=== PATIENT | male | born 1950 | race African-American/Black ===

== ENCOUNTER 2016-11-29 17:09 | Inpatient (IN) | payer OTHER, MEDICARE ==
[~2016-11-29] VITALS: Ht 157.5 cm; Wt 68.9 kg
[~2016-11-29 17:09] MED LIST: UNOBMED
[2016-11-29 19:13] VITALS: BP 81/44
[2016-11-29 19:26] LABS: BASOPHILS % (AUTO) 1.6 % (0.0-2.0); EOSINOPHILS % (AUTO) 0.9 % (0.0-3.0); LYMPHOCYTES % (AUTO) 11.9 % (20.0-45.0); MEAN CORPUSCULAR HEMOGLOBIN 27.6 PG (27.0-31.0); MEAN CORPUSCULAR HGB CONC 31.1 G/DL (32.0-36.0); MEAN CORPUSCULAR VOLUME 89 FL (80-99); MEAN PLATELET VOLUME 5.4 FL (6.5-10.1); MONOCYTES % (AUTO) 10.7 % (1.0-10.0); NEUTROPHILS % (AUTO) 74.9 % (45.0-75.0); PLATELET COUNT 282 K/UL (150-450); RED BLOOD COUNT 4.06 M/UL (4.70-6.10); RED CELL DISTRIBUTION WIDTH 14.4 % (11.6-14.8); WHITE BLOOD COUNT 11.4 K/UL (4.8-10.8)
[2016-11-29 19:39] LABS: INR 1.2 (0.9-1.1); PROTHROMBIN TIME 12.9 SEC (9.30-11.50)
[2016-11-29 19:49] LABS: REFLEX LACTIC ACID YES OR NO YES
[2016-11-29 19:53] LABS: ALANINE AMINOTRANSFERASE 14 U/L (12-78); ALBUMIN/GLOBULIN RATIO 0.6 (1.0-2.7); ANION GAP 9 mmol/L (5-15); ASPARTATE AMINO TRANSFERASE 20 U/L (15-37); CALCIUM 9.4 MG/DL (8.5-10.1); CARBON DIOXIDE 24 MMOL/L (21-32); CHLORIDE 90 MMOL/L (98-107); CREATININE 5.2 MG/DL (0.55-1.30); GLOMERULAR FILTRATION RATE 13.6 mL/min (>60); MAGNESIUM 2.3 MG/DL (1.8-2.4); POTASSIUM 5.1 MMOL/L (3.5-5.1); SODIUM 123 MMOL/L (136-145); TOTAL PROTEIN 7.9 G/DL (6.4-8.2)
[2016-11-29 22:04] LABS: APPEARANCE,URINE SLIGHTLY CLOUDY; KETONES,URINE NEGATIVE (NEGATIVE); LEUKOCYTE ESTERASE ,URINE 3+ (NEGATIVE); NITRITE,URINE NEGATIVE (NEGATIVE); PH,URINE 6 (4.5-8.0); PROTEIN,URINE 2+ (NEGATIVE); UROBILINOGEN,URINE NORMAL MG/DL (0.0-1.0)
[2016-11-29 22:11] LABS: RBC,URINE 20-30 /HPF (0 - 0)
[2016-11-29 22:12] LABS: AMORPHOUS SEDIMENT,UR FEW /LPF; BACTERIA,URINE MODERATE /HPF; WBC,URINE 60-80 /HPF (0 - 0)
[2016-11-29 22:37] VITALS: BP 103/62
--- NOTE | 2016-11-29 22:45 | Emergency Room Report ---
History of Present Illness General Chief Complaint: Generalized Weakness Source: Patient, Family Member, EMS Present Illness HPI This patient is brought in by EMS from home. History is primarily obtained from the who I spoke with on the phone. The patient has a home health nurse has been monitoring him. Apparently, for the past few days the patient has had a low blood pressure. Today the blood pressure was the lowest it has been. Apparently the systolic blood pressure was measured at 60 at home. There 's been no recent illness. There's been no fever or chills. There has had no cough or congestion. Patient denies pain. There no other complaints. Allergies: Coded Allergies: PENICILLINS (Verified Allergy, Intermediate, Hives, 03/29/13) Patient History Past Medical History: see triage record, old chart reviewed, DM, HTN, ID, CAD, asthma Social History: Denies: smoking, alcohol use, drug use Reviewed Nursing Documentation: PMH: Agreed, PSxH: Agreed Nursing Documentation-PMH Hx Cardiac Problems: Yes - ?CHF Hx Hypertension: Yes Hx Asthma: Yes Hx Diabetes: Yes - [place] Review of Systems All Other Systems: negative except mentioned in HPI Physical Exam Vital Signs Date Time Temp Pulse Resp B/P (MAP) Pulse Ox O2 Delivery O2 Flow Rate FiO2 11/29/16 17:03 98.8 60 20 81/44 98 Room Air Sp02 EP Interpretation: reviewed, normal General Appearance: no apparent distress, alert, GCS 15, non-toxic Head: normocephalic, atraumatic Eyes: bilateral eye normal inspection, bilateral eye PERRL ENT: hearing grossly normal, normal pharynx, no angioedema, normal voice Neck: full range of motion, supple/symm/no masses Respiratory: chest non-tender, lungs clear, normal breath sounds, speaking full sentences Cardiovascular #1: no edema, tachycardia Gastrointestinal: normal bowel sounds, non tender, soft, non-distended, no guarding, no rebound Rectal: deferred Musculoskeletal: back normal, non-tender Neurologic: alert, oriented x3, responsive, motor strength/tone normal, speech normal Psychiatric: judgement/insight normal, memory normal, mood/affect normal, no suicidal/homicidal ideation Skin: normal color, no rash, warm/dry, well hydrated Medical Decision Making Diagnostic Impression: Primary Impression: Hypotension Additional Impressions: Renal failure Elevated troponin ER Course This patient presents with hypotension. Possibly this is prerenal. He says also found to be in renal failure with a creatinine of 5.2 and a BUN of 84. The patient's troponin is slightly elevated. I suspect this is related to renal failure. There is no evidence of infection on history physical and laboratory workup. I am unsure of the etiology of the patient's renal failure although possibly dehydration or medication related. Regardless, the patient is admitted for further evaluation and monitoring. The patient was given aggressive IV fluids and did have improvement in his blood pressure to 103/60. The patient is slightly tachycardic in the low 100s. Given the patient's abnormal vital signs and elevated troponin I feel this patient should be admitted to the ICU step down. This patient is critically ill. This patient required complex medical decision- making, aggressive intervention, extensive laboratory workup and monitoring. Critical care time: 40 minutes. Laboratory Tests Test 11/29/16 19:10 11/29/16 21:25 White Blood Count 11.4 K/UL (4.8-10.8) H Red Blood Count 4.06 M/UL (4.70-6.10) L Hemoglobin 11.2 G/DL (14.2-18.0) L Hematocrit 36.1 % (42.0-52.0) L Mean Corpuscular Volume 89 FL (80-99) Mean Corpuscular Hemoglobin 27.6 PG (27.0-31.0) Mean Corpuscular Hemoglobin Concent 31.1 G/DL (32.0-36.0) L Red Cell Distribution Width 14.4 % (11.6-14.8) Platelet Count 282 K/UL (150-450) Mean Platelet Volume 5.4 FL (6.5-10.1) L Neutrophils (%) (Auto) 74.9 % (45.0-75.0) Lymphocytes (%) (Auto) 11.9 % (20.0-45.0) L Monocytes (%) (Auto) 10.7 % (1.0-10.0) H Eosinophils (%) (Auto) 0.9 % (0.0-3.0) Basophils (%) (Auto) 1.6 % (0.0-2.0) Prothrombin Time 12.9 SEC (9.30-11.50) H Prothrombin Time INR 1.2 (0.9-1.1) H PTT 32 SEC (23-33) Sodium Level 123 MMOL/L (136-145) L Potassium Level 5.1 MMOL/L (3.5-5.1) Chloride Level 90 MMOL/L (98-107) L Carbon Dioxide Level 24 MMOL/L (21-32) Anion Gap 9 mmol/L (5-15) Blood Urea Nitrogen 84 mg/dL (7-18) H Creatinine 5.2 MG/DL (0.55-1.30) H Estimate Glomerular Filtration Rate 13.6 mL/min (>60) Glucose Level 108 MG/DL (74-106) H Lactic Acid Level 2.10 mmol/L (0.66-2.22) Calcium Level 9.4 MG/DL (8.5-10.1) Magnesium Level 2.3 MG/DL (1.8-2.4) Total Bilirubin 0.5 MG/DL (0.2-1.0) Aspartate Amino Transferase (AST) 20 U/L (15-37) Alanine Aminotransferase (ALT) 14 U/L (12-78) Alkaline Phosphatase 59 U/L (46-116) Total Creatine Kinase 156 U/L (26-308) Creatine Kinase MB 1.0 NG/ML (0.0-3.6) Creatine Kinase MB Relative Index 0.6 Troponin I 0.075 ng/mL (0.000-0.056) Total Protein 7.9 G/DL (6.4-8.2) Albumin 3.0 G/DL (3.4-5.0) L Globulin 4.9 g/dL Albumin/Globulin Ratio 0.6 (1.0-2.7) L Urine Color Yellow Urine Appearance Slightly cloudy Urine pH 6 (4.5-8.0) Urine Specific [place] 1.010 (1.005-1.035) Urine Protein 2+ (NEGATIVE) H Urine Glucose (UA) Negative (NEGATIVE) Urine Ketones Negative (NEGATIVE) Urine Occult Blood 4+ (NEGATIVE) H Urine Nitrite Negative (NEGATIVE) Urine Bilirubin Negative (NEGATIVE) Urine Urobilinogen Normal MG/DL (0.0-1.0) Urine Leukocyte Esterase 3+ (NEGATIVE) H Urine RBC 20-30 /HPF (0 - 0) H Urine WBC 60-80 /HPF (0 - 0) H Urine Squamous Epithelial Cells None /LPF (NONE/OCC) Urine Amorphous Sediment Few /LPF (NONE) H Urine Bacteria Moderate /HPF (NONE) H EKG Diagnostic Results Rate: normal Rhythm: other ST Segments: no acute changes Other Impression SR w/ 1st degree AV block. Rhythm Strip Diag. Results EP Interpretation: yes Rate: 100's Rhythm: no PVC's, no ectopy, other Other Impression SR w 1st degree AV block Chest X-Ray Diagnostic Results Chest X-Ray Diagnostic Results : Chest X-Ray Ordered: Yes # of Views/Limited/Complete: 1 View Indication: Other EP Interpretation: Yes Interpretation: no consolidation, no effusion, no pneumothorax, no acute cardiopulmonary disease Impression: No acute disease Electronically Signed by: Anita Last Vital Signs Date Time Temp Pulse Resp B/P (MAP) Pulse Ox O2 Delivery O2 Flow Rate FiO2 11/29/16 19:13 98.8 78 20 81/44 98 Room Air Status: improved Disposition: ADMITTED INPATIENT Condition: Critical [facility] ANIKA VILLANUEVA D.O. Nov 29, 2016 22:45
[2016-11-29] MEDS ORDERED: Albuterol/Ipratropium 3ml neb HHN PRN (23:15)
[2016-11-29] MEDS ORDERED: Mylanta II UD 30ml ORAL PRN (23:15)
[2016-11-29] MEDS ORDERED: Zolpidem 5mg tab ORAL PRN (23:15)
[2016-11-29] MEDS ORDERED: Miralax 17gm pkt ORAL PRN (23:15)
[2016-11-29] MEDS ORDERED: Morphine Sulfate 2mg/ml Inj IVP PRN (23:15)
[2016-11-29] MEDS ORDERED: cefTRIAXone 1 GM in D5W 55 ML IVPB ONE (23:15)
[2016-11-29] MEDS ORDERED: ENALAPRIL MALEA10 MG ORAL (23:32)
[2016-11-29] MEDS ORDERED: METOPROLOL SUCC25 MG ORAL (23:32)
[2016-11-29] MEDS ORDERED: GABAPENTIN300 MG ORAL (23:32)
[2016-11-29] MEDS ORDERED: FUROSEMIDE40 MG ORAL (23:32)
[2016-11-29] MEDS ORDERED: insulin (23:32)
[2016-11-29] MEDS ORDERED: FLOMAX0.4 MG ORAL (23:32)
[2016-11-29] MEDS ORDERED: SOLU-MEDROL500 MG IV (23:32)
[2016-11-29] MEDS ORDERED: PROSCAR5 MG ORAL (23:32)
[2016-11-29] MEDS ORDERED: OMEPRAZOLE20 M2 ORAL (23:32)
[2016-11-29] MEDS ORDERED: eye drops (23:32)
[2016-11-29] MEDS ORDERED: POTASSIUM CHLO20 ME2 ORAL (23:32)
[2016-11-30] VITALS: BP 101/56
[2016-11-30] MEDS ORDERED: D5NS 1,000 ML IV SCH (02:15)
[2016-11-30 04:00] VITALS: BP 104/51
[2016-11-30] MEDS: NovoLOG Insulin Flexpen SUBQ SCH ×4 (05:43→21:35)
[2016-11-30 06:02] LABS: EOSINOPHILS % (AUTO) 2.2 % (0.0-3.0); LYMPHOCYTES % (AUTO) 13.4 % (20.0-45.0); MEAN CORPUSCULAR HEMOGLOBIN 29.5 PG (27.0-31.0); MEAN CORPUSCULAR HGB CONC 33.5 G/DL (32.0-36.0); MEAN CORPUSCULAR VOLUME 88 FL (80-99); MEAN PLATELET VOLUME 5.7 FL (6.5-10.1); MONOCYTES % (AUTO) 11.2 % (1.0-10.0); NEUTROPHILS % (AUTO) 72.2 % (45.0-75.0); PLATELET COUNT 275 K/UL (150-450); RED BLOOD COUNT 4.37 M/UL (4.70-6.10); RED CELL DISTRIBUTION WIDTH 14.7 % (11.6-14.8); WHITE BLOOD COUNT 8.5 K/UL (4.8-10.8)
[2016-11-30 06:42] LABS: ALANINE AMINOTRANSFERASE 11 U/L (12-78); ALBUMIN/GLOBULIN RATIO 0.6 (1.0-2.7); ANION GAP 10 mmol/L (5-15); ASPARTATE AMINO TRANSFERASE 27 U/L (15-37); CALCIUM 9.2 MG/DL (8.5-10.1); CARBON DIOXIDE 24 MMOL/L (21-32); CHLORIDE 95 MMOL/L (98-107); CHOLESTEROL 166 MG/DL (< 200); CHOLESTEROL/HDL RATIO 5.2 (3.3-4.4); CREATININE 3.8 MG/DL (0.55-1.30); GLOMERULAR FILTRATION RATE 19.4 mL/min (>60); POTASSIUM 4.4 MMOL/L (3.5-5.1); SODIUM 129 MMOL/L (136-145); THYROID STIMULATING HORMONE 0.914 uiU/mL (0.360-3.740); TOTAL PROTEIN 7.7 G/DL (6.4-8.2)
[2016-11-30 08:00] VITALS: BP 89/47
[2016-11-30] MEDS: Heparin 5000 units/ml inj SUBQ SCH ×2 (09:27→21:32)
--- NOTE | 2016-11-30 10:17 | History and Physical ---
History of Present Illness General Date patient seen: Nov 29, 2016 Reason for Hospitalization: Generalized Weakness Present Illness HPI 55 year old male with hx of DM, HTN. Left AKA, brought in by EMS from home for a low blood pressure. Today the blood pressure was the lowest it has been. Apparently the systolic blood pressure was measured at 60 at home. There's been no recent illness. There's been no fever or chills. There has had no cough or congestion. Patient denies pain. There no other complaints. Pts was found in renal failure and his troponin was high. He is admitted to [facility] for further evaluation. Pt doesn't know why he is here. Allergies: Coded Allergies: PENICILLINS (Verified Allergy, Intermediate, Hives, 03/29/13) Medication History Scheduled Enalapril Maleate* (Enalapril Maleate*), 10 MG ORAL EVERY 12 HOURS, (Reported) Finasteride* (Proscar*), 5 MG ORAL DAILY, (Reported) Furosemide* (Lasix*), 40 MG ORAL DAILY, (Reported) Gabapentin* (Gabapentin*), 300 MG ORAL THREE TIMES A DAY, (Reported) Metoprolol Succinate* (Metoprolol Succinate*), 5 MG ORAL DAILY, (Reported) Omeprazole (Omeprazole), 20 MG ORAL DAILY, (Reported) Potassium Chloride (Potassium Chloride), 20 MEQ ORAL DAILY, (Reported) Tamsulosin HCl (Flomax), 0.4 MG ORAL DAILY, (Reported) Miscellaneous Medications Methylprednisolone Sod Succ (Solu-Medrol), Unknown Dose IV, (Reported) Unable to Obtain Medications (Unable To Obtain Meds), (Reported) [eye drops], (Reported) [insulin], (Reported) Patient History Healthcare decision maker Resuscitation status Full Code Advanced Directive on File Past Medical/Surgical History Past Medical/Surgical History: (1) HTN (hypertension) (2) Diabetes mellitus (3) S/P AKA (above knee amputation) unilateral Review of Systems All Other Systems: negative except mentioned in HPI Physical Exam General Appearance: cachetic Lines, tubes and drains: peripheral HEENT: normocephalic, atraumatic Neck: non-tender, normal alignment Respiratory/Chest: chest wall non-tender, lungs clear Breasts: no masses Cardiovascular/Chest: normal rate Abdomen: normal bowel sounds, non tender Genitourinary/Rectal: normal genital exam Extremities: normal range of motion Skin Exam: normal pigmentation Neurologic: control chemist II-XII grossly normal Last 24 Hour Vital Signs Date Time Temp Pulse Resp B/P (MAP) Pulse Ox O2 Delivery O2 Flow Rate FiO2 11/30/16 08:00 96.6 98 20 89/47 97 Room Air 11/30/16 04:00 98.0 101 18 104/51 97 Room Air 11/30/16 04:00 102 11/30/16 00:00 98.0 102 18 101/56 97 Room Air 11/29/16 23:35 98.8 110 23 103/62 98 Room Air 11/29/16 22:37 98.8 110 23 103/62 98 Room Air 11/29/16 19:13 98.8 78 20 81/44 98 Room Air 11/29/16 17:03 98.8 60 20 81/44 98 Room Air Laboratory Tests Test 11/29/16 19:10 11/29/16 19:49 11/29/16 21:25 11/29/16 21:30 White Blood Count 11.4 K/UL (4.8-10.8) H Red Blood Count 4.06 M/UL (4.70-6.10) L Hemoglobin 11.2 G/DL (14.2-18.0) L Hematocrit 36.1 % (42.0-52.0) L Mean Corpuscular Volume 89 FL (80-99) Mean Corpuscular Hemoglobin 27.6 PG (27.0-31.0) Mean Corpuscular Hemoglobin Concent 31.1 G/DL (32.0-36.0) L Red Cell Distribution Width 14.4 % (11.6-14.8) Platelet Count 282 K/UL (150-450) Mean Platelet Volume 5.4 FL (6.5-10.1) L Neutrophils (%) (Auto) 74.9 % (45.0-75.0) Lymphocytes (%) (Auto) 11.9 % (20.0-45.0) L Monocytes (%) (Auto) 10.7 % (1.0-10.0) H Eosinophils (%) (Auto) 0.9 % (0.0-3.0) Basophils (%) (Auto) 1.6 % (0.0-2.0) Prothrombin Time 12.9 SEC (9.30-11.50) H Prothromb Time International Ratio 1.2 (0.9-1.1) H Activated Partial Thromboplast Time 32 SEC (23-33) Sodium Level 123 MMOL/L (136-145) L Potassium Level 5.1 MMOL/L (3.5-5.1) Chloride Level 90 MMOL/L (98-107) L Carbon Dioxide Level 24 MMOL/L (21-32) Anion Gap 9 mmol/L (5-15) Blood Urea Nitrogen 84 mg/dL (7-18) H Creatinine 5.2 MG/DL (0.55-1.30) H Estimat Glomerular Filtration Rate 13.6 mL/min (>60) Glucose Level 108 MG/DL (74-106) H Lactic Acid Level 2.10 mmol/L (0.66-2.22) Calcium Level 9.4 MG/DL (8.5-10.1) Magnesium Level 2.3 MG/DL (1.8-2.4) Total Bilirubin 0.5 MG/DL (0.2-1.0) Aspartate Amino Transf (AST/SGOT) 20 U/L (15-37) Alanine Aminotransferase (ALT/SGPT) 14 U/L (12-78) Alkaline Phosphatase 59 U/L (46-116) Total Creatine Kinase 156 U/L (26-308) Creatine Kinase MB 1.0 NG/ML (0.0-3.6) Creatine Kinase MB Relative Index 0.6 Troponin I 0.075 ng/mL (0.000-0.056) Total Protein 7.9 G/DL (6.4-8.2) Albumin 3.0 G/DL (3.4-5.0) L Globulin 4.9 g/dL Albumin/Globulin Ratio 0.6 (1.0-2.7) L Uric Acid 9.6 MG/DL (2.6-7.2) H Urine Color Yellow Urine Appearance Slightly cloudy Urine pH 6 (4.5-8.0) Urine Specific [place] 1.010 (1.005-1.035) Urine Protein 2+ (NEGATIVE) H Urine Glucose (UA) Negative (NEGATIVE) Urine Ketones Negative (NEGATIVE) Urine Occult Blood 4+ (NEGATIVE) H Urine Nitrite Negative (NEGATIVE) Urine Bilirubin Negative (NEGATIVE) Urine Urobilinogen Normal MG/DL (0.0-1.0) Urine Leukocyte Esterase 3+ (NEGATIVE) H Urine RBC 20-30 /HPF (0 - 0) H Urine WBC 60-80 /HPF (0 - 0) H Urine Squamous Epithelial Cells None /LPF (NONE/OCC) Urine Amorphous Sediment Few /LPF (NONE) H Urine Bacteria Moderate /HPF (NONE) H Urine Eosinophils Positive Urine Random Sodium 44 MEQ/L (20-110) Urine Potassium Timed 34 mmol/L (12-62) Test 11/30/16 03:45 White Blood Count 8.5 K/UL (4.8-10.8) Red Blood Count 4.37 M/UL (4.70-6.10) L Hemoglobin 12.9 G/DL (14.2-18.0) L Hematocrit 38.5 % (42.0-52.0) L Mean Corpuscular Volume 88 FL (80-99) Mean Corpuscular Hemoglobin 29.5 PG (27.0-31.0) Mean Corpuscular Hemoglobin Concent 33.5 G/DL (32.0-36.0) Red Cell Distribution Width 14.7 % (11.6-14.8) Platelet Count 275 K/UL (150-450) Mean Platelet Volume 5.7 FL (6.5-10.1) L Neutrophils (%) (Auto) 72.2 % (45.0-75.0) Lymphocytes (%) (Auto) 13.4 % (20.0-45.0) L Monocytes (%) (Auto) 11.2 % (1.0-10.0) H Eosinophils (%) (Auto) 2.2 % (0.0-3.0) Basophils (%) (Auto) 1.0 % (0.0-2.0) Sodium Level 129 MMOL/L (136-145) L Potassium Level 4.4 MMOL/L (3.5-5.1) Chloride Level 95 MMOL/L (98-107) L Carbon Dioxide Level 24 MMOL/L (21-32) Anion Gap 10 mmol/L (5-15) Blood Urea Nitrogen 69 mg/dL (7-18) H Creatinine 3.8 MG/DL (0.55-1.30) H Estimat Glomerular Filtration Rate 19.4 mL/min (>60) Glucose Level 135 MG/DL (74-106) H Hemoglobin A1c 12.0 % (4.3-6.0) H Calcium Level 9.2 MG/DL (8.5-10.1) Total Bilirubin 0.5 MG/DL (0.2-1.0) Aspartate Amino Transf (AST/SGOT) 27 U/L (15-37) Alanine Aminotransferase (ALT/SGPT) 11 U/L (12-78) L Alkaline Phosphatase 61 U/L (46-116) Troponin I 0.546 ng/mL (0.000-0.056) Total Protein 7.7 G/DL (6.4-8.2) Albumin 2.8 G/DL (3.4-5.0) L Globulin 4.9 g/dL Albumin/Globulin Ratio 0.6 (1.0-2.7) L Triglycerides Level 112 MG/DL (0-200) Cholesterol Level 166 MG/DL (< 200) LDL Cholesterol 123 mg/dL (<100) H HDL Cholesterol 32 MG/DL (40-60) L Cholesterol/HDL Ratio 5.2 (3.3-4.4) H Thyroid Stimulating Hormone (TSH) 0.914 uiU/mL (0.360-3.740) Height (Feet): 5 Height (Inches): 2.00 Weight (Pounds): 152 Medications Current Medications Medications (Trade) Dose Ordered Sig/Sudha Route PRN Reason Start Time Stop Time Status Last Admin Dose Admin Acetaminophen (Tylenol) 650 mg Q4H PRN ORAL fever 11/29/16 23:15 12/29/16 23:14 Al Hydroxide/Mg Hydroxide (Mylanta II) 30 ml Q6H PRN ORAL dyspepsia 11/29/16 23:15 12/29/16 23:14 Albuterol/ Ipratropium (DuoNeb 0.5-3(2.5)mg/3ml) 3 ml Q6HRT PRN HHN dyspnea 11/29/16 23:15 12/04/16 23:14 Clonidine HCl (Catapres) 0.1 mg Q4H PRN ORAL For High Blood Pressure 11/29/16 23:15 12/29/16 23:14 Dextrose (Dextrose 50%) STAT PRN IV Hypoglycemia 11/29/16 23:15 12/29/16 23:14 Dextrose/Sodium Chloride 1,000 ml @ 75 mls/hr [id number] IV 11/30/16 02:15 12/30/16 02:14 11/30/16 03:06 Furosemide (Lasix) 100 mg EVERY 8 HOURS PRN IV dyspnea 11/29/16 23:15 12/29/16 23:14 Heparin Sodium (Porcine) (Heparin 5000 units/ml) 5,000 units EVERY 12 HOURS SUBQ 11/30/16 09:00 12/30/16 08:59 11/30/16 09:27 Insulin Aspart (NovoLOG) BEFORE MEALS AND HS SUBQ 11/30/16 06:30 12/30/16 06:29 11/30/16 05:43 Morphine Sulfate (Morphine Sulfate) 1 mg EVERY 4 HOURS PRN IVP For Pain 11/29/16 23:15 12/06/16 23:14 Ondansetron HCl (Zofran) 4 mg Q6H PRN IVP Nausea & Vomiting 11/29/16 23:15 12/29/16 23:14 Polyethylene Glycol (Miralax) 17 gm HSPRN PRN ORAL Constipation 11/29/16 23:15 12/29/16 23:14 Zolpidem Tartrate (Ambien) 5 mg HSPRN PRN ORAL Insomnia 11/29/16 23:15 12/06/16 23:14 Assessment/Plan Problem List: (1) Hypoglycemia ICD Codes: E16.2 - Hypoglycemia SNOMED: 690648877 (2) Acute encephalopathy ICD Codes: G93.40 - Encephalopathy, unspecified SNOMED: 3559712 (3) Sepsis ICD Codes: A41.9 - Sepsis, unspecified organism SNOMED: 23257793 (4) Non-ST elevation (NSTEMI) myocardial infarction ICD Codes: I21.4 - Non-ST elevation (NSTEMI) myocardial infarction SNOMED: 909220355 (5) Altered level of consciousness (6) Diabetes mellitus ICD Codes: E11.9 - Type 2 diabetes mellitus without complications SNOMED: 16351949 (7) HTN (hypertension) ICD Codes: I10 - Essential (primary) hypertension SNOMED: 55720196 Assessment/Plan IV fluids renal evaluation cardiac evaluation 2d echo renal US check urine and serum electrolytes diabetic diet ALESHA BARRETT Nov 30, 2016 10:17
--- NOTE | 2016-11-30 10:21 | Pulmonology Progress Note ---
Assessment/Plan Problems: (1) Hypoglycemia (2) Acute encephalopathy (3) Sepsis (4) Non-ST elevation (NSTEMI) myocardial infarction (5) Diabetes mellitus (6) HTN (hypertension) Assessment/Plan increase iv fluids BP borderline check electrolytes check echo cardio, renal, ID evaluation pending Subjective ROS Limited/Unobtainable: No Constitutional: Reports: no symptoms HEENT: Repors: no symptoms Respiratory: Reports: no symptoms Allergies: Coded Allergies: PENICILLINS (Verified Allergy, Intermediate, Hives, 03/29/13) Objective Last 24 Hour Vital Signs Date Time Temp Pulse Resp B/P (MAP) Pulse Ox O2 Delivery O2 Flow Rate FiO2 11/30/16 08:00 96.6 98 20 89/47 97 Room Air 11/30/16 07:00 72 18 Room Air 21 11/30/16 04:00 98.0 101 18 104/51 97 Room Air 11/30/16 04:00 102 11/30/16 00:00 98.0 102 18 101/56 97 Room Air 11/29/16 23:35 98.8 110 23 103/62 98 Room Air 11/29/16 22:37 98.8 110 23 103/62 98 Room Air 11/29/16 19:13 98.8 78 20 81/44 98 Room Air 11/29/16 17:03 98.8 60 20 81/44 98 Room Air General Appearance: WD/WN HEENT: normocephalic, atraumatic Respiratory/Chest: chest wall non-tender, lungs clear Cardiovascular: normal peripheral pulses, normal rate Abdomen: normal bowel sounds, soft, non tender Genitourinary: normal external genitalia Extremities: no clubbing Skin: no rash, no ulcers Neurologic/Psychiatric: [place] man II-XII grossly normal, abnormal gait Lymphatic: no groin adenopathy Laboratory Tests 11/29/16 19:10: White Blood Count 11.4H, Red Blood Count 4.06L, Hemoglobin 11.2L, Hematocrit 36.1L, Mean Corpuscular Volume 89, Mean Corpuscular Hemoglobin 27.6, Mean Corpuscular Hemoglobin Concent 31.1L, Red Cell Distribution Width 14.4, Platelet Count 282, Mean Platelet Volume 5.4L, Neutrophils (%) (Auto) 74.9, Lymphocytes (%) (Auto) 11.9L, Monocytes (%) (Auto) 10.7H, Eosinophils (%) (Auto ) 0.9, Basophils (%) (Auto) 1.6, Prothrombin Time 12.9H, Prothromb Time International Ratio 1.2H, Activated Partial Thromboplast Time 32, Sodium Level 123L, Potassium Level 5.1, Chloride Level 90L, Carbon Dioxide Level 24, Anion Gap 9, Blood Urea Nitrogen 84H, Creatinine 5.2H, Estimat Glomerular Filtration Rate 13.6, Glucose Level 108H, Lactic Acid Level 2.10, Calcium Level 9.4, Magnesium Level 2.3, Total Bilirubin 0.5, Aspartate Amino Transf (AST/SGOT) 20, Alanine Aminotransferase (ALT/SGPT) 14, Alkaline Phosphatase 59, Total Creatine Kinase 156, Creatine Kinase MB 1.0, Creatine Kinase MB Relative Index 0.6, Troponin I 0.075H, Total Protein 7.9, Albumin 3.0L, Globulin 4.9, Albumin/ Globulin Ratio 0.6L 11/29/16 19:49: Uric Acid 9.6H 11/29/16 21:25: Urine Color Yellow, Urine Appearance Slightly cloudy, Urine pH 6, Urine Specific [place] 1.010, Urine Protein 2+H, Urine Glucose (UA) Negative, Urine Ketones Negative, Urine Occult Blood 4+H, Urine Nitrite Negative, Urine Bilirubin Negative, Urine Urobilinogen Normal, Urine Leukocyte Esterase 3+H, Urine RBC 20-30H, Urine WBC 60-80H, Urine Squamous Epithelial Cells None, Urine Amorphous Sediment FewH, Urine Bacteria ModerateH 11/29/16 21:30: Urine Eosinophils Positive, Urine Random Sodium 44, Urine Potassium Timed 34 11/30/16 03:45: White Blood Count 8.5, Red Blood Count 4.37L, Hemoglobin 12.9L, Hematocrit 38.5L , Mean Corpuscular Volume 88, Mean Corpuscular Hemoglobin 29.5, Mean Corpuscular Hemoglobin Concent 33.5, Red Cell Distribution Width 14.7, Platelet Count 275, Mean Platelet Volume 5.7L, Neutrophils (%) (Auto) 72.2, Lymphocytes ( %) (Auto) 13.4L, Monocytes (%) (Auto) 11.2H, Eosinophils (%) (Auto) 2.2, Basophils (%) (Auto) 1.0, Sodium Level [Pending], Potassium Level [Pending], Chloride Level [Pending], Carbon Dioxide Level [Pending], Anion Gap 10, Blood Urea Nitrogen [Pending], Creatinine [Pending], Estimat Glomerular Filtration Rate [Pending], Glucose Level [Pending], Hemoglobin A1c 12.0H, Uric Acid [ Pending], Calcium Level [Pending], Total Bilirubin [Pending], Aspartate Amino Transf (AST/SGOT) [Pending], Alanine Aminotransferase (ALT/SGPT) [Pending], Alkaline Phosphatase [Pending], Total Creatine Kinase [Pending], Troponin I 0.546H, Total Protein [Pending], Albumin [Pending], Globulin [Pending], Albumin/ Globulin Ratio 0.6L, Triglycerides Level 112, Cholesterol Level 166, LDL Cholesterol 123H, HDL Cholesterol 32L, Cholesterol/HDL Ratio 5.2H, Thyroid Stimulating Hormone (TSH) 0.914 Current Medications Medications (Trade) Dose Ordered Sig/Sudha Route PRN Reason Start Time Stop Time Status Last Admin Dose Admin Acetaminophen (Tylenol) 650 mg Q4H PRN ORAL fever 11/29/16 23:15 12/29/16 23:14 Al Hydroxide/Mg Hydroxide (Mylanta II) 30 ml Q6H PRN ORAL dyspepsia 11/29/16 23:15 12/29/16 23:14 Albuterol/ Ipratropium (DuoNeb 0.5-3(2.5)mg/3ml) 3 ml Q6HRT PRN HHN dyspnea 11/29/16 23:15 12/04/16 23:14 Aztreonam 0.5 gm/ Dextrose 55 ml @ 110 mls/hr Q8HR IVPB 11/30/16 22:00 12/07/16 21:59 Aztreonam 1 gm/ Sodium Chloride 50 ml @ 100 mls/hr ONCE ONCE IVPB 11/30/16 11:30 11/30/16 11:59 Clonidine HCl (Catapres) 0.1 mg Q4H PRN ORAL For High Blood Pressure 11/29/16 23:15 12/29/16 23:14 Dextrose (Dextrose 50%) STAT PRN IV Hypoglycemia 11/29/16 23:15 12/29/16 23:14 Dextrose/Sodium Chloride 1,000 ml @ 200 mls/hr Q5H IV 12/01/16 11:00 12/31/16 10:59 Furosemide (Lasix) 100 mg EVERY 8 HOURS PRN IV dyspnea 11/29/16 23:15 12/29/16 23:14 Heparin Sodium (Porcine) (Heparin 5000 units/ml) 5,000 units EVERY 12 HOURS SUBQ 11/30/16 09:00 12/30/16 08:59 11/30/16 09:27 Insulin Aspart (NovoLOG) BEFORE MEALS AND HS SUBQ 11/30/16 06:30 12/30/16 06:29 11/30/16 05:43 Morphine Sulfate (Morphine Sulfate) 1 mg EVERY 4 HOURS PRN IVP For Pain 11/29/16 23:15 12/06/16 23:14 Ondansetron HCl (Zofran) 4 mg Q6H PRN IVP Nausea & Vomiting 11/29/16 23:15 12/29/16 23:14 Polyethylene Glycol (Miralax) 17 gm HSPRN PRN ORAL Constipation 11/29/16 23:15 12/29/16 23:14 Zolpidem Tartrate (Ambien) 5 mg HSPRN PRN ORAL Insomnia 11/29/16 23:15 12/06/16 23:14 ALESHA BARRETT Nov 30, 2016 10:21
[2016-11-30 10:33] LABS: ALANINE AMINOTRANSFERASE 13 U/L (12-78); ALBUMIN/GLOBULIN RATIO 0.6 (1.0-2.7); ANION GAP 14 mmol/L (5-15); ASPARTATE AMINO TRANSFERASE 25 U/L (15-37); CALCIUM 9.2 MG/DL (8.5-10.1); CARBON DIOXIDE 22 MMOL/L (21-32); CHLORIDE 96 MMOL/L (98-107); CREATININE 3.8 MG/DL (0.55-1.30); GLOMERULAR FILTRATION RATE 19.4 mL/min (>60); POTASSIUM 4.5 MMOL/L (3.5-5.1); SODIUM 131 MMOL/L (136-145); TOTAL PROTEIN 7.3 G/DL (6.4-8.2)
--- NOTE | 2016-11-30 10:48 | Consultation ---
Consult Note Consult Note ID CONSULT: Dict# [id number] Assessment/Plan ASSESSMENT: 66 y/o male with: // Probable UTI - UCx pending // Leukocytosis, mild - resolved, afebrile ( NSTEMI contributing ) // NSTEMI - peak trop 0.546 - TTE: pending // Hypotension r/o septic vs cardiogenic // ARF - improved // Hyponatremia / electrolyte imbalance // DM2, uncontrolled - HbA1c 12% // PCN allergy // Full Code PLAN: - continue empiric aztreonam d# 1 pending cultures - f/u cultures - f/u TTE - f/u CXR - monitor CBC, temperatures - monitor BMP Thanks! Will follow LUCINDA CHÁVEZ Nov 30, 2016 10:48
[2016-11-30 10:51] LABS: URIC ACID 8.4 MG/DL (2.6-7.2)
[2016-11-30 10:53] LABS: APPEARANCE,URINE SLIGHTLY CLOUDY; KETONES,URINE NEGATIVE (NEGATIVE); LEUKOCYTE ESTERASE ,URINE 3+ (NEGATIVE); NITRITE,URINE NEGATIVE (NEGATIVE); PH,URINE 6.5 (4.5-8.0); PROTEIN,URINE NEGATIVE (NEGATIVE); UROBILINOGEN,URINE NORMAL MG/DL (0.0-1.0)
[2016-11-30 11:17] LABS: BACTERIA,URINE FEW /HPF; SQUAMOUS EPITHELIAL CELL,UR FEW /LPF (NONE/OCC); WBC,URINE 30-40 /HPF (0 - 0)
[2016-11-30] MEDS ORDERED: Aztreonam Inj 1 GM in NS 50 ML IVPB ONE (11:30)
[2016-11-30 12:00] VITALS: BP 98/70
--- NOTE | 2016-11-30 12:58 | Diagnostic Imaging Report ---
Indication: Dyspnea Comparison: 06/01/15 A single view chest radiograph was obtained. Findings: Cardiomediastinal appearance is within normal limits for age. Pulmonary vascularity is appropriate. The diaphragmatic contour is smooth and costophrenic angles are sharp. No pleural effusions are identified. The bones are osteopenic. Impression: No acute findings
--- NOTE | 2016-11-30 13:04 | Consultation ---
Consult Note Consult Note asked to eval for renal failure This patient is brought in by EMS from home. History is primarily obtained from the who I spoke with on the phone. The patient has a home health nurse has been monitoring him. Apparently, for the past few days the patient has had a low blood pressure. Today the blood pressure was the lowest it has been. Apparently the systolic blood pressure was measured at 60 at home. There 's been no recent illness. There's been no fever or chills. There has had no cough or congestion. Patient denies pain. There no other complaints. Allergies: PENICILLINS (Verified Allergy, Intermediate, Hives, 03/29/13) Hx Cardiac Problems: Yes - ?CHF Hx Hypertension: Yes Hx Asthma: Yes Hx Diabetes: Yes - TIMIA Interviewed, examined- data reviewed Assessment/Plan Renal failure, likely chronic due to DM and HTN. May have superimposed acute component. Presented with Low BP- Cardiogenic vs Sepsis. 1) Hypoglycemia (2) Acute encephalopathy (3) Sepsis (4) Non-ST elevation (NSTEMI) myocardial infarction (5) Diabetes mellitus (6) HTN (hypertension) Plan; [facility] kidney- 2D echo Urine studies- Keep BP and BS in check Avoid nephrotoxics Per orders JAYDEN ELAM Nov 30, 2016 13:04
--- NOTE | 2016-11-30 14:26 | Cardiology Progress Note ---
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 [id number] Objective Last 24 Hour Vital Signs Date Time Temp Pulse Resp B/P (MAP) Pulse Ox O2 Delivery O2 Flow Rate FiO2 11/30/16 12:00 97.9 103 21 98/70 98 Room Air 11/30/16 08:00 98 11/30/16 08:00 96.6 98 20 89/47 97 Room Air 11/30/16 07:00 72 18 Room Air 21 11/30/16 04:00 98.0 101 18 104/51 97 Room Air 11/30/16 04:00 102 11/30/16 00:00 98.0 102 18 101/56 97 Room Air 11/29/16 23:35 98.8 110 23 103/62 98 Room Air 11/29/16 22:37 98.8 110 23 103/62 98 Room Air 11/29/16 19:13 98.8 78 20 81/44 98 Room Air 11/29/16 17:03 98.8 60 20 81/44 98 Room Air Intake and Output 11/30/16 12/01/16 19:00 07:00 Intake Total 120 ml Balance 120 ml Intake Oral 120 ml # Voids 2 Laboratory Tests Test 11/29/16 19:10 11/29/16 19:49 11/29/16 21:25 11/29/16 21:30 White Blood Count 11.4 K/UL (4.8-10.8) H Red Blood Count 4.06 M/UL (4.70-6.10) L Hemoglobin 11.2 G/DL (14.2-18.0) L Hematocrit 36.1 % (42.0-52.0) L Mean Corpuscular Volume 89 FL (80-99) Mean Corpuscular Hemoglobin 27.6 PG (27.0-31.0) Mean Corpuscular Hemoglobin Concent 31.1 G/DL (32.0-36.0) L Red Cell Distribution Width 14.4 % (11.6-14.8) Platelet Count 282 K/UL (150-450) Mean Platelet Volume 5.4 FL (6.5-10.1) L Neutrophils (%) (Auto) 74.9 % (45.0-75.0) Lymphocytes (%) (Auto) 11.9 % (20.0-45.0) L Monocytes (%) (Auto) 10.7 % (1.0-10.0) H Eosinophils (%) (Auto) 0.9 % (0.0-3.0) Basophils (%) (Auto) 1.6 % (0.0-2.0) Prothrombin Time 12.9 SEC (9.30-11.50) H Prothromb Time International Ratio 1.2 (0.9-1.1) H Activated Partial Thromboplast Time 32 SEC (23-33) Sodium Level 123 MMOL/L (136-145) L Potassium Level 5.1 MMOL/L (3.5-5.1) Chloride Level 90 MMOL/L (98-107) L Carbon Dioxide Level 24 MMOL/L (21-32) Anion Gap 9 mmol/L (5-15) Blood Urea Nitrogen 84 mg/dL (7-18) H Creatinine 5.2 MG/DL (0.55-1.30) H Estimat Glomerular Filtration Rate 13.6 mL/min (>60) Glucose Level 108 MG/DL (74-106) H Lactic Acid Level 2.10 mmol/L (0.66-2.22) Calcium Level 9.4 MG/DL (8.5-10.1) Magnesium Level 2.3 MG/DL (1.8-2.4) Total Bilirubin 0.5 MG/DL (0.2-1.0) Aspartate Amino Transf (AST/SGOT) 20 U/L (15-37) Alanine Aminotransferase (ALT/SGPT) 14 U/L (12-78) Alkaline Phosphatase 59 U/L (46-116) Total Creatine Kinase 156 U/L (26-308) Creatine Kinase MB 1.0 NG/ML (0.0-3.6) Creatine Kinase MB Relative Index 0.6 Troponin I 0.075 ng/mL (0.000-0.056) Total Protein 7.9 G/DL (6.4-8.2) Albumin 3.0 G/DL (3.4-5.0) L Globulin 4.9 g/dL Albumin/Globulin Ratio 0.6 (1.0-2.7) L Uric Acid 9.6 MG/DL (2.6-7.2) H Urine Color Yellow Urine Appearance Slightly cloudy Urine pH 6 (4.5-8.0) Urine Specific Victor 1.010 (1.005-1.035) Urine Protein 2+ (NEGATIVE) H Urine Glucose (UA) Negative (NEGATIVE) Urine Ketones Negative (NEGATIVE) Urine Occult Blood 4+ (NEGATIVE) H Urine Nitrite Negative (NEGATIVE) Urine Bilirubin Negative (NEGATIVE) Urine Urobilinogen Normal MG/DL (0.0-1.0) Urine Leukocyte Esterase 3+ (NEGATIVE) H Urine RBC 20-30 /HPF (0 - 0) H Urine WBC 60-80 /HPF (0 - 0) H Urine Squamous Epithelial Cells None /LPF (NONE/OCC) Urine Amorphous Sediment Few /LPF (NONE) H Urine Bacteria Moderate /HPF (NONE) H Urine Eosinophils Positive Urine Random Sodium 44 MEQ/L (20-110) Urine Potassium Timed 34 mmol/L (12-62) Test 11/30/16 03:45 11/30/16 10:30 White Blood Count 8.5 K/UL (4.8-10.8) Red Blood Count 4.37 M/UL (4.70-6.10) L Hemoglobin 12.9 G/DL (14.2-18.0) L Hematocrit 38.5 % (42.0-52.0) L Mean Corpuscular Volume 88 FL (80-99) Mean Corpuscular Hemoglobin 29.5 PG (27.0-31.0) Mean Corpuscular Hemoglobin Concent 33.5 G/DL (32.0-36.0) Red Cell Distribution Width 14.7 % (11.6-14.8) Platelet Count 275 K/UL (150-450) Mean Platelet Volume 5.7 FL (6.5-10.1) L Neutrophils (%) (Auto) 72.2 % (45.0-75.0) Lymphocytes (%) (Auto) 13.4 % (20.0-45.0) L Monocytes (%) (Auto) 11.2 % (1.0-10.0) H Eosinophils (%) (Auto) 2.2 % (0.0-3.0) Basophils (%) (Auto) 1.0 % (0.0-2.0) Sodium Level 131 MMOL/L (136-145) L Potassium Level 4.5 MMOL/L (3.5-5.1) Chloride Level 96 MMOL/L (98-107) L Carbon Dioxide Level 22 MMOL/L (21-32) Anion Gap 14 mmol/L (5-15) Blood Urea Nitrogen 69 mg/dL (7-18) H Creatinine 3.8 MG/DL (0.55-1.30) H Estimat Glomerular Filtration Rate 19.4 mL/min (>60) Glucose Level 130 MG/DL (74-106) H Hemoglobin A1c 12.0 % (4.3-6.0) H Uric Acid 8.4 MG/DL (2.6-7.2) H Calcium Level 9.2 MG/DL (8.5-10.1) Total Bilirubin 0.5 MG/DL (0.2-1.0) Aspartate Amino Transf (AST/SGOT) 25 U/L (15-37) Alanine Aminotransferase (ALT/SGPT) 13 U/L (12-78) Alkaline Phosphatase 59 U/L (46-116) Total Creatine Kinase 185 U/L (26-308) Troponin I 0.546 ng/mL (0.000-0.056) Total Protein 7.3 G/DL (6.4-8.2) Albumin 2.8 G/DL (3.4-5.0) L Globulin 4.5 g/dL Albumin/Globulin Ratio 0.6 (1.0-2.7) L Triglycerides Level 112 MG/DL (0-200) Cholesterol Level 166 MG/DL (< 200) LDL Cholesterol 123 mg/dL (<100) H HDL Cholesterol 32 MG/DL (40-60) L Cholesterol/HDL Ratio 5.2 (3.3-4.4) H Thyroid Stimulating Hormone (TSH) 0.914 uiU/mL (0.360-3.740) Urine Color Pale yellow Urine Appearance Slightly cloudy Urine pH 6.5 (4.5-8.0) Urine Specific Victor 1.005 (1.005-1.035) Urine Protein Negative (NEGATIVE) Urine Glucose (UA) 1+ (NEGATIVE) H Urine Ketones Negative (NEGATIVE) Urine Occult Blood 2+ (NEGATIVE) H Urine Nitrite Negative (NEGATIVE) Urine Bilirubin Negative (NEGATIVE) Urine Urobilinogen Normal MG/DL (0.0-1.0) Urine Leukocyte Esterase 3+ (NEGATIVE) H Urine RBC 2-4 /HPF (0 - 0) H Urine WBC 30-40 /HPF (0 - 0) H Urine Squamous Epithelial Cells Few /LPF (NONE/OCC) Urine Bacteria Few /HPF (NONE) Urine Eosinophils Occasional Urine Random Sodium 72 MEQ/L (20-110) Urine Potassium Timed 13 mmol/L (12-62) ORTEGA OLIVERA Nov 30, 2016 14:26
[2016-11-30] MEDS: D5NS 1,000 ML IV SCH (15:01)
[2016-11-30 16:00] VITALS: BP 107/62
--- NOTE | 2016-11-30 17:00 | Consultation ---
DATE OF CONSULTATION: 11/30/2016 INFECTIOUS DISEASE CONSULTATION CONSULTING PHYSICIAN: Aditya Cheema M.D. REQUESTING PHYSICIAN: Leilani Quintana M.D. REASON FOR CONSULTATION: Urinary tract infection. HISTORY OF PRESENT ILLNESS: This is a 66-year-old male with history of uncontrolled diabetes and hypertension, admitted on 11/29/2016 with hypotension. No recent fevers or chills. The patient is asymptomatic. He has evidence of mild leukocytosis, acute renal failure, elevated troponin, electrolyte imbalance, and urinalysis suggests probable urinary tract infection. Cultures and imaging are pending and the patient has been started on empiric aztreonam and ID now consulted to assist in management. PAST MEDICAL HISTORY: 1. Uncontrolled diabetes with hemoglobin A1c of 12%. 2. Hypertension. PAST SURGICAL HISTORY: Left [id number] amputation. MEDICATIONS: 1. Aztreonam day #1. 2. Subcutaneous heparin. 3. Lasix. ALLERGIES: Penicillin. SOCIAL HISTORY: The patient lives locally with and he was getting home health prior to admission. No active tobacco, alcohol, or illicit drug abuse. FAMILY HISTORY: Unknown. REVIEW OF SYSTEMS: As per history of present illness. Ten systems reviewed. All pertinent positives and negatives noted. PHYSICAL EXAMINATION: VITAL SIGNS: Maximum temperature 98.8 degrees, blood pressure 89/47, heart rate 98, respiratory rate 20, and saturating 97% on room air. GENERAL: No apparent distress. Nontoxic appearing. CARDIAC: Regular rate and rhythm. No murmurs. PULMONARY: Clear to auscultation bilaterally. ABDOMEN: Bowel sounds present. Soft, nondistended, and nontender. EXTREMITY: Edema. LABORATORY DATA: White blood cell count 8.5, decreased from 11.4, hemoglobin 12.9, and platelets 275,000. Sodium 129, potassium 4.4, chloride 95, bicarbonate 24, BUN 69, and creatinine 3.8. Hemoglobin A1c 12%. Lactic acid 2.1. Troponin 0.546. MICROBIOLOGY: 1. On 11/29/2016, blood culture pending. 2. On 11/29/2016, urine culture pending with positive urinalysis. IMAGIN. On 11/29/2016, chest x-ray pending. 2. On 11/29/2016, renal ultrasound pending. 3. On 11/29/2016, echocardiogram pending. ASSESSMENT: 1. Probable urinary tract infection. Urine culture is pending. 2. Leukocytosis, mild and now resolved and afebrile. Sob-AB-ftyyocl elevation myocardial infarction is contributing. 3. Fct-YF-uhrqcdv elevation myocardial infarction with a peak troponin of 0.546. Echocardiogram and cardiac evaluation is pending. 4. Hypotension, rule out septic versus cardiogenic. Currently, not requiring pressor support. 5. Acute renal failure, improved. 6. Hyponatremia/electrolyte imbalance. 7. Diabetes type 2, uncontrolled with a hemoglobin A1c of 12%. 8. Penicillin allergy. 9. Full Code. PLAN: 1. Continue empiric aztreonam day #1 pending cultures. 2. Follow up cultures. 3. Follow up echocardiogram. 4. Follow up chest x-ray. 5. Monitor CBC and temperatures. 6. Monitor BMP. 7. Follow up cardiac evaluation. Thank you. We will follow. Aditya Cheema M.D. DR: SHON JOB#: [id number] CC: Leilani Quintana M.D.; Fax#: [phone] Anurag Kelley M.D; FAX#: [phone]
[2016-11-30 20:00] VITALS: BP 101/57
--- NOTE | 2016-11-30 20:44 | Cardiology Report ---
APPROVED REPORT EXAM: Two-dimensional and M-mode echocardiogram with Doppler and color Doppler. INDICATION Left ventricular function M-Mode DIMENSIONS IVSd0.7 (0.7-1.1cm)Left Atrium (MM)3.6 (1.6-4.0cm) LVDd5.2 (3.5-5.6cm)Aortic Root2.9 (2.0-3.7cm) PWd0.8 (0.7-1.1cm)Aortic Cusp Exc.1.5 (1.5-2.0cm) LVDs4.7 (2.5-4.0cm) PWs0.7 cm Technically study due to poor acoustical windows. Mild left ventricular enlargement. Global left ventricular hypokinesis. Worse in mid to distal anterior and apical septum akinessi , bet motion in proximal lateral wall . Left ventricular ejection fraction estimated to be 20-25%. No evidence of left ventricular hypertrophy. No evidence of pericardial or pleural effusion. All other cardiac chamber sizes are within normal limits. Focal aortic valve sclerosis with adequate cusp excursion. Thickened mitral valve leaflets with normal excursion. Normal mitral annulus and aortic root. Pulmonic valve not well visualized. Normal tricuspid valve structure. IVC is not obtainable. A color flow and spectral Doppler study was performed and revealed: No aortic regurgitation. Trace mitral regurgitation. Mitral diastolic dysfunction not obtainable due to A-FIB. No tricuspid regurgitation. Pulmonic regurgitation present.
[2016-11-30] MEDS ORDERED: Morphine Sulfate 4mg/ml Inj IVP PRN (20:45)
[2016-11-30] MEDS: Aztreonam 0.5gm/D5W 55ml IVPB SCH ×2 (21:31)
[2016-11-30] MEDS ORDERED: Flu Vaccine Quadrivalent 0.5ml IM ONE (22:30)
[2016-12-01] VITALS: BP 102/57
--- NOTE | 2016-12-01 00:15 | Consultation ---
DATE OF CONSULTATION: 11/30/2016 CARDIOLOGY CONSULTATION CONSULTING PHYSICIAN: Darío Patel M.D. REFERRING PHYSICIAN: Leilani Quintana M.D. REASON FOR REFERRAL: Abnormal cardiac enzymes. HISTORY OF PRESENT ILLNESS: This is an elderly male who has been admitted to the hospital through the emergency room. The patient himself thinks he was transferred to the hospital because his blood pressure was up and down and his was having hard time taking care of him. He really does not have any pain, pressure, tightness, heaviness in his chest. There is no PND. There is no orthopnea. No palpitation. No dizziness or lightheadedness. He had amputation of the left knee secondary to peripheral vascular disease, but he feels comfortable at the present time. Apparently blood pressure yesterday was as low as in 60s according to the emergency room physician's notation which I reviewed. PAST MEDICAL HISTORY: Positive for diabetes and high blood pressure. He has been told he has had a heart attack although he is not sure about. No history of cancer. No history of stroke. No hepatitis or tuberculosis. He does have a history of asthma. No ulcers. No kidney problems, liver problems, thyroid problems. He has arthritis. No problems with his prostate. ALLERGIES: He is not allergic to any medications. SOCIAL HISTORY: He denies any smoking, tobacco, or drug use. REVIEW OF SYSTEMS: GASTROINTESTINAL: Negative. GENITOURINARY: negative. PULMONARY: Negative. CONSTITUTIONAL: Negative. NEUROLOGICAL: Negative. PHYSICAL EXAMINATION: GENERAL: Shows to be elderly gentleman, in no respiratory distress, awake and alert, responsive. NECK: Supple. No jugular venous distention. LUNGS: Clear to auscultation and percussion. CARDIAC: S1 is normal. S2 is normal. Regular rate and rhythm. No heaves, thrills, or gallops noted ABDOMEN: Soft and nontender. Positive bowel sounds. EXTREMITIES: There is no edema on the right. There is AKA on the left side. NEUROLOGIC: He is awake, alert, and responsive. LABORATORY VALUES: White count is 8.5, hemoglobin 12.9, and platelet count of 275. His sodium is 131 up from 129, potassium 4.5, chloride 96, bicarbonate 22, BUN of 69, creatinine 3.8, glucose 130 with A1c of 12. Uric acid is 8.4. Two set of cardiac enzymes, first one was 0.075 and second troponin was 0.546. No others available. Total cholesterol 166 with a LDL of 123 and HDL of 32. TSH is 0.94. Total CK of 185. INR is 1.2 and PTT of 32. Urinalysis shows 30 to 40 WBCs, 2 to 4 RBCs, 3+ leukocyte esterase. Chest x-ray was performed in the emergency room showed no acute findings. Vital signs, blood pressure is anywhere between 89/47 to 104/51. His EKG shows sinus rhythm with first-degree AV block, what appears to be profound right axis deviation, evidence for right bundle-branch with possible right ventricular hypertrophy, delay in R-wave progression. EKG apparently compared with prior does not really appear to be changed from an EKG performed but that was noted in the records by paramedics were performed in 2013. ASSESSMENT AND PLAN: 1. Hypotension. 2. Diabetes mellitus. 3. History of hypertension. 4. Renal failure. 5. Abnormal cardiac enzyme, apparently questionable significance in light of renal insufficiency. 6. Possible cardiomyopathy. 7. Possible urinary tract infection. PLAN: Dr. Quintana, this patient was seen in cardiac consultation. The patient is receiving intravenous fluids at 200 mL. As I walk in the room the patient was having an echocardiogram just started the initial images shows evidence of global hypokinesis therefore I think until the echocardiogram is completed the intravenous fluid rate should be decreased. The EKG is abnormal but not appear to be significantly changed since 2012, evidence of urinary tract infection and empirically treat for possibility of urinary tract infection and urosepsis at this time. It is of note, the patient has been on diuretics as well as beta-blockers and KAMILA inhibitors prior to admission and hopefully those could be resumed once the patient's blood pressure is improved as the patient requires especially if diagnosis of cardiomyopathy is confirmed. Repeat cardiac enzymes as well as EKGs will be ordered and further recommendations depending on the results of the above. I would decrease intravenous fluid rate in light of the fact that the LV systolic dysfunction was evident on the preliminary echo reports. Darío Patel M.D. DR: Sterling JOB#: [id number] CC:
[2016-12-01 04:00] VITALS: BP 133/64
[2016-12-01 05:22] LABS: BASOPHILS % (AUTO) 2.1 % (0.0-2.0); EOSINOPHILS % (AUTO) 1.7 % (0.0-3.0); LYMPHOCYTES % (AUTO) 12.6 % (20.0-45.0); MEAN CORPUSCULAR HEMOGLOBIN 29.8 PG (27.0-31.0); MEAN CORPUSCULAR HGB CONC 33.6 G/DL (32.0-36.0); MEAN CORPUSCULAR VOLUME 89 FL (80-99); MEAN PLATELET VOLUME 5.9 FL (6.5-10.1); MONOCYTES % (AUTO) 13.4 % (1.0-10.0); NEUTROPHILS % (AUTO) 70.1 % (45.0-75.0); PLATELET COUNT 289 K/UL (150-450); RED BLOOD COUNT 4.22 M/UL (4.70-6.10); RED CELL DISTRIBUTION WIDTH 14.7 % (11.6-14.8); WHITE BLOOD COUNT 8.9 K/UL (4.8-10.8)
[2016-12-01 05:33] LABS: HEMOGLOBIN A1C 12.2 % (4.3-6.0)
[2016-12-01] MEDS: Aztreonam 0.5gm/D5W 55ml IVPB SCH ×6 (05:57→22:25)
[2016-12-01 06:35] LABS: ALANINE AMINOTRANSFERASE 15 U/L (12-78); ALBUMIN/GLOBULIN RATIO 0.5 (1.0-2.7); ANION GAP 10 mmol/L (5-15); ASPARTATE AMINO TRANSFERASE 23 U/L (15-37); CALCIUM 9.3 MG/DL (8.5-10.1); CARBON DIOXIDE 24 MMOL/L (21-32); CHLORIDE 100 MMOL/L (98-107); CHOLESTEROL 175 MG/DL (< 200); CREATININE 2.2 MG/DL (0.55-1.30); CRP QUANT 4.6 mg/dL (0.00-0.90); FERRITIN 781 NG/ML (8-388); GLOMERULAR FILTRATION RATE 36.5 mL/min (>60); LIPASE 59 U/L (73-393); MAGNESIUM 2.1 MG/DL (1.8-2.4); PHOSPHORUS 2.3 MG/DL (2.5-4.9); POTASSIUM 4.1 MMOL/L (3.5-5.1); SODIUM 134 MMOL/L (136-145); THYROID STIMULATING HORMONE 1.434 uiU/mL (0.360-3.740); TOTAL PROTEIN 7.7 G/DL (6.4-8.2); URIC ACID 6.5 MG/DL (2.6-7.2)
[2016-12-01 06:37] LABS: FOLIC ACID 5.4 NG/ML (3.1-17.5); IRON 94 ug/dL (50-175); TOTAL IRON BINDING CAPACITY 179 ug/dL (250-450)
[2016-12-01] MEDS: NovoLOG Insulin Flexpen SUBQ SCH ×4 (06:48→20:32)
[2016-12-01 08:00] VITALS: BP 114/68
[2016-12-01] MEDS: Heparin 5000 units/ml inj SUBQ SCH ×2 (09:03→20:33)
[2016-12-01] MEDS ORDERED: Flu Vaccine Quadrivalent 0.5ml IM ONE (10:00)
--- NOTE | 2016-12-01 10:07 | Diagnostic Imaging Report ---
Indication: Abnormal renal function test, hypertension Technique: Grayscale and duplex images of the kidneys, retroperitoneum, and bladder were obtained. Comparison:None Findings: Right kidney measures 8.8 cm in length. Left kidney measures 9.6 cm in length. Both kidneys demonstrate normal echogenicity. No hydronephrosis. There is a possible isoechoic mass, versus prominent lobulation, in the right renal interpolar region, if real measuring 2.3 cm long axis dimension. No focal abnormalities seen on the left. The bladder is distended.. Normal inferior vena cava. Impression: 2.3 cm right renal interpolar lesion possible mass, versus prominent lobulation. Recommend further evaluation with contrast CT, or MRI if patient unable to tolerate CT contrast Negative for hydronephrosis Distended urinary bladder .
[2016-12-01] MEDS ORDERED: D5NS 1,000 ML IV SCH (11:00)
--- NOTE | 2016-12-01 11:16 | Pulmonology Progress Note ---
Assessment/Plan Problems: (1) Hypoglycemia (2) Acute encephalopathy (3) Sepsis (4) Non-ST elevation (NSTEMI) myocardial infarction (5) Diabetes mellitus (6) HTN (hypertension) Assessment/Plan v fluids renal function better check electrolytes echo reviewed all consults reviewed rene bell clonidine Subjective Constitutional: Reports: no symptoms HEENT: Repors: no symptoms Respiratory: Reports: no symptoms Allergies: Coded Allergies: PENICILLINS (Verified Allergy, Intermediate, Hives, 03/29/13) Objective Last 24 Hour Vital Signs Date Time Temp Pulse Resp B/P (MAP) Pulse Ox O2 Delivery O2 Flow Rate FiO2 12/01/16 08:00 97.9 104 21 114/68 97 Room Air 12/01/16 07:25 105 12/01/16 04:00 98.2 100 18 133/64 100 Room Air 12/01/16 03:00 106 12/01/16 00:00 97.9 100 16 102/57 100 Room Air 12/01/16 00:00 102 11/30/16 20:24 102 20 Room Air 21 11/30/16 20:00 97.7 100 20 101/57 Room Air 11/30/16 20:00 100 11/30/16 16:00 99 11/30/16 16:00 98.6 101 20 107/62 97 Room Air 11/30/16 12:00 106 11/30/16 12:00 97.9 103 21 98/70 98 Room Air Intake and Output 12/01/16 12/02/16 19:00 07:00 Intake Total 270 ml Balance 270 ml Intake Oral 120 ml IV Total 150 ml # Bowel Movements 3 General Appearance: WD/WN HEENT: normocephalic, atraumatic Respiratory/Chest: chest wall non-tender, lungs clear Cardiovascular: normal peripheral pulses, normal rate Abdomen: normal bowel sounds, soft, non tender Genitourinary: normal external genitalia Extremities: no clubbing Skin: no lesions Neurologic/Psychiatric: no motor/sensory deficits, abnormal gait Microbiology Date/Time Source Procedure Growth Status 11/29/16 19:10 Blood Blood Culture - Preliminary NO GROWTH AFTER 24 HOURS Resulted 11/29/16 19:00 Blood Blood Culture - Preliminary NO GROWTH AFTER 24 HOURS Resulted 11/30/16 10:30 Urine,Clean Catch Urine Culture - Preliminary Gram Negative Bacillus 1 Resulted Laboratory Tests 12/01/16 04:00: Urine Eosinophils Occasional 12/01/16 04:15: White Blood Count 8.9, Red Blood Count 4.22L, Hemoglobin 12.6L, Hematocrit 37.4L , Mean Corpuscular Volume 89, Mean Corpuscular Hemoglobin 29.8, Mean Corpuscular Hemoglobin Concent 33.6, Red Cell Distribution Width 14.7, Platelet Count 289, Mean Platelet Volume 5.9L, Neutrophils (%) (Auto) 70.1, Lymphocytes ( %) (Auto) 12.6L, Monocytes (%) (Auto) 13.4H, Eosinophils (%) (Auto) 1.7, Basophils (%) (Auto) 2.1H, Sodium Level 134L, Potassium Level 4.1, Chloride Level 100, Carbon Dioxide Level 24, Anion Gap 10, Blood Urea Nitrogen 46H, Creatinine 2.2H, Estimat Glomerular Filtration Rate 36.5, Glucose Level 247#H, Hemoglobin A1c 12.2H, Uric Acid 6.5, Calcium Level 9.3, Phosphorus Level 2.3L, Magnesium Level 2.1, Iron Level 94, Total Iron Binding Capacity 179L, Percent Iron Saturation 53H, Unsaturated Iron Binding 85L, Ferritin 781H, Total Bilirubin 0.5, Gamma Glutamyl Transpeptidase 63, Aspartate Amino Transf (AST/ SGOT) 23, Alanine Aminotransferase (ALT/SGPT) 15, Alkaline Phosphatase 63, Total Creatine Kinase 75, Troponin I 0.618H, C-Reactive Protein, Quantitative 4.6H, Pro-B-Type Natriuretic Peptide 79152U, Total Protein 7.7, Albumin 2.7L, Globulin 5.0, Albumin/Globulin Ratio 0.5L, Triglycerides Level 110, Cholesterol Level 175, LDL Cholesterol 128H, HDL Cholesterol 35L, Cholesterol/HDL Ratio 5.0H , Lipase 59L, Vitamin B12 Level 435, Folate 5.4, Thyroid Stimulating Hormone ( TSH) 1.434 Current Medications Medications (Trade) Dose Ordered Sig/Sudha Route PRN Reason Start Time Stop Time Status Last Admin Dose Admin Acetaminophen (Tylenol) 650 mg Q4H PRN ORAL fever 11/29/16 23:15 12/29/16 23:14 Albuterol/ Ipratropium (DuoNeb 0.5-3(2.5)mg/3ml) 3 ml Q6HRT PRN HHN dyspnea 11/29/16 23:15 12/04/16 23:14 Aztreonam 0.5 gm/ Dextrose 55 ml @ 110 mls/hr Q8HR IVPB 11/30/16 22:00 12/07/16 21:59 12/01/16 05:57 Clonidine HCl (Catapres) 0.1 mg Q4H PRN ORAL For High Blood Pressure 11/29/16 23:15 12/29/16 23:14 Dextrose (Dextrose 50%) STAT PRN IV Hypoglycemia 11/29/16 23:15 12/29/16 23:14 Dextrose/Sodium Chloride 1,000 ml @ 50 mls/hr Q20H IV 11/30/16 14:30 12/30/16 14:29 11/30/16 15:01 Heparin Sodium (Porcine) (Heparin 5000 units/ml) 5,000 units EVERY 12 HOURS SUBQ 11/30/16 09:00 12/30/16 08:59 12/01/16 09:03 Insulin Aspart (NovoLOG) BEFORE MEALS AND HS SUBQ 11/30/16 06:30 12/30/16 06:29 12/01/16 06:48 Morphine Sulfate (Morphine Sulfate) 1 mg Q4H PRN IVP For Pain 11/30/16 20:45 12/07/16 20:44 Ondansetron HCl (Zofran) 4 mg Q6H PRN IVP Nausea & Vomiting 11/29/16 23:15 12/29/16 23:14 Pantoprazole (Protonix) 40 mg DAILY ORAL 11/30/16 13:30 12/30/16 13:29 12/01/16 09:02 Polyethylene Glycol (Miralax) 17 gm HSPRN PRN ORAL Constipation 11/29/16 23:15 12/29/16 23:14 Zolpidem Tartrate (Ambien) 5 mg HSPRN PRN ORAL Insomnia 11/29/16 23:15 12/06/16 23:14 ALESHA BARRETT Dec 01, 2016 11:16
[2016-12-01] MEDS: D5NS 1,000 ML IV SCH (11:40)
[2016-12-01 12:05] VITALS: BP 103/45
--- NOTE | 2016-12-01 12:45 | General Progress Note ---
Assessment/Plan Status: stable Assessment/Plan Renal failure, likely chronic due to DM and HTN. May have superimposed acute component. Presented with Low BP- Cardiogenic vs Sepsis. Cr lowering daily 1) Hypoglycemia (2) Acute encephalopathy (3) Sepsis (4) Non-ST elevation (NSTEMI) myocardial infarction (5) Diabetes mellitus (6) HTN (hypertension) (7) Cardiomyopathy: Left ventricular ejection fraction estimated to be 20-25%. Plan; optimize cardiac status one dose dig- hold IV fluids- start Fito Inhibs NICOLAS kidney- 2.3 cm right renal interpolar lesion possible mass, versus prominent lobulation. 2D echo Left ventricular ejection fraction estimated to be 20-25%. Urine studies- Keep BP and BS in check Avoid nephrotoxics Per orders Subjective ROS Limited/Unobtainable: No Constitutional: Reports: malaise, weakness Allergies: Coded Allergies: PENICILLINS (Verified Allergy, Intermediate, Hives, 03/29/13) Objective Last 24 Hour Vital Signs Date Time Temp Pulse Resp B/P (MAP) Pulse Ox O2 Delivery O2 Flow Rate FiO2 12/01/16 12:05 98.0 111 20 103/45 98 12/01/16 08:00 97.9 104 21 114/68 97 Room Air 12/01/16 07:25 105 12/01/16 04:00 98.2 100 18 133/64 100 Room Air 12/01/16 03:00 106 12/01/16 00:00 97.9 100 16 102/57 100 Room Air 12/01/16 00:00 102 11/30/16 20:24 102 20 Room Air 21 11/30/16 20:00 97.7 100 20 101/57 Room Air 11/30/16 20:00 100 11/30/16 16:00 99 11/30/16 16:00 98.6 101 20 107/62 97 Room Air Intake and Output 12/01/16 12/02/16 19:00 07:00 Intake Total 270 ml Balance 270 ml Intake Oral 120 ml IV Total 150 ml # Bowel Movements 3 Laboratory Tests 12/01/16 04:00: Urine Eosinophils Occasional 12/01/16 04:15: White Blood Count 8.9, Red Blood Count 4.22L, Hemoglobin 12.6L, Hematocrit 37.4L , Mean Corpuscular Volume 89, Mean Corpuscular Hemoglobin 29.8, Mean Corpuscular Hemoglobin Concent 33.6, Red Cell Distribution Width 14.7, Platelet Count 289, Mean Platelet Volume 5.9L, Neutrophils (%) (Auto) 70.1, Lymphocytes ( %) (Auto) 12.6L, Monocytes (%) (Auto) 13.4H, Eosinophils (%) (Auto) 1.7, Basophils (%) (Auto) 2.1H, Sodium Level 134L, Potassium Level 4.1, Chloride Level 100, Carbon Dioxide Level 24, Anion Gap 10, Blood Urea Nitrogen 46H, Creatinine 2.2H, Estimat Glomerular Filtration Rate 36.5, Glucose Level 247#H, Hemoglobin A1c 12.2H, Uric Acid 6.5, Calcium Level 9.3, Phosphorus Level 2.3L, Magnesium Level 2.1, Iron Level 94, Total Iron Binding Capacity 179L, Percent Iron Saturation 53H, Unsaturated Iron Binding 85L, Ferritin 781H, Total Bilirubin 0.5, Gamma Glutamyl Transpeptidase 63, Aspartate Amino Transf (AST/ SGOT) 23, Alanine Aminotransferase (ALT/SGPT) 15, Alkaline Phosphatase 63, Total Creatine Kinase 75, Troponin I 0.618H, C-Reactive Protein, Quantitative 4.6H, Pro-B-Type Natriuretic Peptide 71540C, Total Protein 7.7, Albumin 2.7L, Globulin 5.0, Albumin/Globulin Ratio 0.5L, Triglycerides Level 110, Cholesterol Level 175, LDL Cholesterol 128H, HDL Cholesterol 35L, Cholesterol/HDL Ratio 5.0H , Lipase 59L, Vitamin B12 Level 435, Folate 5.4, Thyroid Stimulating Hormone ( TSH) 1.434 Height (Feet): 5 Height (Inches): 2.00 Weight (Pounds): 152 General Appearance: no apparent distress Cardiovascular: tachycardia Respiratory/Chest: decreased breath sounds Abdomen: soft JAYDEN ELAM Dec 01, 2016 12:45
[2016-12-01] MEDS ORDERED: Artificial Tears 1.4% Op Soln BOTH EYES PRN (14:00)
--- NOTE | 2016-12-01 15:50 | Cardiology Report ---
APPROVED REPORT EKG Measurement Heart [id number] Sinus rhythm with 1st degree AV block Right bundle branch block, plus right ventricular hypertrophy Septal infarct, age undetermined Abnormal ECG
--- NOTE | 2016-12-01 15:59 | Wound Care Consultation ---
Wound Assessment Wound Assessment : Wound Present on Admission: Yes New Wound: No Status Change of Wound: No Wound Location Body Site Modif: mid Wound Location Body Site: sacral Wound Type: pressure ulcer Luh Test: Does not Luh Pressure Ulcer Stage: III Wound Thickness: Full Thickness Wound Length: 2.0 Wound Width: 1.5 Wound Depth: 0.2 Percent of Wound [place]/Red: 80 Percent of Wound Bed Yellow/Wh: 20 Wound Drainage Description: Serosanguineous Wound Drainage Amount: Scant Wound Drainage Odor: None/Absent Tissue Surrounding Wound: Erythemic Wound General Appearance: Reddened, Draining Wound Comment #1 Sacral stage III pressure ulcer Recommendation -Sacral stage III pressure ulcer Cleanse with saline pat dry apply Triad cream cover with [place] silicone drg daily and PRN soiled/dislodged -Keep clean and dry -Optimize nutrition -Turn and reposition -Low air loss mattress -Offload right heel -Heel protector on right heel -Assess and f/u accordingly for any changes WILVER RODRIGUEZ RN Dec 01, 2016 15:59
[2016-12-01 16:00] VITALS: BP 104/56
[2016-12-01] MEDS ORDERED: Tamsulosin 0.4mg cap ORAL SCH ×2 (18:00→21:00)
--- NOTE | 2016-12-01 18:49 | Cardiology Progress Note ---
Assessment/Plan Assessment/Plan 1. Hypotension. 2. Diabetes mellitus. 3. History of hypertension. 4. Renal failure. 5. Abnormal cardiac enzyme, apparently questionable significance in light of renal insufficiency. 6. cardiomyopathy. 7. Possible urinary tract infection. nickolas fxn somewhat better off ivf now on acei needs stress test to see if any sig ischemic burden tele reviewed echo reveiwed bp seem bordeline watch reanl fxn , k and cr on acei Subjective Cardiovascular: Denies: chest pain, lightheadedness, palpitations Respiratory: Denies: shortness of breath Gastrointestinal/Abdominal: Denies: abdominal pain Genitourinary: Denies: burning Objective Last 24 Hour Vital Signs Date Time Temp Pulse Resp B/P (MAP) Pulse Ox O2 Delivery O2 Flow Rate FiO2 12/01/16 16:30 95 12/01/16 16:00 97.6 98 21 104/56 98 Room Air 12/01/16 12:59 105 12/01/16 12:41 105 12/01/16 12:05 98.0 111 20 103/45 98 12/01/16 08:00 97.9 104 21 114/68 97 Room Air 12/01/16 07:25 105 12/01/16 04:00 98.2 100 18 133/64 100 Room Air 12/01/16 03:00 106 12/01/16 00:00 97.9 100 16 102/57 100 Room Air 12/01/16 00:00 102 11/30/16 20:24 102 20 Room Air 21 11/30/16 20:00 97.7 100 20 101/57 Room Air 11/30/16 20:00 100 General Appearance: alert Neck: no JVD Cardiovascular: normal rate, regular rhythm Respiratory/Chest: lungs clear, normal breath sounds Abdomen: normal bowel sounds, non tender, soft Extremities: no swelling Intake and Output 12/01/16 12/02/16 19:00 07:00 Intake Total 570 ml Balance 570 ml Intake Oral 240 ml IV Total 330 ml # Bowel Movements 5 Laboratory Tests Test 12/01/16 04:00 12/01/16 04:15 Urine Eosinophils Occasional White Blood Count 8.9 K/UL (4.8-10.8) Red Blood Count 4.22 M/UL (4.70-6.10) L Hemoglobin 12.6 G/DL (14.2-18.0) L Hematocrit 37.4 % (42.0-52.0) L Mean Corpuscular Volume 89 FL (80-99) Mean Corpuscular Hemoglobin 29.8 PG (27.0-31.0) Mean Corpuscular Hemoglobin Concent 33.6 G/DL (32.0-36.0) Red Cell Distribution Width 14.7 % (11.6-14.8) Platelet Count 289 K/UL (150-450) Mean Platelet Volume 5.9 FL (6.5-10.1) L Neutrophils (%) (Auto) 70.1 % (45.0-75.0) Lymphocytes (%) (Auto) 12.6 % (20.0-45.0) L Monocytes (%) (Auto) 13.4 % (1.0-10.0) H Eosinophils (%) (Auto) 1.7 % (0.0-3.0) Basophils (%) (Auto) 2.1 % (0.0-2.0) H Sodium Level 134 MMOL/L (136-145) L Potassium Level 4.1 MMOL/L (3.5-5.1) Chloride Level 100 MMOL/L (98-107) Carbon Dioxide Level 24 MMOL/L (21-32) Anion Gap 10 mmol/L (5-15) Blood Urea Nitrogen 46 mg/dL (7-18) H Creatinine 2.2 MG/DL (0.55-1.30) H Estimat Glomerular Filtration Rate 36.5 mL/min (>60) Glucose Level 247 MG/DL (74-106) #H Hemoglobin A1c 12.2 % (4.3-6.0) H Uric Acid 6.5 MG/DL (2.6-7.2) Calcium Level 9.3 MG/DL (8.5-10.1) Phosphorus Level 2.3 MG/DL (2.5-4.9) L Magnesium Level 2.1 MG/DL (1.8-2.4) Iron Level 94 ug/dL (50-175) Total Iron Binding Capacity 179 ug/dL (250-450) L Percent Iron Saturation 53 % (15-50) H Unsaturated Iron Binding 85 ug/dL (112-346) L Ferritin 781 NG/ML (8-388) H Total Bilirubin 0.5 MG/DL (0.2-1.0) Gamma Glutamyl Transpeptidase 63 U/L (5-85) Aspartate Amino Transf (AST/SGOT) 23 U/L (15-37) Alanine Aminotransferase (ALT/SGPT) 15 U/L (12-78) Alkaline Phosphatase 63 U/L (46-116) Total Creatine Kinase 75 U/L (26-308) Troponin I 0.618 ng/mL (0.000-0.056) C-Reactive Protein, Quantitative 4.6 mg/dL (0.00-0.90) H Pro-B-Type Natriuretic Peptide 65709 pg/mL (0-125) H Total Protein 7.7 G/DL (6.4-8.2) Albumin 2.7 G/DL (3.4-5.0) L Globulin 5.0 g/dL Albumin/Globulin Ratio 0.5 (1.0-2.7) L Triglycerides Level 110 MG/DL (0-200) Cholesterol Level 175 MG/DL (< 200) LDL Cholesterol 128 mg/dL (<100) H HDL Cholesterol 35 MG/DL (40-60) L Cholesterol/HDL Ratio 5.0 (3.3-4.4) H Lipase 59 U/L (73-393) L Vitamin B12 Level 435 PG/ML (193-986) Folate 5.4 NG/ML (3.1-17.5) Thyroid Stimulating Hormone (TSH) 1.434 uiU/mL (0.360-3.740) Microbiology Date/Time Source Procedure Growth Status 11/29/16 19:10 Blood Blood Culture - Preliminary NO GROWTH AFTER 24 HOURS Resulted 11/29/16 19:00 Blood Blood Culture - Preliminary NO GROWTH AFTER 24 HOURS Resulted 11/30/16 10:30 Urine,Clean Catch Urine Culture - Preliminary Gram Negative Bacillus 1 Resulted ORTEGA OLIVERA Dec 01, 2016 18:49
[2016-12-01] MEDS ORDERED: D5NS 1000ml IV ONE (18:50)
[2016-12-01] MEDS ORDERED: Tubing IV Secondary IV ONE (18:50)
[2016-12-01 20:00] VITALS: BP 96/59
--- NOTE | 2016-12-01 20:06 | Infectious Diseases Prog Note ---
Assessment/Plan Assessment/Plan ASSESSMENT: 66 y/o male with: // Probable UTI - UCx GNR. C&S pending // Leukocytosis, mild - resolved, afebrile ( NSTEMI contributing ) // NSTEMI - peak trop 0.618 - TTE: EF 20-25% // Hypotension r/o septic vs cardiogenic // ARF - improved // Hyponatremia / electrolyte imbalance // DM2, uncontrolled - HbA1c 12% // PCN allergy // Full Code PLAN: - continue empiric aztreonam d# 2 pending cultures - f/u cultures - monitor CBC, temperatures - monitor BMP Subjective Allergies: Coded Allergies: PENICILLINS (Verified Allergy, Intermediate, Hives, 03/29/13) Subjective remains afebrile cultures noted Objective Vital Signs Last 24 Hour Vital Signs Date Time Temp Pulse Resp B/P (MAP) Pulse Ox O2 Delivery O2 Flow Rate FiO2 12/01/16 19:06 94 20 Room Air 12/01/16 16:30 95 12/01/16 16:00 97.6 98 21 104/56 98 Room Air 12/01/16 12:59 105 12/01/16 12:41 105 12/01/16 12:05 98.0 111 20 103/45 98 12/01/16 08:00 97.9 104 21 114/68 97 Room Air 12/01/16 07:25 105 12/01/16 04:00 98.2 100 18 133/64 100 Room Air 12/01/16 03:00 106 12/01/16 00:00 97.9 100 16 102/57 100 Room Air 12/01/16 00:00 102 11/30/16 20:24 102 20 Room Air 21 Height (Feet): 5 Height (Inches): 2.00 Weight (Pounds): 152 General Appearance: no acute distress Respiratory/Chest: no respiratory distress Cardiovascular: normal rate, regular rhythm Abdomen: normal bowel sounds, soft, non tender, non distended Microbiology Date/Time Source Procedure Growth Status 11/29/16 19:10 Blood Blood Culture - Preliminary NO GROWTH AFTER 24 HOURS Resulted 11/29/16 19:00 Blood Blood Culture - Preliminary NO GROWTH AFTER 24 HOURS Resulted 11/30/16 10:30 Urine,Clean Catch Urine Culture - Preliminary Gram Negative Bacillus 1 Resulted Laboratory Tests Test 12/01/16 04:00 12/01/16 04:15 Urine Eosinophils Occasional White Blood Count 8.9 K/UL (4.8-10.8) Red Blood Count 4.22 M/UL (4.70-6.10) L Hemoglobin 12.6 G/DL (14.2-18.0) L Hematocrit 37.4 % (42.0-52.0) L Mean Corpuscular Volume 89 FL (80-99) Mean Corpuscular Hemoglobin 29.8 PG (27.0-31.0) Mean Corpuscular Hemoglobin Concent 33.6 G/DL (32.0-36.0) Red Cell Distribution Width 14.7 % (11.6-14.8) Platelet Count 289 K/UL (150-450) Mean Platelet Volume 5.9 FL (6.5-10.1) L Neutrophils (%) (Auto) 70.1 % (45.0-75.0) Lymphocytes (%) (Auto) 12.6 % (20.0-45.0) L Monocytes (%) (Auto) 13.4 % (1.0-10.0) H Eosinophils (%) (Auto) 1.7 % (0.0-3.0) Basophils (%) (Auto) 2.1 % (0.0-2.0) H Sodium Level 134 MMOL/L (136-145) L Potassium Level 4.1 MMOL/L (3.5-5.1) Chloride Level 100 MMOL/L (98-107) Carbon Dioxide Level 24 MMOL/L (21-32) Anion Gap 10 mmol/L (5-15) Blood Urea Nitrogen 46 mg/dL (7-18) H Creatinine 2.2 MG/DL (0.55-1.30) H Estimat Glomerular Filtration Rate 36.5 mL/min (>60) Glucose Level 247 MG/DL (74-106) #H Hemoglobin A1c 12.2 % (4.3-6.0) H Uric Acid 6.5 MG/DL (2.6-7.2) Calcium Level 9.3 MG/DL (8.5-10.1) Phosphorus Level 2.3 MG/DL (2.5-4.9) L Magnesium Level 2.1 MG/DL (1.8-2.4) Iron Level 94 ug/dL (50-175) Total Iron Binding Capacity 179 ug/dL (250-450) L Percent Iron Saturation 53 % (15-50) H Unsaturated Iron Binding 85 ug/dL (112-346) L Ferritin 781 NG/ML (8-388) H Total Bilirubin 0.5 MG/DL (0.2-1.0) Gamma Glutamyl Transpeptidase 63 U/L (5-85) Aspartate Amino Transf (AST/SGOT) 23 U/L (15-37) Alanine Aminotransferase (ALT/SGPT) 15 U/L (12-78) Alkaline Phosphatase 63 U/L (46-116) Total Creatine Kinase 75 U/L (26-308) Troponin I 0.618 ng/mL (0.000-0.056) C-Reactive Protein, Quantitative 4.6 mg/dL (0.00-0.90) H Pro-B-Type Natriuretic Peptide 33195 pg/mL (0-125) H Total Protein 7.7 G/DL (6.4-8.2) Albumin 2.7 G/DL (3.4-5.0) L Globulin 5.0 g/dL Albumin/Globulin Ratio 0.5 (1.0-2.7) L Triglycerides Level 110 MG/DL (0-200) Cholesterol Level 175 MG/DL (< 200) LDL Cholesterol 128 mg/dL (<100) H HDL Cholesterol 35 MG/DL (40-60) L Cholesterol/HDL Ratio 5.0 (3.3-4.4) H Lipase 59 U/L (73-393) L Vitamin B12 Level 435 PG/ML (193-986) Folate 5.4 NG/ML (3.1-17.5) Thyroid Stimulating Hormone (TSH) 1.434 uiU/mL (0.360-3.740) Current Medications Medications (Trade) Dose Ordered Sig/Sudha Route PRN Reason Start Time Stop Time Status Last Admin Dose Admin Acetaminophen (Tylenol) 650 mg Q4H PRN ORAL fever 11/29/16 23:15 12/29/16 23:14 12/01/16 11:47 Albuterol/ Ipratropium (DuoNeb 0.5-3(2.5)mg/3ml) 3 ml Q6HRT PRN HHN dyspnea 11/29/16 23:15 12/04/16 23:14 Artificial Tears (Akwa-Tears) 1 drop BIDPRN PRN BOTH EYES DRY EYES 12/01/16 14:00 12/31/16 13:59 Aztreonam 0.5 gm/ Dextrose 55 ml @ 110 mls/hr Q8HR IVPB 11/30/16 22:00 12/07/16 21:59 12/01/16 14:17 Dextrose (Dextrose 50%) STAT PRN IV Hypoglycemia 11/29/16 23:15 12/29/16 23:14 Gabapentin (Neurontin) 300 mg THREE TIMES A DAY ORAL 12/01/16 13:00 12/31/16 12:59 12/01/16 17:47 Heparin Sodium (Porcine) (Heparin 5000 units/ml) 5,000 units EVERY 12 HOURS SUBQ 11/30/16 09:00 12/30/16 08:59 12/01/16 09:03 Insulin Aspart (NovoLOG) BEFORE MEALS AND HS SUBQ 11/30/16 06:30 12/30/16 06:29 12/01/16 16:56 Lisinopril (Zestril) 2.5 mg DAILY ORAL 12/02/16 09:00 01/01/17 08:59 Morphine Sulfate (Morphine Sulfate) 1 mg Q4H PRN IVP For Pain 11/30/16 20:45 12/07/16 20:44 Ondansetron HCl (Zofran) 4 mg Q6H PRN IVP Nausea & Vomiting 11/29/16 23:15 12/29/16 23:14 Pantoprazole (Protonix) 40 mg DAILY ORAL 11/30/16 13:30 12/30/16 13:29 12/01/16 09:02 Polyethylene Glycol (Miralax) 17 gm HSPRN PRN ORAL Constipation 11/29/16 23:15 12/29/16 23:14 Tamsulosin HCl (Flomax) 0.4 mg BID ORAL 12/01/16 18:00 12/31/16 20:59 12/01/16 17:47 Zolpidem Tartrate (Ambien) 5 mg HSPRN PRN ORAL Insomnia 11/29/16 23:15 12/06/16 23:14 LUCINDA CHÁVEZ Dec 01, 2016 20:06
[2016-12-02] VITALS: BP 102/59
[2016-12-02 04:00] VITALS: BP 90/40
[2016-12-02] MEDS: Aztreonam 0.5gm/D5W 55ml IVPB SCH ×2 (05:06)
[2016-12-02 06:13] LABS: BASOPHILS % (AUTO) 1.7 % (0.0-2.0); EOSINOPHILS % (AUTO) 2.4 % (0.0-3.0); LYMPHOCYTES % (AUTO) 12.8 % (20.0-45.0); MEAN CORPUSCULAR HEMOGLOBIN 29.4 PG (27.0-31.0); MEAN CORPUSCULAR VOLUME 89 FL (80-99); MEAN PLATELET VOLUME 5.7 FL (6.5-10.1); MONOCYTES % (AUTO) 10.8 % (1.0-10.0); NEUTROPHILS % (AUTO) 72.3 % (45.0-75.0); PLATELET COUNT 310 K/UL (150-450); RED BLOOD COUNT 4.44 M/UL (4.70-6.10); RED CELL DISTRIBUTION WIDTH 14.9 % (11.6-14.8); WHITE BLOOD COUNT 10.1 K/UL (4.8-10.8)
[2016-12-02] MEDS: NovoLOG Insulin Flexpen SUBQ SCH ×4 (06:30→21:30)
[2016-12-02] MEDS ORDERED: Albuterol/Ipratropium 3ml neb HHN PRN (07:00)
[2016-12-02 08:10] VITALS: BP 98/59
[2016-12-02 08:16] LABS: ALANINE AMINOTRANSFERASE 14 U/L (12-78); ALBUMIN/GLOBULIN RATIO 0.6 (1.0-2.7); ANION GAP 13 mmol/L (5-15); ASPARTATE AMINO TRANSFERASE 21 U/L (15-37); CALCIUM 9.8 MG/DL (8.5-10.1); CARBON DIOXIDE 25 MMOL/L (21-32); CHLORIDE 99 MMOL/L (98-107); CREATININE 1.6 MG/DL (0.55-1.30); CRP QUANT 4.8 mg/dL (0.00-0.90); DIGOXIN 0.9 NG/ML (0.5-2.0); GLOMERULAR FILTRATION RATE 52.7 mL/min (>60); MAGNESIUM 1.9 MG/DL (1.8-2.4); POTASSIUM 4.2 MMOL/L (3.5-5.1); SODIUM 137 MMOL/L (136-145); TOTAL PROTEIN 7.7 G/DL (6.4-8.2); URIC ACID 5.7 MG/DL (2.6-7.2)
[2016-12-02] MEDS ORDERED: Morphine Sulfate 4mg/ml Inj IVP PRN (08:45)
[2016-12-02] MEDS: Lisinopril 2.5mg tab ORAL SCH (09:00)
[2016-12-02] MEDS ORDERED: Lisinopril 2.5mg tab ORAL SCH (09:00)
[2016-12-02] MEDS ORDERED: Metoprolol Succinate XL 25mg tab ORAL SCH (09:00)
[2016-12-02] MEDS: Tamsulosin 0.4mg cap ORAL SCH ×3 (09:28→21:26)
[2016-12-02] MEDS: Heparin 5000 units/ml inj SUBQ SCH ×2 (09:33→21:28)
[2016-12-02 11:19] VITALS: BP 128/79
[2016-12-02] MEDS ORDERED: Aztreonam Inj 0.5 GM in D5W 55 ML IVPB SCH (14:00)
[2016-12-02] MEDS: Aztreonam 1gm/D5W 55ml IVPB SCH ×4 (14:34→21:34)
--- NOTE | 2016-12-02 15:25 | Pulmonology Progress Note ---
Assessment/Plan Problems: (1) Hypoglycemia (2) Acute encephalopathy (3) Sepsis (4) Non-ST elevation (NSTEMI) myocardial infarction (5) Diabetes mellitus (6) HTN (hypertension) Assessment/Plan stress study scheduled for am renal function better check electrolytes echo reviewed all consults reviewed bp better Subjective ROS Limited/Unobtainable: No Constitutional: Reports: no symptoms HEENT: Repors: no symptoms Allergies: Coded Allergies: PENICILLINS (Verified Allergy, Intermediate, Hives, 03/29/13) Objective Last 24 Hour Vital Signs Date Time Temp Pulse Resp B/P (MAP) Pulse Ox O2 Delivery O2 Flow Rate FiO2 12/02/16 11:28 96 12/02/16 11:19 98.0 99 19 128/79 100 Room Air 12/02/16 09:56 96 18 Room Air 21 12/02/16 09:00 98/59 12/02/16 08:10 97.6 90 20 98/59 100 Room Air 12/02/16 07:22 88 12/02/16 04:00 97.0 95 20 90/40 100 Room Air 12/02/16 04:00 86 12/02/16 00:00 84 12/02/16 00:00 97.4 92 20 102/59 100 Room Air 12/01/16 20:00 97.2 95 18 96/59 99 Room Air 12/01/16 20:00 95 12/01/16 19:06 94 20 Room Air 12/01/16 16:30 95 12/01/16 16:00 97.6 98 21 104/56 98 Room Air Intake and Output 12/02/16 12/03/16 19:00 07:00 Intake Total 220 ml Output Total 300 ml Balance -80 ml Intake Oral 220 ml Output Urine Total 300 ml # Voids 1 # Bowel Movements 1 General Appearance: WD/WN HEENT: atraumatic Respiratory/Chest: chest wall non-tender, lungs clear Abdomen: soft, non tender Extremities: no cyanosis, other - left above knee amputation Microbiology Date/Time Source Procedure Growth Status 11/29/16 19:10 Blood Blood Culture - Preliminary NO GROWTH AFTER 48 HOURS Resulted 11/29/16 19:00 Blood Blood Culture - Preliminary NO GROWTH AFTER 48 HOURS Resulted 11/30/16 10:30 Urine,Clean Catch Urine Culture - Preliminary Escherichia Coli Resulted 12/01/16 04:00 Sacral Wound Gram Stain - Final Resulted 12/01/16 04:00 Sacral Wound Wound Culture Pending Resulted Laboratory Tests 12/02/16 05:05: White Blood Count 10.1, Red Blood Count 4.44L, Hemoglobin 13.0L, Hematocrit 39.6L, Mean Corpuscular Volume 89, Mean Corpuscular Hemoglobin 29.4, Mean Corpuscular Hemoglobin Concent 33.0, Red Cell Distribution Width 14.9H, Platelet Count 310, Mean Platelet Volume 5.7L, Neutrophils (%) (Auto) 72.3, Lymphocytes (%) (Auto) 12.8L, Monocytes (%) (Auto) 10.8H, Eosinophils (%) (Auto ) 2.4, Basophils (%) (Auto) 1.7, Sodium Level 137, Potassium Level 4.2, Chloride Level 99, Carbon Dioxide Level 25, Anion Gap 13, Blood Urea Nitrogen 30H, Creatinine 1.6H, Estimat Glomerular Filtration Rate 52.7, Glucose Level 183H, Uric Acid 5.7, Calcium Level 9.8, Phosphorus Level 2.0L, Magnesium Level 1.9, Total Bilirubin 0.8, Gamma Glutamyl Transpeptidase 63, Aspartate Amino Transf (AST/SGOT) 21, Alanine Aminotransferase (ALT/SGPT) 14, Alkaline Phosphatase 57, Troponin I 0.485H, C-Reactive Protein, Quantitative 4.8H, Pro-B- Type Natriuretic Peptide 15195E, Total Protein 7.7, Albumin 2.8L, Globulin 4.9, Albumin/Globulin Ratio 0.6L, Digoxin Level 0.9 12/02/16 06:00: Urine Eosinophils Rare Current Medications Medications (Trade) Dose Ordered Sig/Sudha Route PRN Reason Start Time Stop Time Status Last Admin Dose Admin Acetaminophen (Tylenol) 650 mg Q4H PRN ORAL fever 12/02/16 07:15 12/29/16 23:14 Albuterol/ Ipratropium (DuoNeb 0.5-3(2.5)mg/3ml) 3 ml Q6HRT PRN HHN dyspnea 12/02/16 07:00 12/04/16 23:14 Artificial Tears (Akwa-Tears) 1 drop BIDPRN PRN BOTH EYES DRY EYES 12/02/16 14:00 12/31/16 13:59 Aztreonam 1 gm/ Dextrose 55 ml @ 110 mls/hr EVERY 8 HOURS IVPB 12/02/16 14:00 12/09/16 13:59 12/02/16 14:34 Dextrose (Dextrose 50%) STAT PRN IV Hypoglycemia 12/02/16 23:15 12/29/16 23:14 Gabapentin (Neurontin) 300 mg THREE TIMES A DAY ORAL 12/02/16 09:00 12/31/16 12:59 12/02/16 12:30 Heparin Sodium (Porcine) (Heparin 5000 units/ml) 5,000 units EVERY 12 HOURS SUBQ 12/02/16 09:00 12/30/16 08:59 12/02/16 09:33 Insulin Aspart (NovoLOG) BEFORE MEALS AND HS SUBQ 12/02/16 06:30 12/30/16 06:29 12/02/16 12:30 Lisinopril (Zestril) 2.5 mg DAILY ORAL 12/02/16 09:00 01/01/17 08:59 Morphine Sulfate (Morphine Sulfate) 1 mg Q4H PRN IVP For Pain 12/02/16 08:45 12/07/16 20:44 Ondansetron HCl (Zofran) 4 mg Q6H PRN IVP Nausea & Vomiting 12/02/16 11:15 12/29/16 23:14 Pantoprazole (Protonix) 40 mg DAILY ORAL 12/02/16 09:00 12/30/16 13:29 12/02/16 09:29 Polyethylene Glycol (Miralax) 17 gm HSPRN PRN ORAL Constipation 12/02/16 23:15 12/29/16 23:14 Tamsulosin HCl (Flomax) 0.4 mg BID ORAL 12/02/16 09:00 12/31/16 20:59 12/02/16 09:28 Zolpidem Tartrate (Ambien) 5 mg HSPRN PRN ORAL Insomnia 12/02/16 23:15 12/06/16 23:14 ALESHA BARRETT Dec 02, 2016 15:25
[2016-12-02] MEDS: Artificial Tears 1.4% Op Soln BOTH EYES PRN (15:45)
[2016-12-02 15:56] VITALS: BP 104/63
--- NOTE | 2016-12-02 17:22 | General Progress Note ---
Assessment/Plan Status: stable Status Narrative Cr down Assessment/Plan Renal failure, likely chronic due to DM and HTN. May have superimposed acute component. Presented with Low BP- Cardiogenic vs Sepsis. Cr lowering daily 1) Hypoglycemia (2) Acute encephalopathy (3) Sepsis (4) Non-ST elevation (NSTEMI) myocardial infarction (5) Diabetes mellitus (6) HTN (hypertension) (7) Cardiomyopathy: Left ventricular ejection fraction estimated to be 20-25%. Plan; optimize cardiac status po Digoxin hold IV fluids- start Fito Inhibs NICOLAS kidney- 2.3 cm right renal interpolar lesion possible mass, versus prominent lobulation. 2D echo Left ventricular ejection fraction estimated to be 20-25%. Urine studies- Keep BP and BS in check Avoid nephrotoxics Per orders Subjective ROS Limited/Unobtainable: No Constitutional: Reports: malaise Allergies: Coded Allergies: PENICILLINS (Verified Allergy, Intermediate, Hives, 03/29/13) Objective Last 24 Hour Vital Signs Date Time Temp Pulse Resp B/P (MAP) Pulse Ox O2 Delivery O2 Flow Rate FiO2 12/02/16 15:56 98.4 112 21 104/63 98 Room Air 12/02/16 11:28 96 12/02/16 11:19 98.0 99 19 128/79 100 Room Air 12/02/16 09:56 96 18 Room Air 21 12/02/16 09:00 98/59 12/02/16 08:10 97.6 90 20 98/59 100 Room Air 12/02/16 07:22 88 12/02/16 04:00 97.0 95 20 90/40 100 Room Air 12/02/16 04:00 86 12/02/16 00:00 84 12/02/16 00:00 97.4 92 20 102/59 100 Room Air 12/01/16 20:00 97.2 95 18 96/59 99 Room Air 12/01/16 20:00 95 12/01/16 19:06 94 20 Room Air Intake and Output 12/02/16 12/03/16 19:00 07:00 Intake Total 515 ml Output Total 600 ml Balance -85 ml Intake Oral 460 ml IV Total 55 ml Output Urine Total 600 ml # Voids 2 # Bowel Movements 1 Laboratory Tests 12/02/16 05:05: White Blood Count 10.1, Red Blood Count 4.44L, Hemoglobin 13.0L, Hematocrit 39.6L, Mean Corpuscular Volume 89, Mean Corpuscular Hemoglobin 29.4, Mean Corpuscular Hemoglobin Concent 33.0, Red Cell Distribution Width 14.9H, Platelet Count 310, Mean Platelet Volume 5.7L, Neutrophils (%) (Auto) 72.3, Lymphocytes (%) (Auto) 12.8L, Monocytes (%) (Auto) 10.8H, Eosinophils (%) (Auto ) 2.4, Basophils (%) (Auto) 1.7, Sodium Level 137, Potassium Level 4.2, Chloride Level 99, Carbon Dioxide Level 25, Anion Gap 13, Blood Urea Nitrogen 30H, Creatinine 1.6H, Estimat Glomerular Filtration Rate 52.7, Glucose Level 183H, Uric Acid 5.7, Calcium Level 9.8, Phosphorus Level 2.0L, Magnesium Level 1.9, Total Bilirubin 0.8, Gamma Glutamyl Transpeptidase 63, Aspartate Amino Transf (AST/SGOT) 21, Alanine Aminotransferase (ALT/SGPT) 14, Alkaline Phosphatase 57, Troponin I 0.485H, C-Reactive Protein, Quantitative 4.8H, Pro-B- Type Natriuretic Peptide 83709D, Total Protein 7.7, Albumin 2.8L, Globulin 4.9, Albumin/Globulin Ratio 0.6L, Digoxin Level 0.9 12/02/16 06:00: Urine Eosinophils Rare Height (Feet): 5 Height (Inches): 2.00 Weight (Pounds): 152 General Appearance: no apparent distress Cardiovascular: tachycardia Respiratory/Chest: decreased breath sounds Abdomen: soft Objective no change JAYDEN ELAM Dec 02, 2016 17:22
[2016-12-02] MEDS: Phospha 250 Neutral tab ORAL SCH (17:41)
--- NOTE | 2016-12-02 19:13 | Cardiology Progress Note ---
Assessment/Plan Assessment/Plan 1. Hypotension. 2. Diabetes mellitus. 3. History of hypertension. 4. Renal failure. 5. Abnormal cardiac enzyme, apparently questionable significance in light of renal insufficiency. 6. cardiomyopathy. 7. Possible urinary tract infection. renal fxn improved off ivf now on acei lwo dose needs stress test to see if any sig ischemic burden tele reviewed echo reveiwed bp seem bordeline watch reanl fxn , k and cr on acei abn trop no peak no souleymane to suggest infarction no sx to suggest coroanry syndrome Subjective Cardiovascular: Denies: chest pain, lightheadedness, palpitations Respiratory: Denies: shortness of breath Gastrointestinal/Abdominal: Denies: abdominal pain Genitourinary: Denies: burning Objective Last 24 Hour Vital Signs Date Time Temp Pulse Resp B/P (MAP) Pulse Ox O2 Delivery O2 Flow Rate FiO2 12/02/16 15:56 98.4 112 21 104/63 98 Room Air 12/02/16 15:29 107 12/02/16 11:28 96 12/02/16 11:19 98.0 99 19 128/79 100 Room Air 12/02/16 09:56 96 18 Room Air 21 12/02/16 09:00 98/59 12/02/16 08:10 97.6 90 20 98/59 100 Room Air 12/02/16 07:22 88 12/02/16 04:00 97.0 95 20 90/40 100 Room Air 12/02/16 04:00 86 12/02/16 00:00 84 12/02/16 00:00 97.4 92 20 102/59 100 Room Air 12/01/16 20:00 97.2 95 18 96/59 99 Room Air 12/01/16 20:00 95 General Appearance: alert Neck: supple Cardiovascular: normal rate, regular rhythm Respiratory/Chest: lungs clear, normal breath sounds Abdomen: normal bowel sounds, non tender, soft Extremities: no swelling Intake and Output 12/02/16 12/03/16 19:00 07:00 Intake Total 1195 ml Output Total 1000 ml Balance 195 ml Intake Oral 1140 ml IV Total 55 ml Output Urine Total 1000 ml # Voids 3 # Bowel Movements 1 Laboratory Tests Test 12/02/16 05:05 12/02/16 06:00 White Blood Count 10.1 K/UL (4.8-10.8) Red Blood Count 4.44 M/UL (4.70-6.10) L Hemoglobin 13.0 G/DL (14.2-18.0) L Hematocrit 39.6 % (42.0-52.0) L Mean Corpuscular Volume 89 FL (80-99) Mean Corpuscular Hemoglobin 29.4 PG (27.0-31.0) Mean Corpuscular Hemoglobin Concent 33.0 G/DL (32.0-36.0) Red Cell Distribution Width 14.9 % (11.6-14.8) H Platelet Count 310 K/UL (150-450) Mean Platelet Volume 5.7 FL (6.5-10.1) L Neutrophils (%) (Auto) 72.3 % (45.0-75.0) Lymphocytes (%) (Auto) 12.8 % (20.0-45.0) L Monocytes (%) (Auto) 10.8 % (1.0-10.0) H Eosinophils (%) (Auto) 2.4 % (0.0-3.0) Basophils (%) (Auto) 1.7 % (0.0-2.0) Sodium Level 137 MMOL/L (136-145) Potassium Level 4.2 MMOL/L (3.5-5.1) Chloride Level 99 MMOL/L (98-107) Carbon Dioxide Level 25 MMOL/L (21-32) Anion Gap 13 mmol/L (5-15) Blood Urea Nitrogen 30 mg/dL (7-18) H Creatinine 1.6 MG/DL (0.55-1.30) H Estimat Glomerular Filtration Rate 52.7 mL/min (>60) Glucose Level 183 MG/DL (74-106) H Uric Acid 5.7 MG/DL (2.6-7.2) Calcium Level 9.8 MG/DL (8.5-10.1) Phosphorus Level 2.0 MG/DL (2.5-4.9) L Magnesium Level 1.9 MG/DL (1.8-2.4) Total Bilirubin 0.8 MG/DL (0.2-1.0) Gamma Glutamyl Transpeptidase 63 U/L (5-85) Aspartate Amino Transf (AST/SGOT) 21 U/L (15-37) Alanine Aminotransferase (ALT/SGPT) 14 U/L (12-78) Alkaline Phosphatase 57 U/L (46-116) Troponin I 0.485 ng/mL (0.000-0.056) C-Reactive Protein, Quantitative 4.8 mg/dL (0.00-0.90) H Pro-B-Type Natriuretic Peptide 87781 pg/mL (0-125) H Total Protein 7.7 G/DL (6.4-8.2) Albumin 2.8 G/DL (3.4-5.0) L Globulin 4.9 g/dL Albumin/Globulin Ratio 0.6 (1.0-2.7) L Digoxin Level 0.9 NG/ML (0.5-2.0) Urine Eosinophils Rare Microbiology Date/Time Source Procedure Growth Status 11/30/16 10:30 Urine,Clean Catch Urine Culture - Preliminary Escherichia Coli Resulted 12/01/16 04:00 Sacral Wound Gram Stain - Final Resulted 12/01/16 04:00 Sacral Wound Wound Culture Pending Resulted ORTEGA OLIVERA Dec 02, 2016 19:13
[2016-12-02 20:00] VITALS: BP 116/68
--- NOTE | 2016-12-02 20:15 | Infectious Diseases Prog Note ---
Assessment/Plan Assessment/Plan ASSESSMENT: 66 y/o male with: // Probable E.coli UTI // Leukocytosis, mild - resolved, afebrile // Elevated troponin - peak 0.618. Cards following, does not think NSTEMI - TTE: EF 20-25% // Hypotension r/o septic vs cardiogenic // ARF - improved // Hyponatremia / electrolyte imbalance // DM2, uncontrolled - HbA1c 12% // PCN allergy // Full Code PLAN: - continue aztreonam d# . Ok to complete course with PO levaquin at discharge - f/u cultures - monitor CBC, temperatures - monitor BMP Subjective Allergies: Coded Allergies: PENICILLINS (Verified Allergy, Intermediate, Hives, 03/29/13) Subjective remains afebrile cultures noted Objective Vital Signs Last 24 Hour Vital Signs Date Time Temp Pulse Resp B/P (MAP) Pulse Ox O2 Delivery O2 Flow Rate FiO2 12/02/16 19:59 108 18 Room Air 21 12/02/16 15:56 98.4 112 21 104/63 98 Room Air 12/02/16 15:29 107 12/02/16 11:28 96 12/02/16 11:19 98.0 99 19 128/79 100 Room Air 12/02/16 09:56 96 18 Room Air 21 12/02/16 09:00 98/59 12/02/16 08:10 97.6 90 20 98/59 100 Room Air 12/02/16 07:22 88 12/02/16 04:00 97.0 95 20 90/40 100 Room Air 12/02/16 04:00 86 12/02/16 00:00 84 12/02/16 00:00 97.4 92 20 102/59 100 Room Air Height (Feet): 5 Height (Inches): 2.00 Weight (Pounds): 152 General Appearance: no acute distress Respiratory/Chest: no respiratory distress Cardiovascular: normal rate, regular rhythm Abdomen: normal bowel sounds, soft, non tender, non distended Microbiology Date/Time Source Procedure Growth Status 11/30/16 10:30 Urine,Clean Catch Urine Culture - Preliminary Escherichia Coli Resulted 12/01/16 04:00 Sacral Wound Gram Stain - Final Resulted 12/01/16 04:00 Sacral Wound Wound Culture Pending Resulted Laboratory Tests Test 12/02/16 05:05 12/02/16 06:00 White Blood Count 10.1 K/UL (4.8-10.8) Red Blood Count 4.44 M/UL (4.70-6.10) L Hemoglobin 13.0 G/DL (14.2-18.0) L Hematocrit 39.6 % (42.0-52.0) L Mean Corpuscular Volume 89 FL (80-99) Mean Corpuscular Hemoglobin 29.4 PG (27.0-31.0) Mean Corpuscular Hemoglobin Concent 33.0 G/DL (32.0-36.0) Red Cell Distribution Width 14.9 % (11.6-14.8) H Platelet Count 310 K/UL (150-450) Mean Platelet Volume 5.7 FL (6.5-10.1) L Neutrophils (%) (Auto) 72.3 % (45.0-75.0) Lymphocytes (%) (Auto) 12.8 % (20.0-45.0) L Monocytes (%) (Auto) 10.8 % (1.0-10.0) H Eosinophils (%) (Auto) 2.4 % (0.0-3.0) Basophils (%) (Auto) 1.7 % (0.0-2.0) Sodium Level 137 MMOL/L (136-145) Potassium Level 4.2 MMOL/L (3.5-5.1) Chloride Level 99 MMOL/L (98-107) Carbon Dioxide Level 25 MMOL/L (21-32) Anion Gap 13 mmol/L (5-15) Blood Urea Nitrogen 30 mg/dL (7-18) H Creatinine 1.6 MG/DL (0.55-1.30) H Estimat Glomerular Filtration Rate 52.7 mL/min (>60) Glucose Level 183 MG/DL (74-106) H Uric Acid 5.7 MG/DL (2.6-7.2) Calcium Level 9.8 MG/DL (8.5-10.1) Phosphorus Level 2.0 MG/DL (2.5-4.9) L Magnesium Level 1.9 MG/DL (1.8-2.4) Total Bilirubin 0.8 MG/DL (0.2-1.0) Gamma Glutamyl Transpeptidase 63 U/L (5-85) Aspartate Amino Transf (AST/SGOT) 21 U/L (15-37) Alanine Aminotransferase (ALT/SGPT) 14 U/L (12-78) Alkaline Phosphatase 57 U/L (46-116) Troponin I 0.485 ng/mL (0.000-0.056) C-Reactive Protein, Quantitative 4.8 mg/dL (0.00-0.90) H Pro-B-Type Natriuretic Peptide 71791 pg/mL (0-125) H Total Protein 7.7 G/DL (6.4-8.2) Albumin 2.8 G/DL (3.4-5.0) L Globulin 4.9 g/dL Albumin/Globulin Ratio 0.6 (1.0-2.7) L Digoxin Level 0.9 NG/ML (0.5-2.0) Urine Eosinophils Rare Current Medications Medications (Trade) Dose Ordered Sig/Sudha Route PRN Reason Start Time Stop Time Status Last Admin Dose Admin Acetaminophen (Tylenol) 650 mg Q4H PRN ORAL fever 12/02/16 07:15 12/29/16 23:14 Albuterol/ Ipratropium (DuoNeb 0.5-3(2.5)mg/3ml) 3 ml Q6HRT PRN HHN dyspnea 12/02/16 07:00 12/04/16 23:14 Artificial Tears (Akwa-Tears) 1 drop BIDPRN PRN BOTH EYES DRY EYES 12/02/16 14:00 12/31/16 13:59 12/02/16 15:45 Aztreonam 1 gm/ Dextrose 55 ml @ 110 mls/hr EVERY 8 HOURS IVPB 12/02/16 14:00 12/09/16 13:59 12/02/16 14:34 Dextrose (Dextrose 50%) STAT PRN IV Hypoglycemia 12/02/16 23:15 12/29/16 23:14 Digoxin (Lanoxin) 0.125 mg DAILY ORAL 12/03/16 09:00 01/02/17 08:59 Gabapentin (Neurontin) 300 mg THREE TIMES A DAY ORAL 12/02/16 09:00 12/31/16 12:59 12/02/16 17:10 Heparin Sodium (Porcine) (Heparin 5000 units/ml) 5,000 units EVERY 12 HOURS SUBQ 12/02/16 09:00 12/30/16 08:59 12/02/16 09:33 Insulin Aspart (NovoLOG) BEFORE MEALS AND HS SUBQ 12/02/16 06:30 12/30/16 06:29 12/02/16 17:09 Lisinopril (Zestril) 2.5 mg DAILY ORAL 12/02/16 09:00 01/01/17 08:59 Morphine Sulfate (Morphine Sulfate) 1 mg Q4H PRN IVP For Pain 12/02/16 08:45 12/07/16 20:44 Ondansetron HCl (Zofran) 4 mg Q6H PRN IVP Nausea & Vomiting 12/02/16 11:15 12/29/16 23:14 Pantoprazole (Protonix) 40 mg DAILY ORAL 12/02/16 09:00 12/30/16 13:29 12/02/16 09:29 Phosphorus (Phospha 250 Neutral) 250 mg THREE TIMES A DAY ORAL 12/02/16 18:00 01/01/17 17:59 12/02/16 17:41 Polyethylene Glycol (Miralax) 17 gm HSPRN PRN ORAL Constipation 12/02/16 23:15 12/29/16 23:14 Tamsulosin HCl (Flomax) 0.4 mg QHS ORAL 12/02/16 21:00 12/31/16 20:59 Zolpidem Tartrate (Ambien) 5 mg HSPRN PRN ORAL Insomnia 12/02/16 23:15 12/06/16 23:14 LUCINDA CHÁVEZ Dec 02, 2016 20:15
[2016-12-02] MEDS ORDERED: Zolpidem 5mg tab ORAL PRN (23:15)
[2016-12-02] MEDS ORDERED: Miralax 17gm pkt ORAL PRN (23:15)
[2016-12-03 00:23] VITALS: BP 104/79
[2016-12-03 04:30] VITALS: BP 115/65
[2016-12-03] MEDS: Aztreonam 1gm/D5W 55ml IVPB SCH ×6 (05:48→21:26)
[2016-12-03] MEDS: NovoLOG Insulin Flexpen SUBQ SCH ×4 (05:48→21:23)
[2016-12-03 08:00] VITALS: BP 98/50
[2016-12-03] MEDS: Lisinopril 2.5mg tab ORAL SCH (09:47)
[2016-12-03] MEDS: Digoxin 0.125mg tab ORAL SCH (09:47)
[2016-12-03] MEDS: Phospha 250 Neutral tab ORAL SCH ×3 (09:48→18:27)
[2016-12-03] MEDS: Heparin 5000 units/ml inj SUBQ SCH ×2 (09:50→21:22)
[2016-12-03 12:46] VITALS: BP 91/50
--- NOTE | 2016-12-03 13:37 | Infectious Diseases Prog Note ---
Assessment/Plan Assessment/Plan ASSESSMENT: 66 y/o male with: // Probable E.coli UTI // Leukocytosis, mild - resolved, afebrile // Elevated troponin - peak 0.618. Cards following, does not think NSTEMI - TTE: EF 20-25% // Hypotension r/o septic vs cardiogenic // ARF - improved // Hyponatremia / electrolyte imbalance // DM2, uncontrolled - HbA1c 12% // PCN allergy // Full Code PLAN: - continue aztreonam d# . Ok to complete course with PO levaquin at discharge - f/u cultures - monitor CBC, temperatures - monitor BMP Subjective Constitutional: Denies: no symptoms, fever, chills, fatigue, anorexia, drenching sweats, other Allergies: Coded Allergies: PENICILLINS (Verified Allergy, Intermediate, Hives, 03/29/13) Objective Vital Signs Last 24 Hour Vital Signs Date Time Temp Pulse Resp B/P (MAP) Pulse Ox O2 Delivery O2 Flow Rate FiO2 12/03/16 12:46 97.2 103 20 91/50 95 Room Air 12/03/16 09:47 102 12/03/16 09:47 98/50 12/03/16 08:16 78 16 Room Air 21 12/03/16 08:00 111 12/03/16 08:00 97.5 102 20 98/50 97 Room Air 12/03/16 04:30 97.0 102 20 115/65 96 Room Air 12/03/16 04:00 94 12/03/16 00:23 98.0 104 20 104/79 96 12/03/16 00:00 92 12/02/16 20:00 117 12/02/16 20:00 98.0 109 20 116/68 96 12/02/16 19:59 108 18 Room Air 21 12/02/16 15:56 98.4 112 21 104/63 98 Room Air 12/02/16 15:29 107 Height (Feet): 5 Height (Inches): 2.00 Weight (Pounds): 152 Respiratory/Chest: lungs clear Cardiovascular: regularly irregular Abdomen: no organomegaly Microbiology Date/Time Source Procedure Growth Status 12/01/16 04:00 Sacral Wound Gram Stain - Final Resulted 12/01/16 04:00 Wound Culture - Preliminary Gram Positive Cocci Usual Skin Tiera Resulted Current Medications Medications (Trade) Dose Ordered Sig/Sudha Route PRN Reason Start Time Stop Time Status Last Admin Dose Admin Acetaminophen (Tylenol) 650 mg Q4H PRN ORAL fever 12/02/16 07:15 12/29/16 23:14 Albuterol/ Ipratropium (DuoNeb 0.5-3(2.5)mg/3ml) 3 ml Q6HRT PRN HHN dyspnea 12/02/16 07:00 12/04/16 23:14 Artificial Tears (Akwa-Tears) 1 drop BIDPRN PRN BOTH EYES DRY EYES 12/02/16 14:00 12/31/16 13:59 12/02/16 15:45 Aztreonam 1 gm/ Dextrose 55 ml @ 110 mls/hr EVERY 8 HOURS IVPB 12/02/16 14:00 12/09/16 13:59 12/03/16 05:48 Dextrose (Dextrose 50%) STAT PRN IV Hypoglycemia 12/02/16 23:15 12/29/16 23:14 Digoxin (Lanoxin) 0.125 mg DAILY ORAL 12/03/16 09:00 01/02/17 08:59 12/03/16 09:47 Gabapentin (Neurontin) 300 mg THREE TIMES A DAY ORAL 12/02/16 09:00 12/31/16 12:59 12/03/16 12:59 Heparin Sodium (Porcine) (Heparin 5000 units/ml) 5,000 units EVERY 12 HOURS SUBQ 12/02/16 09:00 12/30/16 08:59 12/03/16 09:50 Insulin Aspart (NovoLOG) BEFORE MEALS AND HS SUBQ 12/02/16 06:30 12/30/16 06:29 12/03/16 12:57 Lisinopril (Zestril) 2.5 mg DAILY ORAL 12/02/16 09:00 01/01/17 08:59 12/03/16 09:47 Morphine Sulfate (Morphine Sulfate) 1 mg Q4H PRN IVP For Pain 12/02/16 08:45 12/07/16 20:44 Ondansetron HCl (Zofran) 4 mg Q6H PRN IVP Nausea & Vomiting 12/02/16 11:15 12/29/16 23:14 Pantoprazole (Protonix) 40 mg DAILY ORAL 12/02/16 09:00 12/30/16 13:29 12/03/16 09:48 Phosphorus (Phospha 250 Neutral) 250 mg THREE TIMES A DAY ORAL 12/02/16 18:00 01/01/17 17:59 12/03/16 12:59 Polyethylene Glycol (Miralax) 17 gm HSPRN PRN ORAL Constipation 12/02/16 23:15 12/29/16 23:14 Tamsulosin HCl (Flomax) 0.4 mg QHS ORAL 12/02/16 21:00 12/31/16 20:59 12/02/16 21:26 Zolpidem Tartrate (Ambien) 5 mg HSPRN PRN ORAL Insomnia 12/02/16 23:15 12/06/16 23:14 MORE ALBA M.D. Dec 03, 2016 13:37
--- NOTE | 2016-12-03 14:38 | Pulmonology Progress Note ---
Assessment/Plan Problems: (1) end stage heart disease with EF of 20% (2) Hypoglycemia (3) Acute encephalopathy (4) Sepsis (5) Non-ST elevation (NSTEMI) myocardial infarction (6) Diabetes mellitus (7) HTN (hypertension) Assessment/Plan stress study canceled renal function better check electrolytes echo reviewed all consults reviewed bp better check electrolytes Subjective ROS Limited/Unobtainable: No Interval Events: stress test was canceled Allergies: Coded Allergies: PENICILLINS (Verified Allergy, Intermediate, Hives, 03/29/13) Objective Last 24 Hour Vital Signs Date Time Temp Pulse Resp B/P (MAP) Pulse Ox O2 Delivery O2 Flow Rate FiO2 12/03/16 12:46 97.2 103 20 91/50 95 Room Air 12/03/16 09:47 102 12/03/16 09:47 98/50 12/03/16 08:16 78 16 Room Air 21 12/03/16 08:00 111 12/03/16 08:00 97.5 102 20 98/50 97 Room Air 12/03/16 04:30 97.0 102 20 115/65 96 Room Air 12/03/16 04:00 94 12/03/16 00:23 98.0 104 20 104/79 96 12/03/16 00:00 92 12/02/16 20:00 117 12/02/16 20:00 98.0 109 20 116/68 96 12/02/16 19:59 108 18 Room Air 21 12/02/16 15:56 98.4 112 21 104/63 98 Room Air 12/02/16 15:29 107 General Appearance: WD/WN HEENT: normocephalic, atraumatic Respiratory/Chest: chest wall non-tender, normal breath sounds Cardiovascular: normal peripheral pulses, normal rate Abdomen: normal bowel sounds, soft, non tender Extremities: no cyanosis Skin: no lesions Microbiology Date/Time Source Procedure Growth Status 12/01/16 04:00 Sacral Wound Gram Stain - Final Resulted 12/01/16 04:00 Wound Culture - Preliminary Gram Positive Cocci Usual Skin Tiera Resulted Current Medications Medications (Trade) Dose Ordered Sig/Sudha Route PRN Reason Start Time Stop Time Status Last Admin Dose Admin Acetaminophen (Tylenol) 650 mg Q4H PRN ORAL fever 12/02/16 07:15 12/29/16 23:14 Albuterol/ Ipratropium (DuoNeb 0.5-3(2.5)mg/3ml) 3 ml Q6HRT PRN HHN dyspnea 12/02/16 07:00 12/04/16 23:14 Artificial Tears (Akwa-Tears) 1 drop BIDPRN PRN BOTH EYES DRY EYES 12/02/16 14:00 12/31/16 13:59 12/02/16 15:45 Aztreonam 1 gm/ Dextrose 55 ml @ 110 mls/hr EVERY 8 HOURS IVPB 12/02/16 14:00 12/09/16 13:59 12/03/16 14:04 Dextrose (Dextrose 50%) STAT PRN IV Hypoglycemia 12/02/16 23:15 12/29/16 23:14 Digoxin (Lanoxin) 0.125 mg DAILY ORAL 12/03/16 09:00 01/02/17 08:59 12/03/16 09:47 Gabapentin (Neurontin) 300 mg THREE TIMES A DAY ORAL 12/02/16 09:00 12/31/16 12:59 12/03/16 12:59 Heparin Sodium (Porcine) (Heparin 5000 units/ml) 5,000 units EVERY 12 HOURS SUBQ 12/02/16 09:00 12/30/16 08:59 12/03/16 09:50 Insulin Aspart (NovoLOG) BEFORE MEALS AND HS SUBQ 12/02/16 06:30 12/30/16 06:29 12/03/16 12:57 Lisinopril (Zestril) 2.5 mg DAILY ORAL 12/02/16 09:00 01/01/17 08:59 12/03/16 09:47 Morphine Sulfate (Morphine Sulfate) 1 mg Q4H PRN IVP For Pain 12/02/16 08:45 12/07/16 20:44 Ondansetron HCl (Zofran) 4 mg Q6H PRN IVP Nausea & Vomiting 12/02/16 11:15 12/29/16 23:14 Pantoprazole (Protonix) 40 mg DAILY ORAL 12/02/16 09:00 12/30/16 13:29 12/03/16 09:48 Phosphorus (Phospha 250 Neutral) 250 mg THREE TIMES A DAY ORAL 12/02/16 18:00 01/01/17 17:59 12/03/16 12:59 Polyethylene Glycol (Miralax) 17 gm HSPRN PRN ORAL Constipation 12/02/16 23:15 12/29/16 23:14 Tamsulosin HCl (Flomax) 0.4 mg QHS ORAL 12/02/16 21:00 12/31/16 20:59 12/02/16 21:26 Zolpidem Tartrate (Ambien) 5 mg HSPRN PRN ORAL Insomnia 12/02/16 23:15 12/06/16 23:14 ALESHA BARRETT Dec 03, 2016 14:38
--- NOTE | 2016-12-03 15:44 | General Progress Note ---
Assessment/Plan Status: stable Assessment/Plan Renal failure, likely chronic due to DM and HTN. May have superimposed acute component. Presented with Low BP- Cardiogenic vs Sepsis. Cr lowering daily 1) Hypoglycemia (2) Acute encephalopathy (3) Sepsis (4) Non-ST elevation (NSTEMI) myocardial infarction (5) Diabetes mellitus (6) HTN (hypertension) (7) Cardiomyopathy: Left ventricular ejection fraction estimated to be 20-25%. Plan; no labs today optimize cardiac status po Digoxin hold IV fluids- start Fito Inhibs NICOALS kidney- 2.3 cm right renal interpolar lesion possible mass, versus prominent lobulation. 2D echo Left ventricular ejection fraction estimated to be 20-25%. Urine studies- Keep BP and BS in check Avoid nephrotoxics Per orders Subjective ROS Limited/Unobtainable: No Allergies: Coded Allergies: PENICILLINS (Verified Allergy, Intermediate, Hives, 03/29/13) Objective Last 24 Hour Vital Signs Date Time Temp Pulse Resp B/P (MAP) Pulse Ox O2 Delivery O2 Flow Rate FiO2 12/03/16 12:46 97.2 103 20 91/50 95 Room Air 12/03/16 12:00 102 12/03/16 09:47 102 12/03/16 09:47 98/50 12/03/16 08:16 78 16 Room Air 21 12/03/16 08:00 111 12/03/16 08:00 97.5 102 20 98/50 97 Room Air 12/03/16 04:30 97.0 102 20 115/65 96 Room Air 12/03/16 04:00 94 12/03/16 00:23 98.0 104 20 104/79 96 12/03/16 00:00 92 12/02/16 20:00 117 12/02/16 20:00 98.0 109 20 116/68 96 12/02/16 19:59 108 18 Room Air 21 12/02/16 15:56 98.4 112 21 104/63 98 Room Air Height (Feet): 5 Height (Inches): 2.00 Weight (Pounds): 152 General Appearance: no apparent distress Objective no change JAYDEN ELAM Dec 03, 2016 15:44
[2016-12-03 16:03] VITALS: BP 111/62
--- NOTE | 2016-12-03 18:04 | Diagnostic Imaging Report ---
Indication: DYSPNEA Technique: One view of the chest Comparison: 11/29/2016 Findings: Lungs and pleural spaces are clear. Heart size is normal. There is no significant interim change Impression: No acute process
--- NOTE | 2016-12-03 19:47 | Cardiology Progress Note ---
Assessment/Plan Assessment/Plan 1. Hypotension. 2. Diabetes mellitus. 3. History of hypertension. 4. Renal failure. 5. Abnormal cardiac enzyme, apparently questionable significance in light of renal insufficiency. 6. cardiomyopathy. 7. Possible urinary tract infection. renal fxn improved off ivf now on acei lwo dose needs stress test to see if any sig ischemic burden tele reviewed echo reveiwed bp seem bordeline watch reanl fxn , k and cr on acei abn trop no peak no souleymane to suggest infarction no sx to suggest coroanry syndrome stress test not done on tuesday due to reported wheezing retry tuesday Subjective Cardiovascular: Denies: chest pain, lightheadedness Respiratory: Denies: orthopnea, shortness of breath Gastrointestinal/Abdominal: Denies: abdominal pain Genitourinary: Denies: burning Objective Last 24 Hour Vital Signs Date Time Temp Pulse Resp B/P (MAP) Pulse Ox O2 Delivery O2 Flow Rate FiO2 12/03/16 16:03 97.5 94 20 111/62 96 Room Air 12/03/16 16:00 98 12/03/16 12:46 97.2 103 20 91/50 95 Room Air 12/03/16 12:00 102 12/03/16 09:47 102 12/03/16 09:47 98/50 12/03/16 08:16 78 16 Room Air 21 12/03/16 08:00 111 12/03/16 08:00 97.5 102 20 98/50 97 Room Air 12/03/16 04:30 97.0 102 20 115/65 96 Room Air 12/03/16 04:00 94 12/03/16 00:23 98.0 104 20 104/79 96 12/03/16 00:00 92 12/02/16 20:00 117 12/02/16 20:00 98.0 109 20 116/68 96 12/02/16 19:59 108 18 Room Air 21 General Appearance: alert Neck: no JVD Cardiovascular: normal rate, regular rhythm Respiratory/Chest: lungs clear, normal breath sounds Abdomen: normal bowel sounds, non tender, soft Extremities: no swelling Intake and Output 12/03/16 12/04/16 19:00 07:00 Intake Total 1140 ml Output Total 1300 ml Balance -160 ml Intake Oral 940 ml Other 200 ml Output Urine Total 1300 ml Microbiology Date/Time Source Procedure Growth Status 12/01/16 04:00 Sacral Wound Gram Stain - Final Resulted 12/01/16 04:00 Wound Culture - Preliminary Gram Positive Cocci Usual Skin Tiera Resulted ORTEGA OLIVERA Dec 03, 2016 19:47
[2016-12-03 20:00] VITALS: BP 103/59
[2016-12-03] MEDS: Tamsulosin 0.4mg cap ORAL SCH (21:20)
[2016-12-04] VITALS: BP 116/60
[2016-12-04 04:00] VITALS: BP 109/63
[2016-12-04] MEDS: Aztreonam 1gm/D5W 55ml IVPB SCH ×6 (06:04→21:18)
[2016-12-04] MEDS: NovoLOG Insulin Flexpen SUBQ SCH ×4 (06:07→21:27)
[2016-12-04 07:23] LABS: ALANINE AMINOTRANSFERASE 24 U/L (12-78); ALBUMIN/GLOBULIN RATIO 0.6 (1.0-2.7); ANION GAP 9 mmol/L (5-15); CALCIUM 9.4 MG/DL (8.5-10.1); CARBON DIOXIDE 27 MMOL/L (21-32); CHLORIDE 103 MMOL/L (98-107); CREATININE 1.5 MG/DL (0.55-1.30); GLOMERULAR FILTRATION RATE 56.7 mL/min (>60); SODIUM 139 MMOL/L (136-145); TOTAL PROTEIN 7.5 G/DL (6.4-8.2)
[2016-12-04 07:24] LABS: BASOPHILS % (AUTO) 1.4 % (0.0-2.0); EOSINOPHILS % (AUTO) 3.7 % (0.0-3.0); LYMPHOCYTES % (AUTO) 15.3 % (20.0-45.0); MEAN CORPUSCULAR HEMOGLOBIN 28.7 PG (27.0-31.0); MEAN CORPUSCULAR VOLUME 90 FL (80-99); MEAN PLATELET VOLUME 5.7 FL (6.5-10.1); MONOCYTES % (AUTO) 9.7 % (1.0-10.0); NEUTROPHILS % (AUTO) 69.8 % (45.0-75.0); PLATELET COUNT 339 K/UL (150-450); RED BLOOD COUNT 4.44 M/UL (4.70-6.10); RED CELL DISTRIBUTION WIDTH 15.1 % (11.6-14.8); WHITE BLOOD COUNT 10.3 K/UL (4.8-10.8)
[2016-12-04 08:00] VITALS: BP 104/60
[2016-12-04 08:37] LABS: URIC ACID 4.8 MG/DL (2.6-7.2)
[2016-12-04] MEDS: Lisinopril 2.5mg tab ORAL SCH (09:00)
[2016-12-04 09:17] LABS: ASPARTATE AMINO TRANSFERASE 25 U/L (15-37)
[2016-12-04] MEDS: Phospha 250 Neutral tab ORAL SCH ×3 (10:23→17:54)
[2016-12-04] MEDS: Digoxin 0.125mg tab ORAL SCH (10:24)
[2016-12-04] MEDS: Heparin 5000 units/ml inj SUBQ SCH ×2 (10:32→21:18)
--- NOTE | 2016-12-04 11:41 | Infectious Diseases Prog Note ---
Assessment/Plan Assessment/Plan A: UTI Acute renal failure Uncontrolled DM Hyponatremia corrected CHF, EF=20-25% P: Continue Azactam in hospital @ time of discharge PO Levaquin Subjective ROS Limited/Unobtainable: No Constitutional: Reports: no symptoms Respiratory: Reports: no symptoms Cardiovascular: Reports: no symptoms Gastrointestinal/Abdominal: Reports: no symptoms Musculoskeletal: Reports: pain, other - in amputated leg Allergies: Coded Allergies: PENICILLINS (Verified Allergy, Intermediate, Hives, 03/29/13) Objective Vital Signs Last 24 Hour Vital Signs Date Time Temp Pulse Resp B/P (MAP) Pulse Ox O2 Delivery O2 Flow Rate FiO2 12/04/16 10:24 89 12/04/16 09:00 89 104/60 12/04/16 09:00 104/60 12/04/16 08:38 88 16 Room Air 21 12/04/16 08:00 97.7 89 2 104/60 100 Room Air 12/04/16 04:00 90 12/04/16 04:00 97.7 88 20 109/63 96 Room Air 21 12/04/16 00:00 97.0 98 20 116/60 96 Room Air 21 12/04/16 00:00 100 12/03/16 21:19 80 119/62 12/03/16 21:17 85 16 Room Air 21 12/03/16 20:00 95 12/03/16 20:00 97.9 79 16 103/59 96 Room Air 21 12/03/16 16:03 97.5 94 20 111/62 96 Room Air 12/03/16 16:00 98 12/03/16 12:46 97.2 103 20 91/50 95 Room Air 12/03/16 12:00 102 Height (Feet): 5 Height (Inches): 2.00 Weight (Pounds): 152 General Appearance: no acute distress HEENT: mucous membranes moist Respiratory/Chest: lungs clear Cardiovascular: normal rate Abdomen: soft, non tender Genitourinary: other - condom catheter Extremities: no edema, other - left AKA Neurologic/Psychiatric: alert, oriented x 3, responsive Laboratory Tests Test 12/04/16 05:45 White Blood Count 10.3 K/UL (4.8-10.8) Red Blood Count 4.44 M/UL (4.70-6.10) L Hemoglobin 12.8 G/DL (14.2-18.0) L Hematocrit 39.9 % (42.0-52.0) L Mean Corpuscular Volume 90 FL (80-99) Mean Corpuscular Hemoglobin 28.7 PG (27.0-31.0) Mean Corpuscular Hemoglobin Concent 32.0 G/DL (32.0-36.0) Red Cell Distribution Width 15.1 % (11.6-14.8) H Platelet Count 339 K/UL (150-450) Mean Platelet Volume 5.7 FL (6.5-10.1) L Neutrophils (%) (Auto) 69.8 % (45.0-75.0) Lymphocytes (%) (Auto) 15.3 % (20.0-45.0) L Monocytes (%) (Auto) 9.7 % (1.0-10.0) Eosinophils (%) (Auto) 3.7 % (0.0-3.0) H Basophils (%) (Auto) 1.4 % (0.0-2.0) Sodium Level 139 MMOL/L (136-145) Potassium Level 4.0 MMOL/L (3.5-5.1) Chloride Level 103 MMOL/L (98-107) Carbon Dioxide Level 27 MMOL/L (21-32) Anion Gap 9 mmol/L (5-15) Blood Urea Nitrogen 26 mg/dL (7-18) H Creatinine 1.5 MG/DL (0.55-1.30) H Estimat Glomerular Filtration Rate 56.7 mL/min (>60) Glucose Level 219 MG/DL (74-106) H Uric Acid 4.8 MG/DL (2.6-7.2) Calcium Level 9.4 MG/DL (8.5-10.1) Phosphorus Level 3.0 MG/DL (2.5-4.9) Magnesium Level 2.0 MG/DL (1.8-2.4) Total Bilirubin 0.4 MG/DL (0.2-1.0) Aspartate Amino Transf (AST/SGOT) 25 U/L (15-37) Alanine Aminotransferase (ALT/SGPT) 24 U/L (12-78) Alkaline Phosphatase 61 U/L (46-116) Troponin I 0.085 ng/mL (0.000-0.056) C-Reactive Protein, Quantitative 3.0 mg/dL (0.00-0.90) H Pro-B-Type Natriuretic Peptide 35148 pg/mL (0-125) H Total Protein 7.5 G/DL (6.4-8.2) Albumin 2.7 G/DL (3.4-5.0) L Globulin 4.8 g/dL Albumin/Globulin Ratio 0.6 (1.0-2.7) L Current Medications Medications (Trade) Dose Ordered Sig/Sudha Route PRN Reason Start Time Stop Time Status Last Admin Dose Admin Acetaminophen (Tylenol) 650 mg Q4H PRN ORAL fever 12/02/16 07:15 12/29/16 23:14 Albuterol/ Ipratropium (DuoNeb 0.5-3(2.5)mg/3ml) 3 ml Q6HRT PRN HHN dyspnea 12/02/16 07:00 12/04/16 23:14 Artificial Tears (Akwa-Tears) 1 drop BIDPRN PRN BOTH EYES DRY EYES 12/02/16 14:00 12/31/16 13:59 12/02/16 15:45 Aztreonam 1 gm/ Dextrose 55 ml @ 110 mls/hr EVERY 8 HOURS IVPB 12/02/16 14:00 12/09/16 13:59 12/04/16 06:04 Carvedilol (Coreg) 3.125 mg EVERY 12 HOURS ORAL 12/03/16 21:00 01/02/17 20:59 12/03/16 21:19 Dextrose (Dextrose 50%) STAT PRN IV Hypoglycemia 12/02/16 23:15 12/29/16 23:14 Digoxin (Lanoxin) 0.125 mg DAILY ORAL 12/03/16 09:00 01/02/17 08:59 12/04/16 10:24 Gabapentin (Neurontin) 300 mg THREE TIMES A DAY ORAL 12/02/16 09:00 12/31/16 12:59 12/04/16 10:24 Heparin Sodium (Porcine) (Heparin 5000 units/ml) 5,000 units EVERY 12 HOURS SUBQ 12/02/16 09:00 12/30/16 08:59 12/04/16 10:32 Insulin Aspart (NovoLOG) BEFORE MEALS AND HS SUBQ 12/02/16 06:30 12/30/16 06:29 12/04/16 06:07 Lisinopril (Zestril) 2.5 mg DAILY ORAL 12/02/16 09:00 01/01/17 08:59 12/03/16 09:47 Morphine Sulfate (Morphine Sulfate) 1 mg Q4H PRN IVP For Pain 12/02/16 08:45 12/07/16 20:44 Ondansetron HCl (Zofran) 4 mg Q6H PRN IVP Nausea & Vomiting 12/02/16 11:15 12/29/16 23:14 Pantoprazole (Protonix) 40 mg DAILY ORAL 12/02/16 09:00 12/30/16 13:29 12/04/16 10:23 Phosphorus (Phospha 250 Neutral) 250 mg THREE TIMES A DAY ORAL 12/02/16 18:00 01/01/17 17:59 12/04/16 10:23 Polyethylene Glycol (Miralax) 17 gm HSPRN PRN ORAL Constipation 12/02/16 23:15 12/29/16 23:14 Tamsulosin HCl (Flomax) 0.4 mg QHS ORAL 12/02/16 21:00 12/31/16 20:59 12/03/16 21:20 Zolpidem Tartrate (Ambien) 5 mg HSPRN PRN ORAL Insomnia 12/02/16 23:15 12/06/16 23:14 FERNANDEZ SANTIAGO Dec 04, 2016 11:41
[2016-12-04 12:00] VITALS: BP 102/9
--- NOTE | 2016-12-04 12:26 | General Progress Note ---
Assessment/Plan Status: stable Assessment/Plan Renal failure, likely chronic due to DM and HTN. May have superimposed acute component. Presented with Low BP- Cardiogenic vs Sepsis. Cr lowering daily 1) Hypoglycemia (2) Acute encephalopathy (3) Sepsis (4) Non-ST elevation (NSTEMI) myocardial infarction (5) Diabetes mellitus (6) HTN (hypertension) (7) Cardiomyopathy: Left ventricular ejection fraction estimated to be 20-25%. Plan; optimize cardiac status po Digoxin hold IV fluids- start Fito Inhibs NICOLAS kidney- 2.3 cm right renal interpolar lesion possible mass, versus prominent lobulation. 2D echo Left ventricular ejection fraction estimated to be 20-25%. Urine studies- Keep BP and BS in check Avoid nephrotoxics Per orders DC planning? Subjective ROS Limited/Unobtainable: No Constitutional: Reports: malaise Allergies: Coded Allergies: PENICILLINS (Verified Allergy, Intermediate, Hives, 03/29/13) Objective Last 24 Hour Vital Signs Date Time Temp Pulse Resp B/P (MAP) Pulse Ox O2 Delivery O2 Flow Rate FiO2 12/04/16 10:24 89 12/04/16 09:00 89 104/60 12/04/16 09:00 104/60 12/04/16 08:38 88 16 Room Air 21 12/04/16 08:00 97.7 89 2 104/60 100 Room Air 12/04/16 04:00 90 12/04/16 04:00 97.7 88 20 109/63 96 Room Air 21 12/04/16 00:00 97.0 98 20 116/60 96 Room Air 21 12/04/16 00:00 100 12/03/16 21:19 80 119/62 12/03/16 21:17 85 16 Room Air 21 12/03/16 20:00 95 12/03/16 20:00 97.9 79 16 103/59 96 Room Air 21 12/03/16 16:03 97.5 94 20 111/62 96 Room Air 12/03/16 16:00 98 12/03/16 12:46 97.2 103 20 91/50 95 Room Air Laboratory Tests 12/04/16 05:45: White Blood Count 10.3, Red Blood Count 4.44L, Hemoglobin 12.8L, Hematocrit 39.9L, Mean Corpuscular Volume 90, Mean Corpuscular Hemoglobin 28.7, Mean Corpuscular Hemoglobin Concent 32.0, Red Cell Distribution Width 15.1H, Platelet Count 339, Mean Platelet Volume 5.7L, Neutrophils (%) (Auto) 69.8, Lymphocytes (%) (Auto) 15.3L, Monocytes (%) (Auto) 9.7, Eosinophils (%) (Auto) 3.7H, Basophils (%) (Auto) 1.4, Sodium Level 139, Potassium Level 4.0, Chloride Level 103, Carbon Dioxide Level 27, Anion Gap 9, Blood Urea Nitrogen 26H, Creatinine 1.5H, Estimat Glomerular Filtration Rate 56.7, Glucose Level 219H, Uric Acid 4.8, Calcium Level 9.4, Phosphorus Level 3.0, Magnesium Level 2.0, Total Bilirubin 0.4, Aspartate Amino Transf (AST/SGOT) 25, Alanine Aminotransferase (ALT/SGPT) 24, Alkaline Phosphatase 61, Troponin I 0.085H, C- Reactive Protein, Quantitative 3.0H, Pro-B-Type Natriuretic Peptide 57808L, Total Protein 7.5, Albumin 2.7L, Globulin 4.8, Albumin/Globulin Ratio 0.6L Height (Feet): 5 Height (Inches): 2.00 Weight (Pounds): 152 General Appearance: no apparent distress Objective no change JAYDEN ELAM Dec 04, 2016 12:26
--- NOTE | 2016-12-04 15:59 | Cardiology Progress Note ---
Assessment/Plan Problem List: (1) CHF (congestive heart failure) (2) Hypotension (3) Elevated troponin (4) Diabetes mellitus (5) HTN (hypertension) (6) S/P AKA (above knee amputation) unilateral Status: stable, progressing Status Narrative Mr. Callahan appears stable, without angina or chf symptoms currently. He has cardiomyopathy, w/ EF 20-25%, ?ischemic vs nonischemic cm His troponin levels were elevated to 0.6, but have now decreased to 0.08. EKG does not show ischemic changes ( RBBB and first deg av block) and he did not have CP on adm. Assessment/Plan Will continue coreg, lisinopril. Titrate upward if BP allows. Plan for stress nuclear study on Tuesday to r/o ischemia, given troponin elevation and degree of LV dysfunction. Subjective ROS Limited/Unobtainable: No Subjective Cardiology for Dr. Patel Pt reports no chest pain or dyspnea. Objective Last 24 Hour Vital Signs Date Time Temp Pulse Resp B/P (MAP) Pulse Ox O2 Delivery O2 Flow Rate FiO2 12/04/16 12:00 97.6 95 18 102/9 100 Room Air 12/04/16 10:24 89 12/04/16 09:00 89 104/60 12/04/16 09:00 104/60 12/04/16 08:38 88 16 Room Air 12/04/16 08:00 97.7 89 20 104/60 100 Room Air 12/04/16 04:00 90 12/04/16 04:00 97.7 88 20 109/63 96 Room Air 12/04/16 00:00 97.0 98 20 116/60 96 Room Air 12/04/16 00:00 100 12/03/16 21:19 80 119/62 12/03/16 21:17 85 16 Room Air 21 12/03/16 20:00 95 12/03/16 20:00 97.9 79 16 103/59 96 Room Air 21 12/03/16 16:03 97.5 94 20 111/62 96 Room Air 12/03/16 16:00 98 General Appearance: WD/WN, no apparent distress, alert, thin EENT: PERRL/EOMI, other - bilat arcus Neck: no JVD Rhythm: NSR Cardiovascular: normal rate, regular rhythm, no gallop/murmur Respiratory/Chest: lungs clear - clear anteriorly Abdomen: normal bowel sounds, non tender, soft Extremities: no swelling, other - L AKA Laboratory Tests Test 12/04/16 05:45 White Blood Count 10.3 K/UL (4.8-10.8) Red Blood Count 4.44 M/UL (4.70-6.10) L Hemoglobin 12.8 G/DL (14.2-18.0) L Hematocrit 39.9 % (42.0-52.0) L Mean Corpuscular Volume 90 FL (80-99) Mean Corpuscular Hemoglobin 28.7 PG (27.0-31.0) Mean Corpuscular Hemoglobin Concent 32.0 G/DL (32.0-36.0) Red Cell Distribution Width 15.1 % (11.6-14.8) H Platelet Count 339 K/UL (150-450) Mean Platelet Volume 5.7 FL (6.5-10.1) L Neutrophils (%) (Auto) 69.8 % (45.0-75.0) Lymphocytes (%) (Auto) 15.3 % (20.0-45.0) L Monocytes (%) (Auto) 9.7 % (1.0-10.0) Eosinophils (%) (Auto) 3.7 % (0.0-3.0) H Basophils (%) (Auto) 1.4 % (0.0-2.0) Sodium Level 139 MMOL/L (136-145) Potassium Level 4.0 MMOL/L (3.5-5.1) Chloride Level 103 MMOL/L (98-107) Carbon Dioxide Level 27 MMOL/L (21-32) Anion Gap 9 mmol/L (5-15) Blood Urea Nitrogen 26 mg/dL (7-18) H Creatinine 1.5 MG/DL (0.55-1.30) H Estimat Glomerular Filtration Rate 56.7 mL/min (>60) Glucose Level 219 MG/DL (74-106) H Uric Acid 4.8 MG/DL (2.6-7.2) Calcium Level 9.4 MG/DL (8.5-10.1) Phosphorus Level 3.0 MG/DL (2.5-4.9) Magnesium Level 2.0 MG/DL (1.8-2.4) Total Bilirubin 0.4 MG/DL (0.2-1.0) Aspartate Amino Transf (AST/SGOT) 25 U/L (15-37) Alanine Aminotransferase (ALT/SGPT) 24 U/L (12-78) Alkaline Phosphatase 61 U/L (46-116) Troponin I 0.085 ng/mL (0.000-0.056) C-Reactive Protein, Quantitative 3.0 mg/dL (0.00-0.90) H Pro-B-Type Natriuretic Peptide 06329 pg/mL (0-125) H Total Protein 7.5 G/DL (6.4-8.2) Albumin 2.7 G/DL (3.4-5.0) L Globulin 4.8 g/dL Albumin/Globulin Ratio 0.6 (1.0-2.7) L ISRAEL TELLEZ Dec 04, 2016 15:59
[2016-12-04 16:00] VITALS: BP 108/68
--- NOTE | 2016-12-04 16:33 | Pulmonology Progress Note ---
Assessment/Plan Problems: (1) end stage heart disease with EF of 20% (2) Hypoglycemia (3) Acute encephalopathy (4) Sepsis (5) Non-ST elevation (NSTEMI) myocardial infarction (6) Diabetes mellitus (7) HTN (hypertension) Assessment/Plan renal function better check electrolytes echo reviewed all consults reviewed bp better check electrolytes Subjective ROS Limited/Unobtainable: No Constitutional: Reports: no symptoms HEENT: Repors: no symptoms Respiratory: Reports: no symptoms Allergies: Coded Allergies: PENICILLINS (Verified Allergy, Intermediate, Hives, 03/29/13) Objective Last 24 Hour Vital Signs Date Time Temp Pulse Resp B/P (MAP) Pulse Ox O2 Delivery O2 Flow Rate FiO2 12/04/16 12:00 97.6 95 18 102/9 100 Room Air 12/04/16 10:24 89 12/04/16 09:00 89 104/60 12/04/16 09:00 104/60 12/04/16 08:38 88 16 Room Air 21 12/04/16 08:00 97.7 89 20 104/60 100 Room Air 12/04/16 04:00 90 12/04/16 04:00 97.7 88 20 109/63 96 Room Air 21 12/04/16 00:00 97.0 98 20 116/60 96 Room Air 21 12/04/16 00:00 100 12/03/16 21:19 80 119/62 12/03/16 21:17 85 16 Room Air 21 12/03/16 20:00 95 12/03/16 20:00 97.9 79 16 103/59 96 Room Air 21 General Appearance: WD/WN Respiratory/Chest: chest wall non-tender, lungs clear Cardiovascular: normal peripheral pulses, regular rhythm Abdomen: normal bowel sounds, no organomegaly Extremities: no clubbing Skin: no lesions 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 Laboratory Tests 12/04/16 05:45: White Blood Count 10.3, Red Blood Count 4.44L, Hemoglobin 12.8L, Hematocrit 39.9L, Mean Corpuscular Volume 90, Mean Corpuscular Hemoglobin 28.7, Mean Corpuscular Hemoglobin Concent 32.0, Red Cell Distribution Width 15.1H, Platelet Count 339, Mean Platelet Volume 5.7L, Neutrophils (%) (Auto) 69.8, Lymphocytes (%) (Auto) 15.3L, Monocytes (%) (Auto) 9.7, Eosinophils (%) (Auto) 3.7H, Basophils (%) (Auto) 1.4, Sodium Level 139, Potassium Level 4.0, Chloride Level 103, Carbon Dioxide Level 27, Anion Gap 9, Blood Urea Nitrogen 26H, Creatinine 1.5H, Estimat Glomerular Filtration Rate 56.7, Glucose Level 219H, Uric Acid 4.8, Calcium Level 9.4, Phosphorus Level 3.0, Magnesium Level 2.0, Total Bilirubin 0.4, Aspartate Amino Transf (AST/SGOT) 25, Alanine Aminotransferase (ALT/SGPT) 24, Alkaline Phosphatase 61, Troponin I 0.085H, C- Reactive Protein, Quantitative 3.0H, Pro-B-Type Natriuretic Peptide 33033F, Total Protein 7.5, Albumin 2.7L, Globulin 4.8, Albumin/Globulin Ratio 0.6L Current Medications Medications (Trade) Dose Ordered Sig/Sudha Route PRN Reason Start Time Stop Time Status Last Admin Dose Admin Acetaminophen (Tylenol) 650 mg Q4H PRN ORAL fever 12/02/16 07:15 12/29/16 23:14 Albuterol/ Ipratropium (DuoNeb 0.5-3(2.5)mg/3ml) 3 ml Q6HRT PRN HHN dyspnea 12/02/16 07:00 12/04/16 23:14 Artificial Tears (Akwa-Tears) 1 drop BIDPRN PRN BOTH EYES DRY EYES 12/02/16 14:00 12/31/16 13:59 12/02/16 15:45 Aztreonam 1 gm/ Dextrose 55 ml @ 110 mls/hr EVERY 8 HOURS IVPB 12/02/16 14:00 12/09/16 13:59 12/04/16 14:41 Carvedilol (Coreg) 3.125 mg EVERY 12 HOURS ORAL 12/03/16 21:00 01/02/17 20:59 12/03/16 21:19 Dextrose (Dextrose 50%) STAT PRN IV Hypoglycemia 12/02/16 23:15 12/29/16 23:14 Digoxin (Lanoxin) 0.125 mg DAILY ORAL 12/03/16 09:00 01/02/17 08:59 12/04/16 10:24 Gabapentin (Neurontin) 300 mg THREE TIMES A DAY ORAL 12/02/16 09:00 12/31/16 12:59 12/04/16 13:04 Heparin Sodium (Porcine) (Heparin 5000 units/ml) 5,000 units EVERY 12 HOURS SUBQ 12/02/16 09:00 12/30/16 08:59 12/04/16 10:32 Insulin Aspart (NovoLOG) BEFORE MEALS AND HS SUBQ 12/02/16 06:30 12/30/16 06:29 12/04/16 12:54 Lisinopril (Zestril) 2.5 mg DAILY ORAL 12/02/16 09:00 01/01/17 08:59 12/03/16 09:47 Morphine Sulfate (Morphine Sulfate) 1 mg Q4H PRN IVP For Pain 12/02/16 08:45 12/07/16 20:44 Ondansetron HCl (Zofran) 4 mg Q6H PRN IVP Nausea & Vomiting 12/02/16 11:15 12/29/16 23:14 Pantoprazole (Protonix) 40 mg DAILY ORAL 12/02/16 09:00 12/30/16 13:29 12/04/16 10:23 Phosphorus (Phospha 250 Neutral) 250 mg THREE TIMES A DAY ORAL 12/02/16 18:00 01/01/17 17:59 12/04/16 13:04 Polyethylene Glycol (Miralax) 17 gm HSPRN PRN ORAL Constipation 12/02/16 23:15 12/29/16 23:14 Tamsulosin HCl (Flomax) 0.4 mg QHS ORAL 12/02/16 21:00 12/31/16 20:59 12/03/16 21:20 Zolpidem Tartrate (Ambien) 5 mg HSPRN PRN ORAL Insomnia 12/02/16 23:15 12/06/16 23:14 ALESHA BARRETT Dec 04, 2016 16:33
[2016-12-04 20:00] VITALS: BP 136/78
[2016-12-04] MEDS: Tamsulosin 0.4mg cap ORAL SCH (21:16)
[2016-12-05] VITALS: BP 106/55
[2016-12-05 04:00] VITALS: BP 103/57
[2016-12-05] MEDS: Aztreonam 1gm/D5W 55ml IVPB SCH ×4 (06:47→16:19)
[2016-12-05] MEDS: NovoLOG Insulin Flexpen SUBQ SCH ×4 (06:56→21:00)
[2016-12-05 08:24] VITALS: BP 106/61
[2016-12-05] MEDS: Lisinopril 2.5mg tab ORAL SCH (09:00)
[2016-12-05] MEDS: Phospha 250 Neutral tab ORAL SCH ×3 (09:29→17:46)
[2016-12-05] MEDS: Digoxin 0.125mg tab ORAL SCH (09:32)
[2016-12-05] MEDS: Heparin 5000 units/ml inj SUBQ SCH (09:38)
--- NOTE | 2016-12-05 10:01 | Infectious Diseases Prog Note ---
Assessment/Plan Assessment/Plan A: UTI Acute renal failure Uncontrolled DM Hyponatremia corrected CHF, EF=20-25% P: Continue Azactam in hospital @ time of discharge PO Levaquin Subjective ROS Limited/Unobtainable: No Constitutional: Reports: no symptoms Respiratory: Reports: no symptoms Cardiovascular: Reports: no symptoms Gastrointestinal/Abdominal: Reports: no symptoms Genitourinary: Reports: no symptoms Allergies: Coded Allergies: PENICILLINS (Verified Allergy, Intermediate, Hives, 03/29/13) Objective Vital Signs Last 24 Hour Vital Signs Date Time Temp Pulse Resp B/P (MAP) Pulse Ox O2 Delivery O2 Flow Rate FiO2 12/05/16 09:32 98 12/05/16 09:30 98 106/98 12/05/16 09:00 106/61 12/05/16 08:24 97.2 98 18 106/61 100 Room Air 12/05/16 07:53 101 16 Room Air 21 12/05/16 04:00 97.9 99 20 103/57 95 Room Air 21 12/05/16 04:00 90 12/05/16 00:00 90 12/05/16 00:00 97.9 99 20 106/55 95 Room Air 21 12/04/16 21:15 101 136/78 12/04/16 20:37 101 16 Room Air 21 12/04/16 20:00 99 12/04/16 20:00 97.9 103 20 136/78 96 Room Air 21 12/04/16 16:00 98 12/04/16 16:00 98.2 98 20 108/68 96 12/04/16 12:00 97.6 95 18 102/9 100 Room Air 12/04/16 12:00 90 12/04/16 10:24 89 Height (Feet): 5 Height (Inches): 2.00 Weight (Pounds): 152 General Appearance: no acute distress HEENT: mucous membranes moist Respiratory/Chest: lungs clear Cardiovascular: tachycardia Abdomen: soft, non tender Extremities: no edema Neurologic/Psychiatric: alert, oriented x 3, responsive Current Medications Medications (Trade) Dose Ordered Sig/Sudha Route PRN Reason Start Time Stop Time Status Last Admin Dose Admin Acetaminophen (Tylenol) 650 mg Q4H PRN ORAL fever 12/02/16 07:15 12/29/16 23:14 Artificial Tears (Akwa-Tears) 1 drop BIDPRN PRN BOTH EYES DRY EYES 12/02/16 14:00 12/31/16 13:59 12/02/16 15:45 Aztreonam 1 gm/ Dextrose 55 ml @ 110 mls/hr EVERY 8 HOURS IVPB 12/02/16 14:00 12/09/16 13:59 12/05/16 06:47 Carvedilol (Coreg) 3.125 mg EVERY 12 HOURS ORAL 12/03/16 21:00 01/02/17 20:59 12/05/16 09:30 Dextrose (Dextrose 50%) STAT PRN IV Hypoglycemia 12/02/16 23:15 12/29/16 23:14 Digoxin (Lanoxin) 0.125 mg DAILY ORAL 12/03/16 09:00 01/02/17 08:59 12/05/16 09:32 Gabapentin (Neurontin) 300 mg THREE TIMES A DAY ORAL 12/02/16 09:00 12/31/16 12:59 12/05/16 09:29 Heparin Sodium (Porcine) (Heparin 5000 units/ml) 5,000 units EVERY 12 HOURS SUBQ 12/02/16 09:00 12/30/16 08:59 12/05/16 09:38 Insulin Aspart (NovoLOG) BEFORE MEALS AND HS SUBQ 12/02/16 06:30 12/30/16 06:29 12/05/16 06:56 Lisinopril (Zestril) 2.5 mg DAILY ORAL 12/02/16 09:00 01/01/17 08:59 12/03/16 09:47 Morphine Sulfate (Morphine Sulfate) 1 mg Q4H PRN IVP For Pain 12/02/16 08:45 12/07/16 20:44 Ondansetron HCl (Zofran) 4 mg Q6H PRN IVP Nausea & Vomiting 12/02/16 11:15 12/29/16 23:14 Pantoprazole (Protonix) 40 mg DAILY ORAL 12/02/16 09:00 12/30/16 13:29 12/05/16 09:29 Phosphorus (Phospha 250 Neutral) 250 mg THREE TIMES A DAY ORAL 12/02/16 18:00 01/01/17 17:59 12/05/16 09:29 Polyethylene Glycol (Miralax) 17 gm HSPRN PRN ORAL Constipation 12/02/16 23:15 11/15/17 23:14 Tamsulosin HCl (Flomax) 0.4 mg QHS ORAL 12/02/16 21:00 12/31/16 20:59 12/04/16 21:16 Zolpidem Tartrate (Ambien) 5 mg HSPRN PRN ORAL Insomnia 12/02/16 23:15 12/06/16 23:14 FERNANDEZ SANTIAGO Dec 05, 2016 10:01
--- NOTE | 2016-12-05 11:34 | General Progress Note ---
Assessment/Plan Status: stable - from renal stand Assessment/Plan Renal failure, likely chronic due to DM and HTN. May have superimposed acute component. Presented with Low BP- Cardiogenic vs Sepsis. Cr lowering daily 1) Hypoglycemia (2) Acute encephalopathy (3) Sepsis (4) Non-ST elevation (NSTEMI) myocardial infarction (5) Diabetes mellitus (6) HTN (hypertension) (7) Cardiomyopathy: Left ventricular ejection fraction estimated to be 20-25%. Plan; no labs today- optimize cardiac status po Digoxin hold IV fluids- start Fito Inhibs NICOLAS kidney- 2.3 cm right renal interpolar lesion possible mass, versus prominent lobulation. 2D echo Left ventricular ejection fraction estimated to be 20-25%. Urine studies- Keep BP and BS in check Avoid nephrotoxics Per orders DC planning? Subjective ROS Limited/Unobtainable: No Allergies: Coded Allergies: PENICILLINS (Verified Allergy, Intermediate, Hives, 03/29/13) Objective Last 24 Hour Vital Signs Date Time Temp Pulse Resp B/P (MAP) Pulse Ox O2 Delivery O2 Flow Rate FiO2 12/05/16 09:32 98 12/05/16 09:30 98 106/98 12/05/16 09:00 106/61 12/05/16 08:24 97.2 98 18 106/61 100 Room Air 12/05/16 07:53 101 16 Room Air 12/05/16 04:00 97.9 99 20 103/57 95 Room Air 21 12/05/16 04:00 90 12/05/16 00:00 90 12/05/16 00:00 97.9 99 20 106/55 95 Room Air 21 12/04/16 21:15 101 136/78 12/04/16 20:37 101 16 Room Air 21 12/04/16 20:00 99 12/04/16 20:00 97.9 103 20 136/78 96 Room Air 21 12/04/16 16:00 98 12/04/16 16:00 98.2 98 20 108/68 96 12/04/16 12:00 97.6 95 18 102/9 100 Room Air 12/04/16 12:00 90 Height (Feet): 5 Height (Inches): 2.00 Weight (Pounds): 152 General Appearance: no apparent distress Objective no change JAYDEN ELAM Dec 05, 2016 11:34
[2016-12-05 11:49] VITALS: BP 112/70
--- NOTE | 2016-12-05 15:32 | Cardiology Progress Note ---
Assessment/Plan Problem List: (1) CHF (congestive heart failure) (2) Hypotension (3) Elevated troponin (4) Diabetes mellitus (5) HTN (hypertension) (6) S/P AKA (above knee amputation) unilateral Status: stable, progressing Status Narrative Mr. Callahan appears from a cardiac standpoint. ECHO shows low EF 20s, but no pulm congestion by exam or XR Continue coreg, KAMILA inhibitors. Mild troponin elevation noted - levels trending downward Assessment/Plan Continue current meds. stress nuclear study planned for tomorrow to r/o ischemia. Subjective ROS Limited/Unobtainable: No Subjective Cardiology for Dr. Patel Pt has no c/o CP, dyspnea. Not ambulating Objective Last 24 Hour Vital Signs Date Time Temp Pulse Resp B/P (MAP) Pulse Ox O2 Delivery O2 Flow Rate FiO2 12/05/16 11:49 97.5 96 18 112/70 100 Room Air 12/05/16 09:32 98 12/05/16 09:30 98 106/98 12/05/16 09:00 106/61 12/05/16 08:24 97.2 98 18 106/61 100 Room Air 12/05/16 07:53 101 16 Room Air 21 12/05/16 04:00 97.9 99 20 103/57 95 Room Air 21 12/05/16 04:00 90 12/05/16 00:00 90 12/05/16 00:00 97.9 99 20 106/55 95 Room Air 21 12/04/16 21:15 101 136/78 12/04/16 20:37 101 16 Room Air 21 12/04/16 20:00 99 12/04/16 20:00 97.9 103 20 136/78 96 Room Air 21 12/04/16 16:00 98 12/04/16 16:00 98.2 98 20 108/68 96 General Appearance: WD/WN, no apparent distress, alert EENT: PERRL/EOMI Neck: supple, no JVD Rhythm: NSR Cardiovascular: normal peripheral pulses, regular rhythm, no gallop/murmur Respiratory/Chest: lungs clear - clear anteriorly Abdomen: normal bowel sounds, non tender, soft Extremities: no swelling Microbiology Date/Time Source Procedure Growth Status 12/04/16 16:20 Sacral Wound Gram Stain - Final Resulted 12/04/16 16:20 Sacral Wound Wound Culture - Preliminary Resulted ISRAEL TELLEZ Dec 05, 2016 15:32
[2016-12-05 16:02] VITALS: BP 114/67
--- NOTE | 2016-12-05 18:29 | Pulmonology Progress Note ---
Assessment/Plan Problems: (1) end stage heart disease with EF of 20% (2) Hypoglycemia (3) Acute encephalopathy (4) Sepsis (5) Non-ST elevation (NSTEMI) myocardial infarction (6) Diabetes mellitus (7) HTN (hypertension) Assessment/Plan stress test in am renal function better check electrolytes echo reviewed all consults reviewed bp better check electrolytes Subjective ROS Limited/Unobtainable: No Constitutional: Reports: no symptoms HEENT: Repors: no symptoms Respiratory: Reports: no symptoms Allergies: Coded Allergies: PENICILLINS (Verified Allergy, Intermediate, Hives, 03/29/13) Objective Last 24 Hour Vital Signs Date Time Temp Pulse Resp B/P (MAP) Pulse Ox O2 Delivery O2 Flow Rate FiO2 12/05/16 16:02 97.9 97 20 114/67 97 Room Air 12/05/16 16:00 95 12/05/16 12:00 96 12/05/16 11:49 97.5 96 18 112/70 100 Room Air 12/05/16 09:32 98 12/05/16 09:30 98 106/98 12/05/16 09:00 106/61 12/05/16 08:24 97.2 98 18 106/61 100 Room Air 12/05/16 08:00 95 12/05/16 07:53 101 16 Room Air 21 12/05/16 04:00 97.9 99 20 103/57 95 Room Air 21 12/05/16 04:00 90 12/05/16 00:00 90 12/05/16 00:00 97.9 99 20 106/55 95 Room Air 21 12/04/16 21:15 101 136/78 12/04/16 20:37 101 16 Room Air 21 12/04/16 20:00 99 12/04/16 20:00 97.9 103 20 136/78 96 Room Air 21 Intake and Output 12/05/16 12/06/16 19:00 07:00 Intake Total 240 ml Output Total 600 ml Balance -360 ml Intake Oral 240 ml Output Urine Total 600 ml General Appearance: WD/WN HEENT: normocephalic, atraumatic Respiratory/Chest: chest wall non-tender, lungs clear Cardiovascular: normal peripheral pulses, normal rate Abdomen: normal bowel sounds, soft, non tender Extremities: no cyanosis Skin: no lesions 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 Microbiology Date/Time Source Procedure Growth Status 12/04/16 16:20 Sacral Wound Gram Stain - Final Resulted 12/04/16 16:20 Sacral Wound Wound Culture - Preliminary Resulted Current Medications Medications (Trade) Dose Ordered Sig/Sudha Route PRN Reason Start Time Stop Time Status Last Admin Dose Admin Acetaminophen (Tylenol) 650 mg Q4H PRN ORAL fever 12/02/16 07:15 12/29/16 23:14 Artificial Tears (Akwa-Tears) 1 drop BIDPRN PRN BOTH EYES DRY EYES 12/02/16 14:00 12/31/16 13:59 12/02/16 15:45 Aztreonam 1 gm/ Dextrose 55 ml @ 110 mls/hr EVERY 8 HOURS IVPB 12/02/16 14:00 12/09/16 13:59 12/05/16 16:19 Carvedilol (Coreg) 3.125 mg EVERY 12 HOURS ORAL 12/03/16 21:00 01/02/17 20:59 12/05/16 09:30 Dextrose (Dextrose 50%) STAT PRN IV Hypoglycemia 12/02/16 23:15 12/29/16 23:14 Digoxin (Lanoxin) 0.125 mg DAILY ORAL 12/03/16 09:00 01/02/17 08:59 12/05/16 09:32 Gabapentin (Neurontin) 300 mg THREE TIMES A DAY ORAL 12/02/16 09:00 12/31/16 12:59 12/05/16 17:46 Heparin Sodium (Porcine) (Heparin 5000 units/ml) 5,000 units EVERY 12 HOURS SUBQ 12/02/16 09:00 12/30/16 08:59 12/05/16 09:38 Insulin Aspart (NovoLOG) BEFORE MEALS AND HS SUBQ 12/02/16 06:30 12/30/16 06:29 12/05/16 17:50 Lisinopril (Zestril) 2.5 mg DAILY ORAL 12/02/16 09:00 01/01/17 08:59 12/03/16 09:47 Morphine Sulfate (Morphine Sulfate) 1 mg Q4H PRN IVP For Pain 12/02/16 08:45 12/07/16 20:44 Ondansetron HCl (Zofran) 4 mg Q6H PRN IVP Nausea & Vomiting 12/02/16 11:15 12/29/16 23:14 Pantoprazole (Protonix) 40 mg DAILY ORAL 12/02/16 09:00 12/30/16 13:29 12/05/16 09:29 Phosphorus (Phospha 250 Neutral) 250 mg THREE TIMES A DAY ORAL 12/02/16 18:00 01/01/17 17:59 12/05/16 17:46 Polyethylene Glycol (Miralax) 17 gm HSPRN PRN ORAL Constipation 12/02/16 23:15 12/29/16 23:14 Tamsulosin HCl (Flomax) 0.4 mg QHS ORAL 12/02/16 21:00 12/31/16 20:59 12/04/16 21:16 Zolpidem Tartrate (Ambien) 5 mg HSPRN PRN ORAL Insomnia 12/02/16 23:15 12/06/16 23:14 ALESHA BARRETT Dec 05, 2016 18:29
[2016-12-05 20:00] VITALS: BP 104/57
[2016-12-06] VITALS: BP 99/52
[2016-12-06] MEDS: Tamsulosin 0.4mg cap ORAL SCH ×2 (00:06→21:06)
[2016-12-06] MEDS: Heparin 5000 units/ml inj SUBQ SCH ×3 (00:08→21:07)
[2016-12-06] MEDS: Aztreonam 1gm/D5W 55ml IVPB SCH ×8 (00:17→22:43)
[2016-12-06 04:00] VITALS: BP 102/49
[2016-12-06] MEDS: NovoLOG Insulin Flexpen SUBQ SCH ×4 (06:30→21:08)
[2016-12-06 08:00] VITALS: BP 104/63
[2016-12-06] MEDS: Phospha 250 Neutral tab ORAL SCH ×3 (09:26→17:50)
[2016-12-06] MEDS: Digoxin 0.125mg tab ORAL SCH (09:26)
[2016-12-06] MEDS: Lisinopril 2.5mg tab ORAL SCH (09:26)
--- NOTE | 2016-12-06 10:00 | Infectious Diseases Prog Note ---
Assessment/Plan Assessment/Plan // Probable E.coli UTI // Leukocytosis, mild - resolved, afebrile -Bcx NTD -CXR no acute disease // Elevated troponin - peak 0.618. Cards following, does not think NSTEMI - TTE: EF 20-25% // Hypotension r/o septic vs cardiogenic // ARF - improved // Hyponatremia / electrolyte imbalance // DM2, uncontrolled - HbA1c 12% // PCN allergy // Full Code PLAN: - continue aztreonam d# . Ok to complete course with PO levaquin at discharge - f/u cultures - monitor CBC, temperatures - monitor BMP Subjective Allergies: Coded Allergies: PENICILLINS (Verified Allergy, Intermediate, Hives, 03/29/13) Subjective afebrile in 24hrs Objective Vital Signs Last 24 Hour Vital Signs Date Time Temp Pulse Resp B/P (MAP) Pulse Ox O2 Delivery O2 Flow Rate FiO2 12/06/16 09:26 89 104/63 12/06/16 09:26 89 12/06/16 09:26 104/63 12/06/16 08:30 89 16 Room Air 21 12/06/16 08:00 97.9 85 20 104/63 99 Room Air 12/06/16 04:00 98.2 18 102/49 99 Room Air 12/06/16 00:06 91 110/57 12/06/16 00:00 99 12/06/16 00:00 97.7 89 18 99/52 95 Room Air 12/05/16 23:28 81 16 Room Air 21 12/05/16 20:00 97.9 94 19 104/57 98 Room Air 12/05/16 20:00 92 12/05/16 16:02 97.9 97 20 114/67 97 Room Air 12/05/16 16:00 95 12/05/16 12:00 96 12/05/16 11:49 97.5 96 18 112/70 100 Room Air Height (Feet): 5 Height (Inches): 2.00 Weight (Pounds): 152 Objective General Appearance: no acute distress HEENT: mucous membranes moist Respiratory/Chest: lungs clear Cardiovascular: tachycardia Abdomen: soft, non tender Extremities: no edema Neurologic/Psychiatric: alert, oriented x 3, responsive Microbiology Date/Time Source Procedure Growth Status 10/21/17 20:19 Blood Blood Culture - Preliminary NO GROWTH AFTER 24 HOURS Resulted 12/04/16 20:00 Blood Blood Culture - Preliminary NO GROWTH AFTER 24 HOURS Resulted 12/04/16 16:20 Sacral Wound Gram Stain - Final Resulted 12/04/16 16:20 Sacral Wound Wound Culture - Preliminary Resulted Laboratory Tests Test 12/05/16 20:50 Troponin I 0.043 ng/mL (0.000-0.056) Current Medications Medications (Trade) Dose Ordered Sig/Sudha Route PRN Reason Start Time Stop Time Status Last Admin Dose Admin Acetaminophen (Tylenol) 650 mg Q4H PRN ORAL fever 12/02/16 07:15 12/29/16 23:14 Artificial Tears (Akwa-Tears) 1 drop BIDPRN PRN BOTH EYES DRY EYES 12/02/16 14:00 12/31/16 13:59 12/02/16 15:45 Aztreonam 1 gm/ Dextrose 55 ml @ 110 mls/hr EVERY 8 HOURS IVPB 12/02/16 14:00 12/09/16 13:59 12/06/16 00:17 Carvedilol (Coreg) 3.125 mg EVERY 12 HOURS ORAL 12/03/16 21:00 01/02/17 20:59 12/06/16 09:26 Dextrose (Dextrose 50%) STAT PRN IV Hypoglycemia 12/02/16 23:15 12/29/16 23:14 Digoxin (Lanoxin) 0.125 mg DAILY ORAL 12/03/16 09:00 01/02/17 08:59 12/06/16 09:26 Gabapentin (Neurontin) 300 mg THREE TIMES A DAY ORAL 12/02/16 09:00 12/31/16 12:59 12/06/16 09:26 Heparin Sodium (Porcine) (Heparin 5000 units/ml) 5,000 units EVERY 12 HOURS SUBQ 12/02/16 09:00 12/30/16 08:59 12/06/16 00:08 Insulin Aspart (NovoLOG) BEFORE MEALS AND HS SUBQ 12/02/16 06:30 12/30/16 06:29 12/05/16 17:50 Lisinopril (Zestril) 2.5 mg DAILY ORAL 12/02/16 09:00 01/01/17 08:59 12/06/16 09:26 Morphine Sulfate (Morphine Sulfate) 1 mg Q4H PRN IVP For Pain 12/02/16 08:45 12/07/16 20:44 Ondansetron HCl (Zofran) 4 mg Q6H PRN IVP Nausea & Vomiting 12/02/16 11:15 12/29/16 23:14 Pantoprazole (Protonix) 40 mg DAILY ORAL 12/02/16 09:00 12/30/16 13:29 12/06/16 09:26 Phosphorus (Phospha 250 Neutral) 250 mg THREE TIMES A DAY ORAL 12/02/16 18:00 01/01/17 17:59 12/06/16 09:26 Polyethylene Glycol (Miralax) 17 gm HSPRN PRN ORAL Constipation 12/02/16 23:15 12/29/16 23:14 Tamsulosin HCl (Flomax) 0.4 mg QHS ORAL 12/02/16 21:00 12/31/16 20:59 12/06/16 00:06 Zolpidem Tartrate (Ambien) 5 mg HSPRN PRN ORAL Insomnia 12/02/16 23:15 12/06/16 23:14 Vivi Mensah M.D. Dec 06, 2016 10:00
--- NOTE | 2016-12-06 10:47 | General Progress Note ---
Assessment/Plan Status: stable Assessment/Plan Renal failure, likely chronic due to DM and HTN. May have superimposed acute component. Presented with Low BP- Cardiogenic vs Sepsis. Cr lowering daily 1) Hypoglycemia (2) Acute encephalopathy (3) Sepsis (4) Non-ST elevation (NSTEMI) myocardial infarction (5) Diabetes mellitus (6) HTN (hypertension) (7) Cardiomyopathy: Left ventricular ejection fraction estimated to be 20-25%. Plan; no labs today- optimize cardiac status po Digoxin hold IV fluids- start Fito Inhibs NICOLAS kidney- 2.3 cm right renal interpolar lesion possible mass, versus prominent lobulation. 2D echo Left ventricular ejection fraction estimated to be 20-25%. Urine studies- Keep BP and BS in check Avoid nephrotoxics Per orders DC planning? Subjective Constitutional: Reports: malaise Allergies: Coded Allergies: PENICILLINS (Verified Allergy, Intermediate, Hives, 03/29/13) Objective Last 24 Hour Vital Signs Date Time Temp Pulse Resp B/P (MAP) Pulse Ox O2 Delivery O2 Flow Rate FiO2 12/06/16 09:26 89 104/63 12/06/16 09:26 89 12/06/16 09:26 104/63 12/06/16 08:30 89 16 Room Air 21 12/06/16 08:00 97.9 85 20 104/63 99 Room Air 12/06/16 08:00 92 12/06/16 04:00 98.2 18 102/49 99 Room Air 12/06/16 04:00 91 12/06/16 00:06 91 110/57 12/06/16 00:00 99 12/06/16 00:00 97.7 89 18 99/52 95 Room Air 12/05/16 23:28 81 16 Room Air 21 12/05/16 20:00 97.9 94 19 104/57 98 Room Air 12/05/16 20:00 92 12/05/16 16:02 97.9 97 20 114/67 97 Room Air 12/05/16 16:00 95 12/05/16 12:00 96 12/05/16 11:49 97.5 96 18 112/70 100 Room Air Laboratory Tests 12/05/16 20:50: Troponin I 0.043 Height (Feet): 5 Height (Inches): 2.00 Weight (Pounds): 152 General Appearance: no apparent distress Objective no change FOULADIAN,JAYDEN Dec 06, 2016 10:47
[2016-12-06 11:39] VITALS: BP 112/53
[2016-12-06] MEDS ORDERED: Adenosine Inj IVP ONE (14:00)
[2016-12-06 16:30] VITALS: BP 115/65
--- NOTE | 2016-12-06 16:33 | Diagnostic Imaging Report ---
Indications: Chest pain, hypertension, congestive heart failure Technique: Single day single isotope protocol utilized. Initially, resting images obtained using IV administration 10.5 millicuries 99M technetium Myoview. Subsequently, patient underwent adenosine stress testing. See cardiology report for details. During adenosine infusion, IV administration 31.1 mCi 99 M technetium Myoview. SPECT and planar images obtained. SPECT images gated to 8 phases of the cardiac cycle were also obtained, and reformatted into cine images for evaluation of ejection fraction. Comparison: None Findings: Cardiology report does not described presence or absence of symptoms during infusion. Per cardiology report, resting EKG demonstrates normal sinus rhythm. The report does not describe the presence or absence of ST-T wave changes during infusion. Imaging is somewhat difficult to interpret, as registration is not optimal. Imaging demonstrates a large area of decreased perfusion involving the anteroseptal wall extending into the apex. This appears to be mostly fixed, but assembly with some septal reperfusion There are is more questionable decreased perfusion in the posterior wall which appears to be fixed. Calculated post stress ejection fraction 37%. There is global but predominantly septal and inferior hypokinesis. The left ventricle is mildly dilated Impression: Nonischemic clinical response to pharmacologic stress, per cardiology report Nonischemic electrocardiographic response to pharmacologic stress, per cardiology report Imaging demonstrates large anteroseptal infarct, possibly with some septal reperfusion indicating pradeep-infarct ischemia. There is also probably an inferior wall infarct Calculated post stress ejection fraction 37%
--- NOTE | 2016-12-06 18:00 | Pulmonology Progress Note ---
Assessment/Plan Problems: (1) end stage heart disease with EF of 20% (2) Hypoglycemia (3) Acute encephalopathy (4) Sepsis (5) Non-ST elevation (NSTEMI) myocardial infarction (6) Diabetes mellitus (7) HTN (hypertension) Assessment/Plan stress test in process renal function better check electrolytes echo reviewed all consults reviewed bp better dc planning is stress test negative Subjective ROS Limited/Unobtainable: No Constitutional: Reports: no symptoms HEENT: Repors: no symptoms Respiratory: Reports: no symptoms Allergies: Coded Allergies: PENICILLINS (Verified Allergy, Intermediate, Hives, 03/29/13) Objective Last 24 Hour Vital Signs Date Time Temp Pulse Resp B/P (MAP) Pulse Ox O2 Delivery O2 Flow Rate FiO2 12/06/16 16:30 97.0 100 20 115/65 100 Room Air 12/06/16 11:39 98.6 95 20 112/53 98 Room Air 12/06/16 09:26 89 104/63 12/06/16 09:26 89 12/06/16 09:26 104/63 12/06/16 08:30 89 16 Room Air 21 12/06/16 08:00 97.9 85 20 104/63 99 Room Air 12/06/16 08:00 92 12/06/16 04:00 98.2 18 102/49 99 Room Air 12/06/16 04:00 91 12/06/16 00:06 91 110/57 12/06/16 00:00 99 12/06/16 00:00 97.7 89 18 99/52 95 Room Air 12/05/16 23:28 81 16 Room Air 21 12/05/16 20:00 97.9 94 19 104/57 98 Room Air 12/05/16 20:00 92 Intake and Output 12/06/16 12/07/16 19:00 07:00 Intake Total 120 ml Output Total 350 ml Balance -230 ml Intake Oral 120 ml Output Urine Total 350 ml General Appearance: WD/WN HEENT: normocephalic Respiratory/Chest: chest wall non-tender, lungs clear Abdomen: normal bowel sounds, soft, non tender Genitourinary: normal external genitalia Skin: no rash Neurologic/Psychiatric: slurry blender II-XII grossly normal Microbiology Date/Time Source Procedure Growth Status 12/04/16 20:19 Blood Blood Culture - Preliminary NO GROWTH AFTER 24 HOURS Resulted 12/04/16 20:00 Blood Blood Culture - Preliminary NO GROWTH AFTER 24 HOURS Resulted 12/04/16 16:20 Sacral Wound Gram Stain - Final Resulted 12/04/16 16:20 Wound Culture - Preliminary Gram Positive Cocci Resulted Laboratory Tests 12/05/16 20:50: Troponin I 0.043 Current Medications Medications (Trade) Dose Ordered Sig/Sudha Route PRN Reason Start Time Stop Time Status Last Admin Dose Admin Acetaminophen (Tylenol) 650 mg Q4H PRN ORAL fever 12/02/16 07:15 12/29/16 23:14 Artificial Tears (Akwa-Tears) 1 drop BIDPRN PRN BOTH EYES DRY EYES 12/02/16 14:00 12/31/16 13:59 12/02/16 15:45 Aztreonam 1 gm/ Dextrose 55 ml @ 110 mls/hr EVERY 8 HOURS IVPB 12/02/16 14:00 12/09/16 13:59 12/06/16 14:31 Carvedilol (Coreg) 3.125 mg EVERY 12 HOURS ORAL 12/03/16 21:00 01/02/17 20:59 12/06/16 09:26 Dextrose (Dextrose 50%) STAT PRN IV Hypoglycemia 12/02/16 23:15 12/29/16 23:14 Digoxin (Lanoxin) 0.125 mg DAILY ORAL 12/03/16 09:00 01/02/17 08:59 12/06/16 09:26 Gabapentin (Neurontin) 300 mg THREE TIMES A DAY ORAL 12/02/16 09:00 12/31/16 12:59 12/06/16 17:50 Heparin Sodium (Porcine) (Heparin 5000 units/ml) 5,000 units EVERY 12 HOURS SUBQ 12/02/16 09:00 12/30/16 08:59 12/06/16 00:08 Insulin Aspart (NovoLOG) BEFORE MEALS AND HS SUBQ 12/02/16 06:30 12/30/16 06:29 12/06/16 17:45 Lisinopril (Zestril) 2.5 mg DAILY ORAL 12/02/16 09:00 01/01/17 08:59 12/06/16 09:26 Morphine Sulfate (Morphine Sulfate) 1 mg Q4H PRN IVP For Pain 12/02/16 08:45 12/07/16 20:44 Ondansetron HCl (Zofran) 4 mg Q6H PRN IVP Nausea & Vomiting 12/02/16 11:15 12/29/16 23:14 Pantoprazole (Protonix) 40 mg DAILY ORAL 12/02/16 09:00 12/30/16 13:29 12/06/16 09:26 Phosphorus (Phospha 250 Neutral) 250 mg THREE TIMES A DAY ORAL 12/02/16 18:00 01/01/17 17:59 12/06/16 17:50 Polyethylene Glycol (Miralax) 17 gm HSPRN PRN ORAL Constipation 12/02/16 23:15 12/29/16 23:14 12/06/16 14:32 Tamsulosin HCl (Flomax) 0.4 mg QHS ORAL 12/02/16 21:00 12/31/16 20:59 12/06/16 00:06 Zolpidem Tartrate (Ambien) 5 mg HSPRN PRN ORAL Insomnia 12/02/16 23:15 12/06/16 23:14 ALESHA BARRETT Dec 06, 2016 18:00
[2016-12-06 20:00] VITALS: BP 103/57
--- NOTE | 2016-12-06 20:27 | Cardiology Progress Note ---
Assessment/Plan Assessment/Plan 1. Hypotension. 2. Diabetes mellitus. 3. History of hypertension. 4. Renal failure. 5. Abnormal cardiac enzyme, apparently questionable significance in light of renal insufficiency. 6. cardiomyopathy ischemic with no sig reversible defect onperfusion test 12/06 only large fixed defect 7. Possible urinary tract infection. renal fxn improved off ivf now on acei lwo dose no sig ischemic burden tele reviewed echo reveiwed bp seem bordeline watch reanl fxn , k and cr on acei abn trop no peak no souleymane to suggest infarction no sx to suggest coroanry syndrome on low dose acei adn bb will strt on ecotrin adn statin home in am out pt cardiology fu Subjective Cardiovascular: Denies: chest pain, lightheadedness, palpitations Respiratory: Denies: SOB with excertion Gastrointestinal/Abdominal: Denies: abdominal pain Genitourinary: Denies: burning Objective Last 24 Hour Vital Signs Date Time Temp Pulse Resp B/P (MAP) Pulse Ox O2 Delivery O2 Flow Rate FiO2 12/06/16 20:01 98 18 Room Air 21 12/06/16 16:30 97.0 100 20 115/65 100 Room Air 12/06/16 16:00 103 12/06/16 12:00 89 12/06/16 11:39 98.6 95 20 112/53 98 Room Air 12/06/16 09:26 89 104/63 12/06/16 09:26 89 12/06/16 09:26 104/63 12/06/16 08:30 89 16 Room Air 21 12/06/16 08:00 97.9 85 20 104/63 99 Room Air 12/06/16 08:00 92 12/06/16 04:00 98.2 18 102/49 99 Room Air 12/06/16 04:00 91 12/06/16 00:06 91 110/57 12/06/16 00:00 99 12/06/16 00:00 97.7 89 18 99/52 95 Room Air 12/05/16 23:28 81 16 Room Air 21 General Appearance: alert Neck: supple Cardiovascular: normal rate, regular rhythm Respiratory/Chest: lungs clear, normal breath sounds Abdomen: normal bowel sounds, non tender, soft Extremities: no swelling Intake and Output 12/06/16 12/07/16 19:00 07:00 Intake Total 640 ml Output Total 400 ml Balance 240 ml Intake Oral 590 ml Other 50 ml Output Urine Total 400 ml # Bowel Movements 3 Laboratory Tests Test 12/05/16 20:50 Troponin I 0.043 ng/mL (0.000-0.056) Microbiology Date/Time Source Procedure Growth Status 12/04/16 20:19 Blood Blood Culture - Preliminary NO GROWTH AFTER 24 HOURS Resulted 12/04/16 20:00 Blood Blood Culture - Preliminary NO GROWTH AFTER 24 HOURS Resulted 12/04/16 16:20 Sacral Wound Gram Stain - Final Resulted 12/04/16 16:20 Wound Culture - Preliminary Gram Positive Cocci Resulted ORTEGA OLIVERA Dec 06, 2016 20:27
[2016-12-07] VITALS: BP 93/58
[2016-12-07 01:00] VITALS: BP 114/57
[2016-12-07 04:00] VITALS: BP 101/56
[2016-12-07] MEDS: Aztreonam 1gm/D5W 55ml IVPB SCH ×2 (06:16)
[2016-12-07] MEDS: Artificial Tears 1.4% Op Soln BOTH EYES PRN (06:19)
[2016-12-07] MEDS: NovoLOG Insulin Flexpen SUBQ SCH ×2 (06:21→11:50)
[2016-12-07 08:00] VITALS: BP 111/57
[2016-12-07 08:30] LABS: BASOPHILS % (AUTO) 1.4 % (0.0-2.0); EOSINOPHILS % (AUTO) 5.2 % (0.0-3.0); LYMPHOCYTES % (AUTO) 13.2 % (20.0-45.0); MEAN CORPUSCULAR HEMOGLOBIN 29.7 PG (27.0-31.0); MEAN CORPUSCULAR HGB CONC 32.9 G/DL (32.0-36.0); MEAN CORPUSCULAR VOLUME 90 FL (80-99); MEAN PLATELET VOLUME 5.6 FL (6.5-10.1); MONOCYTES % (AUTO) 9.6 % (1.0-10.0); NEUTROPHILS % (AUTO) 70.6 % (45.0-75.0); PLATELET COUNT 322 K/UL (150-450); RED BLOOD COUNT 4.22 M/UL (4.70-6.10); RED CELL DISTRIBUTION WIDTH 15.1 % (11.6-14.8); WHITE BLOOD COUNT 11.8 K/UL (4.8-10.8)
[2016-12-07 08:58] LABS: ALANINE AMINOTRANSFERASE 31 U/L (12-78); ALBUMIN/GLOBULIN RATIO 0.5 (1.0-2.7); ANION GAP 10 mmol/L (5-15); ASPARTATE AMINO TRANSFERASE 21 U/L (15-37); CALCIUM 9.4 MG/DL (8.5-10.1); CARBON DIOXIDE 27 MMOL/L (21-32); CHLORIDE 104 MMOL/L (98-107); CREATININE 1.3 MG/DL (0.55-1.30); CRP QUANT 2.3 mg/dL (0.00-0.90); GLOMERULAR FILTRATION RATE > 60 mL/min (>60); MAGNESIUM 2.1 MG/DL (1.8-2.4); PHOSPHORUS 2.8 MG/DL (2.5-4.9); POTASSIUM 4.2 MMOL/L (3.5-5.1); SODIUM 140 MMOL/L (136-145); TOTAL PROTEIN 7.7 G/DL (6.4-8.2); URIC ACID 4.2 MG/DL (2.6-7.2)
[2016-12-07] MEDS ORDERED: Aspirin EC 81mg tab ORAL SCH (09:00)
[2016-12-07] MEDS: Phospha 250 Neutral tab ORAL SCH ×2 (09:25→13:00)
[2016-12-07] MEDS: Digoxin 0.125mg tab ORAL SCH (09:26)
[2016-12-07] MEDS: Lisinopril 2.5mg tab ORAL SCH (09:26)
[2016-12-07] MEDS: Heparin 5000 units/ml inj SUBQ SCH (09:27)
--- NOTE | 2016-12-07 11:13 | Infectious Diseases Prog Note ---
Assessment/Plan Assessment/Plan // Probable E.coli UTI // Leukocytosis, mild - previously resolved, mild recurrent -Bcx NTD -CXR no acute disease //Sacral decub ulcer, no sings of infection wound cx: VRE (colonizer) // Elevated troponin - peak 0.618. Cards following, does not think NSTEMI - TTE: EF 20-25% // Hypotension r/o septic vs cardiogenic // ARF - improved // Hyponatremia / electrolyte imbalance // DM2, uncontrolled - HbA1c 12% // PCN allergy // Full Code //VRE Colonized PLAN: - continue aztreonam d# . Ok to complete course with PO levaquin at discharge - f/u cultures - monitor CBC, temperatures - monitor BMP Subjective Allergies: Coded Allergies: PENICILLINS (Verified Allergy, Intermediate, Hives, 03/29/13) Subjective afebrile VSS mild leukocytosis Bcx NTD Objective Vital Signs Last 24 Hour Vital Signs Date Time Temp Pulse Resp B/P (MAP) Pulse Ox O2 Delivery O2 Flow Rate FiO2 12/07/16 09:27 91 111/57 12/07/16 09:26 91 12/07/16 09:26 111/57 12/07/16 08:00 94 12/07/16 08:00 97.5 91 20 111/57 99 Room Air 12/07/16 04:00 97.9 92 18 101/56 99 Room Air 12/07/16 04:00 98 12/07/16 01:00 114/57 12/07/16 00:00 97 12/07/16 00:00 99.0 97 20 93/58 96 Room Air 12/06/16 21:00 91 85/48 12/06/16 20:01 98 18 Room Air 21 12/06/16 20:00 99 12/06/16 20:00 98.9 100 18 103/57 98 Room Air 12/06/16 16:30 97.0 100 20 115/65 100 Room Air 12/06/16 16:00 103 12/06/16 12:00 89 12/06/16 11:39 98.6 95 20 112/53 98 Room Air Height (Feet): 5 Height (Inches): 2.00 Weight (Pounds): 152 Objective General Appearance: no acute distress HEENT: mucous membranes moist Respiratory/Chest: lungs clear Cardiovascular: tachycardia Abdomen: soft, non tender Extremities: no edema Neurologic/Psychiatric: alert, oriented x 3, responsive Microbiology Date/Time Source Procedure Growth Status 12/04/16 20:19 Blood Blood Culture - Preliminary NO GROWTH AFTER 48 HOURS Resulted 12/04/16 20:00 Blood Blood Culture - Preliminary NO GROWTH AFTER 48 HOURS Resulted 12/04/16 16:20 Sacral Wound Gram Stain - Final Resulted 12/04/16 16:20 Wound Culture - Preliminary Enterococcus Faecalis Resulted Laboratory Tests Test 12/07/16 07:50 White Blood Count 11.8 K/UL (4.8-10.8) H Red Blood Count 4.22 M/UL (4.70-6.10) L Hemoglobin 12.5 G/DL (14.2-18.0) L Hematocrit 38.1 % (42.0-52.0) L Mean Corpuscular Volume 90 FL (80-99) Mean Corpuscular Hemoglobin 29.7 PG (27.0-31.0) Mean Corpuscular Hemoglobin Concent 32.9 G/DL (32.0-36.0) Red Cell Distribution Width 15.1 % (11.6-14.8) H Platelet Count 322 K/UL (150-450) Mean Platelet Volume 5.6 FL (6.5-10.1) L Neutrophils (%) (Auto) 70.6 % (45.0-75.0) Lymphocytes (%) (Auto) 13.2 % (20.0-45.0) L Monocytes (%) (Auto) 9.6 % (1.0-10.0) Eosinophils (%) (Auto) 5.2 % (0.0-3.0) H Basophils (%) (Auto) 1.4 % (0.0-2.0) Sodium Level 140 MMOL/L (136-145) Potassium Level 4.2 MMOL/L (3.5-5.1) Chloride Level 104 MMOL/L (98-107) Carbon Dioxide Level 27 MMOL/L (21-32) Anion Gap 10 mmol/L (5-15) Blood Urea Nitrogen 23 mg/dL (7-18) H Creatinine 1.3 MG/DL (0.55-1.30) Estimat Glomerular Filtration Rate > 60 mL/min (>60) Glucose Level 214 MG/DL (74-106) H Uric Acid 4.2 MG/DL (2.6-7.2) Calcium Level 9.4 MG/DL (8.5-10.1) Phosphorus Level 2.8 MG/DL (2.5-4.9) Magnesium Level 2.1 MG/DL (1.8-2.4) Total Bilirubin 0.5 MG/DL (0.2-1.0) Aspartate Amino Transf (AST/SGOT) 21 U/L (15-37) Alanine Aminotransferase (ALT/SGPT) 31 U/L (12-78) Alkaline Phosphatase 58 U/L (46-116) C-Reactive Protein, Quantitative 2.3 mg/dL (0.00-0.90) H Pro-B-Type Natriuretic Peptide 01626 pg/mL (0-125) H Total Protein 7.7 G/DL (6.4-8.2) Albumin 2.6 G/DL (3.4-5.0) L Globulin 5.1 g/dL Albumin/Globulin Ratio 0.5 (1.0-2.7) L Current Medications Medications (Trade) Dose Ordered Sig/Sudha Route PRN Reason Start Time Stop Time Status Last Admin Dose Admin Acetaminophen (Tylenol) 650 mg Q4H PRN ORAL fever 12/02/16 07:15 12/29/16 23:14 Artificial Tears (Akwa-Tears) 1 drop BIDPRN PRN BOTH EYES DRY EYES 12/02/16 14:00 12/31/16 13:59 12/07/16 06:19 Aspirin (Ecotrin) 81 mg DAILY ORAL 12/07/16 09:00 01/06/17 08:59 12/07/16 09:24 Atorvastatin Calcium (Lipitor) 40 mg BEDTIME ORAL 12/06/16 21:00 01/05/17 20:59 12/06/16 21:06 Aztreonam 1 gm/ Dextrose 55 ml @ 110 mls/hr EVERY 8 HOURS IVPB 12/02/16 14:00 12/09/16 13:59 12/07/16 06:16 Carvedilol (Coreg) 3.125 mg EVERY 12 HOURS ORAL 12/03/16 21:00 01/02/17 20:59 12/07/16 09:27 Dextrose (Dextrose 50%) STAT PRN IV Hypoglycemia 12/02/16 23:15 11/15/17 23:14 Digoxin (Lanoxin) 0.125 mg DAILY ORAL 12/03/16 09:00 01/02/17 08:59 12/07/16 09:26 Gabapentin (Neurontin) 300 mg THREE TIMES A DAY ORAL 12/02/16 09:00 12/31/16 12:59 12/07/16 09:24 Heparin Sodium (Porcine) (Heparin 5000 units/ml) 5,000 units EVERY 12 HOURS SUBQ 12/02/16 09:00 12/30/16 08:59 12/07/16 09:27 Insulin Aspart (NovoLOG) BEFORE MEALS AND HS SUBQ 12/02/16 06:30 12/30/16 06:29 12/07/16 06:21 Lisinopril (Zestril) 2.5 mg DAILY ORAL 12/02/16 09:00 01/01/17 08:59 12/07/16 09:26 Morphine Sulfate (Morphine Sulfate) 1 mg Q4H PRN IVP For Pain 12/02/16 08:45 12/07/16 20:44 Ondansetron HCl (Zofran) 4 mg Q6H PRN IVP Nausea & Vomiting 12/02/16 11:15 12/29/16 23:14 Pantoprazole (Protonix) 40 mg DAILY ORAL 12/02/16 09:00 12/30/16 13:29 12/07/16 09:26 Phosphorus (Phospha 250 Neutral) 250 mg THREE TIMES A DAY ORAL 12/02/16 18:00 01/01/17 17:59 12/07/16 09:25 Polyethylene Glycol (Miralax) 17 gm HSPRN PRN ORAL Constipation 12/02/16 23:15 12/29/16 23:14 12/06/16 14:32 Tamsulosin HCl (Flomax) 0.4 mg QHS ORAL 12/02/16 21:00 12/31/16 20:59 12/06/16 21:06 Vivi Mensah M.D. Dec 07, 2016 11:13
[2016-12-07] MEDS ORDERED: COREG3.125 MG ORAL (11:51)
[2016-12-07] MEDS ORDERED: LANOXIN125 MCG ORAL (11:51)
[2016-12-07] MEDS ORDERED: ASPIRIN EC81 MG ORAL (11:51)
[2016-12-07] MEDS ORDERED: LISINOPRIL5 MG ORAL (11:51)
[2016-12-07] MEDS ORDERED: LEVAQUIN500 MG ORAL (11:52)
[2016-12-07] MEDS ORDERED: ATORVASTATIN CA40 MG ORAL (11:53)
[2016-12-07 12:00] VITALS: BP 111/65
--- NOTE | 2016-12-07 12:21 | Cardiology Progress Note ---
Assessment/Plan Assessment/Plan 1. Hypotension. 2. Diabetes mellitus. 3. History of hypertension. 4. Renal failure. 5. Abnormal cardiac enzyme, apparently questionable significance in light of renal insufficiency. 6. cardiomyopathy ischemic with no sig reversible defect onperfusion test 12/06 only large fixed defect 7. Possible urinary tract infection. renal fxn improved off ivf now on acei lwo dose no sig ischemic burden tele reviewed echo reveiwed bp seem bordeline watch reanl fxn , k and cr on acei abn trop no peak no souleymane to suggest infarction no sx to suggest coroanry syndrome on low dose acei adn bb will strt on ecotrin adn statin home in am out pt cardiology fu in 1 week na fludi restriction d/w pt d/w dr guevara Subjective Cardiovascular: Denies: chest pain, lightheadedness Respiratory: Denies: shortness of breath Gastrointestinal/Abdominal: Denies: abdominal pain Genitourinary: Denies: burning Objective Last 24 Hour Vital Signs Date Time Temp Pulse Resp B/P (MAP) Pulse Ox O2 Delivery O2 Flow Rate FiO2 12/07/16 12:00 97.3 85 20 111/65 100 Room Air 12/07/16 09:27 91 111/57 12/07/16 09:26 91 12/07/16 09:26 111/57 12/07/16 08:00 94 12/07/16 08:00 97.5 91 20 111/57 99 Room Air 12/07/16 04:00 97.9 92 18 101/56 99 Room Air 12/07/16 04:00 98 12/07/16 01:00 114/57 12/07/16 00:00 97 12/07/16 00:00 99.0 97 20 93/58 96 Room Air 12/06/16 21:00 91 85/48 12/06/16 20:01 98 18 Room Air 21 12/06/16 20:00 99 12/06/16 20:00 98.9 100 18 103/57 98 Room Air 12/06/16 16:30 97.0 100 20 115/65 100 Room Air 12/06/16 16:00 103 General Appearance: alert Neck: supple Cardiovascular: normal rate, regular rhythm Abdomen: normal bowel sounds, non tender, soft Extremities: no swelling Intake and Output 12/07/16 12/08/16 19:00 07:00 # Bowel Movements 1 Laboratory Tests Test 12/07/16 07:50 White Blood Count 11.8 K/UL (4.8-10.8) H Red Blood Count 4.22 M/UL (4.70-6.10) L Hemoglobin 12.5 G/DL (14.2-18.0) L Hematocrit 38.1 % (42.0-52.0) L Mean Corpuscular Volume 90 FL (80-99) Mean Corpuscular Hemoglobin 29.7 PG (27.0-31.0) Mean Corpuscular Hemoglobin Concent 32.9 G/DL (32.0-36.0) Red Cell Distribution Width 15.1 % (11.6-14.8) H Platelet Count 322 K/UL (150-450) Mean Platelet Volume 5.6 FL (6.5-10.1) L Neutrophils (%) (Auto) 70.6 % (45.0-75.0) Lymphocytes (%) (Auto) 13.2 % (20.0-45.0) L Monocytes (%) (Auto) 9.6 % (1.0-10.0) Eosinophils (%) (Auto) 5.2 % (0.0-3.0) H Basophils (%) (Auto) 1.4 % (0.0-2.0) Sodium Level 140 MMOL/L (136-145) Potassium Level 4.2 MMOL/L (3.5-5.1) Chloride Level 104 MMOL/L (98-107) Carbon Dioxide Level 27 MMOL/L (21-32) Anion Gap 10 mmol/L (5-15) Blood Urea Nitrogen 23 mg/dL (7-18) H Creatinine 1.3 MG/DL (0.55-1.30) Estimat Glomerular Filtration Rate > 60 mL/min (>60) Glucose Level 214 MG/DL (74-106) H Uric Acid 4.2 MG/DL (2.6-7.2) Calcium Level 9.4 MG/DL (8.5-10.1) Phosphorus Level 2.8 MG/DL (2.5-4.9) Magnesium Level 2.1 MG/DL (1.8-2.4) Total Bilirubin 0.5 MG/DL (0.2-1.0) Aspartate Amino Transf (AST/SGOT) 21 U/L (15-37) Alanine Aminotransferase (ALT/SGPT) 31 U/L (12-78) Alkaline Phosphatase 58 U/L (46-116) C-Reactive Protein, Quantitative 2.3 mg/dL (0.00-0.90) H Pro-B-Type Natriuretic Peptide 72698 pg/mL (0-125) H Total Protein 7.7 G/DL (6.4-8.2) Albumin 2.6 G/DL (3.4-5.0) L Globulin 5.1 g/dL Albumin/Globulin Ratio 0.5 (1.0-2.7) L Microbiology Date/Time Source Procedure Growth Status 12/04/16 20:19 Blood Blood Culture - Preliminary NO GROWTH AFTER 48 HOURS Resulted 12/04/16 20:00 Blood Blood Culture - Preliminary NO GROWTH AFTER 48 HOURS Resulted 12/04/16 16:20 Sacral Wound Gram Stain - Final Resulted 12/04/16 16:20 Wound Culture - Preliminary Enterococcus Faecalis Resulted ORTEGA OLIVERA Dec 07, 2016 12:21
--- NOTE | 2016-12-07 13:02 | Pulmonology Progress Note ---
Assessment/Plan Problems: (1) end stage heart disease with EF of 20% (2) Hypoglycemia (3) Acute encephalopathy (4) Sepsis (5) Non-ST elevation (NSTEMI) myocardial infarction (6) Diabetes mellitus (7) HTN (hypertension) Assessment/Plan stress test was negative renal function better check electrolytes echo reviewed all consults reviewed bp better dc home with HH for wound care Subjective ROS Limited/Unobtainable: No Constitutional: Reports: no symptoms HEENT: Repors: no symptoms Respiratory: Reports: no symptoms Gastrointestinal/Abdominal: Reports: no symptoms Allergies: Coded Allergies: PENICILLINS (Verified Allergy, Intermediate, Hives, 03/29/13) Objective Last 24 Hour Vital Signs Date Time Temp Pulse Resp B/P (MAP) Pulse Ox O2 Delivery O2 Flow Rate FiO2 12/07/16 12:00 97.3 85 20 111/65 100 Room Air 12/07/16 12:00 84 12/07/16 09:27 91 111/57 12/07/16 09:26 91 12/07/16 09:26 111/57 12/07/16 08:00 94 12/07/16 08:00 97.5 91 20 111/57 99 Room Air 12/07/16 04:00 97.9 92 18 101/56 99 Room Air 12/07/16 04:00 98 12/07/16 01:00 114/57 12/07/16 00:00 97 12/07/16 00:00 99.0 97 20 93/58 96 Room Air 12/06/16 21:00 91 85/48 12/06/16 20:01 98 18 Room Air 21 12/06/16 20:00 99 12/06/16 20:00 98.9 100 18 103/57 98 Room Air 12/06/16 16:30 97.0 100 20 115/65 100 Room Air 12/06/16 16:00 103 Intake and Output 12/07/16 12/08/16 19:00 07:00 # Bowel Movements 1 General Appearance: WD/WN HEENT: normocephalic, atraumatic Respiratory/Chest: chest wall non-tender, lungs clear Cardiovascular: normal peripheral pulses Abdomen: normal bowel sounds, soft, non tender Genitourinary: normal external genitalia Skin: no rash 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 Microbiology Date/Time Source Procedure Growth Status 12/04/16 20:19 Blood Blood Culture - Preliminary NO GROWTH AFTER 48 HOURS Resulted 12/04/16 20:00 Blood Blood Culture - Preliminary NO GROWTH AFTER 48 HOURS Resulted 12/04/16 16:20 Sacral Wound Gram Stain - Final Resulted 12/04/16 16:20 Wound Culture - Preliminary Enterococcus Faecalis Resulted Laboratory Tests 12/07/16 07:50: White Blood Count 11.8H, Red Blood Count 4.22L, Hemoglobin 12.5L, Hematocrit 38.1L, Mean Corpuscular Volume 90, Mean Corpuscular Hemoglobin 29.7, Mean Corpuscular Hemoglobin Concent 32.9, Red Cell Distribution Width 15.1H, Platelet Count 322, Mean Platelet Volume 5.6L, Neutrophils (%) (Auto) 70.6, Lymphocytes (%) (Auto) 13.2L, Monocytes (%) (Auto) 9.6, Eosinophils (%) (Auto) 5.2H, Basophils (%) (Auto) 1.4, Sodium Level 140, Potassium Level 4.2, Chloride Level 104, Carbon Dioxide Level 27, Anion Gap 10, Blood Urea Nitrogen 23H, Creatinine 1.3, Estimat Glomerular Filtration Rate > 60, Glucose Level 214H, Uric Acid 4.2, Calcium Level 9.4, Phosphorus Level 2.8, Magnesium Level 2.1, Total Bilirubin 0.5, Aspartate Amino Transf (AST/SGOT) 21, Alanine Aminotransferase (ALT/SGPT) 31, Alkaline Phosphatase 58, C-Reactive Protein, Quantitative 2.3H, Pro-B-Type Natriuretic Peptide 59856G, Total Protein 7.7, Albumin 2.6L, Globulin 5.1, Albumin/Globulin Ratio 0.5L Current Medications Medications (Trade) Dose Ordered Sig/Suhda Route PRN Reason Start Time Stop Time Status Last Admin Dose Admin Acetaminophen (Tylenol) 650 mg Q4H PRN ORAL fever 12/02/16 07:15 12/29/16 23:14 Artificial Tears (Akwa-Tears) 1 drop BIDPRN PRN BOTH EYES DRY EYES 12/02/16 14:00 12/31/16 13:59 12/07/16 06:19 Aspirin (Ecotrin) 81 mg DAILY ORAL 12/07/16 09:00 01/06/17 08:59 12/07/16 09:24 Atorvastatin Calcium (Lipitor) 40 mg BEDTIME ORAL 12/06/16 21:00 01/05/17 20:59 12/06/16 21:06 Aztreonam 1 gm/ Dextrose 55 ml @ 110 mls/hr EVERY 8 HOURS IVPB 12/02/16 14:00 12/09/16 13:59 12/07/16 06:16 Carvedilol (Coreg) 3.125 mg EVERY 12 HOURS ORAL 12/03/16 21:00 01/02/17 20:59 12/07/16 09:27 Dextrose (Dextrose 50%) STAT PRN IV Hypoglycemia 12/02/16 23:15 12/29/16 23:14 Digoxin (Lanoxin) 0.125 mg DAILY ORAL 12/03/16 09:00 01/02/17 08:59 12/07/16 09:26 Gabapentin (Neurontin) 300 mg THREE TIMES A DAY ORAL 12/02/16 09:00 12/31/16 12:59 12/07/16 09:24 Heparin Sodium (Porcine) (Heparin 5000 units/ml) 5,000 units EVERY 12 HOURS SUBQ 12/02/16 09:00 12/30/16 08:59 12/07/16 09:27 Insulin Aspart (NovoLOG) BEFORE MEALS AND HS SUBQ 12/02/16 06:30 12/30/16 06:29 12/07/16 11:50 Lisinopril (Zestril) 2.5 mg DAILY ORAL 12/02/16 09:00 01/01/17 08:59 12/07/16 09:26 Morphine Sulfate (Morphine Sulfate) 1 mg Q4H PRN IVP For Pain 12/02/16 08:45 12/07/16 20:44 Ondansetron HCl (Zofran) 4 mg Q6H PRN IVP Nausea & Vomiting 12/02/16 11:15 12/29/16 23:14 Pantoprazole (Protonix) 40 mg DAILY ORAL 12/02/16 09:00 12/30/16 13:29 12/07/16 09:26 Phosphorus (Phospha 250 Neutral) 250 mg THREE TIMES A DAY ORAL 12/02/16 18:00 01/01/17 17:59 12/07/16 09:25 Polyethylene Glycol (Miralax) 17 gm HSPRN PRN ORAL Constipation 12/02/16 23:15 12/29/16 23:14 12/06/16 14:32 Tamsulosin HCl (Flomax) 0.4 mg QHS ORAL 12/02/16 21:00 12/31/16 20:59 12/06/16 21:06 ALESHA BARRETT Dec 07, 2016 13:02
--- NOTE | 2016-12-07 13:41 | General Progress Note ---
Assessment/Plan Status: stable Assessment/Plan Renal failure, likely chronic due to DM and HTN. May have superimposed acute component. Presented with Low BP- Cardiogenic vs Sepsis. Cr lowering daily 1) Hypoglycemia (2) Acute encephalopathy (3) Sepsis (4) Non-ST elevation (NSTEMI) myocardial infarction (5) Diabetes mellitus (6) HTN (hypertension) (7) Cardiomyopathy: Left ventricular ejection fraction estimated to be 20-25%. Plan; no labs today- optimize cardiac status po Digoxin hold IV fluids- start Fito Inhibs NICOLAS kidney- 2.3 cm right renal interpolar lesion possible mass, versus prominent lobulation. 2D echo Left ventricular ejection fraction estimated to be 20-25%. Urine studies- Keep BP and BS in check Avoid nephrotoxics Per orders DC planning? Subjective ROS Limited/Unobtainable: No Allergies: Coded Allergies: PENICILLINS (Verified Allergy, Intermediate, Hives, 03/29/13) Objective Last 24 Hour Vital Signs Date Time Temp Pulse Resp B/P (MAP) Pulse Ox O2 Delivery O2 Flow Rate FiO2 12/07/16 12:00 97.3 85 20 111/65 100 Room Air 12/07/16 12:00 84 12/07/16 09:27 91 111/57 12/07/16 09:26 91 12/07/16 09:26 111/57 12/07/16 08:00 94 12/07/16 08:00 97.5 91 20 111/57 99 Room Air 12/07/16 04:00 97.9 92 18 101/56 99 Room Air 12/07/16 04:00 98 12/07/16 01:00 114/57 12/07/16 00:00 97 12/07/16 00:00 99.0 97 20 93/58 96 Room Air 12/06/16 21:00 91 85/48 12/06/16 20:01 98 18 Room Air 21 12/06/16 20:00 99 12/06/16 20:00 98.9 100 18 103/57 98 Room Air 12/06/16 16:30 97.0 100 20 115/65 100 Room Air 12/06/16 16:00 103 Intake and Output 12/07/16 12/08/16 19:00 07:00 # Bowel Movements 1 Laboratory Tests 12/07/16 07:50: White Blood Count 11.8H, Red Blood Count 4.22L, Hemoglobin 12.5L, Hematocrit 38.1L, Mean Corpuscular Volume 90, Mean Corpuscular Hemoglobin 29.7, Mean Corpuscular Hemoglobin Concent 32.9, Red Cell Distribution Width 15.1H, Platelet Count 322, Mean Platelet Volume 5.6L, Neutrophils (%) (Auto) 70.6, Lymphocytes (%) (Auto) 13.2L, Monocytes (%) (Auto) 9.6, Eosinophils (%) (Auto) 5.2H, Basophils (%) (Auto) 1.4, Sodium Level 140, Potassium Level 4.2, Chloride Level 104, Carbon Dioxide Level 27, Anion Gap 10, Blood Urea Nitrogen 23H, Creatinine 1.3, Estimat Glomerular Filtration Rate > 60, Glucose Level 214H, Uric Acid 4.2, Calcium Level 9.4, Phosphorus Level 2.8, Magnesium Level 2.1, Total Bilirubin 0.5, Aspartate Amino Transf (AST/SGOT) 21, Alanine Aminotransferase (ALT/SGPT) 31, Alkaline Phosphatase 58, C-Reactive Protein, Quantitative 2.3H, Pro-B-Type Natriuretic Peptide 03865A, Total Protein 7.7, Albumin 2.6L, Globulin 5.1, Albumin/Globulin Ratio 0.5L Height (Feet): 5 Height (Inches): 2.00 Weight (Pounds): 152 General Appearance: no apparent distress Objective no change JAYDEN ELAM Dec 07, 2016 13:41
--- NOTE | 2016-12-09 16:13 | Discharge Summary ---
Discharge Summary Hospital Course Date of Admission Nov 29, 2016 at 22:00 Date of Discharge Dec 07, 2016 at 14:30 Admitting Diagnosis elevated troponin, hyponatremia HPI Rupert Callahan is a 66 year old male who was admitted on Nov 29, 2016 at 22:00 for Elevated Troponin,Hyponatremia Hospital Course [id number] Discharge Discharge Disposition Patient was discharged to Home with Home Health(06) Discharge Diagnoses: Chritsy Horn NP Dec 09, 2016 16:13
--- NOTE | 2016-12-10 00:31 | Discharge Summary 2 SIG ---
DATE OF ADMISSION: 11/29/2016 DATE OF DISCHARGE: 12/07/2016 CONSULTANTS: 1. Darío Patel M.D. 2. Vivi Mensah M.D. 3. Eze Patton M.D. BRIEF HOSPITAL COURSE: The patient is a 66-year-old male with history of diabetes mellitus, hypertension, and left AKA, was brought in by EMS from home due to low blood pressure. Apparently, blood pressure was measured to be at 60s systolic at home. On evaluation at ED, he was found to have renal failure. Creatinine was elevated to 5.2 and BUN was 84. Troponin was elevated to 0.075. He was admitted to [facility] for evaluation of renal failure and elevated troponin. Urinalysis suggest a probable urinary tract infection. He was started empirically on aztreonam. Cardiac enzymes were monitored. EKG showed sinus rhythm with first-degree AV block and evidence of right bundle-branch block with possible right ventricular hypertrophy and delay in R-wave progression. Current EKG compared with prior EKG in 2013 did not appear to be changed. Echocardiogram done showed ejection fraction of 20% to 25% with global left ventricular hypokinesis. He underwent a myocardial perfusion scan on 12/06/2016 showing a large anteroseptal infarct. There was no significant reversible defect on perfusion test. Abnormal cardiac enzymes apparently with questionable significance due to renal insufficiency. Renal failure was likely chronic due to diabetes mellitus and hypertension, may have had superimposed acute component due to low blood pressure. Ultrasound of the kidney done showed 2 to 3 cm right renal interpolar lesion, possible mass versus a prominent lobulation. Intravenous fluids was discontinued. He was eventually started on low-dose KAMILA inhibitors and p.o. digoxin. Urine culture showed growth of E. coli with mixed gram-positive organisms. Blood culture did not isolate any growth. He came in with a sacral stage III pressure ulcer and was given wound care. Wound culture showed growth of Enterococcus, probably colonizer. He was given aztreonam and was cleared for discharge to complete course of p.o. Levaquin upon discharge. FINAL DIAGNOSES: 1. Sepsis. 2. Non-ST elevated myocardial infarction. 3. Acute encephalopathy. 4. Hypoglycemia. 5. Cardiomyopathy. 6. Diabetes mellitus, out of control. 7. End-stage heart disease. 8. Acute on chronic renal failure. 9. Probable Escherichia coli urinary tract infection. 10. Sacral decubitus ulcer, present on admission. 11. Hyponatremia. DISPOSITION: The patient was discharged home with Home Health. DISCHARGE MEDICATIONS: Refer to medication list. Leilani Quintana M.D. I have been assigned to dictate discharge summary on this account and I was not involved in the patient's management. Christy Horn N.P. DR: ZEFERINO JOB#: [id number] CC: SANTI
== END 2016-12-07 14:30 | disposition home health service (06) | DRG 720 ==
LOC: EDBD 17:09 → EMR 18:33 → EDBEDREQSVC 21:44 → EDBEDREQ 21:44 → 2W 22:00 → EDBEDREQ 22:09 → 2E 12-02 06:10
DX: A41.9 Sepsis, unspecified organism (principal); I21.4 Non-ST elevation (NSTEMI) myocardial infarction; G93.40 Encephalopathy, unspecified; N17.9 Acute kidney failure, unspecified; L89.153 Pressure ulcer of sacral region, stage 3; E11.649 Type 2 diabetes mellitus with hypoglycemia without coma; E11.22 Type 2 diabetes mellitus with diabetic chronic kidney disease; Z89.612 Acquired absence of left leg above knee; N18.9 Chronic kidney disease, unspecified; N39.0 Urinary tract infection, site not specified; B96.20 Unspecified Escherichia coli [E. coli] as the cause of diseases classified elsewhere; E87.1 Hypo-osmolality and hyponatremia; Z88.0 Allergy status to penicillin; I45.10 Unspecified right bundle-branch block; I44.0 Atrioventricular block, first degree; I25.5 Ischemic cardiomyopathy
CPT/HCPCS: 36415; 71010; 76775; 78452; 80053; 80061; 80162; 81001; 81003; 82550; 82553; 82607; 82728; 82746; 82962; 82977; 83036; 83540; 83550; 83605; 83690; 83735; 83880; 84100; 84133; 84300; 84443; 84484; 84550; 85025; 85610; 85730; 86140; 87040; 87070; 87086; 87181; 87205; 89050; 90630; 93005; 93017; 93306; 94664; C9399; J1815

== ENCOUNTER 2017-01-20 20:32 | Inpatient (IN) | payer MEDICARE, MEDICAID ==
[~2017-01-20] VITALS: Ht 170.2 cm; Wt 81.6 kg
[~2017-01-20 20:32] MED LIST changes: +ASPIRIN EC81 MG ORAL; +ATORVASTATIN CA40 MG ORAL; +COREG3.125 MG ORAL; +ENALAPRIL MALEA10 MG ORAL; +FLOMAX0.4 MG ORAL; +FUROSEMIDE40 MG ORAL; +GABAPENTIN300 MG ORAL; +LANOXIN125 MCG ORAL; +LEVAQUIN500 MG ORAL; +LISINOPRIL5 MG ORAL; +METOPROLOL SUCC25 MG ORAL; +OMEPRAZOLE20 M2 ORAL; +POTASSIUM CHLO20 ME2 ORAL; +PROSCAR5 MG ORAL; +SOLU-MEDROL500 MG IV; +eye drops; +insulin
[2017-01-20 21:37] LABS: O2 CONTENT VENOUS 46.2
[2017-01-20 21:50] LABS: BASOPHILS % (AUTO) 0.7 % (0.0-2.0); EOSINOPHILS % (AUTO) 2.5 % (0.0-3.0); LYMPHOCYTES % (AUTO) 25.2 % (20.0-45.0); MEAN CORPUSCULAR HEMOGLOBIN 28.9 PG (27.0-31.0); MEAN CORPUSCULAR HGB CONC 29.3 G/DL (32.0-36.0); MEAN CORPUSCULAR VOLUME 99 FL (80-99); NEUTROPHILS % (AUTO) 63.6 % (45.0-75.0); PLATELET COUNT 258 K/UL (150-450); RED BLOOD COUNT 4.47 M/UL (4.70-6.10); WHITE BLOOD COUNT 4.6 K/UL (4.8-10.8)
[2017-01-20] MEDS ORDERED: POTASSIUM CHLO20 ME2 ORAL (21:57)
[2017-01-20] MEDS ORDERED: ENALAPRIL MALEA10 MG ORAL (21:57)
[2017-01-20] MEDS ORDERED: SOLU-MEDROL500 MG IV (21:57)
[2017-01-20] MEDS ORDERED: FUROSEMIDE40 MG ORAL (21:57)
[2017-01-20 22:03] LABS: INR 1.7 (0.9-1.1); PROTHROMBIN TIME 17.4 SEC (9.30-11.50)
[2017-01-20 22:38] LABS: ANION GAP 9 mmol/L (5-15); CALCIUM 8.8 MG/DL (8.5-10.1); CARBON DIOXIDE 24 MMOL/L (21-32); CHLORIDE 105 MMOL/L (98-107); CREATININE 1.4 MG/DL (0.55-1.30); GLOMERULAR FILTRATION RATE > 60 mL/min (>60); POTASSIUM 4.5 MMOL/L (3.5-5.1); SODIUM 138 MMOL/L (136-145)
[2017-01-20 22:52] LABS: ALANINE AMINOTRANSFERASE 10 U/L (12-78); ALBUMIN/GLOBULIN RATIO 0.7 (1.0-2.7); ASPARTATE AMINO TRANSFERASE 22 U/L (15-37); PHOSPHORUS 3.2 MG/DL (2.5-4.9); TOTAL PROTEIN 7.6 G/DL (6.4-8.2)
[2017-01-20 22:55] LABS: BILIRUBIN,DIRECT 0.7 MG/DL (0.0-0.3)
--- NOTE | 2017-01-21 00:13 | Emergency Room Report ---
History of Present Illness General Chief Complaint: Abdominal Pain Source: Patient, EMS Present Illness HPI Patient's a 67-year-old male who presented after increased abdominal pain and distention. The patient had the increased shortness of breath. Patient prior history of renal disease as well as diabetes. He had prior history of recent renal insufficiency. He reports making urine. The patient prior hospital is a which he was noted to have acute renal failure. Allergies: Coded Allergies: PENICILLINS (Verified Allergy, Intermediate, Hives, 03/29/13) Patient History Past Medical History: see triage record, DM, HTN, renal disease Reviewed Nursing Documentation: PMH: Agreed, PSxH: Agreed Nursing Documentation-PMH Hx Hypertension: Yes Hx Asthma: Yes Hx COPD: Yes Hx Diabetes: Yes Hx Cancer: No Hx Gastrointestinal Problems: Yes Hx Neurological Problems: No Hx Cerebrovascular Accident: Yes Review of Systems All Other Systems: limited - by poor historian Physical Exam Vital Signs Date Time Temp Pulse Resp B/P (MAP) Pulse Ox O2 Delivery O2 Flow Rate FiO2 01/20/17 20:20 96.6 106 18 155/104 96 Nasal Cannula [id number] EP Interpretation: reviewed, normal General Appearance: normal inspection, alert, GCS 15, moderate distress, Chronically Ill Head: atraumatic ENT: normal ENT inspection, hearing grossly normal, normal voice Neck: normal inspection, supple, no bony tend Respiratory: normal inspection, no respiratory distress, no retraction, no wheezing, decreased breath sounds Cardiovascular #1: regular rate, rhythm, edema Gastrointestinal: normal inspection, normal bowel sounds, non tender, soft, no guarding, no hernia Genitourinary: no CVA tenderness Musculoskeletal: normal inspection, back normal, normal range of motion, other - amputation to right leg Neurologic: normal inspection, alert, responsive, speech normal, motor weakness Psychiatric: judgement/insight normal, mood/affect normal, anxious Skin: normal color, no rash, other - edema, no erythema noted Medical Decision Making Diagnostic Impression: Primary Impression: CHF (congestive heart failure) Additional Impressions: Anasarca Bilateral pleural effusion Diabetes ER Course The patient presented for shortness of breath and generalized weakness. Differential included but was not limited to anemia, pneumonia, pneumothorax, myocardial infarction, pericardial effusion, congestive heart failure, acidosis. Because of complexity of patient's case laboratory testing and imaging studies were ordered. The patient was noted to have prior history of cardiac disease as well as renal disease. He was noted to have evidence of abdominal wall edema. CT abdomen pelvis or without contrast due to patient's renal disease. A CT or other etiology showed large amount of anasarca as well as bilateral pleural effusions. The patient started on IV Lasix. Admitting department attempted to contact the patients insurance company however they were unavailable. Dr. González Friedman was contacted for inpatient management due to capitated hospitalist. Labs Test 01/20/17 21:13 01/20/17 21:29 01/20/17 22:11 Venous Bld O2 Saturation (Measured) 46.2 Methemoglobin 0.5 White Blood Count 4.6 K/UL (4.8-10.8) Red Blood Count 4.47 M/UL (4.70-6.10) Hemoglobin 12.9 G/DL (14.2-18.0) Hematocrit 44.1 % (42.0-52.0) Mean Corpuscular Volume 99 FL (80-99) Mean Corpuscular Hemoglobin 28.9 PG (27.0-31.0) Mean Corpuscular Hemoglobin Concent 29.3 G/DL (32.0-36.0) Red Cell Distribution Width 16.0 % (11.6-14.8) Platelet Count 258 K/UL (150-450) Mean Platelet Volume 6.0 FL (6.5-10.1) Neutrophils (%) (Auto) 63.6 % (45.0-75.0) Lymphocytes (%) (Auto) 25.2 % (20.0-45.0) Monocytes (%) (Auto) 8.0 % (1.0-10.0) Eosinophils (%) (Auto) 2.5 % (0.0-3.0) Basophils (%) (Auto) 0.7 % (0.0-2.0) Prothrombin Time 17.4 SEC (9.30-11.50) Prothromb Time International Ratio 1.7 (0.9-1.1) Activated Partial Thromboplast Time 24 SEC (23-33) Lactic Acid Level 1.90 mmol/L (0.66-2.22) Sodium Level 138 MMOL/L (136-145) Potassium Level 4.5 MMOL/L (3.5-5.1) Chloride Level 105 MMOL/L (98-107) Carbon Dioxide Level 24 MMOL/L (21-32) Anion Gap 9 mmol/L (5-15) Blood Urea Nitrogen 13 mg/dL (7-18) Creatinine 1.4 MG/DL (0.55-1.30) Estimat Glomerular Filtration Rate > 60 mL/min (>60) Glucose Level 134 MG/DL (74-106) Calcium Level 8.8 MG/DL (8.5-10.1) Phosphorus Level 3.2 MG/DL (2.5-4.9) Magnesium Level 2.0 MG/DL (1.8-2.4) Total Bilirubin 1.3 MG/DL (0.2-1.0) Direct Bilirubin 0.7 MG/DL (0.0-0.3) Aspartate Amino Transf (AST/SGOT) 22 U/L (15-37) Alanine Aminotransferase (ALT/SGPT) 10 U/L (12-78) Alkaline Phosphatase 73 U/L (46-116) Total Creatine Kinase 94 U/L (26-308) Creatine Kinase MB 2.0 NG/ML (0.0-3.6) Creatine Kinase MB Relative Index 2.1 Troponin I 0.015 ng/mL (0.000-0.056) Total Protein 7.6 G/DL (6.4-8.2) Albumin 3.0 G/DL (3.4-5.0) Globulin 4.6 g/dL Albumin/Globulin Ratio 0.7 (1.0-2.7) Acetone Level Negative (NEGATIVE) EKG Diagnostic Results Rate: normal Rhythm: NSR - 88 ST Segments: other - Right bundle branch block Rhythm Strip Diag. Results EP Interpretation: yes Rhythm: NSR, other - multiple pvcs Last Vital Signs Date Time Temp Pulse Resp B/P (MAP) Pulse Ox O2 Delivery O2 Flow Rate FiO2 01/20/17 20:20 96.6 106 18 155/104 96 Nasal Cannula Status: unchanged Disposition: ADMITTED INPATIENT Condition: Serious Referrals: [facility],REFERRING (PCP) Justo Epps Jan 21, 2017 00:13
[2017-01-21 02:22] VITALS: BP 155/104
[2017-01-21 08:15] VITALS: BP 131/83
[2017-01-21] MEDS ORDERED: Aspirin Baby 81mg ORAL SCH (09:00)
[2017-01-21] MEDS ORDERED: Heparin 5000 units/ml inj SUBQ SCH (09:00)
[2017-01-21] MEDS ORDERED: Lisinopril 20mg tab ORAL SCH (09:00)
[2017-01-21] MEDS ORDERED: Digoxin 0.125mg tab ORAL SCH (09:30)
--- NOTE | 2017-01-21 10:03 | Diagnostic Imaging Report ---
Indication: Abdominal pain Technique: CT of the abdomen and pelvis utilizing automated exposure control without intravenous or oral contrast. CT dose: Total DLP 974 mGycm; CTDI vol 19.5 mGy Comparison: None Findings: Please note that evaluation of the abdominal pelvis is limited without the use of intravenous and oral contrast. Within these limitations, the following observations are made: Large right and [id number] left pleural effusions with adjacent compressive atelectasis in the lower lobes. A punctate calcification is noted within the left lobe of the liver. Otherwise, noncontrast evaluation of the liver, gallbladder, spleen, adrenal glands is grossly unremarkable. There is fatty atrophy of the pancreas. Questionable calcifications in the region of the pancreatic body may be vascular in origin. There is nonspecific bilateral perinephric stranding. No hydronephrosis is seen bilaterally. There is thickening of the bladder wall. Prostate contains coarse central calcifications. There is no bowel obstruction. No free intraperitoneal air. Mild free fluid is noted in the pelvis. The appendix is not abnormally dilated. There is no focal inflammatory stranding in the right lower quadrant. No appreciable bowel wall thickening or evaluation is limited without use of oral contrast. Moderate to severe atherosclerotic disease. Thick artery stents noted. A left femoral artery bypass graft is partially visualized. The dominant aorta is normal in caliber. Multilevel degenerative changes are noted in the thoracolumbar spine. There is anasarca with marked edema along the lateral abdominal wall musculature, right the left. No well-defined/drainable fluid collections. Impression: Large right and moderate left pleural effusions with associated compressive atelectasis the bilateral lower lobes. Anasarca. No ill-defined questionable fluid collection. Mild ascites. No evidence of bowel obstruction. No focal bowel wall thickening appreciated however evaluation is limited without intravenous and oral contrast. No evidence of urinary tract obstruction. Moderate to severe atherosclerotic disease. Aorta is normal in caliber. Left femoral artery bypass graft partially visualized. This corresponds with the preliminary report. More sensitive evaluation with intravenous and oral contrast can be obtained as clinically indicated for better assessment. The CT scanner at [facility] is accredited by the [employer] and the scans are performed using protocols designed to limit radiation exposure to as low as reasonably achievable to attain images of sufficient resolution adequate for diagnostic evaluation.
--- NOTE | 2017-01-21 11:24 | Cardiology Report ---
APPROVED REPORT EKG Measurement Heart [id number] Normal sinus rhythm Possible Left atrial enlargement Pulmonary disease pattern Right bundle branch block Left anterior fascicular block Bifascicular block T wave abnormality, consider lateral ischemia Abnormal ECG
[2017-01-21] MEDS: NovoLOG Insulin Flexpen SUBQ SCH ×2 (11:30→17:10)
[2017-01-21 12:00] VITALS: BP 141/87
--- NOTE | 2017-01-21 14:57 | Consultation ---
History of Present Illness General Date patient seen: Jan 21, 2017 Chief Complaint: Abdominal Pain Referring physician: Idalia Reason for Consultation: ARF Present Illness HPI This is a 67-year-old AA male with a PMHx significant for diabetes, CHF, renal disease and HTN, S/P left AKA, who presented the ED with complaints of scrotal edema, generalized body swelling and increased abdominal gait and worsening shortness of breath. May I mention that the patient is a poor historian, he is constantly saying that his will give info. He had prior history of recent renal insufficiency. He reports making urine. He is laying in bed at this time in no apparent distress, denies fever or chills, no N/V, denies pain. Allergies: Coded Allergies: PENICILLINS (Verified Allergy, Intermediate, Hives, 03/29/13) Medication History Scheduled Aspirin Ec* (Aspirin Ec*), 81 MG ORAL DAILY Atorvastatin Calcium* (Atorvastatin Calcium*), 40 MG ORAL BEDTIME Carvedilol (Coreg), 3.125 MG ORAL EVERY 12 HOURS Digoxin* (Lanoxin*), 0.125 MG ORAL DAILY Enalapril Maleate* (Enalapril Maleate*), 10 MG ORAL EVERY 12 HOURS, (Reported) Finasteride* (Proscar*), 5 MG ORAL DAILY, (Reported) Furosemide* (Lasix*), 40 MG ORAL DAILY, (Reported) Gabapentin* (Gabapentin*), 300 MG ORAL THREE TIMES A DAY, (Reported) Levofloxacin* (Levaquin*), 500 MG ORAL DAILY Lisinopril (Lisinopril*), 2.5 MG ORAL DAILY Omeprazole (Omeprazole), 20 MG ORAL DAILY, (Reported) Potassium Chloride (Potassium Chloride), 20 MEQ ORAL DAILY, (Reported) Tamsulosin HCl (Flomax), 0.4 MG ORAL DAILY, (Reported) Miscellaneous Medications Methylprednisolone Sod Succ (Solu-Medrol), 500 MG IV, (Reported) Unable to Obtain Medications (Unable To Obtain Meds), (Reported) [eye drops], (Reported) [insulin], (Reported) Patient History History Provided By: Patient, Medical Record Healthcare decision maker Resuscitation status Advanced Directive on File Past Medical/Surgical History Past Medical/Surgical History: (1) Diabetes mellitus (2) HTN (hypertension) (3) end stage heart disease with EF of 20% (4) CHF (congestive heart failure) Social History Social History: (1) Non-smoker (2) No history of alcohol use (3) No illicit drug use Review of Systems All Other Systems: negative except mentioned in HPI Physical Exam General Appearance: no apparent distress, alert Lines, tubes and drains: peripheral HEENT: normocephalic, atraumatic Neck: non-tender, normal alignment Respiratory/Chest: decreased breath sounds Cardiovascular/Chest: normal rate Abdomen: non tender, distended Genitourinary/Rectal: other - SCROTAL EDEMA Extremities: moderate edema, pitting Neurologic: alert, responsive Last 24 Hour Vital Signs Date Time Temp Pulse Resp B/P (MAP) Pulse Ox O2 Delivery O2 Flow Rate FiO2 01/21/17 12:00 96.6 89 20 141/87 100 01/21/17 12:00 76 01/21/17 09:51 82 01/21/17 09:51 82 131/83 01/21/17 09:38 131/83 01/21/17 08:15 96.3 82 20 131/83 100 01/21/17 08:00 83 01/21/17 04:00 85 01/21/17 02:22 96.6 18 155/104 96 Nasal Cannula 01/21/17 02:20 89 18 144/94 100 Nasal Cannula 2.0 01/20/17 20:20 96.6 106 18 155/104 96 Nasal Cannula Intake and Output 01/21/17 01/22/17 19:00 07:00 Intake Total 200 ml Output Total 540 ml Balance -340 ml Intake Oral 200 ml Post Void Residual 540 ml Bladder Scan Volume Amount > 300 ml Laboratory Tests Test 01/20/17 21:13 01/20/17 21:29 01/20/17 22:11 01/21/17 09:15 Venous Blood pH Pending Venous Blood Partial Pressure CO2 Pending Venous Blood Partial Pressure O2 Pending Venous Blood HCO3 Pending Venous Blood Total Carbon Dioxide Pending Venous Bld O2 Saturation (Measured) 46.2 Venous Blood Oxygen Saturation Pending Venous Blood Base Excess Pending Methemoglobin 0.5 Sodium (Blood Gas) Pending White Blood Count 4.6 K/UL (4.8-10.8) L Red Blood Count 4.47 M/UL (4.70-6.10) L Hemoglobin 12.9 G/DL (14.2-18.0) L Hematocrit 44.1 % (42.0-52.0) Mean Corpuscular Volume 99 FL (80-99) Mean Corpuscular Hemoglobin 28.9 PG (27.0-31.0) Mean Corpuscular Hemoglobin Concent 29.3 G/DL (32.0-36.0) L Red Cell Distribution Width 16.0 % (11.6-14.8) H Platelet Count 258 K/UL (150-450) Mean Platelet Volume 6.0 FL (6.5-10.1) L Neutrophils (%) (Auto) 63.6 % (45.0-75.0) Lymphocytes (%) (Auto) 25.2 % (20.0-45.0) Monocytes (%) (Auto) 8.0 % (1.0-10.0) Eosinophils (%) (Auto) 2.5 % (0.0-3.0) Basophils (%) (Auto) 0.7 % (0.0-2.0) Prothrombin Time 17.4 SEC (9.30-11.50) H Prothromb Time International Ratio 1.7 (0.9-1.1) H Activated Partial Thromboplast Time 24 SEC (23-33) Lactic Acid Level 1.90 mmol/L (0.66-2.22) Sodium Level 138 MMOL/L (136-145) Potassium Level 4.5 MMOL/L (3.5-5.1) Chloride Level 105 MMOL/L (98-107) Carbon Dioxide Level 24 MMOL/L (21-32) Anion Gap 9 mmol/L (5-15) Blood Urea Nitrogen 13 mg/dL (7-18) Creatinine 1.4 MG/DL (0.55-1.30) H Estimat Glomerular Filtration Rate > 60 mL/min (>60) Glucose Level 134 MG/DL (74-106) H Calcium Level 8.8 MG/DL (8.5-10.1) Phosphorus Level 3.2 MG/DL (2.5-4.9) Magnesium Level 2.0 MG/DL (1.8-2.4) Total Bilirubin 1.3 MG/DL (0.2-1.0) H Direct Bilirubin 0.7 MG/DL (0.0-0.3) H Aspartate Amino Transf (AST/SGOT) 22 U/L (15-37) Alanine Aminotransferase (ALT/SGPT) 10 U/L (12-78) L Alkaline Phosphatase 73 U/L (46-116) Total Creatine Kinase 94 U/L (26-308) Creatine Kinase MB 2.0 NG/ML (0.0-3.6) Creatine Kinase MB Relative Index 2.1 Troponin I 0.015 ng/mL (0.000-0.056) 0.041 ng/mL (0.000-0.056) Total Protein 7.6 G/DL (6.4-8.2) Albumin 3.0 G/DL (3.4-5.0) L Globulin 4.6 g/dL Albumin/Globulin Ratio 0.7 (1.0-2.7) L Acetone Level Negative (NEGATIVE) Hemoglobin A1c 7.0 % (4.3-6.0) H Height (Feet): 5 Height (Inches): 7.00 Weight (Pounds): 180 Medications Current Medications Medications (Trade) Dose Ordered Sig/Sudha Route PRN Reason Start Time Stop Time Status Last Admin Dose Admin Aspirin (ASA) 81 mg DAILY ORAL 01/21/17 09:00 02/20/17 08:59 01/21/17 09:41 Atorvastatin Calcium (Lipitor) 40 mg BEDTIME ORAL 01/21/17 21:00 02/20/17 20:59 Carvedilol (Coreg) 3.125 mg EVERY 12 HOURS ORAL 01/21/17 09:30 02/20/17 09:29 01/21/17 09:51 Dextrose (Dextrose 50%) STAT PRN IV Hypoglycemia 01/21/17 08:45 02/20/17 08:44 Digoxin (Lanoxin) 0.125 mg DAILY ORAL 01/21/17 09:30 02/20/17 09:29 01/21/17 09:51 Finasteride (Proscar) 5 mg DAILY ORAL 01/21/17 09:30 02/20/17 09:29 01/21/17 09:50 Furosemide (Lasix) 40 mg EVERY 12 HOURS IV 01/21/17 09:00 02/20/17 08:59 01/21/17 09:40 Gabapentin (Neurontin) 300 mg THREE TIMES A DAY ORAL 01/21/17 09:30 02/20/17 09:29 01/21/17 13:50 Heparin Sodium (Porcine) (Heparin 5000 units/ml) 5,000 units EVERY 12 HOURS SUBQ 01/21/17 09:00 02/20/17 08:59 01/21/17 09:38 Insulin Aspart (NovoLOG) BEFORE MEALS AND HS SUBQ 01/21/17 11:30 02/20/17 11:29 Lisinopril (Prinivil) 10 mg DAILY ORAL 01/21/17 09:00 02/20/17 08:59 01/21/17 09:38 Pantoprazole (Protonix) 40 mg DAILY ORAL 01/22/17 09:00 02/21/17 08:59 Tamsulosin HCl (Flomax) 0.4 mg BEDTIME ORAL 01/21/17 21:00 02/20/17 20:59 Assessment/Plan Problem List: (1) Diabetes ICD Codes: E11.9 - Type 2 diabetes mellitus without complications SNOMED: 18585417, 229196995 (2) Anasarca ICD Codes: R60.1 - Generalized edema SNOMED: 993223931, 366093232 (3) CHF (congestive heart failure) ICD Codes: I50.9 - Heart failure, unspecified SNOMED: 19524510 (4) HTN (hypertension) ICD Codes: I10 - Essential (primary) hypertension SNOMED: 63523833 (5) end stage heart disease with EF of 20% (6) S/P AKA (above knee amputation) unilateral ICD Codes: Z89.619 - Acquired absence of unspecified leg above knee SNOMED: 95912937, 08599022, 312570093 Status: stable Assessment/Plan Continue o2 therapy Monitor renal function Renally dose meds, avoid nephrotoxins Cardiology consult recommended DVT prophylaxis, PPI Tita Owens N.P. Jan 21, 2017 14:57
--- NOTE | 2017-01-21 15:07 | Diagnostic Imaging Report ---
Indication: Shortness of breath Technique: XRAY CHEST 1 V Comparison: 12/03/69 Findings: Bladder interstitial opacification/edema. There is hazy opacity of the right mid and lower lung with opacity along the fissure on the right. There is no definite pneumothorax. Osseous structures are stable. Impression: Interval and others show opacification/edema and likely layering right pleural effusion with fluid tracking along the fissures. These findings are likely related to CHF/fluid overload. Infectious etiologies not excluded. Clinical correlation and followup exam recommended.
[2017-01-21 15:47] VITALS: BP 125/84
--- NOTE | 2017-01-21 16:01 | History and Physical Report ---
DATE OF ADMISSION: 01/20/2017 HISTORY OF PRESENT ILLNESS: This is a 67-year-old male, who was brought in yesterday to the emergency room with complaints of having shortness of breath. The patient is a very poor historian, but states that he takes medications for neuropathy. He has a history of renal failure in the past as well as diabetes mellitus. He states he is making urine, but less so than previous. Apart from that, the patient is unable to provide any further history. PAST MEDICAL HISTORY: Hypertension, chronic obstructive pulmonary disease, diabetes mellitus, and previous CVA. HOME MEDICATIONS: List of medications, which include aspirin, Lipitor, Coreg, digoxin, Vasotec, Proscar, Lasix, Neurontin, lisinopril, omeprazole, and Flomax ALLERGIES: None reported. REVIEW OF SYSTEMS: Denies any headaches, hematemesis, melena, or hematochezia. PHYSICAL EXAMINATION: GENERAL: Reveals an elderly male. HEENT: Unremarkable. LUNGS: Shows decreased breath sounds bilaterally with some basilar crackles. HEART: Heart sounds are normal. ABDOMEN: Soft. EXTREMITIES: The patient has left AKA. He has penile edema and bilateral thigh edema. LABORATORY DATA: Lab testing shows creatinine 1.4, glucose 134, and bilirubin 1.3. Otherwise chemistries are normal. Albumin is 3. ABG not obtained. White count 4.6 and hemoglobin 12.9. Coags are negative. INR is 1.7. IMAGING STUDIES: None obtained recently. Per review the patient had a recent myocardial perfusion scan in November of this year, which showed ejection fraction 37% and large anteroseptal infarct. I reviewed recent discharge summary. Note, that the patient was recently admitted with a dnt-TD-zxbaxyv elevation myocardial infarction and sepsis due to E. coli. He also history of decubitus ulcer. IMPRESSION: 1. Dyspnea secondary to pulmonary edema. 2. . 3. Diabetes mellitus. 4. Previous cerebrovascular accident. 5. Cardiomyopathy. DISCUSSION: 1. We will admit to the hospital. 2. Consult Cardiology. 3. Continue home medications. González Firedman M.D. DR: JAEL JOB#: [id number] CC:
[2017-01-21 20:00] VITALS: BP 133/61
[2017-01-21] MEDS ORDERED: Tamsulosin 0.4mg cap ORAL SCH (21:00)
[2017-01-21] MEDS ORDERED: Atorvastatin 20mg tab ORAL SCH (21:00)
--- NOTE | 2017-01-22 00:30 | Consultation ---
DATE OF CONSULTATION: 01/21/2017 UROLOGY CONSULTATION CONSULTING PHYSICIAN: Panda Hudson M.D. ATTENDING/REFERRING PHYSICIAN: González Friedman M.D. CHIEF COMPLAINT/HISTORY OF PRESENT ILLNESS: I was asked by Dr. Friedman to evaluate this very pleasant 67-year-old gentleman regarding history of difficulty with Dean catheter placement and inability of staff to do so secondary to penile edema. Briefly, the patient has history of shortness of breath. He presented to the hospital with the same and evidence of fluid retention/edema. Staff was unable to pass the Dean catheter due to his penoscrotal swelling. As such, I was asked to evaluate the patient. PAST MEDICAL HISTORY: 1. CVA. 2. Diabetes. 3. Hypertension. 4. COPD. PAST SURGICAL HISTORY: Left AKA amputation. MEDICATIONS: Please see the chart for current medications and administration details. Briefly, the patient does take Flomax in general at home. ALLERGIES: No known drug allergies. SOCIAL HISTORY: Unremarkable for tobacco, alcohol, or drug use. FAMILY HISTORY: Noncontributory. REVIEW OF SYSTEMS: A 12-system review of systems was essentially unremarkable outside of what is described above. PHYSICAL EXAMINATION: GENERAL: The patient is an older gentleman, awake, alert, oriented x4, pleasant, in no obvious distress. HEENT: NC/AT. EOMI. NECK: Supple. Full range of motion. Oropharynx clear. CHEST: Within normal limits. ABDOMEN: Soft, obese, nontender, and nondistended. BACK: No CVA tenderness to percussion. GENITOURINARY: Reveals an uncircumcised male phallus with severe penile edema. There are bilateral descended testes and cord structures with no masses or tenderness to palpation. EXTREMITIES: Warm and well perfused. No cyanosis. No clubbing. There is lower extremity edema noted and a left AKA. NEUROLOGIC: Grossly nonfocal. LABORATORY DATA: White blood cell count 4.6, hematocrit 44.1, and platelets 258,000. PT 17.4, INR 1.7, and PTT 24. Sodium 138, potassium 4.5, chloride 105, bicarbonate 24, BUN 13, creatinine 1.4, glucose 134, and calcium 8.8. LFTs essentially within normal limits. Alkaline phosphatase 73. Troponin 0.015 and 0.04. DIAGNOSTIC IMAGING: CT scan of the abdomen and pelvis revealed large bilateral pleural effusions with compressive atelectasis within bilateral lower lobe. There was anasarca. There was mild ascites. There was no evidence of urinary tract obstruction. ASSESSMENT AND PLAN: In summary, the patient is a 67-year-old diabetic gentleman with history of shortness of breath and anasarca/edema. He presents to the hospital with the same. Staff noted penile edema and was unable to pass the Dean catheter into the patient. As such, I was asked to evaluate the patient. Physical exam revealed severe penile edema. Laboratory data are essentially unremarkable. Diagnostic imaging with CT scan revealed evidence of anasarca and pleural effusions. Today at the bedside, with some difficulty, I was able to reduce the patient's foreskin and passed a 16-[place] Dean catheter through the meatus. I was able to negotiate the catheter into the bladder and it returned clear yellow urine output. It was inflated and left to gravity drainage. It can be kept in place as needed. Thank you for allowing me to participate in the care of this nice gentleman. Please do not hesitate to contact me with any questions that you may further have regarding his care. I will be happy to see him with you as needed. Panda Hudson M.D. DR: Som JOB#: [id number] CC:
--- NOTE | 2017-01-24 12:49 | Discharge Summary ---
Discharge Summary Hospital Course Date of Admission Jan 20, 2017 at 23:33 Date of Discharge Jan 21, 2017 at 21:20 Admitting Diagnosis ABDOMINAL PAIN, DIABETES HPI Rupert Callahan is a 67 year old male who was admitted on Jan 20, 2017 at 23:33 for Abdominal Pain,Diabetes Hospital Course dc summary #[id number] Discharge Condition Upon Discharge: stable Discharge Disposition Patient was discharged to [facility] ( per insurance capitated hospital) Discharge Diagnoses: Discharge Instructions Discharge Instructions Special Instructions I have been assigned to complete a D/C Summary on this account. I was not involved in the patient management Mary Castillo NP (Vanchtein) Jan 24, 2017 12:49
--- NOTE | 2017-01-25 09:15 | Discharge Summary 2 SIG ---
DATE OF ADMISSION: 01/20/2017 DATE OF DISCHARGE: 01/21/2017 REASON FOR ADMISSION: 67-year-old male with a history of end-stage heart disease, diabetes, COPD, hypertension, asthma, and renal insufficiency, presented to emergency department with complaint of shortness of breath along with abdominal pain and abdominal distention. Workup in the emergency department included abdominal pelvis CT, which revealed large right and moderate left pleural effusions with associated compressive atelectasis of the bilateral lower lobes. Anasarca. Mild ascites. No evidence of bowel obstruction. No focal bowel wall thickening. No evidence of urinary tract obstruction. Moderate to severe atherosclerotic disease. Chest x-ray revealed opacification/edema and likely right pleural effusion with fluid tracking along the fissure, likely related to CHF/ fluid overload. The patient was afebrile, no leukocytosis. Hemoglobin and hematocrit were stable. Creatinine- 1.4. Total bilirubin -1.3. Direct bilirubin-0.7. Troponin negative. The patient admitted for anasarca, CHF, bilateral pleural effusion, and diabetes. HOSPITAL COURSE: The patient was admitted. Nephrology and Cardiology consults were requested. Produce Field Merchandiser already seen the patient and recommended monitor renal parameters closely, replace electrolytes as needed, avoid nephrotoxic, and renal dose all the medications. The patient was on supplemental oxygen, titrated to keep pulse oximetry above 92%. Handheld nebulizing was on standby as needed. Troponin x2 were negative. DVT and GI prophylaxes provided. Blood sugar was managed with sliding scale of insulin. Hemoglobin A1c -7, at goal. Dyspnea was likely secondary to pulmonary edema. The patient was on diuretic. Lipitor continued. The patient was on medical management of congestive heart failure with beta-rubia, digoxin, KAMILA inhibitor, and diuretic. Dose of diuretic was increased and it was given intravenously. Intake and output along with renal parameters and electrolytes were closely monitored. Of note, echocardiogram was done on the previous admission in November 2016 and revealed ejection fraction of 20% to 25% and evidence of atrial fibrillation. At that time, stress test was done, which revealed large fixed defect consistent with old myocardial infarction, but no other findings. Field Kiln Burner at that time cleared the patient for discharge on medical management for congestive heart failure. Blood culture were negative. The patient was afebrile, no leukocytosis. DVT and GI prophylaxis provided. Urologist seen the patient because the patient presented with generalized anasarca, and nursing staff was unable to place a catheter. Urologist subsequently was able to place a 16-Yoruba gauge Dean catheter without difficulty. The patient required transfer to another facility due to the insurance reasons. On 01/21/2017, the patient was transferred to [facility]. FINAL DIAGNOSES: 1. Dyspnea, likely secondary to pulmonary edema. 2. Pulmonary edema. 3. Diabetes mellitus. 4. Hypertension. 5. Anasarca. 6. Cardiomyopathy with end-stage heart disease, ejection fraction of 20%. 7. Status post above-knee amputation, right lower extremity. DISCHARGE MEDICATIONS: See medication reconciliation list. List of medication was sent to admitting facility. DISCHARGE INSTRUCTIONS: The patient was transferred to [facility] per insurance for further management. FOLLOWUP: Follow up with medical doctor at the facility. González Friedman M.D. I have been assigned to dictate discharge summary on this account and I was not involved in the patient's management. Mary Gauthierverónica NDrakePDrake DR: SUNIL JOB#: [id number] CC: SANTI
== END 2017-01-21 21:20 | disposition short-term general hospital (02) | DRG 194 ==
LOC: EDBD 20:32 → EMR 22:50 → EDBEDREQ 23:25 → 2E 23:33 → EDBEDREQ 01-21 00:01
DX: I50.9 Heart failure, unspecified (principal); J44.9 Chronic obstructive pulmonary disease, unspecified; I42.9 Cardiomyopathy, unspecified; I10 Essential (primary) hypertension; Z89.619 Acquired absence of unspecified leg above knee; E11.9 Type 2 diabetes mellitus without complications; Z86.73 Personal history of transient ischemic attack (TIA), and cerebral infarction without residual deficits; I70.90 Unspecified atherosclerosis
CPT/HCPCS: 36415; 71010; 74176; 80053; 82009; 82248; 82550; 82553; 82962; 83036; 83605; 83735; 84100; 84484; 85025; 85610; 85730; 87040; 93005; 99285; J1815

== ENCOUNTER 2017-03-05 04:16 | Inpatient (IN) | payer OTHER, MEDICARE ==
[~2017-03-05] VITALS: Ht 157.5 cm; Wt 68.0 kg
[2017-03-05] VITALS (9 sets, daily range): BP systolic 108–145; BP diastolic 61–89
[2017-03-05] MEDS ORDERED: Ipratropium 0.02% Inh Soln 2.5ml UD HHN ONE (04:30)
[2017-03-05] MEDS ORDERED: Albuterol ud Inhalation HHN ONE (04:30)
[2017-03-05] MEDS ORDERED: Sodium Chloride 500ML 550 ML IV SCH (04:30)
--- NOTE | 2017-03-05 04:43 | Emergency Room Report ---
History of Present Illness General Chief Complaint: Upper Respiratory Illness Source: Patient, EMS Present Illness HPI Patient was brought in by EMS for dyspnea and according to his has a cough. Patient states the cough is chronic. He does complain of throat pain. He's had pain with swallowing. He is on home oxygen. He states his been eating well. He denies any chest pain. He denies pain to RN. No fevers, NVD, dysuria, abdominal pain, rashes, headache, dizziness. Post AKA L. H/O diabetes. States sugars controlled. Paramedics allege CVA but patient denies this. No unilateral weakness. Denies depression. Allergies: Coded Allergies: PENICILLINS (Verified Allergy, Intermediate, Hives, 03/29/13) Patient History Past Medical History: see triage record Social History Narrative at home Reviewed Nursing Documentation: PMH: Agreed, PSxH: Agreed Nursing Documentation-PMH Past Medical History: No History, Except For Hx Cardiac Problems: Yes Hx Hypertension: Yes Hx Asthma: Yes Hx COPD: Yes Hx Diabetes: Yes Hx Cancer: No Hx Gastrointestinal Problems: Yes Hx Neurological Problems: No Hx Cerebrovascular Accident: Yes Review of Systems All Other Systems: negative except mentioned in HPI Physical Exam Vital Signs Date Time Temp Pulse Resp B/P (MAP) Pulse Ox O2 Delivery O2 Flow Rate FiO2 03/05/17 04:17 97.0 88 18 110/64 98 Nasal Cannula 2.0 03/05/17 04:39 28 Sp02 EP Interpretation: reviewed, normal General Appearance: no apparent distress, Chronically Ill Head: normocephalic Eyes: bilateral eye conjunctivae pale ENT: normal pharynx, moist mucus membranes Neck: supple Respiratory: decreased breath sounds, wheezing, expiration Cardiovascular #1: regular rate, rhythm, edema - trace Cardiovascular #2: 2+ radial (R) Gastrointestinal: normal bowel sounds, non tender, soft Musculoskeletal: other - AKA L, clubbing Neurologic: alert, motor strength/tone normal, sensory intact, cerebellar normal, speech normal, oriented - X2 Psychiatric: mood/affect normal Skin: normal inspection Medical Decision Making Diagnostic Impression: Primary Impression: CHF (congestive heart failure) Qualified Codes: I50.41 - Acute combined systolic (congestive) and diastolic ( congestive) heart failure Additional Impressions: UTI (urinary tract infection) Qualified Codes: N39.0 - Urinary tract infection, site not specified Hyper anticoagulation ER Course Patient who is on home oxygen presents with cough and dyspnea. He also has some throat pain. Differential includes acute myocardial infarction, congestive heart failure, COPD exacerbation, pneumonia, bronchitis, pharyngitis amongst others. Evaluation will be with EKG, chest x-ray and labs. The patient be treated with albuterol as there's some wheezing at this time. With concern for CHF, fluids will be monitored. EKG shows a right bundle branch block with left axis deviation no acute injury. Chest x-ray shows significant congestive heart failure which is new from prior films. Labs are significant for elevated INR, negative troponin and normal white count. He has pyuria. Based on chest x-ray Lasix is given. Patient was given Rocephin for the pyuria. The patient is minimally improved. He is admitted to telemetry under the care of Dr. Friedman. Laboratory Tests Test 03/05/17 04:40 03/05/17 05:45 White Blood Count 7.1 K/UL (4.8-10.8) Red Blood Count 4.47 M/UL (4.70-6.10) L Hemoglobin 12.6 G/DL (14.2-18.0) L Hematocrit 39.8 % (42.0-52.0) L Mean Corpuscular Volume 89 FL (80-99) Mean Corpuscular Hemoglobin 28.2 PG (27.0-31.0) Mean Corpuscular Hemoglobin Concent 31.7 G/DL (32.0-36.0) L Red Cell Distribution Width 14.2 % (11.6-14.8) Platelet Count 355 K/UL (150-450) Mean Platelet Volume 5.7 FL (6.5-10.1) L Neutrophils (%) (Auto) 72.7 % (45.0-75.0) Lymphocytes (%) (Auto) 19.2 % (20.0-45.0) L Monocytes (%) (Auto) 5.8 % (1.0-10.0) Eosinophils (%) (Auto) 1.9 % (0.0-3.0) Basophils (%) (Auto) 0.4 % (0.0-2.0) Prothrombin Time 67.7 SEC (9.30-11.50) H Prothrombin Time INR 6.3 (0.9-1.1) *H PTT 32 SEC (23-33) Sodium Level 135 MMOL/L (136-145) L Potassium Level 4.2 MMOL/L (3.5-5.1) Chloride Level 101 MMOL/L (98-107) Carbon Dioxide Level 22 MMOL/L (21-32) Anion Gap 12 mmol/L (5-15) Blood Urea Nitrogen 17 mg/dL (7-18) Creatinine 1.7 MG/DL (0.55-1.30) H Estimate Glomerular Filtration Rate 49.0 mL/min (>60) Glucose Level 186 MG/DL (74-106) H Lactic Acid Level 2.20 mmol/L (0.66-2.22) Calcium Level 8.9 MG/DL (8.5-10.1) Total Bilirubin 1.0 MG/DL (0.2-1.0) Aspartate Amino Transferase (AST) 31 U/L (15-37) Alanine Aminotransferase (ALT) 25 U/L (12-78) Alkaline Phosphatase 74 U/L (46-116) Total Creatine Kinase 78 U/L (26-308) Troponin I 0.026 ng/mL (0.000-0.056) Pro-B-Type Natriuretic Peptide 03711 pg/mL (0-125) H Total Protein 7.6 G/DL (6.4-8.2) Albumin 3.0 G/DL (3.4-5.0) L Globulin 4.6 g/dL Albumin/Globulin Ratio 0.7 (1.0-2.7) L Urine Color Yellow Urine Appearance Slightly cloudy Urine pH 5 (4.5-8.0) Urine Specific [place] 1.015 (1.005-1.035) Urine Protein 2+ (NEGATIVE) H Urine Glucose (UA) Negative (NEGATIVE) Urine Ketones Negative (NEGATIVE) Urine Occult Blood 2+ (NEGATIVE) H Urine Nitrite Negative (NEGATIVE) Urine Bilirubin Negative (NEGATIVE) Urine Urobilinogen 1 MG/DL (0.0-1.0) H Urine Leukocyte Esterase 3+ (NEGATIVE) H Urine RBC 2-4 /HPF (0 - 0) H Urine WBC 60-80 /HPF (0 - 0) H Urine Squamous Epithelial Cells Occasional /LPF Urine Bacteria Occasional /HPF (NONE) Digoxin Level < 0.2 NG/ML (0.5-2.0) L Microbiology Date/Time Source Procedure Growth Status 03/05/17 04:40 Nasal Nares Influenza Types A,B Antigen (ABDULAZIZ) - Final Complete EKG Diagnostic Results Rate: normal Rhythm: NSR ST Segments: no acute changes - RBBB and LAD Rhythm Strip Diag. Results EP Interpretation: yes Rhythm: NSR, no PVC's, no ectopy Chest X-Ray Diagnostic Results Chest X-Ray Diagnostic Results : Chest X-Ray Ordered: Yes # of Views/Limited/Complete: 1 View Indication: Other EP Interpretation: Yes Interpretation: no pneumothorax, other - effusions and chf Impression: Other Electronically Signed by: Electronically signed by Rajinder Stoddard MD Status: improved Disposition: ADMITTED INPATIENT Condition: Serious Referrals: [facility],REFERRING (PCP) Rajinder Stoddard M.D. Mar 05, 2017 04:43
[2017-03-05 05:06] LABS: BASOPHILS % (AUTO) 0.4 % (0.0-2.0); EOSINOPHILS % (AUTO) 1.9 % (0.0-3.0); HEMATOCRIT 39.8 % (42.0-52.0); HEMOGLOBIN 12.6 G/DL (14.2-18.0); LYMPHOCYTES % (AUTO) 19.2 % (20.0-45.0); MEAN CORPUSCULAR VOLUME 89 FL (80-99); MONOCYTES % (AUTO) 5.8 % (1.0-10.0); NEUTROPHILS % (AUTO) 72.7 % (45.0-75.0); PLATELET COUNT 355 K/UL (150-450); RED BLOOD COUNT 4.47 M/UL (4.70-6.10); RED CELL DISTRIBUTION WIDTH 14.2 % (11.6-14.8); WHITE BLOOD COUNT 7.1 K/UL (4.8-10.8)
[2017-03-05 05:43] LABS: ANION GAP 12 mmol/L (5-15); BLOOD UREA NITROGEN 17 mg/dL (7-18); CALCIUM 8.9 MG/DL (8.5-10.1); CARBON DIOXIDE 22 MMOL/L (21-32); CHLORIDE 101 MMOL/L (98-107); CREATININE 1.7 MG/DL (0.55-1.30); POTASSIUM 4.2 MMOL/L (3.5-5.1); SODIUM 135 MMOL/L (136-145)
[2017-03-05 05:52] LABS: INR 6.3 (0.9-1.1)
[2017-03-05 06:01] LABS: ALANINE AMINOTRANSFERASE 25 U/L (12-78); ALBUMIN/GLOBULIN RATIO 0.7 (1.0-2.7); ALKALINE PHOSPHATASE 74 U/L (46-116); ASPARTATE AMINO TRANSFERASE 31 U/L (15-37); CREATINE KINASE 78 U/L (26-308)
[2017-03-05 06:23] LABS: APPEARANCE,URINE SLIGHTLY CLOUDY; BILIRUBIN, URINE NEGATIVE (NEGATIVE); GLUCOSE, URINE (UA) NEGATIVE (NEGATIVE); KETONES,URINE NEGATIVE (NEGATIVE); LEUKOCYTE ESTERASE ,URINE 3+ (NEGATIVE); NITRITE,URINE NEGATIVE (NEGATIVE); PH,URINE 5 (4.5-8.0); PROTEIN,URINE 2+ (NEGATIVE); UROBILINOGEN,URINE 1 MG/DL (0.0-1.0)
[2017-03-05 06:31] LABS: COLOR,URINE YELLOW
[2017-03-05] MEDS ORDERED: cefTRIAXone 1 GM in NS 55 ML IVPB ONE (06:45)
--- NOTE | 2017-03-05 09:09 | Diagnostic Imaging Report ---
Indication: Reason For Exam: COUGH Technique: XRAY Chest 1v Comparison:01/20/2017 Findings: The heart is at the upper limits of normal size. Patient has taken a poor aspiration. Pulmonary vascularity remains prominent. There is interstitial disease. No pleural effusion. The bones are unremarkable. Impression: Borderline cardiomegaly. Increased pulmonary vascularity and interstitial disease. This is consistent with pulmonary vascular congestion and congestive heart failure.
--- NOTE | 2017-03-05 11:45 | History and Physical Report ---
DATE OF ADMISSION: 03/05/2017 HISTORY OF PRESENT ILLNESS: This is a 67-year-old male, who came to the hospital with cough and shortness of breath. The patient states this has been chronic cough. He denied any fever. He reported mild dysphagia. He is on home oxygen. He also reported history of heart failure. The patient reports past history of COPD, CHF, and diabetes mellitus. Denies cancer or tuberculosis. REVIEW OF SYSTEMS: Denies any headaches, hematemesis, melena, hematochezia, night sweats, or weight loss. PAST SURGICAL HISTORY: None reported. ALLERGIES: None reported. HOME MEDICATIONS: Reviewed and reconciled. PHYSICAL EXAMINATION: GENERAL: Reveals an elderly male. VITAL SIGNS: Blood pressure 110/60, heart rate 84, respirations 18, O2 saturation 98% on room air, he is afebrile. HEENT: Unremarkable. CHEST: Lungs with breath sounds bilaterally. CARDIAC: Heart tones are normal. There is a soft systolic murmur and a S4 audible. ABDOMEN: Soft. EXTREMITIES: There is no edema. He has AKA of left lower extremity. LABORATORY AND DIAGNOSTIC DATA: Laboratory testing shows elevated INR of 6. Urinalysis shows multiple WBC. Chemistries are unremarkable. Glucose 186. CBC is normal. X-ray of chest per ER physician's report shows evidence of pulmonary edema. IMPRESSION: 1. Chronic obstructive pulmonary disease, on home oxygen. 2. Congestive heart failure. 3. Possible pneumonia. 4. Pulmonary edema. 5. Coagulopathy. DISCUSSION: Agree with antibiotics for pyuria. He needs diuresis. We will hold Coumadin. Consult Cardiology and ID. 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 Admitted to the hospital on telemetry bed. González Friedman M.D. DR: SHANDRA JOB#: [id number] CC:
[2017-03-05] MEDS: Atorvastatin 20mg tab ORAL SCH (22:14)
[2017-03-05] MEDS: NovoLOG Insulin Flexpen SUBQ SCH (22:19)
[2017-03-06 00:34] VITALS: BP 121/68
[2017-03-06 04:25] VITALS: BP 132/82
[2017-03-06] MEDS ORDERED: FOLIC ACID1 M1 PO (05:37)
[2017-03-06] MEDS: NovoLOG Insulin Flexpen SUBQ SCH ×4 (07:14→22:07)
[2017-03-06 07:49] LABS: BASOPHILS % (AUTO) 0.6 % (0.0-2.0); EOSINOPHILS % (AUTO) 2.6 % (0.0-3.0); HEMATOCRIT 37.5 % (42.0-52.0); HEMOGLOBIN 11.8 G/DL (14.2-18.0); LYMPHOCYTES % (AUTO) 14.4 % (20.0-45.0); MEAN CORPUSCULAR VOLUME 89 FL (80-99); MONOCYTES % (AUTO) 5.5 % (1.0-10.0); PLATELET COUNT 333 K/UL (150-450); RED CELL DISTRIBUTION WIDTH 14.5 % (11.6-14.8); WHITE BLOOD COUNT 7.4 K/UL (4.8-10.8)
[2017-03-06 08:00] VITALS: BP 109/63
[2017-03-06 08:05] LABS: INR 7.7 (0.9-1.1)
[2017-03-06 08:33] LABS: ANION GAP 11 mmol/L (5-15); BLOOD UREA NITROGEN 18 mg/dL (7-18); CALCIUM 8.8 MG/DL (8.5-10.1); CARBON DIOXIDE 25 MMOL/L (21-32); CHLORIDE 100 MMOL/L (98-107); CREATININE 1.6 MG/DL (0.55-1.30); POTASSIUM 3.6 MMOL/L (3.5-5.1); SODIUM 136 MMOL/L (136-145)
[2017-03-06] MEDS ORDERED: Furosemide 40mg tab ORAL SCH (09:00)
--- NOTE | 2017-03-06 09:48 | Diagnostic Imaging Report ---
Indication: Pain Technique: XRAY Chest 1v Comparison:03/05/2017 Findings: Compared to previous study there is now perihilar airspace disease on the right. Airspace disease on the left has decreased. No other change. Impression: Decreased congestive changes in the left lung with increased congestion and perihilar airspace disease on the right. This likely represents congestive heart failure with a changing pattern of early pulmonary edema.
--- NOTE | 2017-03-06 10:05 | Pulmonology Progress Note ---
Assessment/Plan Assessment/Plan IMPRESSION: 1. Chronic obstructive pulmonary disease, on home oxygen. 2. Congestive heart failure. 3. Possible pneumonia. 4. Pulmonary edema. 5. Coagulopathy. DISCUSSION: Continue antibiotics for pyuria. Continue diuresis. Continue to hold Coumadin. Await cardiology input Has LV thrombus on ECHO Subjective Interval Events: ECHO results noted; pt feeling better Constitutional: Reports: no symptoms HEENT: Repors: no symptoms Respiratory: Reports: no symptoms Cardiovascular: Reports: no symptoms Gastrointestinal/Abdominal: Reports: no symptoms Allergies: Coded Allergies: PENICILLINS (Verified Allergy, Intermediate, Hives, 03/29/13) Objective Last 24 Hour Vital Signs Date Time Temp Pulse Resp B/P (MAP) Pulse Ox O2 Delivery O2 Flow Rate FiO2 03/06/17 08:00 97.1 80 19 109/63 100 Room Air 03/06/17 04:25 97.8 74 22 132/82 97 Room Air 03/06/17 04:00 78 03/06/17 03:59 78 03/06/17 00:34 96.6 84 20 121/68 96 Room Air 03/05/17 22:14 119/74 03/05/17 22:13 96 119/74 03/05/17 20:37 97.6 96 18 119/74 97 Room Air 03/05/17 20:00 63 03/05/17 16:07 86 24 108/61 99 Room Air 03/05/17 15:10 87 03/05/17 15:00 98.4 97 20 145/89 97 Nasal Cannula 1.0 28 03/05/17 14:55 86 24 108/61 99 Nasal Cannula 1.0 03/05/17 13:50 98.3 87 22 108/74 100 Nasal Cannula 1.0 28 03/05/17 11:04 98.0 82 24 112/69 99 Nasal Cannula 1.0 28 Intake and Output 03/05/17 03/06/17 19:00 07:00 Intake Total 475 ml Output Total 900 ml 400 ml Balance -425 ml -400 ml Intake Oral 120 ml IV Total 355 ml Output Urine Total 900 ml 400 ml General Appearance: no acute distress HEENT: normocephalic Respiratory/Chest: chest wall non-tender, lungs clear Cardiovascular: normal peripheral pulses, normal rate Microbiology Date/Time Source Procedure Growth Status 03/05/17 04:40 Nasal Nares Influenza Types A,B Antigen (ABDULAZIZ) - Final Complete Laboratory Tests 03/06/17 06:11: White Blood Count 7.4, Red Blood Count 4.20L, Hemoglobin 11.8L, Hematocrit 37.5L , Mean Corpuscular Volume 89, Mean Corpuscular Hemoglobin 28.0, Mean Corpuscular Hemoglobin Concent 31.4L, Red Cell Distribution Width 14.5, Platelet Count 333, Mean Platelet Volume 5.7L, Neutrophils (%) (Auto) 77.0H, Lymphocytes (%) (Auto) 14.4L, Monocytes (%) (Auto) 5.5, Eosinophils (%) (Auto) 2.6, Basophils (%) (Auto) 0.6, Prothrombin Time 82.0H, Prothromb Time International Ratio 7.7*H, Sodium Level 136, Potassium Level 3.6, Chloride Level 100, Carbon Dioxide Level 25, Anion Gap 11, Blood Urea Nitrogen 18, Creatinine 1.6H, Estimat Glomerular Filtration Rate 52.5, Glucose Level 210H, Calcium Level 8.8, Pro-B-Type Natriuretic Peptide 15825T Current Medications Medications (Trade) Dose Ordered Sig/Sudha Route PRN Reason Start Time Stop Time Status Last Admin Dose Admin Atorvastatin Calcium (Lipitor) 40 mg BEDTIME ORAL 03/05/17 21:00 04/04/17 20:59 03/05/17 22:14 Carvedilol (Coreg) 3.125 mg EVERY 12 HOURS ORAL 03/05/17 21:00 04/04/17 20:59 03/05/17 22:13 Ceftriaxone Sodium 1 gm/ Sodium Chloride 55 ml @ 110 mls/hr DAILY IVPB 03/06/17 09:00 03/13/17 08:59 Dextrose (Dextrose 50%) STAT PRN IV Hypoglycemia 03/05/17 18:00 04/04/17 17:59 Digoxin (Lanoxin) 0.125 mg DAILY ORAL 03/06/17 09:00 04/05/17 08:59 Enalapril Maleate (Vasotec) 10 mg EVERY 12 HOURS ORAL 03/05/17 21:00 04/04/17 20:59 03/05/17 22:14 Finasteride (Proscar) 5 mg DAILY ORAL 03/06/17 09:00 04/05/17 08:59 Furosemide (Lasix) 40 mg DAILY ORAL 03/06/17 09:00 04/05/17 08:59 Gabapentin (Neurontin) 300 mg THREE TIMES A DAY ORAL 03/05/17 20:00 04/04/17 19:59 03/05/17 20:13 Guaifenesin/ Dextromethorphan (Robitussin DM) 5 ml Q8H PRN ORAL For Cough 03/05/17 23:00 04/04/17 22:59 Insulin Aspart (NovoLOG) BEFORE MEALS AND HS SUBQ 03/05/17 21:00 04/04/17 20:59 03/06/17 07:14 Pantoprazole (Protonix) 40 mg DAILY ORAL 03/06/17 09:00 04/05/17 08:59 Potassium Chloride (K-Dur) 20 meq DAILY ORAL 03/06/17 09:00 04/05/17 08:59 Tamsulosin HCl (Flomax) 0.4 mg DAILY ORAL 03/06/17 09:00 04/05/17 08:59 González Friedman MD Mar 06, 2017 10:05
[2017-03-06] MEDS: cefTRIAXone 1 GM in NS 55 ML IVPB SCH (10:16)
[2017-03-06] MEDS: Digoxin 0.125mg tab ORAL SCH (10:16)
[2017-03-06] MEDS: Tamsulosin 0.4mg cap ORAL SCH (10:20)
[2017-03-06 12:00] VITALS: BP 116/63
[2017-03-06 16:00] VITALS: BP 132/93
[2017-03-06] MEDS: guaiFENesin DM 100mg/5ml ORAL PRN (16:55)
--- NOTE | 2017-03-06 16:57 | Cardiology Progress Note ---
Assessment/Plan Assessment/Plan The patient is seen and examined, full consult note is dictated. Objective Last 24 Hour Vital Signs Date Time Temp Pulse Resp B/P (MAP) Pulse Ox O2 Delivery O2 Flow Rate FiO2 03/06/17 12:00 82 03/06/17 12:00 96.1 88 19 116/63 98 Room Air 03/06/17 10:16 80 03/06/17 09:00 99/62 03/06/17 09:00 74 99/62 03/06/17 08:00 75 03/06/17 08:00 97.1 80 19 109/63 100 Room Air 03/06/17 04:25 97.8 74 22 132/82 97 Room Air 03/06/17 04:00 78 03/06/17 03:59 78 03/06/17 00:34 96.6 84 20 121/68 96 Room Air 03/05/17 22:14 119/74 03/05/17 22:13 96 119/74 03/05/17 20:37 97.6 96 18 119/74 97 Room Air 03/05/17 20:00 63 Intake and Output 03/05/17 03/06/17 19:00 07:00 Intake Total 475 ml Output Total 900 ml 400 ml Balance -425 ml -400 ml Intake Oral 120 ml IV Total 355 ml Output Urine Total 900 ml 400 ml Laboratory Tests Test 03/06/17 06:11 White Blood Count 7.4 K/UL (4.8-10.8) Red Blood Count 4.20 M/UL (4.70-6.10) L Hemoglobin 11.8 G/DL (14.2-18.0) L Hematocrit 37.5 % (42.0-52.0) L Mean Corpuscular Volume 89 FL (80-99) Mean Corpuscular Hemoglobin 28.0 PG (27.0-31.0) Mean Corpuscular Hemoglobin Concent 31.4 G/DL (32.0-36.0) L Red Cell Distribution Width 14.5 % (11.6-14.8) Platelet Count 333 K/UL (150-450) Mean Platelet Volume 5.7 FL (6.5-10.1) L Neutrophils (%) (Auto) 77.0 % (45.0-75.0) H Lymphocytes (%) (Auto) 14.4 % (20.0-45.0) L Monocytes (%) (Auto) 5.5 % (1.0-10.0) Eosinophils (%) (Auto) 2.6 % (0.0-3.0) Basophils (%) (Auto) 0.6 % (0.0-2.0) Prothrombin Time 82.0 SEC (9.30-11.50) H Prothromb Time International Ratio 7.7 (0.9-1.1) *H Sodium Level 136 MMOL/L (136-145) Potassium Level 3.6 MMOL/L (3.5-5.1) Chloride Level 100 MMOL/L (98-107) Carbon Dioxide Level 25 MMOL/L (21-32) Anion Gap 11 mmol/L (5-15) Blood Urea Nitrogen 18 mg/dL (7-18) Creatinine 1.6 MG/DL (0.55-1.30) H Estimat Glomerular Filtration Rate 52.5 mL/min (>60) Glucose Level 210 MG/DL (74-106) H Calcium Level 8.8 MG/DL (8.5-10.1) Pro-B-Type Natriuretic Peptide 10564 pg/mL (0-125) H Microbiology Date/Time Source Procedure Growth Status 03/05/17 04:40 Nasal Nares Influenza Types A,B Antigen (ABDULAZIZ) - Final Complete 03/05/17 05:45 Urine,Clean Catch Urine Culture - Preliminary Resulted DARIEN MONTES Mar 06, 2017 16:57
[2017-03-06] MEDS: Atorvastatin 20mg tab ORAL SCH (21:59)
[2017-03-07] VITALS (7 sets, daily range): BP systolic 106–133; BP diastolic 61–74
--- NOTE | 2017-03-07 03:30 | Consultation ---
DATE OF CONSULTATION: 03/06/2017 CARDIOLOGY CONSULTATION CONSULTING PHYSICIAN: Donavan Romero M.D. REFERRING PHYSICIAN: González Friedman M.D. REASON FOR CONSULTATION: Management of acute heart failure. HISTORY OF PRESENT ILLNESS: The patient is a very unfortunate 67-year-old gentleman, who was brought in by EMS for dyspnea and cough. Apparently, the patient has history of chronic systolic and diastolic heart failure and non-optimized heart failure regimen and noncompliant with doctor's office. He claims that his does not take him to any outpatient office appointments. At the time of arrival to the hospital, initial evaluation in the ED showed blood pressure 110/64 mmHg. A 12-lead electrocardiogram was significant for sinus rhythm with bifascicular block including right bundle-branch and left anterior fascicular block. Chest x-ray was significant for pulmonary edema and congestive heart failure. The patient was admitted to telemetry for further evaluation and management. Cardiology consultation was made at the request of Dr. Friedman for addressing and managing the above. From what I understood, the patient is NYHA class 3, short of breath with some minimal, less than ordinary activities. He has also been retaining fluids. He has had a few hospitalizations to this center in the past few months. A 2D echocardiography in November 2016 was significant for dilated cardiomyopathy with combined systolic and diastolic heart failure, left ventricular ejection fraction approximately 15% to 20%. It is not clear whether the patient has had any prior workup of ischemia. Apparently, the patient has had myocardial perfusion imaging back on 12/06/2016, which had shown mixed perfusion abnormalities with some evidence of ischemia on the anterior wall, areas of possible infarct in the inferior, inferoseptal, and septal wall. Overall left ventricular ejection fraction with Doppler study was 37%. PAST MEDICAL HISTORY: 1. History of chronic systolic and diastolic heart failure. 2. History of asthma/COPD. 3. History of hypertension. 4. History of diabetes mellitus. 5. History of gastroesophageal reflux disease. 6. History of CVA. HOME MEDICATIONS: List of medications at home including aspirin 81 mg p.o. daily, atorvastatin 4 mg p.o. nightly, carvedilol 3.125 mg q.12 h., digoxin 0.125 mg p.o. daily, enalapril 10 mg p.o. q.12 h., Proscar 5 mg p.o. daily, folic acid 1 mg p.o. daily, Lasix 40 mg p.o. daily, gabapentin 300 mg three times a day, Levaquin 500 mg p.o. daily, lisinopril 2.5 mg daily, Solu-Medrol 500 mg IV piggyback, this dosage is somewhat questionable, omeprazole 20 mg p.o. daily, potassium chloride 20 mEq p.o. daily, and Flomax 0.4 mg p.o. daily. ALLERGIES: To penicillin. SOCIAL HISTORY: Smokes cigarettes. Denies any prior history of illicit drug use or alcohol. He is and lives with his at home. REVIEW OF SYSTEMS: HEENT: Denies any headache, diplopia, or blurred vision. CONSTITUTIONAL: Complains of generalized weakness, but no fever, chills, or night sweats. CARDIOVASCULAR: Complains of dyspnea on exertion with less than ordinary activities. Denies any chest pain. Denies any PND. Complains of fluid in his lung, fluid around the abdomen and lower extremities. There is also complaints of 3-pillow orthopnea and PND. PULMONARY: Complains of cough and shortness of breath, but no hemoptysis. GASTROINTESTINAL: Denies any nausea, vomiting, diarrhea, constipation, abdominal pain, or gastrointestinal bleed. GENITOURINARY: Denies any hematuria, dysuria, or incontinence. NEUROLOGY: Denies any motor dysfunction, sensory deficit, or altered speech. PHYSICAL EXAMINATION: VITAL SIGNS: Blood pressure at the time of arrival to the hospital was 110/64, respirations of 18, pulse of 88, and temperature 97.0 degrees Fahrenheit, and pulse oximetry of 98%. GENERAL: The patient is a very unfortunate 67-year-old gentleman, in no apparent respiratory distress. Alert and oriented x2. HEENT: Atraumatic, normocephalic. Anicteric. Pupils are equal, round, and reactive to light and accommodation. Extraocular muscles are intact. NECK: JVP less than 10 cm. No carotid bruit. Carotid upstrokes 2+ bilaterally. CARDIOVASCULAR: Normal S1, S2. Regular rate and rhythm. No murmurs, gallops, or rubs. PMI is laterally displaced and downwards. LUNGS: Diminished breath sounds in both lungs with associated rhonchi bilaterally. Diminished breath sounds in both bases. Increased dullness in both bases. ABDOMEN: Distended. Possible ascites. Soft. No hepatosplenomegaly. EXTREMITIES: There is 1+ ankle edema bilaterally. LABORATORY FINDINGS: WBC 7.1, hemoglobin 12.6, hematocrit 39.9, and platelet count 355. Sodium 135, potassium is 4.2, chloride 101, bicarbonate 22, BUN of 17, creatinine 1.7, glucose is 186, calcium is 8.9. ProBNP was 24,177. Troponin I was 0.026. INR is 6.3. Toxicology showed digoxin level less than 0.2. ASSESSMENT AND PLAN: The patient is a very unfortunate 67-year-old gentleman seen in cardiology consultation at the request of Dr. Friedman. 1. Acute on chronic systolic and diastolic heart failure. The patient requires to be on optimized heart failure regimen. I would consider doubling up the dose of furosemide as he is very hypervolemic. I agree with continuation of digoxin. His enalapril needs to be also optimized. He would probably benefit from Entresto as an outpatient. Carvedilol will be also optimized slowly as his blood pressure allows. He would ultimately benefit from Aldactone as well. Will require to check daily creatinine. 2. History of diabetes mellitus. 3. History of hypertension. 4. History of neuropathy. The question is whether the patient would benefit from heart catheterization to rule out ischemia. revealed the myocardial perfusion imaging done in November 2016 showed fixed reversible and nonreversible perfusion abnormalities. There was some reversibility in the left anterior descending territory. Troponin I level in this facility is normal. The patient may benefit from an ischemic workup, most likely cardiac catheterization in the outpatient setting. I would like to thank Dr. Friedman for the courtesy of this consultation. Donavan Romero M.D. DR: Binta JOB#: [id number] CC:
[2017-03-07] MEDS: NovoLOG Insulin Flexpen SUBQ SCH ×4 (06:43→21:05)
[2017-03-07 07:48] LABS: BASOPHILS % (AUTO) 0.7 % (0.0-2.0); EOSINOPHILS % (AUTO) 2.3 % (0.0-3.0); HEMATOCRIT 38.8 % (42.0-52.0); HEMOGLOBIN 11.9 G/DL (14.2-18.0); LYMPHOCYTES % (AUTO) 10.3 % (20.0-45.0); MEAN CORPUSCULAR VOLUME 89 FL (80-99); MONOCYTES % (AUTO) 7.5 % (1.0-10.0); NEUTROPHILS % (AUTO) 79.3 % (45.0-75.0); PLATELET COUNT 359 K/UL (150-450); RED BLOOD COUNT 4.37 M/UL (4.70-6.10); RED CELL DISTRIBUTION WIDTH 14.6 % (11.6-14.8); WHITE BLOOD COUNT 6.8 K/UL (4.8-10.8)
[2017-03-07 08:10] LABS: ANION GAP 11 mmol/L (5-15); BLOOD UREA NITROGEN 13 mg/dL (7-18); CALCIUM 8.6 MG/DL (8.5-10.1); CARBON DIOXIDE 24 MMOL/L (21-32); CHLORIDE 102 MMOL/L (98-107); CREATININE 1.4 MG/DL (0.55-1.30); POTASSIUM 3.6 MMOL/L (3.5-5.1); SODIUM 137 MMOL/L (136-145)
[2017-03-07] MEDS: cefTRIAXone 1 GM in NS 55 ML IVPB SCH (08:14)
[2017-03-07] MEDS: Digoxin 0.125mg tab ORAL SCH (08:17)
[2017-03-07] MEDS: Tamsulosin 0.4mg cap ORAL SCH (08:17)
[2017-03-07] MEDS: guaiFENesin DM 100mg/5ml ORAL PRN (10:26)
--- NOTE | 2017-03-07 11:43 | Pulmonology Progress Note ---
Assessment/Plan Assessment/Plan IMPRESSION: 1. Chronic obstructive pulmonary disease, on home oxygen. 2. Congestive heart failure. 3. Possible pneumonia. 4. Pulmonary edema. 5. Coagulopathy. DISCUSSION: Continue antibiotics for pyuria. Continue diuresis. Continue to hold Coumadin. Await cardiology input Has LV thrombus on ECHO has possible DVT on duplex of lower extremties. insurance requesting transfer to contracted Hospital Subjective Interval Events: feeling better. Seen by cardiology. Constitutional: Reports: no symptoms HEENT: Repors: no symptoms Respiratory: Reports: no symptoms Cardiovascular: Reports: no symptoms Gastrointestinal/Abdominal: Reports: no symptoms Allergies: Coded Allergies: PENICILLINS (Verified Allergy, Intermediate, Hives, 03/29/13) Objective Last 24 Hour Vital Signs Date Time Temp Pulse Resp B/P (MAP) Pulse Ox O2 Delivery O2 Flow Rate FiO2 03/07/17 08:18 103/60 03/07/17 08:17 75 03/07/17 08:17 75 103/60 03/07/17 08:00 96.4 74 18 107/74 97 Nasal Cannula 2.0 03/07/17 04:00 72 03/07/17 04:00 98.6 80 20 106/64 99 Nasal Cannula 2.0 03/07/17 00:00 98.2 80 16 110/61 100 Room Air 03/07/17 00:00 92 03/06/17 22:00 132/93 03/06/17 21:59 82 132/93 03/06/17 20:00 89 03/06/17 19:07 82 22 Room Air 03/06/17 16:00 97.8 84 20 132/93 98 Room Air 03/06/17 16:00 82 03/06/17 12:00 82 03/06/17 12:00 96.1 88 19 116/63 98 Room Air Intake and Output 03/06/17 03/07/17 19:00 07:00 Intake Total 232 ml 236 ml Output Total 1050 ml 800 ml Balance -818 ml -564 ml Intake Oral 232 ml 236 ml Output Urine Total 1050 ml 800 ml General Appearance: no acute distress HEENT: normocephalic Respiratory/Chest: chest wall non-tender, lungs clear Cardiovascular: normal peripheral pulses, normal rate Abdomen: normal bowel sounds, soft, non tender Microbiology Date/Time Source Procedure Growth Status 03/05/17 04:40 Nasal Nares Influenza Types A,B Antigen (ABDULAZIZ) - Final Complete 03/05/17 05:45 Urine,Clean Catch Urine Culture - Preliminary Gram Negative Bacillus 1 Resulted Laboratory Tests 03/07/17 05:35: White Blood Count 6.8, Red Blood Count 4.37L, Hemoglobin 11.9L, Hematocrit 38.8L , Mean Corpuscular Volume 89, Mean Corpuscular Hemoglobin 27.3, Mean Corpuscular Hemoglobin Concent 30.7L, Red Cell Distribution Width 14.6, Platelet Count 359, Mean Platelet Volume 5.5L, Neutrophils (%) (Auto) 79.3H, Lymphocytes (%) (Auto) 10.3L, Monocytes (%) (Auto) 7.5, Eosinophils (%) (Auto) 2.3, Basophils (%) (Auto) 0.7, Sodium Level 137, Potassium Level 3.6, Chloride Level 102, Carbon Dioxide Level 24, Anion Gap 11, Blood Urea Nitrogen 13, Creatinine 1.4H, Estimat Glomerular Filtration Rate > 60, Glucose Level 151H, Calcium Level 8.6, Troponin I 0.031, Pro-B-Type Natriuretic Peptide [id number] Current Medications Medications (Trade) Dose Ordered Sig/Sudha Route PRN Reason Start Time Stop Time Status Last Admin Dose Admin Atorvastatin Calcium (Lipitor) 40 mg BEDTIME ORAL 03/05/17 21:00 04/04/17 20:59 03/06/17 21:59 Carvedilol (Coreg) 3.125 mg EVERY 12 HOURS ORAL 03/05/17 21:00 04/04/17 20:59 03/06/17 21:59 Ceftriaxone Sodium 1 gm/ Sodium Chloride 55 ml @ 110 mls/hr DAILY IVPB 03/06/17 09:00 03/13/17 08:59 03/07/17 08:14 Dextrose (Dextrose 50%) STAT PRN IV Hypoglycemia 03/05/17 18:00 04/04/17 17:59 Digoxin (Lanoxin) 0.125 mg DAILY ORAL 03/06/17 09:00 04/05/17 08:59 03/07/17 08:17 Enalapril Maleate (Vasotec) 10 mg EVERY 12 HOURS ORAL 03/05/17 21:00 04/04/17 20:59 03/06/17 22:00 Finasteride (Proscar) 5 mg DAILY ORAL 03/06/17 09:00 04/05/17 08:59 03/07/17 08:16 Furosemide (Lasix) 40 mg DAILY IV 03/06/17 10:30 04/05/17 10:29 03/07/17 08:16 Gabapentin (Neurontin) 300 mg THREE TIMES A DAY ORAL 03/05/17 20:00 04/04/17 19:59 03/07/17 08:17 Guaifenesin/ Dextromethorphan (Robitussin DM) 5 ml Q8H PRN ORAL For Cough 03/05/17 23:00 04/04/17 22:59 03/07/17 10:26 Insulin Aspart (NovoLOG) BEFORE MEALS AND HS SUBQ 03/05/17 21:00 04/04/17 20:59 03/07/17 06:43 Pantoprazole (Protonix) 40 mg DAILY ORAL 03/06/17 09:00 04/05/17 08:59 03/07/17 08:16 Potassium Chloride (K-Dur) 20 meq DAILY ORAL 03/06/17 09:00 04/05/17 08:59 03/07/17 08:16 Tamsulosin HCl (Flomax) 0.4 mg DAILY ORAL 03/06/17 09:00 04/05/17 08:59 03/07/17 08:17 González Friedman MD Mar 07, 2017 11:43
[2017-03-07] MEDS ORDERED: Spironolactone 25mg tab ORAL SCH (18:15)
--- NOTE | 2017-03-07 18:16 | Cardiology Progress Note ---
Assessment/Plan Assessment/Plan 1. Acute on chronic systolic and diastolic heart failure. Will optimize coreg slowly, add aldactone, check daily K and creat. Creat down to 1.4. Continue lasix, BNP in am. 2. History of diabetes mellitus. 3. History of hypertension. 4. History of neuropathy. Subjective Subjective Sinus rhythm at 90. Objective Last 24 Hour Vital Signs Date Time Temp Pulse Resp B/P (MAP) Pulse Ox O2 Delivery O2 Flow Rate FiO2 03/07/17 16:00 85 03/07/17 12:00 80 03/07/17 12:00 97.9 82 20 124/61 97 Nasal Cannula 2.0 03/07/17 08:18 103/60 03/07/17 08:17 75 03/07/17 08:17 75 103/60 03/07/17 08:00 96.4 74 18 107/74 97 Nasal Cannula 2.0 03/07/17 08:00 76 03/07/17 04:00 72 03/07/17 04:00 98.6 80 20 106/64 99 Nasal Cannula 2.0 03/07/17 00:00 98.2 80 16 110/61 100 Room Air 03/07/17 00:00 92 03/06/17 22:00 132/93 03/06/17 21:59 82 132/93 03/06/17 20:00 89 03/06/17 19:07 82 22 Room Air Intake and Output 03/06/17 03/07/17 19:00 07:00 Intake Total 232 ml 236 ml Output Total 1050 ml 800 ml Balance -818 ml -564 ml Intake Oral 232 ml 236 ml Output Urine Total 1050 ml 800 ml 2D Echo: EF 15%, Global HK except Inferolat wall, Mod MR, Small pradeep eff, RVSP 71 Laboratory Tests Test 03/07/17 05:35 White Blood Count 6.8 K/UL (4.8-10.8) Red Blood Count 4.37 M/UL (4.70-6.10) L Hemoglobin 11.9 G/DL (14.2-18.0) L Hematocrit 38.8 % (42.0-52.0) L Mean Corpuscular Volume 89 FL (80-99) Mean Corpuscular Hemoglobin 27.3 PG (27.0-31.0) Mean Corpuscular Hemoglobin Concent 30.7 G/DL (32.0-36.0) L Red Cell Distribution Width 14.6 % (11.6-14.8) Platelet Count 359 K/UL (150-450) Mean Platelet Volume 5.5 FL (6.5-10.1) L Neutrophils (%) (Auto) 79.3 % (45.0-75.0) H Lymphocytes (%) (Auto) 10.3 % (20.0-45.0) L Monocytes (%) (Auto) 7.5 % (1.0-10.0) Eosinophils (%) (Auto) 2.3 % (0.0-3.0) Basophils (%) (Auto) 0.7 % (0.0-2.0) Sodium Level 137 MMOL/L (136-145) Potassium Level 3.6 MMOL/L (3.5-5.1) Chloride Level 102 MMOL/L (98-107) Carbon Dioxide Level 24 MMOL/L (21-32) Anion Gap 11 mmol/L (5-15) Blood Urea Nitrogen 13 mg/dL (7-18) Creatinine 1.4 MG/DL (0.55-1.30) H Estimat Glomerular Filtration Rate > 60 mL/min (>60) Glucose Level 151 MG/DL (74-106) H Calcium Level 8.6 MG/DL (8.5-10.1) Troponin I 0.031 ng/mL (0.000-0.056) Pro-B-Type Natriuretic Peptide 46596 pg/mL (0-125) H Microbiology Date/Time Source Procedure Growth Status 03/05/17 04:40 Nasal Nares Influenza Types A,B Antigen (ABDULAZIZ) - Final Complete 03/05/17 05:45 Urine,Clean Catch Urine Culture - Preliminary Gram Negative Bacillus 1 Resulted Objective HEENT: Atraumatic, normocephalic. Anicteric. Pupils are equal, round, and reactive to light and accommodation. Extraocular muscles are intact. NECK: JVP >15 cm. No carotid bruit. Carotid upstrokes 2+ bilaterally. CARDIOVASCULAR: Normal S1, S2. Regular rate and rhythm. No murmurs, gallops, or rubs. PMI is laterally displaced and downwards. LUNGS: Diminished breath sounds in both lungs with associated rhonchi bilaterally. Diminished breath sounds in both bases. Increased dullness in both bases. ABDOMEN: Distended. Possible ascites. Soft. No hepatosplenomegaly. EXTREMITIES: There is 1+ ankle edema bilaterally. DARIEN MONTES Mar 07, 2017 18:16
[2017-03-07] MEDS ORDERED: Carvedilol 6.25mg Tab ORAL SCH (21:00)
[2017-03-07] MEDS: Atorvastatin 20mg tab ORAL SCH (21:04)
--- NOTE | 2017-03-10 11:28 | Discharge Summary ---
Discharge Summary Hospital Course Date of Admission Mar 05, 2017 at 05:40 Date of Discharge Mar 08, 2017 at 00:08 Admitting Diagnosis Congestive heart failure EBONY Callahan is a 67 year old male who was admitted on Mar 05, 2017 at 05:40 for Congestive Heart Failure Hospital Course [id number] Discharge Discharge Disposition Patient was discharged to [facility] Discharge Diagnoses: Christy Horn NP Mar 10, 2017 11:28
--- NOTE | 2017-03-10 20:30 | Discharge Summary 2 SIG ---
DATE OF ADMISSION: 03/05/2017 DATE OF DISCHARGE: 03/08/2017 VEGETABLE GRADER: Donavan Romero M.D. BRIEF HOSPITAL COURSE: The patient is a 67-year-old male, who came to the hospital with cough and shortness of breath. Denies fever. The patient is on home O2. 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 On evaluation at ED, EKG showed right bundle-branch block with left axis deviation, no acute injury. Chest x-ray showed significant congestive heart failure, which is new compared to prior films. Blood work showed no leukocytosis, WBC was 7.1. INR was elevated to 6.3. BUN 17, creatinine 1.7. Troponin was negative. BNP was 24,177 and urinalysis with pyuria, urine WBC was 60 to 80, and urine RBC 2 to 4. Influenza screen was negative. Coumadin was placed on hold. He was started on ceftriaxone pending urine culture results. He was seen by Dr. Romero. He was given IV diuresis and was placed on Lasix 40 mg. He was started on spironolactone 25 mg daily and was given Coreg and digoxin. The patient has systolic and diastolic heart failure. Echocardiogram done in November 2016 was significant for dilated cardiomyopathy with combined systolic and diastolic heart failure and left ventricular ejection fraction of 15% to 20%. He has a clot on the right leg based on duplex of lower extremity. He was eventually transferred to a contracted facility at [facility]. FINAL DIAGNOSES: 1. Acute on chronic systolic diastolic congestive heart failure. 2. Chronic obstructive pulmonary disease, on home O2. 3. Possible pneumonia. 4. Pulmonary edema. 5. Hypercoagulable state, secondary to Coumadin use. 6. Hypertension. 7. Diabetes mellitus. 8. Neuropathy. 9. Acute deep vein thrombosis, right leg. 10. Urinary tract infection with Pseudomonas aeruginosa. DISPOSITION: The patient was discharged to [facility]. DISCHARGE MEDICATIONS: Refer to medication list. González Friedman M.D. I have been assigned to dictate discharge summary on this account and I was not involved in the patient's management. Christy Horn N.P. DR: SONNY JOB#: [id number] CC: SANTI
--- NOTE | 2017-03-15 18:07 | Cardiology Report ---
APPROVED REPORT EXAM: Two-dimensional and M-mode echocardiogram with Doppler and color Doppler. INDICATION Congestive Heart Failure M-Mode DIMENSIONS IVSd0.9 (0.7-1.1cm)Left Atrium (MM)3.8 (1.6-4.0cm) LVDd3.5 (3.5-5.6cm)Aortic Root2.9 (2.0-3.7cm) PWd0.7 (0.7-1.1cm)Aortic Cusp Exc.1.6 (1.5-2.0cm) LVDs2.8 (2.5-4.0cm) PWs0.9 cm Normal left ventricular chamber size. Global left ventricular hypokinesis. Dyskintic apex Left ventricular ejection fraction estimated to be 15-20 %. No evidence of left ventricular hypertrophy. Small pericardial effusion. All other cardiac chamber sizes are within normal limits. Aortic valve calcification with decreased cusp excursion c/w mild aortic stenosis. Mildly thickened mitral valve leaflets with minimal excursion. Heavy mitral annulus and aortic root calcification. Normal pulmonic valve structure. Normal tricuspid valve structure. IVC dilated at 1.9 cm without physiological collapse, estimated RAP is 15 mmHg. Echogenic material noted in left ventricular apex. Possible thrombus. Doctor and nurse notified on 03/05/2017. A color flow and spectral Doppler study was performed and revealed: No aortic insufficiency. Peak aortic valve gradient of 6 mmHg and a mean of 3 mmHg. Aortic valve area 1.4 cm2 calculated by continuity equation. Moderate mitral regurgitation. Mitral inflow indicat increased left atrial pressure, suggestive restrictive pattern (Grade III). Mild tricuspid regurgitation. Tricuspid systolic velocities suggests peak right ventricular systolic pressure of 71 mmHg, consistent with severe pulmonary hypertension. Mild to moderate pulmonic regurgitation present.
--- NOTE | 2017-03-16 17:43 | Cardiology Report ---
APPROVED REPORT EKG Measurement Heart [id number] Normal sinus rhythm Right bundle branch block Left anterior fascicular block Bifascicular block T wave abnormality, consider lateral ischemia Abnormal ECG
== END 2017-03-08 00:08 | disposition short-term general hospital (02) | DRG 194 ==
LOC: EDBD 04:16 → EDUNIT# 04:16 → EMR 04:32 → 2E 05:40 → EDBEDREQ 06:16 → 2E 14:11
DX: I11.0 Hypertensive heart disease with heart failure (principal); J18.9 Pneumonia, unspecified organism; D68.9 Coagulation defect, unspecified; I82.401 Acute embolism and thrombosis of unspecified deep veins of right lower extremity; I42.0 Dilated cardiomyopathy; J44.9 Chronic obstructive pulmonary disease, unspecified; E11.9 Type 2 diabetes mellitus without complications; B96.5 Pseudomonas (aeruginosa) (mallei) (pseudomallei) as the cause of diseases classified elsewhere; Z89.612 Acquired absence of left leg above knee; N39.0 Urinary tract infection, site not specified; Z79.01 Long term (current) use of anticoagulants; G62.9 Polyneuropathy, unspecified; I50.43 Acute on chronic combined systolic (congestive) and diastolic (congestive) heart failure; Z88.0 Allergy status to penicillin; K21.9 Gastro-esophageal reflux disease without esophagitis; F17.200 Nicotine dependence, unspecified, uncomplicated; Z86.73 Personal history of transient ischemic attack (TIA), and cerebral infarction without residual deficits; I45.10 Unspecified right bundle-branch block
CPT/HCPCS: 36415; 71045; 80048; 80053; 80162; 81003; 82550; 82962; 83605; 83880; 84484; 85025; 85610; 85730; 86710; 87086; 87181; 93005; 93306; 93970; 94640; 94664; 99285; J1815; J8499

== ENCOUNTER 2017-05-16 19:07 | Emergency (ER) | payer MEDICARE, MEDICAID ==
[~2017-05-16] VITALS: Ht 157.5 cm; Wt 54.4 kg
[~2017-05-16 19:07] MED LIST changes: +FOLIC ACID1 M1 PO
[2017-05-16 20:55] LABS: BASOPHILS % (AUTO) 1.1 % (0.0-2.0); EOSINOPHILS % (AUTO) 0.9 % (0.0-3.0); HEMATOCRIT 40.4 % (42.0-52.0); HEMOGLOBIN 12.9 G/DL (14.2-18.0); LYMPHOCYTES % (AUTO) 20.7 % (20.0-45.0); MEAN CORPUSCULAR VOLUME 87 FL (80-99); MONOCYTES % (AUTO) 11.5 % (1.0-10.0); NEUTROPHILS % (AUTO) 65.8 % (45.0-75.0); PLATELET COUNT 370 K/UL (150-450); RED BLOOD COUNT 4.66 M/UL (4.70-6.10); RED CELL DISTRIBUTION WIDTH 19.3 % (11.6-14.8); WHITE BLOOD COUNT 6.1 K/UL (4.8-10.8)
[2017-05-16 20:58] LABS: ANION GAP 9 mmol/L (5-15); BLOOD UREA NITROGEN 21 mg/dL (7-18); CALCIUM 8.8 MG/DL (8.5-10.1); CARBON DIOXIDE 22 MMOL/L (21-32); CHLORIDE 99 MMOL/L (98-107); CREATININE 1.4 MG/DL (0.55-1.30); POTASSIUM 5.2 MMOL/L (3.5-5.1); SODIUM 130 MMOL/L (136-145)
[2017-05-16 21:12] LABS: ALANINE AMINOTRANSFERASE 16 U/L (12-78); ALBUMIN 3.1 G/DL (3.4-5.0); ALBUMIN/GLOBULIN RATIO 0.7 (1.0-2.7); ALKALINE PHOSPHATASE 95 U/L (46-116); ASPARTATE AMINO TRANSFERASE 28 U/L (15-37); BILIRUBIN,TOTAL 1.6 MG/DL (0.2-1.0)
[2017-05-16 21:13] LABS: BILIRUBIN,DIRECT 0.4 MG/DL (0.0-0.3)
[2017-05-16 21:18] VITALS: BP 117/67
[2017-05-16 21:49] LABS: INR 1.8 (0.9-1.1)
--- NOTE | 2017-05-16 22:13 | Emergency Room Report ---
History of Present Illness General Chief Complaint: General Complaint Source: Medical Record Present Illness HPI Patient is a 67-year-old male brought in by EMS after increased pain to his right great toe. Patient prior history of diabetes. He had been noted to have congestive heart failure. Patient had been having increased discharge for the past 2-3 days. He noticed increased discoloration. Patient had been reportedly taking antibiotics. Allergies: Coded Allergies: PENICILLINS (Verified Allergy, Intermediate, Hives, 03/29/13) Patient History Past Medical History: see triage record Reviewed Nursing Documentation: PMH: Agreed; PSxH: Agreed Nursing Documentation-PMH Past Medical History: No History, Except For Hx Cardiac Problems: Yes Hx Hypertension: Yes Hx Asthma: Yes Hx COPD: Yes Hx Diabetes: Yes Hx Cancer: No Hx Gastrointestinal Problems: Yes Hx Neurological Problems: No Hx Cerebrovascular Accident: Yes Review of Systems All Other Systems: negative except mentioned in HPI Physical Exam Vital Signs Date Time Temp Pulse Resp B/P (MAP) Pulse Ox O2 Delivery O2 Flow Rate FiO2 05/16/17 18:58 96 20 121/83 100 Room Air 05/16/17 21:18 97.8 97.8 Sp02 EP Interpretation: reviewed, normal General Appearance: normal inspection, alert, GCS 15, Chronically Ill Head: atraumatic ENT: normal ENT inspection, hearing grossly normal, normal voice Neck: normal inspection, full range of motion, supple, no bony tend Respiratory: normal inspection, no respiratory distress, no retraction, rales Cardiovascular #1: regular rate, rhythm, edema Gastrointestinal: normal inspection, normal bowel sounds, non tender, soft, no guarding, no hernia Genitourinary: no CVA tenderness Musculoskeletal: back normal, other - left leg amputation, right great toe partial toenail avulsion Neurologic: normal inspection, alert, responsive, speech normal Psychiatric: normal inspection, judgement/insight normal, mood/affect normal Skin: other - adequate pulses to both lower extremities Medical Decision Making Diagnostic Impression: Primary Impression: CHF (congestive heart failure) Additional Impressions: Diabetes mellitus Infected ulcer of skin ER Course The patient presented for toe pain. Differential diagnosis included was not limited to fracture, dislocation, contusion, vascular insufficiency, osteomyelitis. Because of complexity of patient's case laboratory testing and imaging studies were ordered. The patient was given IV antibiotics as well as IV Lasix. Patient was noted to have a slight fluid overload. He was given IV Lasix for hyperkalemia. EKG interpreted by me showed bifascicular block. the patient was discussed with Dr. Leonela Barbour. Carmen for [facility]. Labs Test 05/16/17 20:20 05/16/17 20:50 White Blood Count 6.1 K/UL (4.8-10.8) Red Blood Count 4.66 M/UL (4.70-6.10) Hemoglobin 12.9 G/DL (14.2-18.0) Hematocrit 40.4 % (42.0-52.0) Mean Corpuscular Volume 87 FL (80-99) Mean Corpuscular Hemoglobin 27.7 PG (27.0-31.0) Mean Corpuscular Hemoglobin Concent 32.0 G/DL (32.0-36.0) Red Cell Distribution Width 19.3 % (11.6-14.8) Platelet Count 370 K/UL (150-450) Mean Platelet Volume 5.7 FL (6.5-10.1) Neutrophils (%) (Auto) 65.8 % (45.0-75.0) Lymphocytes (%) (Auto) 20.7 % (20.0-45.0) Monocytes (%) (Auto) 11.5 % (1.0-10.0) Eosinophils (%) (Auto) 0.9 % (0.0-3.0) Basophils (%) (Auto) 1.1 % (0.0-2.0) Sodium Level 130 MMOL/L (136-145) Potassium Level 5.2 MMOL/L (3.5-5.1) Chloride Level 99 MMOL/L (98-107) Carbon Dioxide Level 22 MMOL/L (21-32) Anion Gap 9 mmol/L (5-15) Blood Urea Nitrogen 21 mg/dL (7-18) Creatinine 1.4 MG/DL (0.55-1.30) Estimat Glomerular Filtration Rate > 60 mL/min (>60) Glucose Level 152 MG/DL (74-106) Calcium Level 8.8 MG/DL (8.5-10.1) Total Bilirubin 1.6 MG/DL (0.2-1.0) Direct Bilirubin 0.4 MG/DL (0.0-0.3) Aspartate Amino Transf (AST/SGOT) 28 U/L (15-37) Alanine Aminotransferase (ALT/SGPT) 16 U/L (12-78) Alkaline Phosphatase 95 U/L (46-116) Total Protein 7.8 G/DL (6.4-8.2) Albumin 3.1 G/DL (3.4-5.0) Globulin 4.7 g/dL Albumin/Globulin Ratio 0.7 (1.0-2.7) Prothrombin Time 18.5 SEC (9.30-11.50) Prothromb Time International Ratio 1.8 (0.9-1.1) Activated Partial Thromboplast Time 29 SEC (23-33) EKG Diagnostic Results Rate: normal Rhythm: NSR ST Segments: no acute changes Last Vital Signs Date Time Temp Pulse Resp B/P (MAP) Pulse Ox O2 Delivery O2 Flow Rate FiO2 05/16/17 21:18 97.8 96 25 117/67 99 Room Air 97.8 Status: unchanged Disposition: XFER T-[facility] Condition: Serious Referrals: NOT CHOSEN IPA/,REFERRING (PCP) Justo Epps May 16, 2017 22:13
[2017-05-17 01:40] VITALS: BP 136/97
[2017-05-17 04:11] VITALS: BP 103/57
[2017-05-17 05:53] VITALS: BP 102/52
[2017-05-17 07:00] VITALS: BP 102/52
--- NOTE | 2017-05-17 09:02 | Diagnostic Imaging Report ---
Indication: First digit pain Technique: 3 views ] foot Comparison: none Findings: There is mild hallux valgus. Linear radiopaque foreign body, appears to be a broken off needle, is seen in the plantar soft tissues. There are vascular consultations. No osteolytic process. No unusual periosteal reaction. Bones are also product Impression: No acute bony trauma Positive for foreign body, probably a broken off needle tip, in the plantar soft tissues No definite plain radiographic findings to suggest acute osteomyelitis. Note, however, limited sensitivity of plain radiographs for such. Findings discussed by phone with Dr. Cantrell at the time of interpretation
--- NOTE | 2017-05-17 17:42 | Cardiology Report ---
APPROVED REPORT EKG Measurement Heart [id number] atrial sensed ventricular paced
== END 2017-05-17 07:00 | disposition short-term general hospital (02) ==
LOC: EDBD 19:07 → EMR 19:35 → EDBEDREQ 23:58 → EMR 05-17 07:00
DX: I50.9 Heart failure, unspecified (principal); E11.9 Type 2 diabetes mellitus without complications; S91.201A Unspecified open wound of right great toe with damage to nail, initial encounter; X58.XXXA Exposure to other specified factors, initial encounter; Y92.9 Unspecified place or not applicable; L97.909 Non-pressure chronic ulcer of unspecified part of unspecified lower leg with unspecified severity; L08.9 Local infection of the skin and subcutaneous tissue, unspecified; J44.9 Chronic obstructive pulmonary disease, unspecified; I10 Essential (primary) hypertension; Z86.73 Personal history of transient ischemic attack (TIA), and cerebral infarction without residual deficits; E87.5 Hyperkalemia; Z88.0 Allergy status to penicillin; M20.11 Hallux valgus (acquired), right foot
CPT/HCPCS: 36415; 73630; 80053; 82248; 82962; 85025; 85610; 85730; 87070; 87181; 87205; 93005; 96374; 96375; 99285; J1940; J1956

== ENCOUNTER 2017-11-26 07:57 | Emergency (ER) | payer MEDICARE, MEDICAID ==
[~2017-11-26] VITALS: Ht 157.5 cm; Wt 68.0 kg
[2017-11-26 08:00] VITALS: BP 128/68
--- NOTE | 2017-11-26 08:25 | Emergency Room Report ---
History of Present Illness General Chief Complaint: Flu Like Symptoms Source: Patient, EMS Present Illness HPI Patient is a 67-year-old male who presented after increased difficulty breathing and cough. The patient was noted to have prior history of diabetes as well as pacemaker placement. Patient was noted to have a prior left above- the-knee amputation. He had recently been seen by podiatry after toenail infection to his right foot. He denied any fever. He had the reportedly been having a worsening cough with supine position. He denied being a smoker. Allergies: Coded Allergies: PENICILLINS (Verified Allergy, Intermediate, Hives, 03/29/13) Patient History Past Medical History: see triage record Reviewed Nursing Documentation: PMH: Agreed; PSxH: Agreed Nursing Documentation-PMH Past Medical History: No History, Except For Hx Cardiac Problems: Yes - pacemaker Hx Hypertension: Yes Hx Asthma: Yes Hx Diabetes: Yes Hx Cancer: No Hx Gastrointestinal Problems: Yes Hx Cerebrovascular Accident: Yes Review of Systems All Other Systems: negative except mentioned in HPI Physical Exam Vital Signs Date Time Temp Pulse Resp B/P (MAP) Pulse Ox O2 Delivery O2 Flow Rate FiO2 11/26/17 07:50 100 20 122/73 100 Room Air 11/26/17 08:00 97.0 97.0 Sp02 EP Interpretation: reviewed, normal General Appearance: normal inspection, alert, mild distress, Chronically Ill Head: atraumatic ENT: normal ENT inspection, hearing grossly normal, normal voice Neck: normal inspection, full range of motion, supple, no bony tend Respiratory: normal inspection, lungs clear, normal breath sounds, no respiratory distress, no retraction, no wheezing Cardiovascular #1: regular rate, rhythm, no edema Gastrointestinal: normal inspection, normal bowel sounds, non tender, soft, no guarding, no hernia Genitourinary: no CVA tenderness Musculoskeletal: normal inspection, back normal, other - left aka, right foot with healing great toenail removal sit Neurologic: normal inspection, alert, responsive, speech normal Psychiatric: normal inspection, judgement/insight normal, mood/affect normal Skin: no rash Medical Decision Making Diagnostic Impression: Primary Impression: CHF (congestive heart failure) Additional Impression: Pneumonia ER Course Patient presented for shortness of breath. Differential included but was not limited to anemia, pneumonia, pneumothorax, myocardial infarction, pericardial effusion, congestive heart failure, acidosis. Because of complexity of patient' s case laboratory testing and imaging studies were ordered.The laboratory testing showed evidence of congestive heart failure. Patient was given IV Lasix as well as IV antibiotics. Dr. Charles was contacted for capitated facility transfer to [facility]. Labs Test 11/26/17 08:15 11/26/17 08:40 White Blood Count 8.6 K/UL (4.8-10.8) Red Blood Count 4.39 M/UL (4.70-6.10) Hemoglobin 11.8 G/DL (14.2-18.0) Hematocrit 37.4 % (42.0-52.0) Mean Corpuscular Volume 85 FL (80-99) Mean Corpuscular Hemoglobin 26.9 PG (27.0-31.0) Mean Corpuscular Hemoglobin Concent 31.6 G/DL (32.0-36.0) Red Cell Distribution Width 13.4 % (11.6-14.8) Platelet Count 313 K/UL (150-450) Mean Platelet Volume 6.3 FL (6.5-10.1) Neutrophils (%) (Auto) 73.9 % (45.0-75.0) Lymphocytes (%) (Auto) 18.4 % (20.0-45.0) Monocytes (%) (Auto) 6.0 % (1.0-10.0) Eosinophils (%) (Auto) 0.9 % (0.0-3.0) Basophils (%) (Auto) 0.7 % (0.0-2.0) Sodium Level 141 MMOL/L (136-145) Potassium Level 4.4 MMOL/L (3.5-5.1) Chloride Level 107 MMOL/L (98-107) Carbon Dioxide Level 20 MMOL/L (21-32) Anion Gap 14 mmol/L (5-15) Blood Urea Nitrogen 20 mg/dL (7-18) Creatinine 1.8 MG/DL (0.55-1.30) Estimat Glomerular Filtration Rate 45.8 mL/min (>60) Glucose Level 236 MG/DL (74-106) Lactic Acid Level 2.90 mmol/L (0.4-2.0) Calcium Level 9.0 MG/DL (8.5-10.1) Phosphorus Level 3.4 MG/DL (2.5-4.9) Magnesium Level 1.9 MG/DL (1.8-2.4) Total Bilirubin 0.6 MG/DL (0.2-1.0) Aspartate Amino Transf (AST/SGOT) 28 U/L (15-37) Alanine Aminotransferase (ALT/SGPT) 49 U/L (12-78) Alkaline Phosphatase 106 U/L (46-116) Total Creatine Kinase 96 U/L (26-308) Creatine Kinase MB 1.0 NG/ML (0.0-3.6) Creatine Kinase MB Relative Index 1.0 Troponin I 0.048 ng/mL (0.000-0.056) Pro-B-Type Natriuretic Peptide 45892 pg/mL (0-125) Total Protein 7.7 G/DL (6.4-8.2) Albumin 3.2 G/DL (3.4-5.0) Globulin 4.5 g/dL Albumin/Globulin Ratio 0.7 (1.0-2.7) Digoxin Level < 0.2 NG/ML (0.5-2.0) Urine Color Yellow Urine Appearance Clear Urine pH 5 (4.5-8.0) Urine Specific [place] 1.020 (1.005-1.035) Urine Protein 3+ (NEGATIVE) Urine Glucose (UA) 1+ (NEGATIVE) Urine Ketones Negative (NEGATIVE) Urine Blood 2+ (NEGATIVE) Urine Nitrite Negative (NEGATIVE) Urine Bilirubin Negative (NEGATIVE) Urine Urobilinogen Normal MG/DL (0.0-1.0) Urine Leukocyte Esterase 2+ (NEGATIVE) Urine RBC 2-4 /HPF (0 - 0) Urine WBC 2-4 /HPF (0 - 0) Urine Squamous Epithelial Cells Occasional /LPF Urine Bacteria Occasional /HPF (NONE) EKG Diagnostic Results Rate: normal Rhythm: other - paced ST Segments: no acute changes Last Vital Signs Date Time Temp Pulse Resp B/P (MAP) Pulse Ox O2 Delivery O2 Flow Rate FiO2 11/26/17 08:00 97.0 103 25 128/68 100 Room Air 97.0 Status: improved Disposition: [facility] Condition: Serious Referrals: NON PHYSICIAN (PCP) Justo Epps MD Nov 26, 2017 08:25
[2017-11-26 08:34] LABS: BASOPHILS % (AUTO) 0.7 % (0.0-2.0); EOSINOPHILS % (AUTO) 0.9 % (0.0-3.0); HEMATOCRIT 37.4 % (42.0-52.0); HEMOGLOBIN 11.8 G/DL (14.2-18.0); LYMPHOCYTES % (AUTO) 18.4 % (20.0-45.0); MEAN CORPUSCULAR VOLUME 85 FL (80-99); NEUTROPHILS % (AUTO) 73.9 % (45.0-75.0); PLATELET COUNT 313 K/UL (150-450); RED BLOOD COUNT 4.39 M/UL (4.70-6.10); RED CELL DISTRIBUTION WIDTH 13.4 % (11.6-14.8); WHITE BLOOD COUNT 8.6 K/UL (4.8-10.8)
--- NOTE | 2017-11-26 08:36 | Diagnostic Imaging Report ---
INDICATION: Shortness of breath COMPARISON: Chest x-ray dated 03/06/17 FINDINGS: Single frontal view demonstrates prominent cardiac size. Left chest wall pacemaker. Right mid to lower lung zone opacity. No pleural effusions. The visualized osseous structures are within normal limits. IMPRESSION: Prominent cardiac size. Left chest wall pacemaker. Right mid to lower lung zone opacity.
[2017-11-26 08:38] LABS: ANION GAP 14 mmol/L (5-15); BLOOD UREA NITROGEN 20 mg/dL (7-18); CARBON DIOXIDE 20 MMOL/L (21-32); CHLORIDE 107 MMOL/L (98-107); CREATININE 1.8 MG/DL (0.55-1.30); POTASSIUM 4.4 MMOL/L (3.5-5.1); SODIUM 141 MMOL/L (136-145)
[2017-11-26 08:47] LABS: APPEARANCE,URINE CLEAR; BILIRUBIN, URINE NEGATIVE (NEGATIVE); COLOR,URINE YELLOW; GLUCOSE, URINE (UA) 1+ (NEGATIVE); KETONES,URINE NEGATIVE (NEGATIVE); LEUKOCYTE ESTERASE ,URINE 2+ (NEGATIVE); NITRITE,URINE NEGATIVE (NEGATIVE); PH,URINE 5 (4.5-8.0); PROTEIN,URINE 3+ (NEGATIVE); UROBILINOGEN,URINE NORMAL MG/DL (0.0-1.0)
[2017-11-26 08:57] LABS: ALANINE AMINOTRANSFERASE 49 U/L (12-78); ALBUMIN 3.2 G/DL (3.4-5.0); ALBUMIN/GLOBULIN RATIO 0.7 (1.0-2.7); ALKALINE PHOSPHATASE 106 U/L (46-116); ASPARTATE AMINO TRANSFERASE 28 U/L (15-37); BILIRUBIN,TOTAL 0.6 MG/DL (0.2-1.0); CREATINE KINASE 96 U/L (26-308); PHOSPHORUS 3.4 MG/DL (2.5-4.9)
[2017-11-26 11:27] VITALS: BP 126/61
[2017-11-26 13:37] VITALS: BP 155/84
[2017-11-26 14:35] VITALS: BP 155/84
--- NOTE | 2017-11-27 12:01 | Cardiology Report ---
APPROVED REPORT EKG Measurement Heart [id number] MS [id number] Sinus tachycardia with occasional PVC. Ventricular pacing Abnormal ECG
== END 2017-11-26 14:35 | disposition short-term general hospital (02) ==
LOC: EDBD 07:57 → EMR 08:09
DX: I50.9 Heart failure, unspecified (principal); J18.9 Pneumonia, unspecified organism; R05 Cough; I10 Essential (primary) hypertension; E13.9 Other specified diabetes mellitus without complications; Z95.0 Presence of cardiac pacemaker; Z88.0 Allergy status to penicillin
CPT/HCPCS: 36415; 71045; 80053; 80162; 81003; 82550; 82553; 83605; 83735; 83880; 84100; 84484; 85025; 87040; 93005; 96360; 99285; J1940; J1956

== ENCOUNTER 2018-03-26 17:52 | Inpatient (IN) | payer MEDICARE, MEDICAID ==
[~2018-03-26] VITALS: Ht 157.5 cm; Wt 54.9 kg
--- NOTE | 2018-03-26 18:05 | NUR ---
ED Nurse Note: patient BIBA from home, no pain AAO x 4, complaining of cough, weakness. skin is warm to touch, has some wounds on his right lower extrimites and sacral area pt. was placed on gown and connected to the monitor. pt has an AKA. also noted left chest pace maker.
--- NOTE | 2018-03-26 18:27 | Emergency Room Report ---
History of Present Illness General Chief Complaint: Upper Respiratory Illness Present Illness HPI 68 yo male cc sob x2 wks w. sputum. denies fevers or chills. denies LE swelling , has hx of CHF, has a pacemaker, hx of DM w. Left BTKA. Pt. signed out to Dr. Dumont, please see his note for full HPI, ROS,PE and MDM. Allergies: Coded Allergies: PENICILLINS (Verified Allergy, Intermediate, Hives, 03/29/13) Uncoded Allergies: PENICILLIN (Allergy, Unknown, 01/22/18) Patient History Past Medical History: see triage record Past Surgical History: none Pertinent Family History: none Reviewed Nursing Documentation: PMH: Agreed; PSxH: Agreed Nursing Documentation-PMH Hx Cardiac Problems: Yes - CVA,CHF, PACEMAKER Hx Hypertension: Yes Hx Asthma: Yes Hx COPD: Yes Hx Diabetes: Yes Hx Cancer: No Hx Gastrointestinal Problems: Yes Hx Neurological Problems: No Hx Cerebrovascular Accident: Yes Review of Systems All Other Systems: negative except mentioned in HPI Physical Exam Vital Signs Date Time Temp Pulse Resp B/P (MAP) Pulse Ox O2 Delivery O2 Flow Rate FiO2 03/26/18 17:48 97.5 80 19 128/92 100 Room Air Medical Decision Making PA Attestation Dr. Dumont is my supervising Physician whom patient management has been discussed with. Diagnostic Impression: Primary Impression: CHF (congestive heart failure) Qualified Codes: I50.9 - Heart failure, unspecified Last Vital Signs Date Time Temp Pulse Resp B/P (MAP) Pulse Ox O2 Delivery O2 Flow Rate FiO2 03/26/18 17:48 97.5 80 19 128/92 100 Room Air Disposition: ADMITTED INPATIENT Condition: Serious Signed Out To: Anna Richter Mar 26, 2018 18:27
[2018-03-26 18:36] VITALS: BP 120/64
--- NOTE | 2018-03-26 18:48 | Emergency Room Report ---
History of Present Illness General Chief Complaint: Upper Respiratory Illness Source: Patient Present Illness HPI Patient presents with complaints of shortness of breath Patient also reports midsternal chest pain Denies any headache denies any abdominal pain denies any fevers or chills Denies any recent travel patient reports he has significant cardiac history Also has a pacemaker Pain is 3 out of 10 midsternal heavy shortness of breath is worsened with exertion or laying flat Allergies: Coded Allergies: PENICILLINS (Verified Allergy, Intermediate, Hives, 03/29/13) Uncoded Allergies: PENICILLIN (Allergy, Unknown, 01/22/18) Patient History Past Medical History: see triage record Pertinent Family History: none Reviewed Nursing Documentation: PMH: Agreed; PSxH: Agreed Nursing Documentation-PMH Hx Cardiac Problems: Yes - CVA,CHF, PACEMAKER Hx Hypertension: Yes Hx Asthma: Yes Hx COPD: Yes Hx Diabetes: Yes Hx Cancer: No Hx Gastrointestinal Problems: Yes Hx Neurological Problems: No Hx Cerebrovascular Accident: Yes Review of Systems All Other Systems: negative except mentioned in HPI Physical Exam Vital Signs Date Time Temp Pulse Resp B/P (MAP) Pulse Ox O2 Delivery O2 Flow Rate FiO2 03/26/18 17:48 97.5 80 19 128/92 100 Room Air Sp02 EP Interpretation: reviewed, normal General Appearance: well appearing, no apparent distress Head: normocephalic, atraumatic Eyes: bilateral eye PERRL, bilateral eye EOMI ENT: hearing grossly normal, normal pharynx, TMs + canals normal, uvula midline Neck: full range of motion, supple, no meningismus, no bony tend Respiratory: no rhonchi, no respiratory distress, no retraction, no accessory muscle use, crackles - Bilaterally Cardiovascular #1: normal peripheral pulses, regular rate, rhythm, no edema, no gallop, no JVD, no murmur Gastrointestinal: normal bowel sounds, non tender, soft, no mass, no organomegaly, non-distended, no guarding, no hernia, no pulsatile mass, no rebound Genitourinary: no CVA tenderness Musculoskeletal: normal inspection Neurologic: oriented x3, responsive, aerospace mechanic III-XII nml as tested, motor strength/ tone normal, sensory intact Psychiatric: mood/affect normal Skin: other - Several lesions including some scab formation right lower abdomen fungal infection bilaterally on both feet questionable early pressure ulcer right foot Lymphatic: normal inspection, no adenopathy Medical Decision Making Diagnostic Impression: Primary Impression: ACS (acute coronary syndrome) Additional Impression: CHF (congestive heart failure) ER Course Patient is a fairly complex patient with multiple differential to consideration including but not limited to cardiac cardiopulmonary and vascular emergencies Given the patient's history and presentation extensive workup and imaging is initiated X-ray looks improved from previous with some persistent congestion BNP is elevated Patient receiving aspirin with complaints of chest pain in the risk factors patient requires further inpatient care Labs Test 03/26/18 18:32 White Blood Count 9.1 K/UL (4.8-10.8) Red Blood Count 4.70 M/UL (4.70-6.10) Hemoglobin 11.8 G/DL (14.2-18.0) Hematocrit 37.5 % (42.0-52.0) Mean Corpuscular Volume 80 FL (80-99) Mean Corpuscular Hemoglobin 25.2 PG (27.0-31.0) Mean Corpuscular Hemoglobin Concent 31.5 G/DL (32.0-36.0) Red Cell Distribution Width 19.6 % (11.6-14.8) Platelet Count 235 K/UL (150-450) Mean Platelet Volume 6.4 FL (6.5-10.1) Neutrophils (%) (Auto) 62.9 % (45.0-75.0) Lymphocytes (%) (Auto) 16.5 % (20.0-45.0) Monocytes (%) (Auto) 4.6 % (1.0-10.0) Eosinophils (%) (Auto) 14.8 % (0.0-3.0) Basophils (%) (Auto) 1.2 % (0.0-2.0) Sodium Level 140 MMOL/L (136-145) Potassium Level 3.9 MMOL/L (3.5-5.1) Chloride Level 101 MMOL/L (98-107) Carbon Dioxide Level 28 MMOL/L (21-32) Anion Gap 11 mmol/L (5-15) Blood Urea Nitrogen 19 mg/dL (7-18) Creatinine 1.8 MG/DL (0.55-1.30) Estimat Glomerular Filtration Rate 45.7 mL/min (>60) Glucose Level 170 MG/DL (74-106) Calcium Level 9.3 MG/DL (8.5-10.1) Total Bilirubin 0.7 MG/DL (0.2-1.0) Aspartate Amino Transf (AST/SGOT) 17 U/L (15-37) Alanine Aminotransferase (ALT/SGPT) 21 U/L (12-78) Alkaline Phosphatase 70 U/L (46-116) Total Creatine Kinase 63 U/L (26-308) Troponin I 0.036 ng/mL (0.000-0.056) Pro-B-Type Natriuretic Peptide 80584 pg/mL (0-125) Total Protein 8.6 G/DL (6.4-8.2) Albumin 3.7 G/DL (3.4-5.0) Globulin 4.9 g/dL Albumin/Globulin Ratio 0.8 (1.0-2.7) EKG Diagnostic Results Rate: normal Rhythm: other - paced ST Segments: no acute changes Rhythm Strip Diag. Results EP Interpretation: yes Rate: 60 Rhythm: no PVC's, no ectopy, other - paced Chest X-Ray Diagnostic Results Chest X-Ray Diagnostic Results : Chest X-Ray Ordered: Yes # of Views/Limited/Complete: 1 View Indication: Chest Pain EP Interpretation: Yes Interpretation: no consolidation, no effusion, no pneumothorax, other - Mild pulmonary congestion Impression: No acute disease - Mild congestion Last Vital Signs Date Time Temp Pulse Resp B/P (MAP) Pulse Ox O2 Delivery O2 Flow Rate FiO2 03/26/18 17:48 97.5 80 19 128/92 100 Room Air Status: improved Disposition: ADMITTED INPATIENT Condition: Serious Rick Dumont DO Mar 26, 2018 18:48
[2018-03-26 18:49] LABS: BASOPHILS % (AUTO) 1.2 % (0.0-2.0); EOSINOPHILS % (AUTO) 14.8 % (0.0-3.0); HEMATOCRIT 37.5 % (42.0-52.0); HEMOGLOBIN 11.8 G/DL (14.2-18.0); LYMPHOCYTES % (AUTO) 16.5 % (20.0-45.0); MEAN CORPUSCULAR VOLUME 80 FL (80-99); MONOCYTES % (AUTO) 4.6 % (1.0-10.0); NEUTROPHILS % (AUTO) 62.9 % (45.0-75.0); PLATELET COUNT 235 K/UL (150-450); RED CELL DISTRIBUTION WIDTH 19.6 % (11.6-14.8); WHITE BLOOD COUNT 9.1 K/UL (4.8-10.8)
--- NOTE | 2018-03-26 18:55 | NUR ---
ED Nurse Note: SKIN ASSESMENT PHOTOS SCANNED
[2018-03-26 19:07] VITALS: BP_SYST 120; BP_SYST 128; BP_DIAS 67; BP_DIAS 68
--- NOTE | 2018-03-26 19:07 | NUR ---
ED Nurse Note: received report from FLOWER Urbina pt is vss stable, pt denies pain, pt is resting in bed, waiting for room assignement for trasnfer to tele.
[2018-03-26 19:18] LABS: ALANINE AMINOTRANSFERASE 21 U/L (12-78); ALBUMIN 3.7 G/DL (3.4-5.0); ALBUMIN/GLOBULIN RATIO 0.8 (1.0-2.7); ALKALINE PHOSPHATASE 70 U/L (46-116); ANION GAP 11 mmol/L (5-15); ASPARTATE AMINO TRANSFERASE 17 U/L (15-37); BILIRUBIN,TOTAL 0.7 MG/DL (0.2-1.0); BLOOD UREA NITROGEN 19 mg/dL (7-18); CALCIUM 9.3 MG/DL (8.5-10.1); CARBON DIOXIDE 28 MMOL/L (21-32); CHLORIDE 101 MMOL/L (98-107); CREATINE KINASE 63 U/L (26-308); CREATININE 1.8 MG/DL (0.55-1.30); POTASSIUM 3.9 MMOL/L (3.5-5.1); SODIUM 140 MMOL/L (136-145)
[2018-03-26] MEDS ORDERED: Aspirin Baby 81mg ORAL ONE (19:30)
--- NOTE | 2018-03-26 22:03 | NUR ---
ED Nurse Note: PT VSS PT BROUGHT UP WITH NAV ROTH, AND FLOWER KELLY PT ON CARIDAC MONITOR PT IS AOX4. ALL BELONGINGS WITH PT. TELEHPHONE REPORT GIVEN TO FLOWER FLORES
--- NOTE | 2018-03-26 22:15 | NUR ---
NURSE NOTES: Received report from Lyle Garcia RN. regarding patients transfer to TELE floor, belongings checked and all accounted for with ED RN and patient at bedside. kept patient comfortable in bed, with no complaints of acute pain or discomfort at this time. Safety precaution in place; siderails x3 up, call light within reach, bed in lowest position, brakes and alarm on at all times. Needs and wants anticipated and attended. Will continue plan of care and monitor for any changes noted
[2018-03-26 22:30] VITALS: BP 115/69
[2018-03-27] VITALS: BP 114/71
--- NOTE | 2018-03-27 02:00 | Consultation ---
DATE OF CONSULTATION: 03/26/2018 CARDIOLOGY CONSULTATION CONSULTING PHYSICIAN: Rajinder Hampton M.D. REQUESTING PHYSICIAN: González Friedman M.D. REASON FOR CONSULTATION: Shortness of breath in the setting of known cardiomyopathy. HISTORY OF PRESENT ILLNESS: This is a 68-year-old male. He presented to the hospital complaining of shortness of breath of several days duration. He thinks he has a recent cold. He also notes shortness of breath, worse lying flat and walking. He was hospitalized here about a year ago and noted to have a severe cardiomyopathy. Subsequently, he had a cardiac defibrillator placed. He lives at home with his and is reportedly compliant with medications and diet. PAST MEDICAL HISTORY: COPD, hypertension, history of cerebrovascular accident, systolic dysfunction with congestive heart failure, type 2 diabetes mellitus, gastroesophageal reflux disease, cardiac defibrillator, diabetic neuropathy, chronic kidney disease, and PAD with prior amputation on the left. ALLERGIES: Penicillin. MEDICATIONS: Prior to admission, reviewed and reconciled. SOCIAL HISTORY: Prior smoker. No alcohol or substance abuse. REVIEW OF SYSTEMS: No fevers or chills. Some cough. No sputum. No history of thyroid disorder. Diabetes managed with insulin now. He has had a prior stroke. He does have neuropathy, on gabapentin he feels better. He had an echocardiogram here last year that revealed ejection fraction in the 20% to 25% range. It is unclear whether he has had a prior cardiac catheterization, he is not sure. He has not had any change in bowel habits. He does have prostatic hypertrophy. There is no history of prostate cancer. PHYSICAL EXAMINATION: VITAL SIGNS: Blood pressure 128/92, pulse 80, and respiratory rate 19. No fevers. HEENT: Conjunctivae are pink. Sclerae are anicteric. Oropharynx clear. NECK: Supple. Jugular venous pressure elevated. LUNGS: Diminished breath sounds. Scattered rales. CARDIAC: Regular rhythm and rate. Normal S1 and S2. A 1/6 systolic murmur at apex. ABDOMEN: Soft and nontender. EXTREMITIES: No edema. Left stump dry. Right foot with some ulcerations as pictured in the chart. LABORATORY DATA: EKG reveals AV pacing. Labs notable for white count 9 and hemoglobin 11.8. Sodium 140, potassium 3.9, bicarbonate 28, BUN 19, creatinine 1.8, and glucose 170. Pro-natriuretic peptide over 13,000. Troponin 0.036. IMPRESSION: 1. Acute on chronic systolic congestive heart failure. 2. Ischemic cardiomyopathy. 3. Cardiac defibrillator. 4. Type 2 diabetes mellitus. 5. Chronic kidney disease. 6. Amputee, peripheral artery disease with foot ulcers. PLAN: 1. Diuresis. 2. Maximization of anti-failure and antianginal regimen. 3. Hold metformin in view of elevated creatinine. 4. Titrate insulin. 5. We will obtain data regarding his defibrillator device and interrogate. 6. Arterial and venous duplex. 7. Skin care. Rajinder Hampton M.D. DR: WESTON JOB#: [id number] CC: SANTI
--- NOTE | 2018-03-27 03:42 | NUR ---
NURSE NOTES: Patient in bed asleep with no S/S of distress noted. Will continue to monitor
[2018-03-27 04:00] VITALS: BP 123/66
[2018-03-27] MEDS ORDERED: Heparin 5000 units/ml inj SUBQ SCH (06:00)
[2018-03-27] MEDS ORDERED: NovoLOG Insulin Flexpen SUBQ SCH (06:30)
[2018-03-27] MEDS: NovoLOG Insulin Flexpen SUBQ SCH ×4 (06:42→23:58)
--- NOTE | 2018-03-27 07:35 | NUR ---
HAND-OFF: Report given to Alaina Rhodes RN. Patient in stable condition, endorsed plan of care.
[2018-03-27 08:00] VITALS: BP 120/73
--- NOTE | 2018-03-27 08:56 | History & Physical ---
History and Physical History & Physicial HISTORY OF PRESENT ILLNESS: This is a 68-year-old male who presented to the hospital complaining of shortness of breath of several days duration. He has a significant past cardiac history. He also notes shortness of breath, worse lying flat and walking. He was hospitalized here about a year ago and noted to have a severe cardiomyopathy. Subsequently, he had a cardiac defibrillator placed. He lives at home with his and is reportedly compliant with medications and diet. PAST MEDICAL HISTORY: COPD, hypertension, history of cerebrovascular accident, systolic dysfunction with congestive heart failure, type 2 diabetes mellitus, gastroesophageal reflux disease, cardiac defibrillator, diabetic neuropathy, chronic kidney disease, and PAD with prior amputation on the left. ALLERGIES: Penicillin. MEDICATIONS: Prior to admission, reviewed and reconciled. SOCIAL HISTORY: Prior smoker. No alcohol or substance abuse. REVIEW OF SYSTEMS: No fevers or chills. Some cough. No sputum. No history of thyroid disorder. Diabetes managed with insulin now. He has had a prior stroke. He does have neuropathy, on gabapentin he feels better. He had an echocardiogram here last year that revealed ejection fraction in the 20% to 25% range. It is unclear whether he has had a prior cardiac catheterization, he is not sure. He has not had any change in bowel habits. He does have prostatic hypertrophy. There is no history of prostate cancer. PHYSICAL EXAMINATION: VITAL SIGNS: Blood pressure 128/92, pulse 80, and respiratory rate 19. No fevers. HEENT: Conjunctivae are pink. Sclerae are anicteric. Oropharynx clear. NECK: Supple. Jugular venous pressure elevated. LUNGS: Diminished breath sounds. Scattered rales. CARDIAC: Regular rhythm and rate. Normal S1 and S2. A 1/6 systolic murmur at apex. ABDOMEN: Soft and nontender. EXTREMITIES: No edema. Left stump dry. Right foot with some ulcerations as pictured in the chart. LABORATORY DATA: EKG reveals AV pacing. Labs notable for white count 9 and hemoglobin 11.8. Sodium 140, potassium 3.9, bicarbonate 28, BUN 19, creatinine 1.8, and glucose 170. Pro-natriuretic peptide over 13,000. Troponin 0.036. IMPRESSION: 1. Acute on chronic systolic congestive heart failure. 2. Ischemic cardiomyopathy. 3. Cardiac defibrillator. 4. Type 2 diabetes mellitus. 5. Chronic kidney disease. 6. Amputee, peripheral artery disease with foot ulcers. PLAN: 1. Diuresis. Seen by cardiology. 2. Maximization of anti-failure and antianginal regimen. 3. Hold metformin in view of elevated creatinine. 4. Titrate insulin. 5. Defibrillator device interrogation. 6. Arterial duplex. 7. Skin care and decubitus prevention González Swenson M.D., MD Mar 27, 2018 08:56
[2018-03-27] MEDS ORDERED: Heparin 5000 units/ml inj IV SCH ×3 (10:00→18:45)
[2018-03-27 10:01] LABS: ALANINE AMINOTRANSFERASE 22 U/L (12-78); ALBUMIN 3.5 G/DL (3.4-5.0); ALBUMIN/GLOBULIN RATIO 0.8 (1.0-2.7); ALKALINE PHOSPHATASE 66 U/L (46-116); ANION GAP 10 mmol/L (5-15); ASPARTATE AMINO TRANSFERASE 23 U/L (15-37); BILIRUBIN,TOTAL 0.9 MG/DL (0.2-1.0); BLOOD UREA NITROGEN 20 mg/dL (7-18); CALCIUM 9.7 MG/DL (8.5-10.1); CARBON DIOXIDE 26 MMOL/L (21-32); CHLORIDE 102 MMOL/L (98-107); CHOLESTEROL 90 MG/DL (< 200); CKMB 0.9 NG/ML (0.0-3.6); CREATINE KINASE 87 U/L (26-308); CREATININE 1.7 MG/DL (0.55-1.30); HDL CHOLESTEROL 29 MG/DL (40-60); POTASSIUM 4.2 MMOL/L (3.5-5.1); SODIUM 138 MMOL/L (136-145); TRIGLYCERIDES 78 MG/DL (30-150)
[2018-03-27] MEDS: Aspirin EC 81mg tab ORAL SCH (10:06)
[2018-03-27] MEDS: Digoxin 0.125mg tab ORAL SCH (10:06)
[2018-03-27] MEDS: Carvedilol 6.25mg Tab ORAL SCH ×2 (10:06→21:00)
[2018-03-27] MEDS: Spironolactone 25mg tab ORAL SCH (10:06)
[2018-03-27] MEDS: Lisinopril 10mg tab ORAL SCH (10:07)
[2018-03-27] MEDS: Pyridoxine 50mg tab ORAL SCH (10:07)
--- NOTE | 2018-03-27 11:06 | Diagnostic Imaging Report ---
Indication: Chest pain Technique: One view of the chest Comparison: 01/23/2018 Findings: There is a left chest biventricular AICD again demonstrated. Previously demonstrated right sided pleural effusion is no longer evident. There is minimal interstitial congestion, less severe than on the prior exam. There is pulmonary arterial prominence, particularly on the left. Impression: Minimal interstitial congestive changes, improved from 01/23/2018 Other findings as noted
[2018-03-27] MEDS: Heparin 25,000u/D5W 500ml 500 ML IV SCH ×2 (11:14→21:41)
[2018-03-27 12:00] VITALS: BP 129/76
[2018-03-27 12:16] LABS: BASOPHILS % (AUTO) 1.3 % (0.0-2.0); EOSINOPHILS % (AUTO) 13.2 % (0.0-3.0); HEMATOCRIT 40.3 % (42.0-52.0); HEMOGLOBIN 12.5 G/DL (14.2-18.0); LYMPHOCYTES % (AUTO) 12.9 % (20.0-45.0); MEAN CORPUSCULAR VOLUME 81 FL (80-99); MONOCYTES % (AUTO) 4.5 % (1.0-10.0); PLATELET COUNT 210 K/UL (150-450); RED BLOOD COUNT 4.96 M/UL (4.70-6.10); RED CELL DISTRIBUTION WIDTH 20.3 % (11.6-14.8); WHITE BLOOD COUNT 8.4 K/UL (4.8-10.8)
--- NOTE | 2018-03-27 15:15 | Consultation ---
DATE OF CONSULTATION: 03/27/2018 CONSULTING PHYSICIAN: Vijay Do M.D. REFERRING PHYSICIAN: González Friedman M.D. REASON FOR CONSULTATION: 1. Acute kidney injury. 2. Chronic kidney disease, stage 4, baseline creatinine 1.4 to 1.6. HISTORY OF PRESENT ILLNESS: The patient is a pleasant 68-year-old gentleman, who presented to the hospital overnight complaining of shortness of breath for several days. The patient does have a cardiac history. Had recently cardiac defibrillator placed. The patient noted that he was short of breath, which was worse with lying flat and walking. During his current admission, it was noted the patient has a DVT in his right lower extremity. His creatinine currently last checked overnight on March 26, 2018 was 1.8. Morning laboratories are pending. The patient denies any current chest pain. His shortness of breath remained and has improved slightly. PAST MEDICAL HISTORY: 1. CKD, stage 4. 2. COPD. 3. Hypertension. 4. CVA. 5. CHF, systolic dysfunction. 6. Diabetes mellitus type 2. 7. GERD. 8. PAD with prior amputation on the left. 9. Diabetic neuropathy. ALLERGIES: Penicillin. CURRENT MEDICATIONS: Reviewed on medications reconciliation list. SOCIAL HISTORY: No tobacco, alcohol, or illicit drug use. FAMILY HISTORY: Positive for hypertension and diabetes. REVIEW OF SYSTEMS: NEUROLOGIC: The patient denies headache, change in vision, syncope, or presyncopal episodes. CARDIOVASCULAR: No current chest pain, palpitations, or angina. PULMONARY: Having shortness of breath. Nonproductive cough. GASTROINTESTINAL AND GENITOURINARY: No change in bowel habits. No nausea, vomiting, or diarrhea. ENDOCRINOLOGY: No night sweats, fevers, or chills. MUSCULOSKELETAL: The patient feeling weak, tired, and fatigue with left lower extremity pain. LABORATORY DATA: Laboratories dated March 26, 2018, sodium 140, potassium 3.9, creatinine 1.8, BUN 19. AST, ALT 17 and 21 respectively. Troponin 0.036. Hemoglobin 11.8, white cell count 9.1, and platelet count 235. PHYSICAL EXAMINATION: VITAL SIGNS: Blood pressure 120/73, respiratory rate 21, pulse 85, and temperature 98.7. GENERAL: The patient awake, alert, not in distress. HEENT: Extraocular muscles intact. No lymphadenopathy noted. Oropharyngeal mucosa is clear and dry. CARDIOVASCULAR: S1 and S2. No rubs or gallops. PULMONARY: Clear to auscultation bilaterally. No rales, rhonchi or wheezes. ABDOMEN: Nondistended and nontender. EXTREMITIES: No edema noted. ASSESSMENT AND PLAN: 1. Acute kidney injury on CKD, stage 4. At this time, most likely secondary to component of cardfiorenal due to the decompensated heart failure. The patient being currently diuresed and managed by Cardiology, we will continue to follow creatinine carefully while on Lasix, Aldactone, and lisinopril. We will also order renal ultrasound to rule out the possibility of any underlying obstruction as the patient has a history of penile edema swelling in the past, which was addressed by Urology. 2. Shortness of breath with DVT, right lower extremity. Heparin drip was initiated. 3. CHF, systolic in nature, being managed by Cardiology. 4. Hypertension. Adjust medications as deemed appropriate and avoid hypotensive event. 5. Diabetes mellitus, being managed by primary care physician. Let me take this opportunity to thank, Dr. Friedman. Vijay Do MD DR: MICHAEL JOB#: [id number] CC: SANTI
[2018-03-27 16:00] VITALS: BP 119/63
[2018-03-27 18:12] LABS: INR 1.4 (0.9-1.1)
--- NOTE | 2018-03-27 18:18 | NUR ---
CASE MANAGEMENT: REVIEW 68/M PRESENTED TO ED FROM HOME CC: COUGH AND CONGESTION X2 WEEKS SI: ACS T 97.2 HR 110 RR 25 BP 141/80 SAT 100% ROOM AIR H/H 12.5/40.3 TROPONIN I 0.035 BNP 94006 IS: ASA PO X1 LASIX IV X1 PATIENT ADMITTED TO TELEMETRY UNIT 03/26/2018 DCP: PATIENT IS FROM HOME
--- NOTE | 2018-03-27 19:35 | NUR ---
HAND-OFF: Report given to Rodrick Wilson.
--- NOTE | 2018-03-27 19:36 | NUR ---
NURSE NOTES: Received report from FLOWER Dunne. Patient in bed awake with no signs of acute distress. Respiration even and non labored 2L NC. No SOB. Vitals stable. on bedside. IV line patent and intact. Bed in lowest position. Call light within reach. All needs attended and met. Will continue plan of care.
[2018-03-27 20:00] VITALS: BP_SYST 104; BP_SYST 119; BP_DIAS 55; BP_DIAS 67
--- NOTE | 2018-03-27 21:46 | NUR ---
NURSE NOTES: Spoke with Ollie from Pharmacy to adjust Heparin Drip to 20units/hr/kg at rate 21.6ml/hr. IV pump rate is adjusting to 22.8ml/hr with 20u/hr/kg.
--- NOTE | 2018-03-27 22:30 | Progress Note ---
DATE: 03/27/2018 CARDIOLOGY PROGRESS NOTE SUBJECTIVE: The patient is comfortable. Less short of breath. No chest pain noted. Arterial duplex revealed significant ischemia. OBJECTIVE: VITAL SIGNS: Blood pressure 129/76, heart rate 101, respiratory rate 22, afebrile. Heart rate ranging from 71-101. LUNGS: Few rales. HEART: Regular rhythm and rate. Normal S1, S2 with a 1/6 systolic apical murmur. ABDOMEN: Soft. EXTREMITIES: Trace edema. SKIN: Stump is without any open wound. LABORATORY DATA: Sodium 138, potassium 4.2, bicarbonate 26, BUN 20, and creatinine 1.7. Troponin negative x2 and albumin 3.1 with TSH 1.3. IMPRESSION: 1. Acute on chronic systolic congestive heart failure. 2. Ischemic and hypertensive cardiomyopathy. 3. Chronic kidney disease. 4. Mild protein-calorie malnutrition. 5. Cardiac defibrillator. 6. Peripheral artery disease with ulcers. PLAN: 1. Continue diuresis. 2. Titration and maximization of anti-failure regimen. 3. Consider vascular consult. 4. Awaiting details regarding defibrillator implant and prescriptionist. 5. Follow up laboratory studies and adjust therapy accordingly. Rajinder Hampton M.D. DR: Ai JOB#: [id number] CC:
[2018-03-27] MEDS: Atorvastatin 20mg tab ORAL SCH (23:55)
[2018-03-27] MEDS: Tamsulosin 0.4mg cap ORAL SCH (23:55)
[2018-03-27] MEDS: Levemir Flexpen SUBQ SCH (23:57)
[2018-03-28] VITALS: BP_SYST 101; BP_SYST 122; BP_DIAS 57; BP_DIAS 70
[2018-03-28 04:00] VITALS: BP 106/55
[2018-03-28 06:09] LABS: ANION GAP 8 mmol/L (5-15); BLOOD UREA NITROGEN 25 mg/dL (7-18); CARBON DIOXIDE 29 MMOL/L (21-32); CHLORIDE 100 MMOL/L (98-107); CREATININE 1.8 MG/DL (0.55-1.30); POTASSIUM 3.3 MMOL/L (3.5-5.1); SODIUM 137 MMOL/L (136-145)
[2018-03-28] MEDS: NovoLOG Insulin Flexpen SUBQ SCH ×4 (06:51→21:09)
--- NOTE | 2018-03-28 07:15 | NUR ---
NURSE NOTES: Report received from Rodrick CRENSHAW. Pt is awake, alert, oriented x4, laying in bed, watching TV. On room air with no respiratory distress. Denies pain. IV access on right FA #[id number], infusing Heparin Drip, currently at 20units/kg/hour, tolerating well with no s/s of bleeding noted. Pt has left AKA (above knee amputation), no prosthesis present. Pt reports using wheelchair at home. Skin has dressing on sacral and right lateral foot areas, currently dry/intact. Will reassess and change dressing during my shift. Call light is placed within easy reach, bed in lowest position, three side rails up, brakes engaged, alarm on. Will continue to monitor pt, and follow plan of care per MD orders and protocol.
[2018-03-28 08:00] VITALS: BP 115/63
[2018-03-28] MEDS: Heparin 25,000u/D5W 500ml 500 ML IV SCH (08:51)
[2018-03-28] MEDS: Pyridoxine 50mg tab ORAL SCH (08:56)
[2018-03-28] MEDS: Aspirin EC 81mg tab ORAL SCH (08:56)
[2018-03-28] MEDS: Carvedilol 6.25mg Tab ORAL SCH (08:56)
[2018-03-28] MEDS: Digoxin 0.125mg tab ORAL SCH (08:57)
[2018-03-28] MEDS: Lisinopril 10mg tab ORAL SCH (08:57)
[2018-03-28] MEDS: Spironolactone 25mg tab ORAL SCH (08:57)
--- NOTE | 2018-03-28 08:58 | Nephrology Progress Note ---
Assessment/Plan Assessment/Plan A/P 1) BETSEY on CKD 3B- Cr 1.8 - if renal function worsens, may need to hold Lisinopril +- aldactone 2) SOB- CHF on lasix, KAMILA-I and aldactone 3) Hypokalemia- replace 4) DVT RLE- heaprin gtt 5) HTN- stable Subjective Date patient seen: Mar 28, 2018 Time patient seen: 08:55 ROS Limited/Unobtainable: No Allergies: Coded Allergies: PENICILLINS (Verified Allergy, Intermediate, Hives, 03/29/13) All Systems: reviewed and negative except above Subjective Patient feeling better. No acute distress Objective Last 24 Hour Vital Signs Date Time Temp Pulse Resp B/P (MAP) Pulse Ox O2 Delivery O2 Flow Rate FiO2 03/28/18 04:00 72 03/28/18 04:00 98.0 80 19 106/55 (72) 97 03/28/18 00:00 77 03/28/18 00:00 98.1 88 17 101/57 (72) 95 03/27/18 21:00 Room Air 03/27/18 21:00 85 104/55 03/27/18 20:00 84 03/27/18 20:00 98.0 85 17 104/55 (71) 95 03/27/18 16:00 97.0 71 20 119/63 (81) 100 03/27/18 15:55 93 03/27/18 12:00 98.1 101 22 129/76 (93) 100 03/27/18 11:50 98 03/27/18 10:07 120/73 03/27/18 10:06 85 03/27/18 10:06 85 120/73 Intake and Output 03/27/18 03/28/18 19:00 07:00 Intake Total 480 ml 240 ml Balance 480 ml 240 ml Intake Oral 480 ml 240 ml # Voids 3 # Bowel Movements 1 1 Laboratory Tests 03/27/18 11:00: White Blood Count 8.4, Red Blood Count 4.96, Hemoglobin 12.5L, Hematocrit 40.3L , Mean Corpuscular Volume 81, Mean Corpuscular Hemoglobin 25.1L, Mean Corpuscular Hemoglobin Concent 30.9L, Red Cell Distribution Width 20.3H, Platelet Count 210, Mean Platelet Volume 6.2L, Neutrophils (%) (Auto) 68.0, Lymphocytes (%) (Auto) 12.9L, Monocytes (%) (Auto) 4.5, Eosinophils (%) (Auto) 13.2H, Basophils (%) (Auto) 1.3, Activated Partial Thromboplast Time 28 03/27/18 17:00: Activated Partial Thromboplast Time 56H, Prothrombin Time 14.4H, Prothromb Time International Ratio 1.4H 03/28/18 03:40: Activated Partial Thromboplast Time 107H, Sodium Level 137, Potassium Level 3.3L , Chloride Level 100, Carbon Dioxide Level 29, Anion Gap 8, Blood Urea Nitrogen 25H, Creatinine 1.8H, Estimat Glomerular Filtration Rate 45.7, Glucose Level 119H, Calcium Level 9.0, Magnesium Level 1.9, Pro-B-Type Natriuretic Peptide [id number] Height (Feet): 5 Height (Inches): 2.00 Weight (Pounds): 119 General Appearance: no apparent distress, alert EENT: normal ENT inspection Neck: normal alignment, supple Cardiovascular: normal rate, regular rhythm Respiratory/Chest: lungs clear, normal breath sounds Abdomen: non tender, soft Edema: no edema noted Arm (L), no edema noted Arm (R), no edema noted Leg (L), no edema noted Leg (R), no edema noted Pedal (L), no edema noted Pedal (R), no edema noted Generalized Vijay Do MD Mar 28, 2018 08:58
--- NOTE | 2018-03-28 09:09 | Diagnostic Imaging Report ---
Indication: Acute renal failure Technique: Grayscale and duplex images of the kidneys, retroperitoneum, and bladder were obtained. Comparison: Reference made to 01/20/[address] Findings: Right kidney measures 9.1 cm in length. Left kidney measures 10.7 cm in length. Both kidneys demonstrate normal echogenicity. No hydronephrosis. Centimeters loculated contour of the lateral margin of the right kidney is similar to findings demonstrated on the 2017 CT scan. No discrete mass demonstrated. Echogenic focus in the right renal sinus may be artifactual, as no calculi are demonstrated on prior CT. No focal abnormality seen on the left. Normal inferior vena cava. Bladder demonstrates slight wall thickening and possibly a small amount of dependent debris. Impression: Negative for hydronephrosis Mild urinary bladder wall thickening. Could indicate cystitis or chronic bladder outlet obstruction. Correlate with clinical history and findings Echogenic focus within the right renal sinus. Suspect artifactual but could represent small nonobstructive calculi.
--- NOTE | 2018-03-28 10:10 | NUR ---
REHAB MED PT NOTE CONSULT RECEIVED, KIRSTEN GRAY, PATIENT WILL BENEFIT FROM SKILLED PT DURING STAY FOR RETURN TO [facility]. RECOMMEND SNF AT [place]. PLAN OF CARE INITIATED. BERTRAM NEGRO PT DPT Addendum: 03/28/18 at 1013 by BERTRAM NEGRO PT Amended: Links added.
--- NOTE | 2018-03-28 10:37 | Pulmonology Progress Note ---
Assessment/Plan Assessment/Plan IMPRESSION: 1. Acute on chronic systolic congestive heart failure. 2. Ischemic cardiomyopathy. 3. Cardiac defibrillator. 4. Type 2 diabetes mellitus. 5. Chronic kidney disease. 6. Amputee, peripheral artery disease with foot ulcers. 7. DVT RLE; extensive PLAN: 1. Diuresis. Seen by cardiology. 2. Maximization of anti-failure and antianginal regimen. 3. Hold metformin in view of elevated creatinine. 4. Titrate insulin. 5. Defibrillator device interrogation. 6. Arterial duplex. 7. Skin care and decubitus prevention 8. Anti-coagulate with heparin... transition to Coumadin 9. DC planning to SNF Subjective Interval Events: States he is feelimg better Constitutional: Reports: no symptoms HEENT: Repors: no symptoms Respiratory: Reports: no symptoms Cardiovascular: Reports: no symptoms Gastrointestinal/Abdominal: Reports: no symptoms Genitourinary: Reports: no symptoms Neurologic: Reports: no symptoms Allergies: Coded Allergies: PENICILLINS (Verified Allergy, Intermediate, Hives, 03/29/13) Objective Last 24 Hour Vital Signs Date Time Temp Pulse Resp B/P (MAP) Pulse Ox O2 Delivery O2 Flow Rate FiO2 03/28/18 08:57 115/63 03/28/18 08:57 85 03/28/18 08:56 85 115/63 03/28/18 04:00 72 03/28/18 04:00 98.0 80 19 106/55 (72) 97 03/28/18 00:00 77 03/28/18 00:00 98.1 88 17 101/57 (72) 95 03/27/18 21:00 Room Air 03/27/18 21:00 85 104/55 03/27/18 20:00 84 03/27/18 20:00 98.0 85 17 104/55 (71) 95 03/27/18 16:00 97.0 71 20 119/63 (81) 100 03/27/18 15:55 93 03/27/18 12:00 98.1 101 22 129/76 (93) 100 03/27/18 11:50 98 Intake and Output 03/27/18 03/28/18 19:00 07:00 Intake Total 480 ml 240 ml Balance 480 ml 240 ml Intake Oral 480 ml 240 ml # Voids 3 # Bowel Movements 1 1 General Appearance: no acute distress HEENT: normocephalic Respiratory/Chest: chest wall non-tender, lungs clear Cardiovascular: normal peripheral pulses, normal rate Abdomen: normal bowel sounds, no organomegaly Extremities: no cyanosis Laboratory Tests 03/27/18 11:00: White Blood Count 8.4, Red Blood Count 4.96, Hemoglobin 12.5L, Hematocrit 40.3L , Mean Corpuscular Volume 81, Mean Corpuscular Hemoglobin 25.1L, Mean Corpuscular Hemoglobin Concent 30.9L, Red Cell Distribution Width 20.3H, Platelet Count 210, Mean Platelet Volume 6.2L, Neutrophils (%) (Auto) 68.0, Lymphocytes (%) (Auto) 12.9L, Monocytes (%) (Auto) 4.5, Eosinophils (%) (Auto) 13.2H, Basophils (%) (Auto) 1.3, Activated Partial Thromboplast Time 28 03/27/18 17:00: Activated Partial Thromboplast Time 56H, Prothrombin Time 14.4H, Prothromb Time International Ratio 1.4H 03/28/18 03:40: Activated Partial Thromboplast Time 107H, Sodium Level 137, Potassium Level 3.3L , Chloride Level 100, Carbon Dioxide Level 29, Anion Gap 8, Blood Urea Nitrogen 25H, Creatinine 1.8H, Estimat Glomerular Filtration Rate 45.7, Glucose Level 119H, Calcium Level 9.0, Magnesium Level 1.9, Pro-B-Type Natriuretic Peptide 47018H Current Medications Medications (Trade) Dose Ordered Sig/Sudha Route PRN Reason Start Time Stop Time Status Last Admin Dose Admin Aspirin (Ecotrin) 81 mg DAILY ORAL 03/27/18 09:00 04/26/18 08:59 03/28/18 08:56 Atorvastatin Calcium (Lipitor) 20 mg BEDTIME ORAL 03/27/18 21:00 04/26/18 20:59 03/27/18 23:55 Carvedilol (Coreg) 6.25 mg EVERY 12 HOURS ORAL 03/27/18 09:00 04/26/18 08:59 03/28/18 08:56 Dextrose (Dextrose 50%) 25 ml Q30M PRN IV Hypoglycemia 03/26/18 23:30 04/25/18 23:29 Dextrose (Dextrose 50%) 50 ml Q30M PRN IV Hypoglycemia 03/26/18 23:30 04/25/18 23:29 Digoxin (Lanoxin) 0.125 mg DAILY ORAL 03/27/18 09:00 04/26/18 08:59 03/28/18 08:57 Finasteride (Proscar) 5 mg DAILY ORAL 03/27/18 09:00 04/26/18 08:59 03/28/18 08:56 Folic Acid (Folate) 1 mg DAILY ORAL 03/27/18 09:00 04/26/18 08:59 03/28/18 08:56 Furosemide (Lasix) 40 mg DAILY IV 03/27/18 09:00 04/26/18 08:59 03/28/18 08:56 Gabapentin (Neurontin) 300 mg THREE TIMES A DAY ORAL 03/27/18 09:00 04/26/18 08:59 03/28/18 08:57 Heparin Sodium/ Dextrose 500 ml @ 18.352 mls/ hr ADJUST PER PROTOCOL IV 03/28/18 07:15 04/27/18 07:14 03/28/18 08:51 Insulin Aspart (NovoLOG) BEFORE MEALS AND HS SUBQ 03/27/18 06:30 04/26/18 06:29 03/28/18 06:51 Insulin Detemir (Levemir) 7 units BEDTIME SUBQ 03/27/18 21:00 04/26/18 20:59 03/27/18 23:57 Lisinopril (Zestril) 10 mg DAILY ORAL 03/27/18 09:00 04/26/18 08:59 03/28/18 08:57 Pyridoxine HCl (Vitamin B6) 50 mg DAILY ORAL 03/27/18 09:00 04/26/18 08:59 03/28/18 08:56 Spironolactone (Aldactone) 25 mg DAILY ORAL 03/27/18 09:00 04/26/18 08:59 03/28/18 08:57 Tamsulosin HCl (Flomax) 0.4 mg BEDTIME ORAL 03/27/18 21:00 04/26/18 20:59 03/27/18 23:55 Warfarin Sodium (Coumadin per pharmacy) 1 ea DAILY PRN MISC Per rx protocol 03/28/18 10:15 04/27/18 10:14 González Friedman MD Mar 28, 2018 10:37
[2018-03-28 11:29] LABS: INR 1.3 (0.9-1.1)
[2018-03-28 12:00] VITALS: BP 118/65
--- NOTE | 2018-03-28 13:15 | NUR ---
NURSE NOTES: Result for ptt at 82. No changes made to Heparin drip per protocol and pharmacist. Pt tolerating well with no s/s of bleeding.
[2018-03-28 16:00] VITALS: BP 119/59
[2018-03-28] MEDS ORDERED: Warfarin Sodium 5mg ORAL SCH (17:00)
--- NOTE | 2018-03-28 19:27 | NUR ---
HAND-OFF: Report given to FLOWER Dobbs. Addendum: 03/28/18 at 2008 by KARINA LEE RN NURSE NOTES: Received report from FLOWER Dobbs. Patient in bed awake with no signs of acute distress. Respiration even and non labored on room air. No SOB. Vitals stable. IV line patent and intact. Bed in lowest position. Call light within reach. All needs attended and met. Will continue plan of care.
--- NOTE | 2018-03-28 19:28 | NUR ---
HAND-OFF: Report given to Rodrick CRENSHAW. Pt is resting in bed in stable condition. Addendum: 03/28/18 at 1928 by MARCO A BATEMAN RN Endorsed plan of care.
[2018-03-28 20:00] VITALS: BP 99/51
[2018-03-28] MEDS: Carvedilol 12.5mg tab ORAL SCH (21:00)
[2018-03-28] MEDS: Atorvastatin 20mg tab ORAL SCH (21:06)
[2018-03-28] MEDS: Tamsulosin 0.4mg cap ORAL SCH (21:06)
[2018-03-28] MEDS: Levemir Flexpen SUBQ SCH (21:08)
--- NOTE | 2018-03-28 21:15 | Progress Note ---
DATE: 03/28/2018 CARDIOLOGY PROGRESS NOTE SUBJECTIVE: The patient feels better. No chest pain or shortness of breath. OBJECTIVE: VITAL SIGNS: Blood pressure 115/63, pulse rate 85, respiratory rate 18, and afebrile. NECK: Jugular venous pressure is elevated. LUNGS: Few rales. CARDIAC: Regular rhythm and rate. Normal S1 and S2. A 1/6 systolic apical murmur. ABDOMEN: Soft. EXTREMITIES: No edema. LABORATORY DATA: Pro-natriuretic peptide remains elevated at over 13,000. IMPRESSION: 1. Acute on chronic systolic congestive heart failure, cardiac defibrillator. 2. Acute on chronic kidney injury. 3. Peripheral artery disease with ulcers. 4. Amputee of the left lower extremity. 5. DVT of right lower extremity. PLAN: 1. Full anticoagulation. 2. The patient's defibrillator interrogation. 3. Continue maximization of anti-failure regimen and ongoing diuresis. 4. Recheck chest x-ray. 5. Discontinue anti-platelet therapy to decrease bleeding risk. 6. The patient will remain on full anticoagulation thereafter. Rajinder Hampton M.D. DR: JOSE JOB#: [id number] CC:
[2018-03-29] VITALS: BP 100/55
[2018-03-29 04:00] VITALS: BP 108/52
[2018-03-29 05:05] LABS: ANION GAP 8 mmol/L (5-15); BLOOD UREA NITROGEN 26 mg/dL (7-18); CALCIUM 9.6 MG/DL (8.5-10.1); CARBON DIOXIDE 29 MMOL/L (21-32); CHLORIDE 101 MMOL/L (98-107); CREATININE 1.7 MG/DL (0.55-1.30); POTASSIUM 4.1 MMOL/L (3.5-5.1); SODIUM 137 MMOL/L (136-145)
[2018-03-29] MEDS: NovoLOG Insulin Flexpen SUBQ SCH ×4 (06:22→21:34)
[2018-03-29] MEDS: Heparin 25,000u/D5W 500ml 500 ML IV SCH ×2 (07:15→09:44)
--- NOTE | 2018-03-29 07:15 | NUR ---
HAND-OFF: Report given to FLOWER Doshi. Patient in bed asleep with no signs of acute distress.
--- NOTE | 2018-03-29 07:31 | NUR ---
NURSE NOTES: Received report from FLOWER Mensah. Patient in bed resting, patient on RA no active s/s cardiac, respiratory distress noticed at this time. AV paced HR 81. Denies pain at this time. IV running at prescribed rate, IV site asymptomatic, patent, intact. Urinal at bed side, bed in lowest position, side rails upx3, call light within reach. Will continue to monitor.
[2018-03-29 08:00] VITALS: BP 113/59
[2018-03-29] MEDS: Digoxin 0.125mg tab ORAL SCH (08:37)
[2018-03-29] MEDS: Aspirin EC 81mg tab ORAL SCH (08:38)
[2018-03-29] MEDS: Spironolactone 25mg tab ORAL SCH (08:38)
[2018-03-29] MEDS: Lisinopril 20mg tab ORAL SCH (08:38)
[2018-03-29] MEDS: Pyridoxine 50mg tab ORAL SCH (08:46)
[2018-03-29] MEDS: Carvedilol 12.5mg tab ORAL SCH ×2 (08:46→21:00)
--- NOTE | 2018-03-29 09:25 | Nephrology Progress Note ---
Assessment/Plan Assessment/Plan A/P 1) CKD 3B- Cr 1.7 and stable - if renal function worsens, may need to hold Lisinopril +- aldactone 2) SOB- CHF on lasix, KAMILA-I and aldactone 3) Hypokalemia- replace prn 4) DVT RLE- heaprin gtt 5) HTN- stable Subjective Date patient seen: Mar 29, 2018 Time patient seen: 09:22 ROS Limited/Unobtainable: No Allergies: Coded Allergies: PENICILLINS (Verified Allergy, Intermediate, Hives, 03/29/13) Subjective Patient in no distress. Feeling better Objective Last 24 Hour Vital Signs Date Time Temp Pulse Resp B/P (MAP) Pulse Ox O2 Delivery O2 Flow Rate FiO2 03/29/18 08:46 85 113/59 03/29/18 08:38 113/59 03/29/18 08:37 85 03/29/18 04:00 97.6 76 17 108/52 (70) 96 03/29/18 04:00 81 03/29/18 00:00 90 03/29/18 00:00 97.7 74 17 100/55 (70) 99 03/28/18 21:00 Room Air 03/28/18 21:00 85 99/51 03/28/18 20:00 95 03/28/18 20:00 97.9 85 16 99/51 (67) 96 03/28/18 16:00 97.0 84 18 119/59 (79) 99 03/28/18 16:00 85 03/28/18 12:00 84 03/28/18 12:00 97.2 86 18 118/65 (82) 100 Intake and Output 03/28/18 03/29/18 19:00 07:00 Intake Total 840 ml Output Total 1600 ml Balance -760 ml Intake Oral 840 ml Output Urine Total 1600 ml # Voids 5 # Bowel Movements 1 2 Laboratory Tests 03/28/18 10:45: Prothrombin Time 13.7H, Prothromb Time International Ratio 1.3H 03/28/18 13:05: Activated Partial Thromboplast Time 82H 03/29/18 04:16: Activated Partial Thromboplast Time 71H, Sodium Level 137, Potassium Level 4.1, Chloride Level 101, Carbon Dioxide Level 29, Anion Gap 8, Blood Urea Nitrogen 26H, Creatinine 1.7H, Estimat Glomerular Filtration Rate 48.8, Glucose Level 182H, Calcium Level 9.6 Height (Feet): 5 Height (Inches): 2.00 Weight (Pounds): 121 General Appearance: no apparent distress, alert EENT: normal ENT inspection Neck: normal alignment, supple Cardiovascular: normal rate, regular rhythm Respiratory/Chest: lungs clear, normal breath sounds Abdomen: non tender, soft Extremities: non-tender Vijay Do MD Mar 29, 2018 09:25
--- NOTE | 2018-03-29 09:55 | Pulmonology Progress Note ---
Assessment/Plan Assessment/Plan IMPRESSION: 1. Acute on chronic systolic congestive heart failure. 2. Ischemic cardiomyopathy. 3. Cardiac defibrillator. 4. Type 2 diabetes mellitus. 5. Chronic kidney disease. 6. Amputee, peripheral artery disease with foot ulcers. 7. DVT RLE; extensive PLAN: 1. Diuresis. Seen by cardiology. 2. Maximization of anti-failure and antianginal regimen. 3. Hold metformin in view of elevated creatinine. 4. Titrate insulin. 5. Defibrillator device interrogation. 6. Arterial duplex. 7. Skin care and decubitus prevention 8. Anti-coagulate with heparin... transition to Coumadin 9. DC planning to SNF Subjective Interval Events: None new; on copumadin now; INR 1.3 Constitutional: Reports: no symptoms HEENT: Repors: no symptoms Respiratory: Reports: no symptoms Cardiovascular: Reports: no symptoms Gastrointestinal/Abdominal: Reports: no symptoms Genitourinary: Reports: no symptoms Neurologic: Reports: no symptoms Allergies: Coded Allergies: PENICILLINS (Verified Allergy, Intermediate, Hives, 03/29/13) Objective Last 24 Hour Vital Signs Date Time Temp Pulse Resp B/P (MAP) Pulse Ox O2 Delivery O2 Flow Rate FiO2 03/29/18 08:46 85 113/59 03/29/18 08:38 113/59 03/29/18 08:37 85 03/29/18 04:00 97.6 76 17 108/52 (70) 96 03/29/18 04:00 81 03/29/18 00:00 90 03/29/18 00:00 97.7 74 17 100/55 (70) 99 03/28/18 21:00 Room Air 03/28/18 21:00 85 99/51 03/28/18 20:00 95 03/28/18 20:00 97.9 85 16 99/51 (67) 96 03/28/18 16:00 97.0 84 18 119/59 (79) 99 03/28/18 16:00 85 03/28/18 12:00 84 03/28/18 12:00 97.2 86 18 118/65 (82) 100 Intake and Output 03/28/18 03/29/18 19:00 07:00 Intake Total 840 ml Output Total 1600 ml Balance -760 ml Intake Oral 840 ml Output Urine Total 1600 ml # Voids 5 # Bowel Movements 1 2 General Appearance: no acute distress HEENT: normocephalic Respiratory/Chest: chest wall non-tender, lungs clear Cardiovascular: normal peripheral pulses, normal rate Abdomen: normal bowel sounds, soft, non tender Laboratory Tests 03/28/18 10:45: Prothrombin Time 13.7H, Prothromb Time International Ratio 1.3H 03/28/18 13:05: Activated Partial Thromboplast Time 82H 03/29/18 04:16: Activated Partial Thromboplast Time 71H, Sodium Level 137, Potassium Level 4.1, Chloride Level 101, Carbon Dioxide Level 29, Anion Gap 8, Blood Urea Nitrogen 26H, Creatinine 1.7H, Estimat Glomerular Filtration Rate 48.8, Glucose Level 182H, Calcium Level 9.6 Current Medications Medications (Trade) Dose Ordered Sig/Sudha Route PRN Reason Start Time Stop Time Status Last Admin Dose Admin Aspirin (Ecotrin) 81 mg DAILY ORAL 03/27/18 09:00 04/26/18 08:59 03/29/18 08:38 Atorvastatin Calcium (Lipitor) 20 mg BEDTIME ORAL 03/27/18 21:00 04/26/18 20:59 03/28/18 21:06 Carvedilol (Coreg) 12.5 mg EVERY 12 HOURS ORAL 03/28/18 21:00 04/27/18 20:59 03/29/18 08:46 Dextrose (Dextrose 50%) 25 ml Q30M PRN IV Hypoglycemia 03/26/18 23:30 04/25/18 23:29 Dextrose (Dextrose 50%) 50 ml Q30M PRN IV Hypoglycemia 03/26/18 23:30 04/25/18 23:29 Digoxin (Lanoxin) 0.125 mg DAILY ORAL 03/27/18 09:00 04/26/18 08:59 03/29/18 08:37 Finasteride (Proscar) 5 mg DAILY ORAL 03/27/18 09:00 04/26/18 08:59 03/29/18 08:37 Folic Acid (Folate) 1 mg DAILY ORAL 03/27/18 09:00 04/26/18 08:59 03/29/18 08:38 Furosemide (Lasix) 40 mg DAILY IV 03/27/18 09:00 04/26/18 08:59 03/29/18 08:39 Gabapentin (Neurontin) 300 mg THREE TIMES A DAY ORAL 03/27/18 09:00 04/26/18 08:59 03/29/18 08:37 Heparin Sodium/ Dextrose 500 ml @ 18.352 mls/ hr ADJUST PER PROTOCOL IV 03/28/18 07:15 04/27/18 07:14 03/29/18 09:44 Insulin Aspart (NovoLOG) BEFORE MEALS AND HS SUBQ 03/27/18 06:30 04/26/18 06:29 03/29/18 06:22 Insulin Detemir (Levemir) 7 units BEDTIME SUBQ 03/27/18 21:00 04/26/18 20:59 03/28/18 21:08 Lisinopril (Prinivil) 20 mg DAILY ORAL 03/29/18 09:00 04/28/18 08:59 03/29/18 08:38 Pyridoxine HCl (Vitamin B6) 50 mg DAILY ORAL 03/27/18 09:00 04/26/18 08:59 03/29/18 08:46 Spironolactone (Aldactone) 25 mg DAILY ORAL 03/27/18 09:00 04/26/18 08:59 03/29/18 08:38 Tamsulosin HCl (Flomax) 0.4 mg BEDTIME ORAL 03/27/18 21:00 04/26/18 20:59 03/28/18 21:06 Warfarin Sodium (Coumadin per pharmacy) 1 ea DAILY PRN MISC Per rx protocol 03/28/18 10:15 04/27/18 10:14 González Friedman MD Mar 29, 2018 09:55
--- NOTE | 2018-03-29 11:18 | NUR ---
NURSE NOTES: Family member, Helena, request patient to be discharge to [facility]. Taya, disability case manager, made aware of family's request.
[2018-03-29 12:00] VITALS: BP 114/58
[2018-03-29 16:00] VITALS: BP 110/52
[2018-03-29 17:06] LABS: INR 1.3 (0.9-1.1)
[2018-03-29] MEDS ORDERED: Warfarin Sodium 5mg ORAL SCH (18:00)
--- NOTE | 2018-03-29 19:42 | NUR ---
HAND-OFF: Report given to FLOWER Chaparro.
--- NOTE | 2018-03-29 19:45 | NUR ---
NURSE NOTES: Received report from Rhiannon olvera RN. Patient in bed AAO X4 and able to converse without any difficulties. No complaints of acute pain at this time, no SOB and is on R/A and is tolerating well. Kept comfortable, clean, and dry in bed. Safety precaution in place; siderails x2 up, call light within reach, bed in lowest position, brakes and alarm on at all times. IV line intact and patent, also placed on cardiac monitoring per protocol. Needs and wants anticipated and attended, will continue plan of care and monitor for any changes noted.
--- NOTE | 2018-03-29 19:51 | NUR ---
CASE MANAGEMENT: REVIEW SI: ISCHEMIC CARDIOMYOPATHY . DVT RLE T 97.3 HR 82 RR 16 BP 113/59 SAT 98% ROOM AIR PT 13.6 INR 1.3 IS: COREG PO Q12HR LIPITOR PO QHS ECOTRIN PO QD ALDACTONE PO QD DIGOXIN PO QD COUMADIN 5MG PO X1 TELEMETRY UNIT STATUS DCP: PATIENT IS FROM HOME
[2018-03-29 20:00] VITALS: BP 95/53
[2018-03-29] MEDS: Atorvastatin 20mg tab ORAL SCH (21:32)
[2018-03-29] MEDS: Tamsulosin 0.4mg cap ORAL SCH (21:32)
[2018-03-29] MEDS: Levemir Flexpen SUBQ SCH (21:34)
--- NOTE | 2018-03-29 23:45 | Progress Note ---
DATE: 03/29/2018 SUBJECTIVE: The patient is feeling better, less short of breath. He continues on anticoagulation with transition from IV to oral regimen. Anti-failure regimen was advanced yesterday and slight decrease in blood pressure noted. OBJECTIVE: VITAL SIGNS: Blood pressure 95/53, pulse 71, respirations 18, and afebrile. NECK: Jugular venous pressure is normal. LUNGS: Clear. CARDIAC: Regular rhythm and rate. Normal S1, S2. There is 1/6 systolic murmur at apex. ABDOMEN: Soft. EXTREMITIES: Trace edema. IMPRESSION: 1. Acute on chronic systolic congestive heart failure, cardiac defibrillator. 2. Low cardiac output and associated low blood pressure. 3. Extensive DVT. 4. Peripheral artery disease. 5. Symptomatic hypotension. PLAN: 1. We will decrease anti-failure medication dosing. 2. Mobilize as able. 3. Full anticoagulation with INR goal of 2 to 3. 4. Anti-platelet and anti-lipid drugs. 5. [facility]. 6. I have been unable to reach the patient's to assist with data regarding his defibrillator for interrogation. This will have to be pursued further as an outpatient. Rajinder Hampton M.D. DR: JOSE JOB#: [id number] CC:
[2018-03-30] VITALS: BP 116/57
--- NOTE | 2018-03-30 02:50 | NUR ---
NURSE NOTES: Patient in bed asleep, in stable condition. Will continue to monitor
[2018-03-30 04:00] VITALS: BP 101/54
[2018-03-30 04:23] LABS: BASOPHILS % (AUTO) 0.4 % (0.0-2.0); EOSINOPHILS % (AUTO) 14.6 % (0.0-3.0); HEMATOCRIT 36.4 % (42.0-52.0); HEMOGLOBIN 11.5 G/DL (14.2-18.0); LYMPHOCYTES % (AUTO) 16.6 % (20.0-45.0); MEAN CORPUSCULAR VOLUME 80 FL (80-99); MONOCYTES % (AUTO) 9.2 % (1.0-10.0); NEUTROPHILS % (AUTO) 59.2 % (45.0-75.0); PLATELET COUNT 207 K/UL (150-450); RED BLOOD COUNT 4.56 M/UL (4.70-6.10); WHITE BLOOD COUNT 10.3 K/UL (4.8-10.8)
[2018-03-30 04:49] LABS: ALANINE AMINOTRANSFERASE 26 U/L (12-78); ALBUMIN/GLOBULIN RATIO 0.7 (1.0-2.7); ALKALINE PHOSPHATASE 62 U/L (46-116); ANION GAP 9 mmol/L (5-15); ASPARTATE AMINO TRANSFERASE 23 U/L (15-37); BILIRUBIN,TOTAL 0.6 MG/DL (0.2-1.0); BLOOD UREA NITROGEN 28 mg/dL (7-18); CALCIUM 9.1 MG/DL (8.5-10.1); CARBON DIOXIDE 27 MMOL/L (21-32); CHLORIDE 101 MMOL/L (98-107); CREATININE 1.7 MG/DL (0.55-1.30); POTASSIUM 4.3 MMOL/L (3.5-5.1); SODIUM 137 MMOL/L (136-145)
[2018-03-30 05:17] LABS: INR 1.3 (0.9-1.1)
--- NOTE | 2018-03-30 05:54 | NUR ---
NURSE NOTES: Spoke with pharmacist Vivienne, regarding recent PTT result. 70, will continue current rate at 17u/kg/hr. Will order another PTT tomorrow 03/31/18 at 0400. Will continue to monitor
[2018-03-30] MEDS: NovoLOG Insulin Flexpen SUBQ SCH ×4 (06:29→22:04)
--- NOTE | 2018-03-30 07:17 | NUR ---
HAND-OFF: Report given to Rhiannon White RN. Patient in bed in stable condition, endorsed plan of care.
--- NOTE | 2018-03-30 07:19 | NUR ---
NURSE NOTES: Received report from FLOWER Chaparro. Patient in bed resting, no active s/s cardiac, respiratory distress noticed at this time. V-paced with HR 72. Denies pain at this time. AO x4. Endorsed to continue heparin drip at rate of 17 unit/kg/h. IV on right forearm 20 G, IV running at prescribed rate, IV site asymptomatic, patent, intact. Bed in lowest position, side rails up x3, call light within reach. Will continue to monitor.
[2018-03-30 08:00] VITALS: BP 97/56
--- NOTE | 2018-03-30 08:05 | Nephrology Progress Note ---
Assessment/Plan Assessment/Plan A/P 1) CKD 3B- Cr 1.7 - monitor Cr Lisinopril +- aldactone 2) SOB- CHF on lasix, KAMILA-I and aldactone. Stable 3) Hypokalemia- replace prn 4) DVT RLE- heaprin gtt and convert to coumadin 5) HTN- stable Subjective Date patient seen: Mar 30, 2018 Time patient seen: 08:03 ROS Limited/Unobtainable: No Allergies: Coded Allergies: PENICILLINS (Verified Allergy, Intermediate, Hives, 03/29/13) All Systems: reviewed and negative except above Subjective Patient resting. No overt distress or complaints Objective Last 24 Hour Vital Signs Date Time Temp Pulse Resp B/P (MAP) Pulse Ox O2 Delivery O2 Flow Rate FiO2 03/30/18 04:00 72 03/30/18 04:00 97.5 76 20 101/54 (70) 94 03/30/18 00:00 72 03/30/18 00:00 97.7 80 18 116/57 (76) 98 03/29/18 21:00 71 95/53 03/29/18 21:00 Room Air 03/29/18 20:00 97.7 71 20 95/53 (67) 94 03/29/18 20:00 73 03/29/18 16:00 98.1 77 16 110/52 (71) 100 03/29/18 16:00 78 03/29/18 12:00 97.3 82 16 114/58 (76) 98 03/29/18 12:00 86 03/29/18 09:00 Room Air 03/29/18 08:46 85 113/59 03/29/18 08:38 113/59 03/29/18 08:37 85 Intake and Output 03/29/18 03/30/18 19:00 07:00 Intake Total 360 ml Output Total 300 ml Balance 60 ml Intake Oral 360 ml Output Urine Total 300 ml # Voids 2 3 # Bowel Movements 1 Laboratory Tests 03/29/18 16:15: Prothrombin Time 13.6H, Prothromb Time International Ratio 1.3H 03/30/18 04:00: Prothrombin Time 13.4H, Prothromb Time International Ratio 1.3H, White Blood Count 10.3, Red Blood Count 4.56L, Hemoglobin 11.5L, Hematocrit 36.4L, Mean Corpuscular Volume 80, Mean Corpuscular Hemoglobin 25.3L, Mean Corpuscular Hemoglobin Concent 31.7L, Red Cell Distribution Width 20.0H, Platelet Count 207 , Mean Platelet Volume 6.7, Neutrophils (%) (Auto) 59.2, Lymphocytes (%) (Auto) 16.6L, Monocytes (%) (Auto) 9.2, Eosinophils (%) (Auto) 14.6H, Basophils (%) ( Auto) 0.4, Activated Partial Thromboplast Time 70H, Sodium Level 137, Potassium Level 4.3, Chloride Level 101, Carbon Dioxide Level 27, Anion Gap 9, Blood Urea Nitrogen 28H, Creatinine 1.7H, Estimat Glomerular Filtration Rate 48.8, Glucose Level 172H, Calcium Level 9.1, Magnesium Level 2.2, Total Bilirubin 0.6, Aspartate Amino Transf (AST/SGOT) 23, Alanine Aminotransferase (ALT/SGPT) 26, Alkaline Phosphatase 62, Pro-B-Type Natriuretic Peptide 6941H, Total Protein 7.5 , Albumin 3.0L, Globulin 4.5, Albumin/Globulin Ratio 0.7L Height (Feet): 5 Height (Inches): 2.00 Weight (Pounds): 121 General Appearance: no apparent distress EENT: normal ENT inspection Neck: normal alignment, supple Cardiovascular: normal rate, regular rhythm Respiratory/Chest: lungs clear, normal breath sounds Abdomen: non tender, soft Edema: no edema noted Arm (L), no edema noted Arm (R), no edema noted Leg (L), no edema noted Leg (R), no edema noted Pedal (L), no edema noted Pedal (R), no edema noted Generalized Vijay Do MD Mar 30, 2018 08:05
[2018-03-30] MEDS: Spironolactone 25mg tab ORAL SCH (08:44)
[2018-03-30] MEDS: Aspirin EC 81mg tab ORAL SCH (08:45)
[2018-03-30] MEDS: Pyridoxine 50mg tab ORAL SCH (08:45)
[2018-03-30] MEDS: Digoxin 0.125mg tab ORAL SCH (08:45)
[2018-03-30] MEDS: Carvedilol 12.5mg tab ORAL SCH ×2 (08:54→21:18)
[2018-03-30] MEDS: Lisinopril 20mg tab ORAL SCH (08:54)
[2018-03-30] MEDS: Heparin 25,000u/D5W 500ml 500 ML IV SCH (09:41)
--- NOTE | 2018-03-30 10:19 | Pulmonology Progress Note ---
Assessment/Plan Assessment/Plan IMPRESSION: 1. Acute on chronic systolic congestive heart failure. 2. Ischemic cardiomyopathy. 3. Cardiac defibrillator. 4. Type 2 diabetes mellitus. 5. Chronic kidney disease. 6. Amputee, peripheral artery disease with foot ulcers. 7. DVT RLE; extensive PLAN: 1. Diuresis. Seen by cardiology. 2. Maximization of anti-failure and antianginal regimen. 3. Hold metformin in view of elevated creatinine. 4. Titrate insulin. 5. Defibrillator device interrogation. 6. Arterial duplex. 7. Skin care and decubitus prevention 8. Anti-coagulate with heparin... transition to Coumadin 9. DC planning to SNF Subjective Interval Events: None new; INR 1.3 Constitutional: Reports: no symptoms HEENT: Repors: no symptoms Respiratory: Reports: no symptoms Cardiovascular: Reports: no symptoms Gastrointestinal/Abdominal: Reports: no symptoms Genitourinary: Reports: no symptoms Allergies: Coded Allergies: PENICILLINS (Verified Allergy, Intermediate, Hives, 03/29/13) Objective Last 24 Hour Vital Signs Date Time Temp Pulse Resp B/P (MAP) Pulse Ox O2 Delivery O2 Flow Rate FiO2 03/30/18 09:00 Room Air 03/30/18 08:54 97/47 03/30/18 08:54 75 97/47 03/30/18 08:45 75 03/30/18 08:00 69 03/30/18 08:00 98.1 67 20 97/56 (70) 100 03/30/18 04:00 72 03/30/18 04:00 97.5 76 20 101/54 (70) 94 03/30/18 00:00 72 03/30/18 00:00 97.7 80 18 116/57 (76) 98 03/29/18 21:00 71 95/53 03/29/18 21:00 Room Air 03/29/18 20:00 97.7 71 20 95/53 (67) 94 03/29/18 20:00 73 03/29/18 16:00 98.1 77 16 110/52 (71) 100 03/29/18 16:00 78 03/29/18 12:00 97.3 82 16 114/58 (76) 98 03/29/18 12:00 86 Intake and Output 03/29/18 03/30/18 19:00 07:00 Intake Total 360 ml Output Total 300 ml Balance 60 ml Intake Oral 360 ml Output Urine Total 300 ml # Voids 2 3 # Bowel Movements 1 General Appearance: no acute distress HEENT: normocephalic Respiratory/Chest: chest wall non-tender, lungs clear Cardiovascular: normal peripheral pulses, normal rate Abdomen: normal bowel sounds Laboratory Tests 03/29/18 16:15: Prothrombin Time 13.6H, Prothromb Time International Ratio 1.3H 03/30/18 04:00: Prothrombin Time 13.4H, Prothromb Time International Ratio 1.3H, White Blood Count 10.3, Red Blood Count 4.56L, Hemoglobin 11.5L, Hematocrit 36.4L, Mean Corpuscular Volume 80, Mean Corpuscular Hemoglobin 25.3L, Mean Corpuscular Hemoglobin Concent 31.7L, Red Cell Distribution Width 20.0H, Platelet Count 207 , Mean Platelet Volume 6.7, Neutrophils (%) (Auto) 59.2, Lymphocytes (%) (Auto) 16.6L, Monocytes (%) (Auto) 9.2, Eosinophils (%) (Auto) 14.6H, Basophils (%) ( Auto) 0.4, Activated Partial Thromboplast Time 70H, Sodium Level 137, Potassium Level 4.3, Chloride Level 101, Carbon Dioxide Level 27, Anion Gap 9, Blood Urea Nitrogen 28H, Creatinine 1.7H, Estimat Glomerular Filtration Rate 48.8, Glucose Level 172H, Calcium Level 9.1, Magnesium Level 2.2, Total Bilirubin 0.6, Aspartate Amino Transf (AST/SGOT) 23, Alanine Aminotransferase (ALT/SGPT) 26, Alkaline Phosphatase 62, Pro-B-Type Natriuretic Peptide 6941H, Total Protein 7.5 , Albumin 3.0L, Globulin 4.5, Albumin/Globulin Ratio 0.7L Current Medications Medications (Trade) Dose Ordered Sig/Sudha Route PRN Reason Start Time Stop Time Status Last Admin Dose Admin Aspirin (Ecotrin) 81 mg DAILY ORAL 03/27/18 09:00 04/26/18 08:59 03/30/18 08:45 Atorvastatin Calcium (Lipitor) 20 mg BEDTIME ORAL 03/27/18 21:00 04/26/18 20:59 03/29/18 21:32 Carvedilol (Coreg) 12.5 mg EVERY 12 HOURS ORAL 03/28/18 21:00 04/27/18 20:59 03/29/18 08:46 Dextrose (Dextrose 50%) 25 ml Q30M PRN IV Hypoglycemia 03/26/18 23:30 04/25/18 23:29 Dextrose (Dextrose 50%) 50 ml Q30M PRN IV Hypoglycemia 03/26/18 23:30 04/25/18 23:29 Digoxin (Lanoxin) 0.125 mg DAILY ORAL 03/27/18 09:00 04/26/18 08:59 03/30/18 08:45 Finasteride (Proscar) 5 mg DAILY ORAL 03/27/18 09:00 04/26/18 08:59 03/30/18 08:45 Folic Acid (Folate) 1 mg DAILY ORAL 03/27/18 09:00 04/26/18 08:59 03/30/18 08:44 Furosemide (Lasix) 40 mg DAILY IV 03/27/18 09:00 04/26/18 08:59 03/29/18 08:39 Gabapentin (Neurontin) 300 mg THREE TIMES A DAY ORAL 03/27/18 09:00 04/26/18 08:59 03/30/18 08:44 Heparin Sodium/ Dextrose 500 ml @ 18.352 mls/ hr ADJUST PER PROTOCOL IV 03/28/18 07:15 04/27/18 07:14 03/30/18 09:41 Insulin Aspart (NovoLOG) BEFORE MEALS AND HS SUBQ 03/27/18 06:30 04/26/18 06:29 03/30/18 06:29 Insulin Detemir (Levemir) 7 units BEDTIME SUBQ 03/27/18 21:00 04/26/18 20:59 03/29/18 21:34 Lisinopril (Prinivil) 20 mg DAILY ORAL 03/29/18 09:00 04/28/18 08:59 03/29/18 08:38 Pyridoxine HCl (Vitamin B6) 50 mg DAILY ORAL 03/27/18 09:00 04/26/18 08:59 03/30/18 08:45 Spironolactone (Aldactone) 25 mg DAILY ORAL 03/27/18 09:00 04/26/18 08:59 03/30/18 08:44 Tamsulosin HCl (Flomax) 0.4 mg BEDTIME ORAL 03/27/18 21:00 04/26/18 20:59 03/29/18 21:32 Warfarin Sodium (Coumadin per pharmacy) 1 ea DAILY PRN MISC Per rx protocol 03/28/18 10:15 04/27/18 10:14 González Friedman MD Mar 30, 2018 10:19
[2018-03-30 12:00] VITALS: BP 121/64
--- NOTE | 2018-03-30 14:14 | NUR ---
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 98.2 HR 82 RR 18 B/P 97/47 RA 98% BUN 28 CR 1.7 BNP 6941 PT 13.4 INR 1.3 PPT 70 IS: HEPARIN GTT COUMADIN PO LASIX IV ASA PO DIGOXIN PO TELE STATUS
[2018-03-30 16:00] VITALS: BP 109/55
[2018-03-30] MEDS ORDERED: Warfarin Sodium 3mg ORAL ONE (17:00)
[2018-03-30] MEDS ORDERED: Warfarin Sodium 7.5mg ORAL ONE (17:00)
--- NOTE | 2018-03-30 19:21 | NUR ---
HAND-OFF: Report given to FLOWER Chaparro.
--- NOTE | 2018-03-30 19:22 | NUR ---
NURSE NOTES: Received report from Rhiannon White RN. Patient in bed AAO X4 with HOB elevated at semi fowlers with no complaints of acute pain at this time. Kept clean, dry and comfortable in bed and is currently on R/A tolerating well and SP02 at 95-96% with no S/S of respiratory distress. IV line intact and patent SL, also placed on continuous cardiac monitoring per protocol. Safety precaution in place; siderails x3 up, call light within reach, bed in lowest position, brakes and alarm on at all times. Needs and wants anticipated and attended. Will continue plan of care and monitor for any changes noted Heparin drip running at prescribed rate with no A/R noted, tolerating well. Will continue to monitor
[2018-03-30 20:00] VITALS: BP 118/64
[2018-03-30] MEDS: Atorvastatin 20mg tab ORAL SCH (21:18)
[2018-03-30] MEDS: Tamsulosin 0.4mg cap ORAL SCH (21:19)
[2018-03-30] MEDS: Levemir Flexpen SUBQ SCH (22:04)
[2018-03-31] VITALS: BP 106/63
--- NOTE | 2018-03-31 02:00 | Progress Note ---
DATE: 03/30/2018 CARDIOLOGY PROGRESS NOTE SUBJECTIVE: Blood pressure remains in low range. The patient has no dizziness. OBJECTIVE: VITAL SIGNS: Blood pressure 97/56, pulse 67, and respiratory rate 20. LUNGS: Clear. CARDIAC: Regular. Normal S1 and S2. A 1/6 systolic murmur at apex. ABDOMEN: Soft. EXTREMITIES: No edema. Amputation stump clean and dry. Some ischemic ulcers on contralateral fluid. LABORATORY DATA: White count 10.3 and hemoglobin 11.5. Potassium 4.3, BUN 28, creatinine 1.7, and albumin 3. Pro-natriuretic peptide decreased to 6900 from 13,000 on admission. IMPRESSION: Extensive DVT of lower extremities. PLAN: 1. Overall improved, expect low range blood pressure due to severe cardiomyopathy and systolic dysfunction. 2. Titrate anti-failure regimen. 3. Full anticoagulation. 4. Avoid metformin with chronic kidney disease. 5. Mobilize as able. Rajinder Hampton M.D. DR: YANN JOB#: [id number] CC:
--- NOTE | 2018-03-31 03:10 | NUR ---
NURSE NOTES: Patient in bed asleep with no S/S of distress noted. Will continue to monitor
[2018-03-31 04:00] VITALS: BP 106/53
[2018-03-31 04:57] LABS: ANION GAP 10 mmol/L (5-15); BLOOD UREA NITROGEN 24 mg/dL (7-18); CARBON DIOXIDE 26 MMOL/L (21-32); CHLORIDE 102 MMOL/L (98-107); CREATININE 1.5 MG/DL (0.55-1.30); POTASSIUM 4.2 MMOL/L (3.5-5.1); SODIUM 138 MMOL/L (136-145)
[2018-03-31 04:59] LABS: INR 1.6 (0.9-1.1)
[2018-03-31] MEDS: NovoLOG Insulin Flexpen SUBQ SCH ×4 (06:34→20:35)
--- NOTE | 2018-03-31 07:22 | NUR ---
HAND-OFF: Report given to Katie Schilling Patient in stable condition, endorsed plan of care.
--- NOTE | 2018-03-31 07:37 | NUR ---
NURSE NOTES: Patient in semi-Thomas's position, awake and alert to name, eating breakfast, bed in lowest position, call light within reach, IV patent in right forearm running Heparin Drip, on room air, in no apparent distress.
[2018-03-31 08:00] VITALS: BP 107/60
[2018-03-31] MEDS: Pyridoxine 50mg tab ORAL SCH (08:59)
[2018-03-31] MEDS: Aspirin EC 81mg tab ORAL SCH (08:59)
[2018-03-31] MEDS: Spironolactone 25mg tab ORAL SCH (08:59)
[2018-03-31] MEDS: Carvedilol 12.5mg tab ORAL SCH ×3 (09:00→20:33)
[2018-03-31] MEDS: Lisinopril 20mg tab ORAL SCH ×2 (09:00→13:30)
[2018-03-31] MEDS: Digoxin 0.125mg tab ORAL SCH (09:00)
--- NOTE | 2018-03-31 09:03 | Nephrology Progress Note ---
Assessment/Plan Assessment/Plan A/P 1) CKD 3B- Cr down to 1.5 - monitor Cr Lisinopril +- aldactone 2) SOB- CHF on lasix, KAMILA-I and aldactone. - Stable 3) Hypokalemia- replace prn 4) DVT RLE- heaprin gtt. On Coumadin, INR 1.6 5) HTN- stable Subjective Date patient seen: Mar 31, 2018 Time patient seen: 09:01 ROS Limited/Unobtainable: No Allergies: Coded Allergies: PENICILLINS (Verified Allergy, Intermediate, Hives, 03/29/13) Subjective Patient doing well no complaints Objective Last 24 Hour Vital Signs Date Time Temp Pulse Resp B/P (MAP) Pulse Ox O2 Delivery O2 Flow Rate FiO2 03/31/18 09:00 107/60 03/31/18 09:00 75 107/60 03/31/18 09:00 75 03/31/18 08:00 97.5 75 19 107/60 (76) 99 03/31/18 04:00 75 03/31/18 04:00 97.7 76 19 106/53 (70) 98 03/31/18 00:00 97.7 82 18 106/63 (77) 99 03/30/18 21:18 86 118/64 03/30/18 21:00 Room Air 03/30/18 20:00 84 03/30/18 20:00 97.7 87 18 118/64 (82) 98 03/30/18 16:00 97.2 82 20 109/55 (73) 98 03/30/18 16:00 96 03/30/18 12:00 87 03/30/18 12:00 98.2 82 18 121/64 (83) 98 Intake and Output 03/30/18 03/31/18 19:00 07:00 Intake Total 280 ml 120 ml Output Total 901 ml 800 ml Balance -621 ml -680 ml Intake Oral 280 ml 120 ml Output Urine Total 900 ml 800 ml Stool Total 1 ml Laboratory Tests 03/31/18 04:09: Prothrombin Time 16.1H, Prothromb Time International Ratio 1.6H, Activated Partial Thromboplast Time 73H, Sodium Level 138, Potassium Level 4.2, Chloride Level 102, Carbon Dioxide Level 26, Anion Gap 10, Blood Urea Nitrogen 24H, Creatinine 1.5H, Estimat Glomerular Filtration Rate 56.4, Glucose Level 166H, Calcium Level 9.0 Height (Feet): 5 Height (Inches): 2.00 Weight (Pounds): 121 General Appearance: no apparent distress, alert EENT: normal ENT inspection Neck: normal alignment, supple Cardiovascular: normal rate, regular rhythm Respiratory/Chest: lungs clear, normal breath sounds Abdomen: non tender, soft Edema: no edema noted Arm (L), no edema noted Arm (R), no edema noted Leg (L), no edema noted Leg (R), no edema noted Pedal (L), no edema noted Pedal (R), no edema noted Generalized Vijay Do MD Mar 31, 2018 09:03
[2018-03-31 12:00] VITALS: BP 130/67
--- NOTE | 2018-03-31 13:36 | Pulmonology Progress Note ---
Assessment/Plan Assessment/Plan IMPRESSION: 1. Acute on chronic systolic congestive heart failure. 2. Ischemic cardiomyopathy. 3. Cardiac defibrillator. 4. Type 2 diabetes mellitus. 5. Chronic kidney disease. 6. Amputee, peripheral artery disease with foot ulcers. 7. DVT RLE; extensive PLAN: 1. Diuresis. Seen by cardiology. 2. Maximization of anti-failure and antianginal regimen. 3. Hold metformin in view of elevated creatinine. 4. Titrate insulin. 5. Defibrillator device interrogation. 6. Arterial duplex. 7. Skin care and decubitus prevention 8. Anti-coagulate with heparin... transition to Coumadin 9. DC planning to SNF; INR now 1.6 Subjective Interval Events: No new events Constitutional: Reports: no symptoms HEENT: Repors: no symptoms Respiratory: Reports: no symptoms Cardiovascular: Reports: no symptoms Gastrointestinal/Abdominal: Reports: no symptoms Genitourinary: Reports: no symptoms Allergies: Coded Allergies: PENICILLINS (Verified Allergy, Intermediate, Hives, 03/29/13) Objective Last 24 Hour Vital Signs Date Time Temp Pulse Resp B/P (MAP) Pulse Ox O2 Delivery O2 Flow Rate FiO2 03/31/18 13:31 91 130/67 03/31/18 13:30 130/67 03/31/18 12:00 97.9 100 18 130/67 (88) 100 03/31/18 12:00 91 03/31/18 09:00 107/60 03/31/18 09:00 75 107/60 03/31/18 09:00 75 03/31/18 09:00 Room Air 03/31/18 08:00 84 03/31/18 08:00 97.5 75 19 107/60 (76) 99 03/31/18 04:00 75 03/31/18 04:00 97.7 76 19 106/53 (70) 98 03/31/18 00:00 97.7 82 18 106/63 (77) 99 03/30/18 21:18 86 118/64 03/30/18 21:00 Room Air 03/30/18 20:00 84 03/30/18 20:00 97.7 87 18 118/64 (82) 98 03/30/18 16:00 97.2 82 20 109/55 (73) 98 03/30/18 16:00 96 Intake and Output 03/30/18 03/31/18 18:59 06:59 Intake Total 400 ml Output Total 1701 ml Balance -1301 ml Intake Oral 400 ml Output Urine Total 1700 ml Stool Total 1 ml General Appearance: no acute distress HEENT: normocephalic Respiratory/Chest: chest wall non-tender, lungs clear Cardiovascular: normal peripheral pulses, normal rate Abdomen: normal bowel sounds Laboratory Tests 03/31/18 04:09: Prothrombin Time 16.1H, Prothromb Time International Ratio 1.6H, Activated Partial Thromboplast Time 73H, Sodium Level 138, Potassium Level 4.2, Chloride Level 102, Carbon Dioxide Level 26, Anion Gap 10, Blood Urea Nitrogen 24H, Creatinine 1.5H, Estimat Glomerular Filtration Rate 56.4, Glucose Level 166H, Calcium Level 9.0 Current Medications Medications (Trade) Dose Ordered Sig/Sudha Route PRN Reason Start Time Stop Time Status Last Admin Dose Admin Aspirin (Ecotrin) 81 mg DAILY ORAL 03/27/18 09:00 04/26/18 08:59 03/31/18 08:59 Atorvastatin Calcium (Lipitor) 20 mg BEDTIME ORAL 03/27/18 21:00 04/26/18 20:59 03/30/18 21:18 Carvedilol (Coreg) 12.5 mg EVERY 12 HOURS ORAL 03/28/18 21:00 04/27/18 20:59 03/31/18 13:31 Dextrose (Dextrose 50%) 25 ml Q30M PRN IV Hypoglycemia 03/26/18 23:30 04/25/18 23:29 Dextrose (Dextrose 50%) 50 ml Q30M PRN IV Hypoglycemia 03/26/18 23:30 04/25/18 23:29 Digoxin (Lanoxin) 0.125 mg DAILY ORAL 03/27/18 09:00 04/26/18 08:59 03/31/18 09:00 Finasteride (Proscar) 5 mg DAILY ORAL 03/27/18 09:00 04/26/18 08:59 03/31/18 09:00 Folic Acid (Folate) 1 mg DAILY ORAL 03/27/18 09:00 04/26/18 08:59 03/31/18 08:59 Furosemide (Lasix) 40 mg DAILY IV 03/27/18 09:00 04/26/18 08:59 03/31/18 08:58 Gabapentin (Neurontin) 300 mg THREE TIMES A DAY ORAL 03/27/18 09:00 04/26/18 08:59 03/31/18 12:00 Heparin Sodium/ Dextrose 500 ml @ 18.352 mls/ hr ADJUST PER PROTOCOL IV 03/28/18 07:15 04/27/18 07:14 03/30/18 09:41 Insulin Aspart (NovoLOG) BEFORE MEALS AND HS SUBQ 03/27/18 06:30 04/26/18 06:29 03/31/18 12:00 Insulin Detemir (Levemir) 7 units BEDTIME SUBQ 03/27/18 21:00 04/26/18 20:59 03/30/18 22:04 Lisinopril (Prinivil) 20 mg DAILY ORAL 03/29/18 09:00 04/28/18 08:59 03/31/18 13:30 Pyridoxine HCl (Vitamin B6) 50 mg DAILY ORAL 03/27/18 09:00 04/26/18 08:59 03/31/18 08:59 Spironolactone (Aldactone) 25 mg DAILY ORAL 03/27/18 09:00 04/26/18 08:59 03/31/18 08:59 Tamsulosin HCl (Flomax) 0.4 mg BEDTIME ORAL 03/27/18 21:00 04/26/18 20:59 03/30/18 21:19 Warfarin Sodium (Coumadin per pharmacy) 1 ea DAILY PRN MISC Per rx protocol 03/28/18 10:15 04/27/18 10:14 González Friedman MD Mar 31, 2018 13:36
[2018-03-31 16:00] VITALS: BP 123/69
[2018-03-31] MEDS: Heparin 25,000u/D5W 500ml 500 ML IV SCH (16:42)
[2018-03-31] MEDS ORDERED: Warfarin Sodium 7.5mg ORAL SCH (17:00)
[2018-03-31 20:00] VITALS: BP 99/62
--- NOTE | 2018-03-31 20:16 | NUR ---
HAND-OFF: Report given to Yusef Montoya RN. Patient in supine position, awake and alert to name, bed in lowest position, call light within reach, urinal at bedside, on room air, no SOB, no c/o pain, in no apparent distress. Heparin drip running into patent right forearm 20 gauge.
--- NOTE | 2018-03-31 20:20 | NUR ---
NURSE NOTES: Received report from [facility] tele rn unit. Pt was resting in the bed w.o any acute distress. Denies any pain. Heparin drip is on. Bed is on the lowest position, call light is within reach and bed alarm is on. Will continue to follow the plan of care.
[2018-03-31] MEDS: Tamsulosin 0.4mg cap ORAL SCH (20:31)
[2018-03-31] MEDS: Atorvastatin 20mg tab ORAL SCH (20:31)
[2018-03-31] MEDS: Levemir Flexpen SUBQ SCH (20:36)
--- NOTE | 2018-03-31 23:30 | Progress Note ---
DATE: 03/31/2018 CARDIOLOGY PROGRESS NOTE SUBJECTIVE: The patient has no new complaints. He continues on anti-failure therapy. OBJECTIVE: VITAL SIGNS: Blood pressure 130/67, heart rate 91, respiratory rate 18, and afebrile. NECK: Supple. LUNGS: Clear. CARDIAC: Regular rhythm and rate. Normal S1 and S2. A 1/6 systolic murmur at apex. ABDOMEN: Soft. EXTREMITIES: There are foot ulcers and amputation on the left. There is a DVT on the right. LABORATORY DATA: Potassium 4.2, BUN 24, and creatinine 1.5. IMPRESSION: 1. Acute on chronic systolic and diastolic congestive heart failure. 2. Peripheral artery disease. 3. Extensive DVT. PLAN: 1. Full anticoagulation to INR goal of 2 to 3. 2. Outpatient defibrillator interrogation. 3. Transition from IV to oral diuretic. 4. Advancing anti-failure medication further, see orders. Rajinder Hampton M.D. DR: MAURA JOB#: [id number] CC:
[2018-04-01] VITALS: BP 100/52
[2018-04-01 04:00] VITALS: BP 90/45
--- NOTE | 2018-04-01 05:00 | NUR ---
NURSE NOTES: Per pharmacy the ptt is within range. NO need to change the rate. PPT has already been ordered for 04/02/2018 0400am.
[2018-04-01 05:07] LABS: INR 2.7 (0.9-1.1)
[2018-04-01] MEDS: NovoLOG Insulin Flexpen SUBQ SCH ×2 (06:14→12:23)
[2018-04-01] MEDS: Heparin 25,000u/D5W 500ml 500 ML IV SCH (07:19)
--- NOTE | 2018-04-01 07:19 | NUR ---
HAND-OFF: Report given to Kieran CRENSHAW.
--- NOTE | 2018-04-01 07:25 | NUR ---
NURSE NOTES: Patient in semi-Thomas's position, awake and alert, bed in lowest position, call light within reach, no SOB, no c/o pain, in no apparent distress, IV in right forearm running Heparin Drip, urinal at bedside.
[2018-04-01 08:00] VITALS: BP_SYST 115; BP_SYST 94; BP_DIAS 52; BP_DIAS 68
--- NOTE | 2018-04-01 08:46 | Nephrology Progress Note ---
Assessment/Plan Assessment/Plan A/P 1) CKD 3B- Cr 1.5 - monitor Cr Lisinopril +- aldactone - OK for DC from renal point 2) SOB- CHF on lasix, KAMILA-I and aldactone. - Stable 3) Hypokalemia- replace prn. Labs ordered for tomorow 4) DVT RLE- heaprin gtt. On Coumadin, INR 2.7 5) HTN- stable Subjective Date patient seen: Apr 01, 2018 Time patient seen: 08:45 ROS Limited/Unobtainable: No Allergies: Coded Allergies: PENICILLINS (Verified Allergy, Intermediate, Hives, 03/29/13) All Systems: reviewed and negative except above Subjective Patient doing well no complaints. Breathing well Objective Last 24 Hour Vital Signs Date Time Temp Pulse Resp B/P (MAP) Pulse Ox O2 Delivery O2 Flow Rate FiO2 04/01/18 08:00 98.9 98 18 115/68 (84) 97 04/01/18 04:00 98.1 61 18 90/45 (60) 95 04/01/18 04:00 60 04/01/18 00:00 68 04/01/18 00:00 97.0 71 20 100/52 (68) 96 03/31/18 21:00 Room Air 03/31/18 20:33 78 101/62 03/31/18 20:00 98.9 78 20 99/62 (74) 97 03/31/18 20:00 81 03/31/18 16:00 97.7 80 20 123/69 (87) 97 03/31/18 16:00 82 03/31/18 13:31 91 130/67 03/31/18 13:30 130/67 03/31/18 12:00 97.9 100 18 130/67 (88) 100 03/31/18 12:00 91 03/31/18 09:00 107/60 03/31/18 09:00 75 107/60 03/31/18 09:00 75 03/31/18 09:00 Room Air Intake and Output 03/31/18 04/01/18 18:59 06:59 Intake Total 580.224 ml 220.224 ml Output Total 650 ml Balance -69.776 ml 220.224 ml Intake Oral 360 ml IV Total 220.224 ml 220.224 ml Output Urine Total 650 ml # Voids 2 # Bowel Movements 1 Laboratory Tests 04/01/18 04:11: Prothrombin Time 26.7H, Prothromb Time International Ratio 2.7H, Activated Partial Thromboplast Time 73H Height (Feet): 5 Height (Inches): 2.00 Weight (Pounds): 121 General Appearance: no apparent distress EENT: normal ENT inspection Neck: normal alignment, supple Cardiovascular: regular rhythm, regularly irregular Respiratory/Chest: lungs clear, normal breath sounds Abdomen: non tender, soft Extremities: non-tender Vijay Do MD Apr 01, 2018 08:46
[2018-04-01] MEDS: Pyridoxine 50mg tab ORAL SCH (08:58)
[2018-04-01] MEDS: Aspirin EC 81mg tab ORAL SCH (08:58)
[2018-04-01] MEDS: Spironolactone 25mg tab ORAL SCH (08:58)
[2018-04-01] MEDS: Digoxin 0.125mg tab ORAL SCH (08:59)
[2018-04-01] MEDS: Lisinopril 20mg tab ORAL SCH (08:59)
[2018-04-01] MEDS ORDERED: Carvedilol 12.5mg tab ORAL SCH (09:00)
[2018-04-01] MEDS ORDERED: Furosemide 40mg tab ORAL SCH (09:00)
--- NOTE | 2018-04-01 09:31 | NUR ---
CASE MANAGEMENT: REVIEW 04/01/2018 SI:ACS. T 98 HR 64 RR 18 B/P 94/52 SATS 96% ON RA NO LABS TODAY IS: COREG PO Q12H FLOMAX PO QHS LIPITOR PO QHS LEVEMIR SUBQ QHS ALDACTONE PO QD ASA PO QD PROSCAR PO QD DIGOXIN PO QD LISINOPRIL PO QD COUMADIN PO QD HEPARIN IV @ 18.3 mL/HR TELE STATUS DCP:PATIENT TO BE DISCHARGED TO HOME ONCE MEDICALLY CLEARED.
[2018-04-01] MEDS ORDERED: COUMADIN1 MG ORAL (10:55)
[2018-04-01] MEDS ORDERED: SPIRONOLACTONE25 MG ORAL (10:55)
[2018-04-01] MEDS ORDERED: LEVEMIR FL100 UNIT/1 SUBQ (10:55)
[2018-04-01] MEDS ORDERED: COREG12.5 MG ORAL (10:55)
--- NOTE | 2018-04-01 10:57 | Pulmonology Progress Note ---
Assessment/Plan Assessment/Plan IMPRESSION: 1. Acute on chronic systolic congestive heart failure. 2. Ischemic cardiomyopathy. 3. Cardiac defibrillator. 4. Type 2 diabetes mellitus. 5. Chronic kidney disease. 6. Amputee, peripheral artery disease with foot ulcers. 7. DVT RLE; extensive PLAN: 1. Diuresis. Seen by cardiology. 2. Maximization of anti-failure and antianginal regimen. 3. Hold metformin in view of elevated creatinine. Now on insulin sq 4. Titrate insulin. 5. Defibrillator device interrogation. 6. Arterial duplex. 7. Skin care and decubitus prevention 8. Anti-coagulate with heparin... transition to Coumadin 9. DC planning to SNF; INR now 2.7 Subjective Interval Events: INR 2.7 Constitutional: Reports: no symptoms HEENT: Repors: no symptoms Respiratory: Reports: no symptoms Cardiovascular: Reports: no symptoms Gastrointestinal/Abdominal: Reports: no symptoms Genitourinary: Reports: no symptoms Allergies: Coded Allergies: PENICILLINS (Verified Allergy, Intermediate, Hives, 03/29/13) Objective Last 24 Hour Vital Signs Date Time Temp Pulse Resp B/P (MAP) Pulse Ox O2 Delivery O2 Flow Rate FiO2 04/01/18 09:00 Room Air 04/01/18 08:59 64 94/52 04/01/18 08:59 94/52 04/01/18 08:59 64 04/01/18 08:00 98.0 64 18 94/52 (66) 96 04/01/18 08:00 71 04/01/18 04:00 98.1 61 18 90/45 (60) 95 04/01/18 04:00 60 04/01/18 00:00 68 04/01/18 00:00 97.0 71 20 100/52 (68) 96 03/31/18 21:00 Room Air 03/31/18 20:33 78 101/62 03/31/18 20:00 98.9 78 20 99/62 (74) 97 03/31/18 20:00 81 03/31/18 16:00 97.7 80 20 123/69 (87) 97 03/31/18 16:00 82 03/31/18 13:31 91 130/67 03/31/18 13:30 130/67 03/31/18 12:00 97.9 100 18 130/67 (88) 100 03/31/18 12:00 91 Intake and Output 03/31/18 04/01/18 19:00 07:00 Intake Total 580.224 ml 220.224 ml Output Total 650 ml Balance -69.776 ml 220.224 ml Intake Oral 360 ml IV Total 220.224 ml 220.224 ml Output Urine Total 650 ml # Voids 2 # Bowel Movements 1 General Appearance: no acute distress HEENT: normocephalic Respiratory/Chest: chest wall non-tender, lungs clear Cardiovascular: normal peripheral pulses, normal rate Abdomen: normal bowel sounds Laboratory Tests 04/01/18 04:11: Prothrombin Time 26.7H, Prothromb Time International Ratio 2.7H, Activated Partial Thromboplast Time 73H Current Medications Medications (Trade) Dose Ordered Sig/Sudha Route PRN Reason Start Time Stop Time Status Last Admin Dose Admin Aspirin (Ecotrin) 81 mg DAILY ORAL 03/27/18 09:00 04/26/18 08:59 04/01/18 08:58 Atorvastatin Calcium (Lipitor) 20 mg BEDTIME ORAL 03/27/18 21:00 04/26/18 20:59 03/31/18 20:31 Carvedilol (Coreg) 25 mg EVERY 12 HOURS ORAL 04/01/18 09:00 05/01/18 08:59 Dextrose (Dextrose 50%) 25 ml Q30M PRN IV Hypoglycemia 03/26/18 23:30 04/25/18 23:29 Dextrose (Dextrose 50%) 50 ml Q30M PRN IV Hypoglycemia 03/26/18 23:30 04/25/18 23:29 Digoxin (Lanoxin) 0.125 mg DAILY ORAL 03/27/18 09:00 04/26/18 08:59 04/01/18 08:59 Finasteride (Proscar) 5 mg DAILY ORAL 03/27/18 09:00 04/26/18 08:59 04/01/18 08:58 Folic Acid (Folate) 1 mg DAILY ORAL 03/27/18 09:00 04/26/18 08:59 04/01/18 08:57 Furosemide (Lasix) 40 mg DAILY ORAL 04/01/18 09:00 05/01/18 08:59 04/01/18 08:58 Gabapentin (Neurontin) 300 mg THREE TIMES A DAY ORAL 03/27/18 09:00 04/26/18 08:59 04/01/18 08:58 Heparin Sodium/ Dextrose 500 ml @ 18.352 mls/ hr ADJUST PER PROTOCOL IV 03/28/18 07:15 04/27/18 07:14 04/01/18 07:19 Insulin Aspart (NovoLOG) BEFORE MEALS AND HS SUBQ 03/27/18 06:30 04/26/18 06:29 04/01/18 06:14 Insulin Detemir (Levemir) 7 units BEDTIME SUBQ 03/27/18 21:00 04/26/18 20:59 03/31/18 20:36 Lisinopril (Prinivil) 20 mg DAILY ORAL 03/29/18 09:00 04/28/18 08:59 03/31/18 13:30 Pyridoxine HCl (Vitamin B6) 50 mg DAILY ORAL 03/27/18 09:00 04/26/18 08:59 04/01/18 08:58 Spironolactone (Aldactone) 25 mg DAILY ORAL 03/27/18 09:00 04/26/18 08:59 04/01/18 08:58 Tamsulosin HCl (Flomax) 0.4 mg BEDTIME ORAL 03/27/18 21:00 04/26/18 20:59 03/31/18 20:31 Warfarin Sodium (Coumadin per pharmacy) 1 ea DAILY PRN MISC Per rx protocol 03/28/18 10:15 04/27/18 10:14 Warfarin Sodium (Coumadin) 2 mg COUMADIN ORAL 04/01/18 17:00 04/01/18 18:00 González Friedman MD Apr 01, 2018 10:57
[2018-04-01 12:00] VITALS: BP 100/53
--- NOTE | 2018-04-01 12:12 | NUR ---
DISCHARGE DISPOSITION: PLEASE READ PATIENT TO BE DISCHARGED TO [facility] [address] [facility] [address] T: >> CALL RN PATRICIA VICENTE FOR REPORT [facility] ETA 1430 SKILLED SHAYNA FROM [facility] CONFIRMED THAT AUTH HAS BEEN PROVIDED TO [facility] [phone] FOR ADDITIONAL INFO. TRANSFER REPORT TO BE PROVIDED.
--- NOTE | 2018-04-01 13:46 | NUR ---
NURSE NOTES: Report given to Bharti at [facility].
--- NOTE | 2018-04-01 15:12 | NUR ---
NURSE NOTES: Patient discharged in stable condition, belongings sent with patient/ambulance, personal. , Helena Callahan, contacted and informed that patient is going to [facility].
--- NOTE | 2018-04-01 16:23 | Cardiology Report ---
APPROVED REPORT EKG Measurement Heart [id number] [place] [id number] Sinus rhythm Ventricular pacing Abnormal ECG
[2018-04-01] MEDS ORDERED: Warfarin Sodium 1mg ORAL SCH (17:00)
--- NOTE | 2018-04-02 05:00 | Progress Note ---
DATE: 04/01/2018 CARDIOLOGY PROGRESS NOTE SUBJECTIVE: No chest pain. No shortness of breath. Blood pressure at low normal range, which has been his baseline. No dizziness noted. PHYSICAL EXAMINATION: VITAL SIGNS: Blood pressure 94/52, pulse 64, and respiratory rate 18. LUNGS: Clear. CARDIAC: Regular. Normal S1 and S2. A 1/6 systolic apical murmur. ABDOMEN: Soft. EXTREMITIES: No edema. LABORATORY DATA: INR 2.7. IMPRESSION: 1. Ischemic and hypertensive cardiomyopathy. 2. Extensive lower extremity deep venous thrombosis. 3. Cardiac defibrillator. 4. Peripheral artery disease with amputation on the left. 5. Acute on chronic systolic congestive heart failure, now compensated. PLAN: 1. Maintenance diuretic dose. 2. Full anticoagulation. 3. Maintain current anti-failure regimen, decrease dosing if any symptomatic hypotension only. The patient is expected to have low blood pressure with his poor cardiac output. Rajinder Hampton M.D. DR: WESTON JOB#: [id number] CC:
--- NOTE | 2018-04-02 11:27 | NUR ---
CASE MANAGEMENT: CM review and clinical information (face sheet/ ER MD Note/ H&P) faxed to DONTE ENCINAS @ [phone]
--- NOTE | 2018-04-03 13:04 | Cardiology Report ---
APPROVED REPORT EXAM: Two-dimensional and M-mode echocardiogram with Doppler and color Doppler. INDICATION Congestive Heart Failure M-Mode DIMENSIONS IVSd0.9 (0.7-1.1cm)Left Atrium (MM)3.8 (1.6-4.0cm) LVDd4.5 (3.5-5.6cm)Aortic Root2.5 (2.0-3.7cm) PWd1.1 (0.7-1.1cm)Aortic Cusp Exc.1.4 (1.5-2.0cm) LVDs3.1 (2.5-4.0cm) PWs1.2 cm Normal left ventricular chamber size. Severe global left ventricular hypokinesis. Left ventricular ejection fraction estimated to be 20 %. No evidence of left ventricular hypertrophy. No evidence of pericardial effusion. Left and right atrial sizes at upper limits of normal. Right ventricular size is within normal limits. Aortic valve calcification with decreased cusp excursion c/w mild aortic stenosis. Mildly thickened mitral valve leaflets with minimal excursion. Heavy mitral annulus and aortic root calcification. Normal pulmonic valve structure. Normal tricuspid valve structure. IVC dilated at 2.2 cm without physiological collapse, estimated RAP is 15 mmHg. Pacemaker wire present in the right side chambers. A color flow and spectral Doppler study was performed and revealed: Peak aortic valve gradient of 7 mmHg and a mean of 3 mmHg. Low systolic function may under-estimate pressure gradient. Aortic valve area 1.6 cm2 calculated by continuity equation. Mild to moderate mitral regurgitation. Mitral inflow indicat increased left atrial pressure, suggestive restrictive pattern (Grade III). Mild tricuspid regurgitation. Tricuspid systolic velocities suggests peak right ventricular systolic pressure of 38 mmHg, consistent with mild pulmonary hypertension.
--- NOTE | 2018-04-03 21:52 | Diagnostic Imaging Report ---
APPROVED REPORT CPT Code: 81403 Present Symptoms Lower Extremity Pain: Bilateral Shortness of breath Comments: Hx of post upper left thigh amputation RIGHT LEG: Venous imaging reveals a patent deep venous system. There is no evidence of thrombus within the femoral, popliteal or tibial segments. The greater saphenous vein is also within normal limits. Doppler indicates normal spontaneous flow within these segments. LEFT LEG: Venous imaging reveals a patent deep venous system. There is no evidence of thrombus within the common and proximal superficial femoral veins. Doppler indicates normal spontaneous flow within these segments.
--- NOTE | 2018-04-03 21:54 | Diagnostic Imaging Report ---
APPROVED REPORT CPT Code: 59549 Symptoms Comments: Pain RIGHT LEG: Common femoral artery waveform analysis is within normal limits at rest. The proximal superficial femoral artery is patent. Color flow duplex sonography reveals an occlusion in the proximal superficial femoral artery just after bifurcation to the distal superficial femoral artery. The popliteal, posterior and proximal anterior tibial arteries are occluded. The peroneal artery was not well visualized. Doppler from distal anterior tibial and dorsalis pedis artery waveform analysis is monophasic consistent, with severe to critical ischemia at rest. FLOWER Coburn was notified of abnormal results at 0930 hours.
--- NOTE | 2018-04-04 08:02 | Discharge Summary ---
Discharge Summary Discharge Summary _ DATE OF ADMISSION: 03/26/2018 DATE OF DISCHARGE: 04/01/2018 DISCHARGED BY: Dr. Friedman REASON FOR ADMISSION: 68 years old male with past medical history of COPD, hypertension, cerebrovascular accident, congestive heart failure with systolic dysfunction, type 2 diabetes mellitus with diabetic neuropathy, gastroesophageal reflux, cardiac defibrillator, chronic kidney disease, peripheral arterial disease with a prior left lower extremity amputation, presented to emergency department with complaint of shortness of breath for several days, worse while lying flat and walking. He denied fever and chills. He denied headaches. He denied abdominal pain. Patient was hospitalized in this facility about a year ago and found to have a severe cardiomyopathy. He had subsequently a cardiac defibrillator placed. Patient lives at home with his and reportedly compliant with medication and diet. Upon evaluation in the emergency department vital signs were stable. . No leukocytosis , hemoglobin 11.8, stable electrolytes BUN 19,, creatinine 1.8. Glucose 170. Pro BNP over 30,000. Troponin 0 0.036. EKG revealed AV pacing Chest x-ray revealed interstitial congestive changes. Left sided biventricular AICD. Patient was admitted for CHF exacerbation. CONSULTANTS: orthodontic laboratory technician rustic terrazzo setter dr.De Santiago [facility] COURSE: Patient admitted to telemetry floor. Cardiology and nephrology consult were requested. Serial troponin x2 were negative. EKG and telemetry revealed AV pacing. Patient was ruled out for acute myocardial infarction. Patient started on diuresis with close monitoring of cardiorenal parameters and volumes. Financial Systems Analyst closely followed. Anti-failure and antianginal regimens were optimized. Patient continued on antiplatelet therapy and statin. Lipid panel was stable. TSH within normal limits. Metformin was hold due to elevated creatinine. Echocardiogram revealed ejection fraction of 20% with severe global left ventricular hypokinesis. Right ventricular systolic pressure of 38 consistent with mild pulmonary hypertension. Mild to moderate mitral regurgitation noted. Financial Systems Analyst was unable to reach patient about data regarding defibrillator interrogation. Per orthodontic laboratory technician interrogation could be done on outpatient basis. Pro BNP trended down from initial 56174 to 6941. Patient noted to have symptomatic hypotension. Anti-failure regimen was further optimized to maintain a stable hemodynamic status. Venous duplex bilateral lower extremity revealed no evidence of acute DVT. Arterial Doppler of the right leg revealed occlusion in the proximal superficial femoral artery just after bifurcation to the distal superficial femoral artery. The popliteal posterior and proximal anterior tibial artery were occluded. Patient started on full anticoagulation due to extensive right lower extremity occlusion with heparin with gradually bridge to Coumadin with goal to keep INR in therapeutic range. Supplemental oxygen provided as needed to keep pulse oximetry above 92%. Pulmonary toilet with bronchodilator was on standby as needed. Blood sugar was managed with sliding scale of insulin. Flatbed Owner Operator closely followed. Renal ultrasound revealed no hydronephrosis. Mild urinary bladder wall thickening suggestive of cystitis or chronic bladder outlet obstruction. Renal parameters and electrolytes were closely monitored, electrolytes corrected as needed. Flatbed Owner Operator recommended to minimize nephrotoxins as possible. Creatinine from initial 1.8 down to 1.5. Skin care and decubitus prevention provided. Patient was still hypotensive , but clinically improved. According to orthodontic laboratory technician, patient expected to have low blood pressure with this poor cardiac output. He recommended close monitoring of blood pressure and decrease medications only if any symptomatic hypotension . Diuretic changed to maintenance dose. Current anti-failure regimen was continued. Pulse oximetry was stable on room air. [facility] was stable for transfer. FINAL DIAGNOSES: Acute on chronic systolic congestive heart failure Ischemic cardiomyopathy Cardiac defibrillator Diabetes mellitus type 2 with diabetic neuropathy Chronic kidney disease st 3B Extensive DVT right lower extremity Hypokalemia Peripheral artery disease with left AKA Right foot ulcers Symptomatic hypotension DISCHARGE MEDICATIONS: See Medication Reconciliation list. DISCHARGE INSTRUCTIONS: Patient was discharged to the retirement facility. Follow up with medical doctor at the facility. I have been assigned to dictate discharge summary for this account. I was not involved in the patient's management. Mary Castillo NP Apr 04, 2018 08:02
== END 2018-04-01 15:06 | DRG 194 ==
LOC: EDBD 17:52 → EMR 18:58 → 2E 20:12 → EDBEDREQ 21:37 → 2E 22:45
DX: I13.0 Hypertensive heart and chronic kidney disease with heart failure and stage 1 through stage 4 chronic kidney disease, or unspecified chronic kidney disease (principal); E11.22 Type 2 diabetes mellitus with diabetic chronic kidney disease; E11.40 Type 2 diabetes mellitus with diabetic neuropathy, unspecified; I82.401 Acute embolism and thrombosis of unspecified deep veins of right lower extremity; I95.9 Hypotension, unspecified; I43 Cardiomyopathy in diseases classified elsewhere; N18.4 Chronic kidney disease, stage 4 (severe); I50.23 Acute on chronic systolic (congestive) heart failure; I73.9 Peripheral vascular disease, unspecified; I25.5 Ischemic cardiomyopathy; Z95.810 Presence of automatic (implantable) cardiac defibrillator; E87.6 Hypokalemia; Z89.612 Acquired absence of left leg above knee; L97.509 Non-pressure chronic ulcer of other part of unspecified foot with unspecified severity; Z79.4 Long term (current) use of insulin
CPT/HCPCS: 36415; 71045; 76770; 80048; 80053; 80061; 80162; 82550; 82553; 82962; 83735; 83880; 84443; 84484; 85025; 85610; 85730; 93005; 93306; 93926; 93970; 96374; 99285; J1815; J8499; S5561